=== PATIENT | female | born 1970 | race African-American/Black ===

== ENCOUNTER 2019-12-08 11:41 | Inpatient (IN) ==
[2019-12-08 11:54] VITALS: BMI 40.7
--- NOTE | 2019-12-08 11:59 | DR.EXTPAIN ---
HPI Time seen Time Seen by Provider: 12/08/19 11:59 PCP Primary Care Physician: NILO Complaint/Symptoms Chief Complaint:: PT C/O SEVERE PAIN TO RT LABIA. PT STATES SHE WAS SEEN THIS PAST TUESDAY IN ED AND IT WAS I&D'D. NOTED BROWN DRAINAGE TO 2X2. PT STATES SHE HAS BEEN TAKING PRESCRIBED MEDICATIONS COVID-19 Coronavirus risk:travel/contact w/high risk person: No Has patient experienced Coronavirus symptoms: No Source History Provided: Patient Mode of arrival Mode of Arrival: Ambulatory Timing Onset of Chief Complaint: 12/03/19 PMH PMH Past Medical History: Yes Past Medical History: Anxiety, Diabetes, Dyslipidemia and Hypertension Past Surgical History: Yes Surgical History: Appendectomy Family History History of Family Medical Conditions: Yes Family Medical History: Diabetes Mellitus and Hypertension Social History Does any household member use tobacco: No Alcohol Use: Occasionally Do you use any recreational Drugs:: No Lives With: Family Lives Where: Home Travel Risk Coronavirus risk:travel/contact w/high risk person: No Has patient experienced Coronavirus symptoms: No Infectious screening In the last 2 months have you had wt loss of >10#?: NO Have you had fever, night sweats or hemotysis?: No Have you traveled outside the country in the last 6 months?: No Isolation: Standard PE Vital Signs Vitals: Temperature 98.2 F Pulse Rate 111 Respiratory Rate 18 Blood Pressure [Right Arm] 124/83 Blood Pressure 143/75 O2 Sat by Pulse Oximetry 98 Opioid Opioid Risk Tool Age (Calin box if 16-45): No History of Preadolescent Sexual Abuse: No Total: 0 Total Score Risk Category: Low Risk Copyright: [facility] predicting aberrant behaviors
[2019-12-08] MEDS ORDERED: ZOFRAN INJ 4 MG VIAL IVP ONE (12:00)
[2019-12-08] MEDS ORDERED: DILAUDID INJ IVP ONE (12:00)
[2019-12-08] MEDS ORDERED: ZOFRAN INJ 4 MG VIAL ONE (12:03)
[2019-12-08] MEDS ORDERED: DILAUDID INJ ONE (12:04)
--- NOTE | 2019-12-08 12:17 | ED.ABCESS ---
HPI Time Seen Time Seen by Provider: 12/08/19 11:59 PCP Primary Care Physician: NILO HPI comment HPI Comment: right labial swelling/ pain x 5 days. Purulent discharge from wound, yellow/ foul smelling. Seen in ed 3 days ago, underwent I/d of labial abscess. Rx'd clinda and sent home with po pain meds. Returns for continued discharge/ pain. Denies f/c, other vaginal sx's/ bleeding, abd pain. + nausea and vomiting. Complaint Chief Complaint:: PT C/O SEVERE PAIN TO RT LABIA. PT STATES SHE WAS SEEN THIS PAST TUESDAY IN ED AND IT WAS I&D'D. NOTED BROWN DRAINAGE TO 2X2. PT STATES SHE HAS BEEN TAKING PRESCRIBED MEDICATIONS COVID-19 Coronavirus risk:travel/contact w/high risk person: No Has patient experienced Coronavirus symptoms: No Source History Provided: Patient Mode of Arrival Mode of Arrival: Ambulatory Timing Onset of Chief Complaint: 12/03/19 Quality Quality: Painful, Red and Draining Severity Pain Severity: Moderate Associated Signs and Symptoms Associated Signs and Symptoms: denies Chills and Fever PMH PMH Past Medical History: Yes Past Medical History: Anxiety, Diabetes, Dyslipidemia and Hypertension Past Surgical History: Yes Surgical History: Appendectomy Family History History of Family Medical Conditions: Yes Family Medical History: Diabetes Mellitus and Hypertension Social History Does any household member use tobacco: No Alcohol Use: Occasionally Do you use any recreational Drugs:: No Lives With: Family Lives Where: Home Travel Risk Coronavirus risk:travel/contact w/high risk person: No Has patient experienced Coronavirus symptoms: No Infectious screening In the last 2 months have you had wt loss of >10#?: NO Have you had fever, night sweats or hemotysis?: No Have you traveled outside the country in the last 6 months?: No Isolation: Standard ROS Review of Systems Constitutional: negative Chills and Fever Eyes: No Symptoms Reported ENTM: No Symptoms Reported Respiratoy: No Symptoms Reported Cardiovascular: No Symptoms Reported Gastrointestinal/Abdominal: No Symptoms Reported Genitourinary: negative Discharge, Dysuria, Frequency, Hematuria, Pain and Bleeding Neurological: No Symptoms Reported Musculoskeletal: No Symptoms Reported Integumentary: Wound; negative Rash Hematologic/Lymphatic: No Symptoms Reported Endocrine: No Symptoms Reported Psychiatric: No Symptoms Reported All Other Systems: Reviewed and Negative PE Vital Signs Vital Signs: Temp Pulse Resp BP BP Pulse Ox 12/08/19 13:30 90 17 158/76 100 12/08/19 13:25 93 H 20 145/56 100 12/08/19 13:20 100 H 20 149/74 100 12/08/19 13:17 93 H 16 124/59 100 12/08/19 13:15 94 H 20 100 12/08/19 13:00 89 16 140/73 98 12/08/19 12:45 87 16 98 12/08/19 12:30 91 H 17 138/67 97 12/08/19 12:24 92 H 19 96 12/08/19 12:21 18 12/08/19 11:49 98.2 F 111 H 18 143/75 98 12/05/19 10:58 131/70 12/09/12 12:29 124/83 General Limitations: No Limitations General Appearance: Alert and In No Apparent Distress Head Head Exam: Normal Inspection Eyes Eye exam: Normal Appearance ENT ENT Exam: Normal Exam Neck Neck Exam: Normal Inspection Chest Chest Inspection: Normal Inspection Respiratory Respiratory Exam: Normal Lung Sounds Bilat Cardiovascular Cardiovascular Exam: Regular Rate and Normal Rhythm Abdominal Exam Abdominal Exam: Normal Inspection and Normal Bowel Sounds Extremities Extremities Exam: Normal Inspection Back Back Exam: Normal Inspection and Full ROM Neurologic Neurological Exam: Alert and Oriented X3 Psychiatric Psychiatric Exam: Normal Affect and Normal Mood Skin Skin Exam: Warm, Dry, Intact and Normal Color Other Exam Other Exam: : RN present at bedside t/o exam. Right perilabial mass/ area of fluctuance, yellow purulence easily expressed. MDM Additional Information Additional Information Obtained From: Old Records Differential Diagnosis Differential Diagnosis: Considerations May Include:: Abscess, Cellulitis, Felon and Hidradenitis Suppurativa COURSE Treatment Treatment: 49 yo presents with recurrent labial abscess. Afebrile on arrival. Underwent extensive I/d in ER via procedural sedation. Repeat cultures obtained. Tolerated procedure well and w/o complications. Given vanc/ Zosyn. Hx of poorly controlled DM. Given then, presence of marcelina on labs, as well as need for likely repeat surgical debridement, will admit for iv abx. d/w Dr Jacobo whom agrees to admit. Education/Counseling Education/Counseling: Patient Educated On: Treatment, Diagnosis and Prognosis ROR Labs Reviewed Result Diagrams: 12/08/19 12:08 12/08/19 12:08 Laboratory: WBC 11.6 X10^3/uL (3.6-10.0) H 12/08/19 12:08 RBC 4.15 X10^6/uL (3.5-5.4) 12/08/19 12:08 Hgb 12.6 g/dL (12.0-16.0) 12/08/19 12:08 Hct 37.5 % (36.0-47.0) 12/08/19 12:08 MCV 90.3 fL (80.0-100.0) 12/08/19 12:08 MCH 30.3 pg (27.0-34.0) 12/08/19 12:08 MCHC 33.5 g/dL (33.0-35.0) 12/08/19 12:08 RDW 13.3 % (11.6-16.5) 12/08/19 12:08 Plt Count 265 X10^3/uL (150.0-450.0) 12/08/19 12:08 MPV 9.1 fL (7.4-11.0) 12/08/19 12:08 Neut % (Auto) 80.5 % (42.0-75.0) H 12/08/19 12:08 Lymph % (Auto) 8.6 % (21.0-51.0) L 12/08/19 12:08 [place] % (Auto) 9.5 % (0.0-13.0) 12/08/19 12:08 Eos % (Auto) 0.7 % (0.9-2.9) L 12/08/19 12:08 Baso % (Auto) 0.7 % (0.2-1.0) 12/08/19 12:08 Neut # (Auto) 9.3 x10^3/uL (2.2-4.8) H 12/08/19 12:08 Lymph # (Auto) 1.0 X10^3/uL (1.3-2.9) L 12/08/19 12:08 [place] # (Auto) 1.1 x10^3/uL (0.3-0.8) H 12/08/19 12:08 Eos # (Auto) 0.1 x10^3/uL (0.0-0.2) 12/08/19 12:08 Baso # (Auto) 0.1 X10^3/uL (0.0-0.1) 12/08/19 12:08 Absolute Nucleated RBC 0.0 /100WBC 12/08/19 12:08 Sodium 131 mmol/L (136-145) L 12/08/19 12:08 Corrected Sodium 139 mmol/L (136-145) 12/08/19 12:08 Potassium 3.1 mmol/L (3.5-5.1) L 12/08/19 12:08 Chloride 93 mmol/L (98-107) L 12/08/19 12:08 Carbon Dioxide 30.3 mmol/L (21-32) 12/08/19 12:08 BUN 10 mg/dL (7-18) 12/08/19 12:08 Creatinine 1.24 mg/dL (0.55-1.02) H 12/08/19 12:08 Est GFR (MDRD) Af Amer 59 (>60) 12/08/19 12:08 Est GFR (MDRD) Non-Af 48 (>60) L 12/08/19 12:08 Glucose 441 mg/dL (65-99) H 12/08/19 12:08 Calcium 8.8 mg/dL (8.5-10.1) 12/08/19 12:08 Opioid Opioid Risk Tool Age (Calin box if 16-45): No History of Preadolescent Sexual Abuse: No Total: 0 Total Score Risk Category: Low Risk Copyright: [facility] predicting aberrant behaviors Procedures Incision and Drainage Site: right perilabial Blade Size: 16 I & D Procedure: betadine prep, sterile drapes applied and gauze wick placed Progress: single incision made with 15 blade, 10 cc pus expressed, packed with iodiform gauze used 1% lido w/o epi, procedural sedation performed by license registration examiner pond supervisor under my dir ect Diagnosis Discharge Problem: Abscess of genital labia, MARCELINA (acute kidney injury)
[2019-12-08] MEDS ORDERED: NS 1000 ML 1,000 ML IV ONE (12:18)
[2019-12-08 12:19] LABS: BASOPHILS # (AUTO) 0.1 X10^3/uL (0.0-0.1); BASOPHILS % (AUTO) 0.7 % (0.2-1.0); EOSINOPHILS # (AUTO) 0.1 x10^3/uL (0.0-0.2); EOSINOPHILS % (AUTO) 0.7 % (0.9-2.9); HEMATOCRIT 37.5 % (36.0-47.0); HEMOGLOBIN 12.6 g/dL (12.0-16.0); LYMPHOCYTES % (AUTO) 8.6 % (21.0-51.0); MEAN CORPUSCULAR HEMOGLOBIN 30.3 pg (27.0-34.0); MEAN CORPUSCULAR HGB CONC 33.5 g/dL (33.0-35.0); MEAN CORPUSCULAR VOLUME 90.3 fL (80.0-100.0); MEAN PLATELET VOLUME 9.1 fL (7.4-11.0); MONOCYTES # (AUTO) 1.1 x10^3/uL (0.3-0.8); MONOCYTES % (AUTO) 9.5 % (0.0-13.0); NEUTROPHILS # (AUTO) 9.3 x10^3/uL (2.2-4.8); NEUTROPHILS % (AUTO) 80.5 % (42.0-75.0); PLATELET COUNT 265 X10^3/uL (150.0-450.0); RED BLOOD COUNT 4.15 X10^6/uL (3.5-5.4); RED CELL DISTRIBUTION WIDTH 13.3 % (11.6-16.5); WHITE BLOOD COUNT 11.6 X10^3/uL (3.6-10.0)
[2019-12-08 12:25] LABS: CALCIUM 8.8 mg/dL (8.5-10.1); CARBON DIOXIDE 30.3 mmol/L (21-32); CREATININE 1.24 mg/dL (0.55-1.02)
[2019-12-08] MEDS ORDERED: NS 1000 ML 1,000 ML ONE (12:29)
[2019-12-08] MEDS ORDERED: XYLOCAINE 1 % (PLAIN) ONE (12:44)
[2019-12-08] MEDS ORDERED: NS IRRIGATION 1000 ML 1,000 ML ONE (12:44)
[2019-12-08] MEDS ORDERED: DIPRIVAN VIAL 20 ML ONE (13:11)
[2019-12-08] MEDS ORDERED: VERSED ONE (13:11)
[2019-12-08] MEDS ORDERED: VANCOMYCIN HCL IV ONE (13:34)
[2019-12-08] MEDS ORDERED: ZOSYN VIAL 3.375 GRAMS 3.375 G in NS 100 ML IV + SPIKE MINIBAG* 100 ML IV ONE (13:34)
[2019-12-08] MEDS ORDERED: D5W IV ONE (13:34)
[2019-12-08] MEDS ORDERED: KLOR-CON PO ONE (13:49)
[2019-12-08] MEDS ORDERED: KLOR-CON ONE (13:50)
[2019-12-08] MEDS: NS 1000 ML 1,000 ML IV SCH ×2 (15:31→21:38)
[2019-12-08] MEDS ORDERED: K-DUR TAB 20 MEQ PO PRN (15:40)
[2019-12-08] MEDS ORDERED: POTASSIUM CHL 40 MEQ/NS 0.45% 500 ML IV PRN (15:40)
[2019-12-08] MEDS ORDERED: MICRO K EXTEN CAP 10 MEQ PO PRN (15:40)
[2019-12-08] MEDS ORDERED: K-RIDER 10 MEQ/NS 100 ML 10 MEQ/100 ML BAG IV PRN (15:40)
[2019-12-08] MEDS ORDERED: POTASSIUM CHLORIDE LIQ 20 MEQ UDC PO PRN (15:40)
[2019-12-08] MEDS ORDERED: KLOR-CON PO PRN (15:40)
[2019-12-08] MEDS ORDERED: POTASSIUM CHL 60 MEQ/NS 0.45% 500 ML IV PRN (15:40)
[2019-12-08] MEDS ORDERED: PHARMACY CONSULT - VANCOMYCIN XX SCH (16:00)
[2019-12-08] MEDS: HumuLIN R SUBCUT PRN ×2 (17:03→21:04)
[2019-12-08 17:10] LABS: CREATININE 1.18 mg/dL (0.55-1.02)
[2019-12-08 17:13] LABS: VANCOMYCIN,TROUGH < 2.0 ug/mL (15-20)
[2019-12-08] MEDS: VANCOMYCIN IV *PREMIX 1 G/200 ML BAG 1 G/200 ML PIGGYBACK IV SCH (17:34)
[2019-12-08] MEDS ORDERED: COREG TAB 12.5 MG PO ONE (17:41)
[2019-12-08] MEDS: COREG TAB 12.5 MG PO SCH ×2 (18:00→21:06)
[2019-12-08] MEDS: TYLENOL 325 MG TAB PO PRN (19:39)
[2019-12-08] MEDS: SNACK - Diabetic Appropriate PO SCH (21:04)
[2019-12-08] MEDS: MAGNESIUM SULFATE 1 GRAM/100 mL PREMIX 1 GM/100 ML BAG IV PRN ×2 (21:07→22:10)
[2019-12-08] MEDS: ZOCOR TAB 20 MG PO SCH (21:07)
[2019-12-08] MEDS: MICRO K EXTEN CAP 10 MEQ PO SCH (22:09)
[2019-12-08] MEDS: ZOSYN VIAL 3.375 GRAMS 3.375 G in NS 100 ML IV + SPIKE MINIBAG* 100 ML IV SCH (22:11)
[2019-12-09] MEDS: TYLENOL 325 MG TAB PO PRN ×2 (03:39→20:45)
[2019-12-09] MEDS: VANCOMYCIN IV *PREMIX 1 G/200 ML BAG 1 G/200 ML PIGGYBACK IV SCH ×3 (05:16→21:23)
[2019-12-09] MEDS: NS 1000 ML 1,000 ML IV SCH ×3 (05:17→21:23)
[2019-12-09] MEDS ORDERED: GLUCOPHAGE ONE ×2 (05:33→17:11)
[2019-12-09] MEDS: HumuLIN R SUBCUT PRN ×4 (05:38→20:58)
[2019-12-09] MEDS: ZOSYN VIAL 3.375 GRAMS 3.375 G in NS 100 ML IV + SPIKE MINIBAG* 100 ML IV SCH ×3 (06:02→23:22)
[2019-12-09] MEDS: GLUCOPHAGE PO SCH ×2 (06:02→18:01)
[2019-12-09 06:08] LABS: BASOPHILS # (AUTO) 0.1 X10^3/uL (0.0-0.1); BASOPHILS % (AUTO) 0.6 % (0.2-1.0); EOSINOPHILS # (AUTO) 0.1 x10^3/uL (0.0-0.2); HEMATOCRIT 31.5 % (36.0-47.0); HEMOGLOBIN 10.4 g/dL (12.0-16.0); LYMPHOCYTES # (AUTO) 1.4 X10^3/uL (1.3-2.9); LYMPHOCYTES % (AUTO) 9.4 % (21.0-51.0); MEAN CORPUSCULAR HEMOGLOBIN 30.9 pg (27.0-34.0); MEAN CORPUSCULAR HGB CONC 32.9 g/dL (33.0-35.0); MEAN PLATELET VOLUME 9.7 fL (7.4-11.0); MONOCYTES # (AUTO) 1.5 x10^3/uL (0.3-0.8); MONOCYTES % (AUTO) 10.5 % (0.0-13.0); NEUTROPHILS # (AUTO) 11.4 x10^3/uL (2.2-4.8); NEUTROPHILS % (AUTO) 78.5 % (42.0-75.0); PLATELET COUNT 222 X10^3/uL (150.0-450.0); RED BLOOD COUNT 3.35 X10^6/uL (3.5-5.4); RED CELL DISTRIBUTION WIDTH 12.7 % (11.6-16.5); WHITE BLOOD COUNT 14.5 X10^3/uL (3.6-10.0)
[2019-12-09 06:25] LABS: ALBUMIN 1.9 g/dL (3.4-5.0); CALCIUM 7.9 mg/dL (8.5-10.1); CARBON DIOXIDE 26.2 mmol/L (21-32); COR CA(FOR HYPOALB) 9.6 mg/dL (8.5-10.1); CREATININE 1.5 mg/dL (0.55-1.02); LACTIC ACID 1.9 mmol/L (0.4-2.0); MAGNESIUM 1.8 mg/dL (1.7-2.9); TOTAL PROTEIN 6.5 g/dL (6.4-8.2)
[2019-12-09] MEDS: ZOLOFT PO SCH (08:55)
[2019-12-09] MEDS: MOBIC TAB 15 MG PO SCH (08:55)
[2019-12-09] MEDS: COZAAR PO SCH (08:56)
[2019-12-09] MEDS: NexIUM PO SCH ×2 (08:56→09:02)
[2019-12-09] MEDS: MICRO K EXTEN CAP 10 MEQ PO SCH ×2 (08:57→20:36)
[2019-12-09] MEDS: COREG TAB 12.5 MG PO SCH ×2 (08:58→20:36)
[2019-12-09] MEDS: ALDACTONE TAB 25 MG PO SCH (08:58)
[2019-12-09] MEDS ORDERED: NexIUM PO PRN (09:03)
--- NOTE | 2019-12-09 11:00 | DR.H&P ---
H&P History & Physical for Day of: H&P Date: 12/09/19 Chief Complaint Chief Complaint: Right labial abscess Allergies Allergies Allergy/AdvReac Type Severity Reaction Status Date / Time No Known Drug Allergies Allergy Verified 12/05/19 10:57 History of Present Illness History of Present Illness: Pt is a 49 yo f pmhx CHF, HTN, DMT2, admitted for IV antibiotics after having I&D of abscess on her right labia. She initially went to ED a few days prior to admission and had I&D of abscess and discharged with antibiotics. However, pt reports that pain progressively increased and she felt area get larger and had more discharge. In ED, pt had I&D of abscess again, that noted copious foul discharge, cultures obtained. Labs/imaging: Wbc 11.6>14.5, Hgb 10.4, Plt 222, Na 137, K 3.3, Cr 1.5, Gluc 357, WoundCx NGTD. She is on IV Vancomycin+Zosyn. Will repack wound today. Consult general surgery for further evaluation. Continue to monitor and follow up labs in the morning. Past Medical History Past Medical History: Anxiety, Diabetes, Dyslipidemia and Hypertension Past Surgical History Surgical History: Appendectomy Family History Family Medical History: Diabetes Mellitus and Hypertension Social History Does patient currently use any type of tobacco product: No Have you used tobacco products in the last 12 months: No Type of Tobacco Use: None Does any household member use tobacco: No Alcohol Use: Occasionally Drug Use: None Medications Home Medications: No Known Drug Allergies Allergy (Verified 12/05/19 10:57) CONTINUE taking the following medications carvedilol 12.5 mg PO BID 12/08/19 [History] esomeprazole magnesium 20 mg PO DAILY 12/08/19 [History] furosemide 80 mg PO BID 12/08/19 [History] hydrocodone-acetaminophen 1 tab PO TID PRN 12/08/19 [History] losartan 25 mg PO DAILY 12/08/19 [History] meloxicam 7.5 mg PO DAILY 12/08/19 [History] metformin 1,000 mg PO BID 12/08/19 [History] potassium chloride 10 meq PO BID 12/08/19 [History] probenecid-colchicine 1 tab PO DAILY 12/08/19 [History] sertraline 50 mg PO DAILY 12/08/19 [History] simvastatin 20 mg PO HS 12/08/19 [History] Labs Result Diagrams: 12/09/19 04:37 12/09/19 04:37 Labs: 12/08/19 13:20 Labia - Abscess Gram Stain - Final 12/08/19 13:20 Labia - Abscess Wound Culture - Preliminary Laboratory WBC 14.5 X10^3/uL (3.6-10.0) H 12/09/19 04:37 RBC 3.35 X10^6/uL (3.5-5.4) L 12/09/19 04:37 Hgb 10.4 g/dL (12.0-16.0) L D 12/09/19 04:37 Hct 31.5 % (36.0-47.0) L 12/09/19 04:37 MCV 94.0 fL (80.0-100.0) 12/09/19 04:37 MCH 30.9 pg (27.0-34.0) 12/09/19 04:37 MCHC 32.9 g/dL (33.0-35.0) L 12/09/19 04:37 RDW 12.7 % (11.6-16.5) 12/09/19 04:37 Plt Count 222 X10^3/uL (150.0-450.0) 12/09/19 04:37 MPV 9.7 fL (7.4-11.0) 12/09/19 04:37 Neut % (Auto) 78.5 % (42.0-75.0) H 12/09/19 04:37 Lymph % (Auto) 9.4 % (21.0-51.0) L 12/09/19 04:37 [place] % (Auto) 10.5 % (0.0-13.0) 12/09/19 04:37 Eos % (Auto) 1.0 % (0.9-2.9) 12/09/19 04:37 Baso % (Auto) 0.6 % (0.2-1.0) 12/09/19 04:37 Neut # (Auto) 11.4 x10^3/uL (2.2-4.8) H 12/09/19 04:37 Lymph # (Auto) 1.4 X10^3/uL (1.3-2.9) 12/09/19 04:37 [place] # (Auto) 1.5 x10^3/uL (0.3-0.8) H 12/09/19 04:37 Eos # (Auto) 0.1 x10^3/uL (0.0-0.2) 12/09/19 04:37 Baso # (Auto) 0.1 X10^3/uL (0.0-0.1) 12/09/19 04:37 Absolute Nucleated RBC 0.0 /100WBC 12/09/19 04:37 Sodium 130 mmol/L (136-145) L 12/09/19 04:37 Corrected Sodium 137 mmol/L (136-145) 12/09/19 04:37 Potassium 3.3 mmol/L (3.5-5.1) L 12/09/19 04:37 Chloride 95 mmol/L (98-107) L 12/09/19 04:37 Carbon Dioxide 26.2 mmol/L (21-32) 12/09/19 04:37 BUN 13 mg/dL (7-18) 12/09/19 04:37 Creatinine 1.50 mg/dL (0.55-1.02) H 12/09/19 04:37 Est GFR (MDRD) Af Amer 47 (>60) L 12/09/19 04:37 Est GFR (MDRD) Non-Af 39 (>60) L 12/09/19 04:37 Glucose 409 mg/dL (65-99) H 12/09/19 04:37 POC Glucose (mg/dL) 357 mg/dL (65-99) H 12/09/19 05:26 Lactic Acid 1.9 mmol/L (0.4-2.0) 12/09/19 04:37 Calcium 7.9 mg/dL (8.5-10.1) L 12/09/19 04:37 Corrected Calcium 9.6 mg/dL (8.5-10.1) 12/09/19 04:37 Magnesium 1.8 mg/dL (1.7-2.9) 12/09/19 04:37 Total Bilirubin 0.90 mg/dL (0.2-1.0) 12/09/19 04:37 AST 14 Units/L (15-37) L 12/09/19 04:37 ALT 6 Units/L (12-78) L 12/09/19 04:37 Alkaline Phosphatase 105 Units/L (46-116) 12/09/19 04:37 Total Protein 6.5 g/dL (6.4-8.2) 12/09/19 04:37 Albumin 1.9 g/dL (3.4-5.0) L 12/09/19 04:37 Globulin 4.6 g/dL (2.5-4.5) H 12/09/19 04:37 Albumin/Globulin Ratio 0.4 Ratio (1.1-2.1) L 12/09/19 04:37 Vancomycin Trough < 2.0 ug/mL (15-20) L 12/08/19 12:08 Review of Systems Constitutional: Fever and Chills Eyes: No Symptoms Reported ENT: No Symptoms Reported Respiratory: No Symptoms Reported Cardiovascular: No Symptoms Reported Gastrointestinal: No Symptoms Reported Genitourinary: Other (right labial wound) Musculoskeletal: No Symptoms Reported Skin: Wound (right labia) Neurological: No Symptoms Reported Physical Exam Vital Signs: Temperature 98.4 F Pulse Rate [Left Brachial] 94 Pulse Rate [Right Brachial] 86 Pulse Rate 91 Respiratory Rate 18 Blood Pressure [Left Arm] 119/56 Blood Pressure [Right Arm] 102/57 Blood Pressure 117/66 O2 Sat by Pulse Oximetry 94 Oriented: Normal Eyes: Normal Ear: Normal Nose: Normal Throat: Normal Respiratory: Clear Throughout Cardiovascular: Normal : Other (right labial wound packing ) Auscultation: Bowel Sounds: Normal Palpation: Normal Tenderness: Normal Skin: Normal Musculoskeletal: Normal Psychiatric: Normal Speech Pattern: Clear Assessment/Plan (1) Abscess of genital labia: Status: Acute Plan: IV Vancomycin+Zosyn WoundCx pending Consult General surgery (2) SHANTANU (acute kidney injury): Status: Acute Plan: gentle hydration (3) CHF (congestive heart failure): Status: Acute (4) Hypertension: Status: Acute (5) Diabetes mellitus: Status: Acute Review H&P Reviewed: Yes Patient was examined?: Yes
[2019-12-09] MEDS: LASIX PO SCH ×2 (11:11→20:36)
[2019-12-09] MEDS: MAGNESIUM SULFATE 1 GRAM/100 mL PREMIX 1 GM/100 ML BAG IV PRN (11:54)
[2019-12-09] MEDS: SNACK - Diabetic Appropriate PO SCH (20:36)
[2019-12-09] MEDS: ZOCOR TAB 20 MG PO SCH (20:36)
[2019-12-09 21:09] LABS: CREATININE 1.35 mg/dL (0.55-1.02); VANCOMYCIN,TROUGH 19.2 ug/mL (15-20)
[2019-12-09] MEDS ORDERED: PHARMACY COMMENT IV NR (21:30)
[2019-12-09] MEDS: NORCO 10/325 TAB PO PRN (22:02)
[2019-12-10] MEDS ORDERED: GLUCOPHAGE ONE (05:07)
[2019-12-10] MEDS: NS 1000 ML 1,000 ML IV SCH (05:14)
[2019-12-10] MEDS: VANCOMYCIN IV *PREMIX 1 G/200 ML BAG 1 G/200 ML PIGGYBACK IV SCH (05:14)
[2019-12-10 05:22] LABS: BASOPHILS # (AUTO) 0.1 X10^3/uL (0.0-0.1); BASOPHILS % (AUTO) 0.7 % (0.2-1.0); EOSINOPHILS # (AUTO) 0.3 x10^3/uL (0.0-0.2); EOSINOPHILS % (AUTO) 2.8 % (0.9-2.9); HEMATOCRIT 31.9 % (36.0-47.0); HEMOGLOBIN 10.6 g/dL (12.0-16.0); LYMPHOCYTES # (AUTO) 1.7 X10^3/uL (1.3-2.9); LYMPHOCYTES % (AUTO) 14.8 % (21.0-51.0); MEAN CORPUSCULAR HEMOGLOBIN 30.7 pg (27.0-34.0); MEAN CORPUSCULAR HGB CONC 33.3 g/dL (33.0-35.0); MEAN CORPUSCULAR VOLUME 92.2 fL (80.0-100.0); MEAN PLATELET VOLUME 9.7 fL (7.4-11.0); MONOCYTES # (AUTO) 1.3 x10^3/uL (0.3-0.8); NEUTROPHILS # (AUTO) 8.4 x10^3/uL (2.2-4.8); NEUTROPHILS % (AUTO) 70.7 % (42.0-75.0); PLATELET COUNT 246 X10^3/uL (150.0-450.0); RED BLOOD COUNT 3.46 X10^6/uL (3.5-5.4); RED CELL DISTRIBUTION WIDTH 13.3 % (11.6-16.5); WHITE BLOOD COUNT 11.8 X10^3/uL (3.6-10.0)
[2019-12-10 05:37] LABS: ALBUMIN 1.9 g/dL (3.4-5.0); CALCIUM 8.3 mg/dL (8.5-10.1); CARBON DIOXIDE 27.2 mmol/L (21-32); CREATININE 1.38 mg/dL (0.55-1.02); MAGNESIUM 1.9 mg/dL (1.7-2.9)
[2019-12-10] MEDS: GLUCOPHAGE PO SCH (06:04)
[2019-12-10] MEDS: ZOSYN VIAL 3.375 GRAMS 3.375 G in NS 100 ML IV + SPIKE MINIBAG* 100 ML IV SCH (06:04)
[2019-12-10] MEDS: TYLENOL 325 MG TAB PO PRN (06:23)
[2019-12-10] MEDS: MAGNESIUM SULFATE 1 GRAM/100 mL PREMIX 1 GM/100 ML BAG IV PRN ×3 (08:45→10:02)
--- NOTE | 2019-12-10 08:45 | W.DIS.FURT ---
Summary of Discharge Discharge Summary of Date Date of Exam: 12/10/19 Admission Date Date of Admission: 12/09/19 Admission Diagnosis Patient Problems (Updated 12/09/19 @ 10:59 by Jr Smith) Diabetes mellitus (Acute) E11.9 Hypertension (Acute) I10 CHF (congestive heart failure) (Acute) I50.9 Abscess of genital labia (Acute) N76.4 SHANTANU (acute kidney injury) (Acute) N17.9 Hospital Course: Pt is a 49 yo f pmhx CHF, HTN, DMT2, admitted for IV antibiotics after having I&D of abscess on her right labia. She initially went to ED a few days prior to admission and had I&D of abscess and discharged with antibiotics. However, her pain, swelling, and discharge worsened in the interval. Pt had another I&D of abscess performed in the ED and received IV Vancomycin and Zosyn. Wound cultures NGTD. General surgery-Dr Murillo was consulted. He evaluated wound/packing and recommends follow up outpatient on and to continue Clindamycin. Rx filled by hospital pharmacy d/t . Pt stable on discharge and instructed on wound care, and follow up with pcp and general surgery this week. Vital Signs: Vital Signs (72 hours) 12/08/19 11:49 12/08/19 12:21 12/08/19 12:24 Temperature 98.2 F Pulse Rate 111 H 92 H Pulse Rate [Left Brachial] Pulse Rate [Right Brachial] Respiratory Rate 18 18 19 Blood Pressure 143/75 Blood Pressure [Left Arm] Blood Pressure [Right Arm] O2 Sat by Pulse Oximetry 98 96 12/08/19 12:30 12/08/19 12:45 12/08/19 13:00 Temperature Pulse Rate 91 H 87 89 Pulse Rate [Left Brachial] Pulse Rate [Right Brachial] Respiratory Rate 17 16 16 Blood Pressure 138/67 140/73 Blood Pressure [Left Arm] Blood Pressure [Right Arm] O2 Sat by Pulse Oximetry 97 98 98 12/08/19 13:15 12/08/19 13:17 12/08/19 13:20 Temperature Pulse Rate 94 H 93 H 100 H Pulse Rate [Left Brachial] Pulse Rate [Right Brachial] Respiratory Rate 20 16 20 Blood Pressure 124/59 149/74 Blood Pressure [Left Arm] Blood Pressure [Right Arm] O2 Sat by Pulse Oximetry 100 100 100 12/08/19 13:25 12/08/19 13:30 12/08/19 13:35 Temperature Pulse Rate 93 H 90 90 Pulse Rate [Left Brachial] Pulse Rate [Right Brachial] Respiratory Rate 20 17 17 Blood Pressure 145/56 158/76 157/78 Blood Pressure [Left Arm] Blood Pressure [Right Arm] O2 Sat by Pulse Oximetry 100 100 100 12/08/19 13:40 12/08/19 13:45 12/08/19 14:00 Temperature Pulse Rate 96 H 93 H 89 Pulse Rate [Left Brachial] Pulse Rate [Right Brachial] Respiratory Rate 21 23 20 Blood Pressure 156/81 160/84 Blood Pressure [Left Arm] Blood Pressure [Right Arm] O2 Sat by Pulse Oximetry 100 99 98 12/08/19 14:15 12/08/19 14:16 12/08/19 16:00 Temperature 99.6 F Pulse Rate 88 91 H Pulse Rate [Left Brachial] 123 H Pulse Rate [Right Brachial] 123 H Respiratory Rate 16 24 20 Blood Pressure 117/66 Blood Pressure [Left Arm] 140/83 Blood Pressure [Right Arm] O2 Sat by Pulse Oximetry 97 98 93 L 12/08/19 19:39 12/08/19 20:00 12/08/19 20:39 Temperature 103.0 F H Pulse Rate Pulse Rate [Left Brachial] 110 H Pulse Rate [Right Brachial] Respiratory Rate 24 20 21 Blood Pressure Blood Pressure [Left Arm] 95/60 Blood Pressure [Right Arm] O2 Sat by Pulse Oximetry 92 L 12/08/19 21:00 12/09/19 00:00 12/09/19 01:03 Temperature 99.2 F 98.7 F Pulse Rate Pulse Rate [Left Brachial] 82 Pulse Rate [Right Brachial] Respiratory Rate 20 Blood Pressure Blood Pressure [Left Arm] 80/50 116/63 Blood Pressure [Right Arm] O2 Sat by Pulse Oximetry 93 L 12/09/19 03:39 12/09/19 04:00 12/09/19 04:39 Temperature 101.8 F H Pulse Rate Pulse Rate [Left Brachial] 94 H Pulse Rate [Right Brachial] Respiratory Rate 21 22 17 Blood Pressure Blood Pressure [Left Arm] 119/56 Blood Pressure [Right Arm] O2 Sat by Pulse Oximetry 95 12/09/19 05:00 12/09/19 07:54 12/09/19 12:00 Temperature 99.0 F 98.4 F 98.6 F Pulse Rate Pulse Rate [Left Brachial] Pulse Rate [Right Brachial] 86 86 Respiratory Rate 18 18 Blood Pressure Blood Pressure [Left Arm] Blood Pressure [Right Arm] 102/57 119/57 O2 Sat by Pulse Oximetry 94 L 92 L 12/09/19 16:00 12/09/19 19:58 12/09/19 20:45 Temperature 98.4 F 100.1 F H Pulse Rate Pulse Rate [Left Brachial] 92 H Pulse Rate [Right Brachial] 86 Respiratory Rate 18 23 22 Blood Pressure Blood Pressure [Left Arm] 101/52 Blood Pressure [Right Arm] 102/57 O2 Sat by Pulse Oximetry 94 L 97 12/09/19 21:45 12/09/19 22:02 12/09/19 23:02 Temperature Pulse Rate Pulse Rate [Left Brachial] Pulse Rate [Right Brachial] Respiratory Rate 21 21 23 Blood Pressure Blood Pressure [Left Arm] Blood Pressure [Right Arm] O2 Sat by Pulse Oximetry 12/09/19 23:29 12/10/19 03:26 12/10/19 06:22 Temperature 98.1 F 97.7 F Pulse Rate Pulse Rate [Left Brachial] 50 L 72 Pulse Rate [Right Brachial] Respiratory Rate 24 20 Blood Pressure Blood Pressure [Left Arm] 92/50 200/120 Blood Pressure [Right Arm] 93/54 O2 Sat by Pulse Oximetry 94 L 99 12/10/19 06:23 12/10/19 07:23 Temperature Pulse Rate Pulse Rate [Left Brachial] Pulse Rate [Right Brachial] Respiratory Rate 20 20 Blood Pressure Blood Pressure [Left Arm] Blood Pressure [Right Arm] O2 Sat by Pulse Oximetry Labs: Laboratory Last Values WBC 11.8 X10^3/uL (3.6-10.0) H 12/10/19 04:01 RBC 3.46 X10^6/uL (3.5-5.4) L 12/10/19 04:01 Hgb 10.6 g/dL (12.0-16.0) L 12/10/19 04:01 Hct 31.9 % (36.0-47.0) L 12/10/19 04:01 MCV 92.2 fL (80.0-100.0) 12/10/19 04:01 MCH 30.7 pg (27.0-34.0) 12/10/19 04:01 MCHC 33.3 g/dL (33.0-35.0) 12/10/19 04:01 RDW 13.3 % (11.6-16.5) 12/10/19 04:01 Plt Count 246 X10^3/uL (150.0-450.0) 12/10/19 04:01 MPV 9.7 fL (7.4-11.0) 12/10/19 04:01 Neut % (Auto) 70.7 % (42.0-75.0) 12/10/19 04:01 Lymph % (Auto) 14.8 % (21.0-51.0) L 12/10/19 04:01 [place] % (Auto) 11.0 % (0.0-13.0) 12/10/19 04:01 Eos % (Auto) 2.8 % (0.9-2.9) 12/10/19 04:01 Baso % (Auto) 0.7 % (0.2-1.0) 12/10/19 04:01 Neut # (Auto) 8.4 x10^3/uL (2.2-4.8) H 12/10/19 04:01 Lymph # (Auto) 1.7 X10^3/uL (1.3-2.9) 12/10/19 04:01 [place] # (Auto) 1.3 x10^3/uL (0.3-0.8) H 12/10/19 04:01 Eos # (Auto) 0.3 x10^3/uL (0.0-0.2) H 12/10/19 04:01 Baso # (Auto) 0.1 X10^3/uL (0.0-0.1) 12/10/19 04:01 Absolute Nucleated RBC 0.0 /100WBC 12/10/19 04:01 Sodium 137 mmol/L (136-145) 12/10/19 04:01 Corrected Sodium 138 mmol/L (136-145) 12/10/19 04:01 Potassium 3.7 mmol/L (3.5-5.1) 12/10/19 04:01 Chloride 101 mmol/L (98-107) 12/10/19 04:01 Carbon Dioxide 27.2 mmol/L (21-32) 12/10/19 04:01 BUN 17 mg/dL (7-18) 12/10/19 04:01 Creatinine 1.38 mg/dL (0.55-1.02) H 12/10/19 04:01 Est GFR (MDRD) Af Amer 52 (>60) L 12/10/19 04:01 Est GFR (MDRD) Non-Af 43 (>60) L 12/10/19 04:01 Glucose 159 mg/dL (65-99) H 12/10/19 04:01 POC Glucose (mg/dL) 158 mg/dL (65-99) H 12/10/19 05:26 Lactic Acid 1.9 mmol/L (0.4-2.0) 12/09/19 04:37 Calcium 8.3 mg/dL (8.5-10.1) L 12/10/19 04:01 Corrected Calcium 10.0 mg/dL (8.5-10.1) 12/10/19 04:01 Magnesium 1.9 mg/dL (1.7-2.9) 12/10/19 04:01 Total Bilirubin 0.50 mg/dL (0.2-1.0) 12/10/19 04:01 AST 13 Units/L (15-37) L 12/10/19 04:01 ALT 6 Units/L (12-78) L 12/10/19 04:01 Alkaline Phosphatase 120 Units/L (46-116) H 12/10/19 04:01 Total Protein 7.0 g/dL (6.4-8.2) 12/10/19 04:01 Albumin 1.9 g/dL (3.4-5.0) L 12/10/19 04:01 Globulin 5.1 g/dL (2.5-4.5) H 12/10/19 04:01 Albumin/Globulin Ratio 0.4 Ratio (1.1-2.1) L 12/10/19 04:01 Vancomycin Trough 19.2 ug/mL (15-20) 12/09/19 20:39 Reason For Visit: LABIAL ABSCESS/CELLULITIS, SHANTANU Discharge Date Discharge Date: 12/10/19 Discharge Diagnosis All Active Problems (Updated 12/09/19 @ 10:59 by Jr Smith) Diabetes mellitus (Acute) Hypertension (Acute) CHF (congestive heart failure) (Acute) Abdominal pain (Active) Boil, labium (Acute) Abscess of genital labia (Acute) SHANTANU (acute kidney injury) (Acute) Plan of Treatment: Continue with present treatment and follow up plan. Pt is to keep follow up appointment as instructed and take medications as ordered. Discharge Medications Discharge Medications: No Known Drug Allergies Allergy (Verified 12/05/19 10:57) CONTINUE taking the following medications carvedilol 12.5 mg PO BID 12/08/19 [History] esomeprazole magnesium 20 mg PO DAILY 12/08/19 [History] furosemide 80 mg PO BID 12/08/19 [History] hydrocodone-acetaminophen 1 tab PO TID PRN 12/08/19 [History] losartan 25 mg PO DAILY 12/08/19 [History] meloxicam 7.5 mg PO DAILY 12/08/19 [History] metformin 1,000 mg PO BID 12/08/19 [History] potassium chloride 10 meq PO BID 12/08/19 [History] probenecid-colchicine 1 tab PO DAILY 12/08/19 [History] sertraline 50 mg PO DAILY 12/08/19 [History] simvastatin 20 mg PO HS 12/08/19 [History] Discharge Disposition Discharge Disposition: Home Discharge Condition: Stable
[2019-12-10] MEDS: COZAAR PO SCH (08:51)
[2019-12-10] MEDS: NORCO 10/325 TAB PO PRN (08:52)
[2019-12-10] MEDS: ZOLOFT PO SCH (08:52)
[2019-12-10] MEDS: MICRO K EXTEN CAP 10 MEQ PO SCH (08:53)
[2019-12-10] MEDS: ALDACTONE TAB 25 MG PO SCH (08:54)
[2019-12-10] MEDS: LASIX PO SCH (08:54)
[2019-12-10] MEDS: COREG TAB 12.5 MG PO SCH (08:54)
[2019-12-10] MEDS: MOBIC TAB 15 MG PO SCH (08:55)
[2019-12-10] MEDS: NexIUM PO SCH (08:55)
[2019-12-10] MEDS: HumuLIN R SUBCUT PRN (11:05)
[2019-12-10 11:34] VITALS: BP 102/56
[2019-12-10] MEDS ORDERED: VANCOMYCIN HCL 1 G in NS 250 ML IV 250 ML IV SCH (21:00)
[2019-12-12] MEDS ORDERED: PHARMACY COMMENT IV NR (08:30)
== END 2019-12-10 11:55 | disposition home or self-care (01) | DRG 746 ==
LOC: ER 11:41 → MED/SURG 13:35
PROVIDERS: ADMIT Family Medicine; ATTEND Family Medicine
DX: I11.0 Hypertensive heart disease with heart failure; E11.65 Type 2 diabetes mellitus with hyperglycemia; I50.9 Heart failure, unspecified; E78.2 Mixed hyperlipidemia; N76.2 Acute vulvitis; N76.4 Abscess of vulva; N17.8 Other acute kidney failure; F41.8 Other specified anxiety disorders; B95.7 Other staphylococcus as the cause of diseases classified elsewhere
CPT/HCPCS: 36415; 80048; 80053; 80202; 82565; 83605; 83735; 84132; 85025; 87040; 87070; 87075; 87077; 87186; 87205; 94760; 96365; 96367; 96374; 96375; 99284; A4216; A4222; J1170; J1815; J2405; J2543; J3370; J3475; J3490; J7030; J7050; J7060

== ENCOUNTER 2019-12-24 05:13 | Inpatient (IN) ==
[2019-12-24] MEDS ORDERED: LASIX IVP ONE ×2 (05:40→05:42)
--- NOTE | 2019-12-24 06:00 | DR.SOBA ---
HPI Time Seen Time Seen by Provider: 12/24/19 05:31 Primary Care Physician Primary Care Physician: ARIANNA GARVIN HPI Comment HPI Comment: PATIENT IS 49YR OLD FEMALE WITH HISTORY OF CHF, DYSLIPEMIA, DM AND HTN IS IN ER WITH INCREASING SOB THAT GOT WORSE TONIGHT. PATIENT IS COMPLIANT WITH MEDICATION. SHE DENIES HOME OXYGEN USE. DYSPNEA WORSE WITH EXERTION AND DECREASES WITH REST.HAVE HAD SIMILAR EPISODES DUE TO CHF EXACERBATION PREVIOUSLY. Complaints Chief Complaint Doctors Comments: INCREASING SOB AND PERIPHERAL EDEMA THAT IS ON GOING SINCE SURGERY FEW WEEKS AGO FOR LABIAL I&D UNDER GENERAL ANEATHESIA. LAST NIGHT SOB GOT. O2 SAT IN THE 70S IN ER. HISTORY CHF ON LASIX. TOOK EXTRA LASIX WITHOUT IMPROVEMENT. COUGHING, PRODUCTIVE WITH MILD CLEAR SPUTUM. NO FEVER. PATIENT HAVE SOME CHEST TIGHTNESS. PERIPHERAL EDEMA IS INCREASING. PATIENT SAID SHE IS NOT DIUERESING WITH LASIX SHE DID PREVIOUSLY. Chief Complaint:: PATIENT STATES SHE HAD SURGERY A FEW WEEKS AGO AND SHE HAS HAD SHORTNESS OF BREATH SINCE THAT HAS GOTTEN WORSE TONIGHT. STATES SHE HAS BEEN TAKING HER LASIX FOR HER CHF, PT NOTED TO HAVE SOB WITH EXCERTION AND JUST SITTING IN THE CHAIR. Self Treatment fo Chief Complaint: ROUTINE LASIX AT HOME. COVID-19 Coronavirus risk:travel/contact w/high risk person: No Has patient experienced Coronavirus symptoms: No Coronavirus symptoms experienced: Shortness of Breath Reviewed Nurses Notes Reviewed: Yes Source History Provided: Patient Mode of Arrival Mode of Arrival: Ambulatory Timing Onset of Chief Complaint: 12/24/19 Duration Duration: Hours Context Onset:: At Rest PE Risk Factors:: None History of:: CHF Currently on:: Neither Prehospital Care:: Furosemide Modifying Factors Worsens:: Exertion Improves:: Rest and Sitting Up Associated Signs and Symptoms Associated Signs and Symptoms: Cough, Chest Pain and Leg Swelling If Chest Pain Quality: Pleuritic Location: Substernal If Cough Cough: Productive and Clear PMH PMH Past Medical History: Yes Past Medical History: Anxiety, CHF, Diabetes, Dyslipidemia and Hypertension Past Surgical History: Yes Surgical History: Appendectomy and Other Past Surgical History Comment: CYST REMOVED X2 Family History History of Family Medical Conditions: Yes Family Medical History: Diabetes Mellitus and Hypertension Social History Does patient currently use any type of tobacco product: No Have you used tobacco products in the last 12 months: No Type of Tobacco Use: Cigarettes Does any household member use tobacco: No Alcohol Use: Occasionally Do you use any recreational Drugs:: No Lives With: Family Lives Where: Home Infectious screening In the last 2 months have you had wt loss of >10#?: NO Have you had fever, night sweats or hemotysis?: No Have you traveled outside the country in the last 6 months?: No Isolation: Standard ROS Review of Systems Constitutional: Weakness and Fatigue; negative Fever Eyes: No Symptoms Reported and See HPI; negative Blurred Vision and Diplopia ENTM: No Symptoms Reported, See HPI and Nose Congestion; negative Ear Pain, Nose Discharge and Throat Pain Respiratoy: No Symptoms Reported, See HPI, Productive Cough, Short of Breath and Wheezing Cardiovascular: No Symptoms Reported, See HPI, Chest Pain and Edema Gastrointestinal/Abdominal: No Symptoms Reported and See HPI; negative Abdominal Pain, Diarrhea and Vomiting Genitourinary: No Symptoms Reported and See HPI; negative Dysuria, Frequency and Hematuria Neurological: See HPI and Weakness; negative Headache and Dizziness Musculoskeletal: No Symptoms Reported, See HPI and Back Pain Integumentary: No Symptoms Reported, See HPI and Change in Color Hematologic/Lymphatic: No Symptoms Reported and See HPI Endocrine: No Symptoms Reported, See HPI, Increased Thirst and Increased Urine Psychiatric: No Symptoms Reported and See HPI All Other Systems: Reviewed and Negative PE Vital Signs Vitals: Temperature 97.1 F Pulse Rate [Left] 90 Pulse Rate 111 Respiratory Rate 20 Blood Pressure [Left Arm] 131/78 Blood Pressure [Right Arm] 137/87 Blood Pressure 140/83 O2 Sat by Pulse Oximetry 97 General Limitations: No Limitations General Appearance: Alert and In No Apparent Distress Head Head Exam: Normal Inspection and Atraumatic Eyes Eye exam: Normal Appearance and PERRL; negative Scleral Icterus and Conjunctival Injection ENT ENT Exam: Normal Exam, Normal Oropharynx, Normal External Ear Exam and TM's Normal Bilaterally Neck Neck Exam: Normal Inspection and Trachea Midline; negative Tenderness and Lympha denopathy Chest Chest Inspection: Normal Inspection and Symmetric Chest Wall Rise; negative Tenderness Respiratory Respiratory Exam: Normal Lung Sounds Bilat; negative Accessory Muscle Use, Chest Wall Tenderness and Respiratory Distress Respiratory Exam: Bilateral: Rhonchi and Lower: Rhonchi Cardiovascular Cardiovascular Exam: Regular Rate, Normal Rhythm and Normal Heart Sounds; negative Systolic Murmur and Diastolic Murmur Abdominal Exam Abdominal Exam: Normal Bowel Sounds and Soft; negative Tenderness Extremities Extremities Exam: Normal Capillary Refill and Edema; negative Tenderness and Calf Tenderness Back Back Exam: Normal Inspection; negative (R) CVA Tenderness and (L) CVA Tenderness Neurologic Neurological Exam: Alert, Oriented X3 and CN II-XII Intact; negative Motor Sensory Deficit Psychiatric Psychiatric Exam: Normal Affect and Normal Mood Skin Skin Exam: Warm, Dry, Intact and Normal Color MDM Additional Information Obtained Additional Information Obtained From: Old Records Differential Diagnosis Differential Diagnosis: Bronchitis, CHF, COPD, Dysrhythmia, Hyponatremia, Mycardial Infarction, Pneumonia, Pneumothorax, Pulmonary embolism, Respiratory Failure and Respiratory Insufficiency COURSE Treatment Treatment: SEE ORDERS. LASIX, 40MG IV IN ER. PATIENT SIGN OUT TO DR. GALLO. 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 Education/Counseling Education/Counseling: Patient Educated On: Diagnosis ROR Labs Reviewed Laboratory Results Reviewed?: Yes Result Diagrams: 12/24/19 06:06 12/24/19 10:30 Laboratory: WBC 7.9 X10^3/uL (3.6-10.0) 12/24/19 06:06 RBC 4.14 X10^6/uL (3.5-5.4) 12/24/19 06:06 Hgb 12.6 g/dL (12.0-16.0) 12/24/19 06:06 Hct 37.9 % (36.0-47.0) 12/24/19 06:06 MCV 91.5 fL (80.0-100.0) 12/24/19 06:06 MCH 30.3 pg (27.0-34.0) 12/24/19 06:06 MCHC 33.2 g/dL (33.0-35.0) 12/24/19 06:06 RDW 13.9 % (11.6-16.5) 12/24/19 06:06 Plt Count 311 X10^3/uL (150.0-450.0) 12/24/19 06:06 MPV 9.2 fL (7.4-11.0) 12/24/19 06:06 Neut % (Auto) 79.0 % (42.0-75.0) H 12/24/19 06:06 Lymph % (Auto) 12.6 % (21.0-51.0) L 12/24/19 06:06 [place] % (Auto) 5.5 % (0.0-13.0) 12/24/19 06:06 Eos % (Auto) 1.8 % (0.9-2.9) 12/24/19 06:06 Baso % (Auto) 1.1 % (0.2-1.0) H 12/24/19 06:06 Neut # (Auto) 6.3 x10^3/uL (2.2-4.8) H 12/24/19 06:06 Lymph # (Auto) 1.0 X10^3/uL (1.3-2.9) L 12/24/19 06:06 [place] # (Auto) 0.4 x10^3/uL (0.3-0.8) 12/24/19 06:06 Eos # (Auto) 0.1 x10^3/uL (0.0-0.2) 12/24/19 06:06 Baso # (Auto) 0.1 X10^3/uL (0.0-0.1) 12/24/19 06:06 Absolute Nucleated RBC 0.0 /100WBC 12/24/19 06:06 D-Dimer 818 ng/mL (0-400) H* 12/24/19 06:06 Sodium 134 mmol/L (136-145) L 12/24/19 06:06 Corrected Sodium 143 mmol/L (136-145) 12/24/19 06:06 Potassium 3.4 mmol/L (3.5-5.1) L 12/24/19 06:06 Chloride 95 mmol/L (98-107) L 12/24/19 06:06 Carbon Dioxide 30.7 mmol/L (21-32) 12/24/19 06:06 BUN 17 mg/dL (7-18) 12/24/19 06:06 Creatinine 1.10 mg/dL (0.55-1.02) H 12/24/19 06:06 Est GFR (MDRD) Af Amer > 60 (>60) 12/24/19 06:06 Est GFR (MDRD) Non-Af 56 (>60) L 12/24/19 06:06 Glucose 485 mg/dL (65-99) H 12/24/19 06:06 Lactic Acid 1.8 mmol/L (0.4-2.0) 12/24/19 06:06 Calcium 9.2 mg/dL (8.5-10.1) 12/24/19 06:06 Corrected Calcium 10.1 mg/dL (8.5-10.1) 12/24/19 06:06 Total Bilirubin 0.70 mg/dL (0.2-1.0) 12/24/19 06:06 AST 38 Units/L (15-37) H 12/24/19 06:06 ALT 16 Units/L (12-78) 12/24/19 06:06 Alkaline Phosphatase 131 Units/L (46-116) H 12/24/19 06:06 Creatine Kinase 69 Units/L (26-192) 12/24/19 06:06 CK-MB (CK-2) < 1.0 ng/mL (0-4.0) 12/24/19 06:06 CK/CKMB % Calc 1.5 % (<4) 12/24/19 06:06 Troponin I 0.02 ng/mL (0-1.5) 12/24/19 06:06 Total Protein 8.3 g/dL (6.4-8.2) H 12/24/19 06:06 Albumin 2.9 g/dL (3.4-5.0) L 12/24/19 06:06 Globulin 5.4 g/dL (2.5-4.5) H 12/24/19 06:06 Albumin/Globulin Ratio 0.5 Ratio (1.1-2.1) L 12/24/19 06:06 RSV Nasal Swab Negative (NEGATIVE) 12/24/19 08:12 Acetone, Semi-Quant Negative (NEGATIVE) 12/24/19 06:06 Influenza Type A Ag Negative-presumptive (NEGATIVE) 12/24/19 08:12 Influenza Type B Ag Negative-presumptive (NEGATIVE) 12/24/19 08:12 SARS-CoV-2 (PCR) Negative (NEGATIVE) 12/24/19 08:12 S. pyogenes (TEM-PCR) Not detected (NOT DETECT) 12/24/19 08:12 XRAY XRAY Interpreted by: Radiologist (REPORT NOTED.) and Self EKG Rate: 103 [place]: Normal Rhythm: NSR Block: None Hypertrophy: LVH ST: Old, Lat and Infarct Opioid Opioid Risk Tool Age (Calin box if 16-45): No History of Preadolescent Sexual Abuse: No Total: 0 Total Score Risk Category: Low Risk Copyright: Derrek BROWN predicting aberrant behaviors Diagnosis Discharge Problem: Bronchitis, Hyperglycemia Congestive heart failure Qualifiers: Heart failure type: combined systolic and diastolic Heart failure chronicity: acute on chronic Qualified Code(s): I50.43 - Acute on chronic combined systolic (congestive) and diastolic (congestive) heart failure Instructions Forms: Excuse From Work Precautions for COVID19 Patient Portal Social Distancing
--- NOTE | 2019-12-24 06:02 | RAD ---
STUDY: CHEST, 1 VIEWCOMPARISON: NoneHISTORY: SOBFINDINGS:Multifocal alveolar airspace disease is seen in the bilateral mid and lower lung zones. Heart size is magnified on this portable technique and appears enlarged. No pleural effusion or pneumothorax is seen. Trachea is midline.IMPRESSION:Multifocal alveolar airspace disease is noted in the bilateral mid and lower lung zones with cardiomegaly. This could represent pulmonary edema due to congestive heart failure. Differential diagnosis should include, but is not limited infection such as multifocal lobar pneumonia.Electronically signed by: Xu Milian (Dec 24, 2019 06:01:30)
[2019-12-24 06:24] LABS: BASOPHILS # (AUTO) 0.1 X10^3/uL (0.0-0.1); BASOPHILS % (AUTO) 1.1 % (0.2-1.0); EOSINOPHILS # (AUTO) 0.1 x10^3/uL (0.0-0.2); EOSINOPHILS % (AUTO) 1.8 % (0.9-2.9); HEMATOCRIT 37.9 % (36.0-47.0); HEMOGLOBIN 12.6 g/dL (12.0-16.0); LYMPHOCYTES % (AUTO) 12.6 % (21.0-51.0); MEAN CORPUSCULAR HEMOGLOBIN 30.3 pg (27.0-34.0); MEAN CORPUSCULAR HGB CONC 33.2 g/dL (33.0-35.0); MEAN CORPUSCULAR VOLUME 91.5 fL (80.0-100.0); MEAN PLATELET VOLUME 9.2 fL (7.4-11.0); MONOCYTES # (AUTO) 0.4 x10^3/uL (0.3-0.8); MONOCYTES % (AUTO) 5.5 % (0.0-13.0); NEUTROPHILS # (AUTO) 6.3 x10^3/uL (2.2-4.8); PLATELET COUNT 311 X10^3/uL (150.0-450.0); RED BLOOD COUNT 4.14 X10^6/uL (3.5-5.4); RED CELL DISTRIBUTION WIDTH 13.9 % (11.6-16.5); WHITE BLOOD COUNT 7.9 X10^3/uL (3.6-10.0)
[2019-12-24 06:42] LABS: LACTIC ACID 1.8 mmol/L (0.4-2.0)
[2019-12-24 06:43] LABS: BLOOD UREA NITROGEN 17 mg/dL (7-18); CALCIUM 9.2 mg/dL (8.5-10.1); CARBON DIOXIDE 30.7 mmol/L (21-32); CHLORIDE 95 mmol/L (98-107); COR NA(FOR HYPERGLY) 143 mmol/L (136-145); SODIUM 134 mmol/L (136-145); TROPONIN I 0.02 ng/mL (0-1.5); eGFR NON BLACK RACES 56 (>60)
[2019-12-24 06:47] LABS: ALANINE AMINOTRANSFERASE 16 Units/L (12-78); ALBUMIN 2.9 g/dL (3.4-5.0); ALKALINE PHOSPHATASE 131 Units/L (46-116); ASPARTATE AMINO TRANSFERASE 38 Units/L (15-37); CKMB % 1.5 % (<4); COR CA(FOR HYPOALB) 10.1 mg/dL (8.5-10.1); CREATINE KINASE 69 Units/L (26-192); CREATINE KINASE MB < 1.0 ng/mL (0-4.0); TOTAL PROTEIN 8.3 g/dL (6.4-8.2)
[2019-12-24 08:58] LABS: RSV AG DETECTION NEGATIVE (NEGATIVE)
--- NOTE | 2019-12-24 09:13 | CT ---
HISTORYShortness of breathSTUDYCTA chest with contrast for pulmonary embolusTechnique: Axial post-contrast images with coronal, sagittal, and 3 dimensional maximum intensity projection images obtained in evaluated. Dose reduction procedures were used with mA/kv adjusted for body size.COMPARISONNoneFINDINGSThere is no evidence for acute pulmonary thromboembolic disease. Examination of the mediastinum demonstrated no evidence for mediastinal masses, enlarged mediastinal or enlarged hilar adenopathy or significant aortic abnormality. The heart is enlarged. Bilateral small pleural effusions are identified. There is reflux of contrast into the hepatic veins which can be seen in heart failure. No chest wall or axillary abnormality is identified. Those portions of the upper abdominal organs visualized were within normal limits. Examination of the lung bob demonstrated some paraseptal emphysematous changes to be present. Centrilobular emphysema is is identified in the right lower lobe. The interstitium is prominent and there are some Jackie's B lines present findings are suggestive of congestive heart failure. No alveolar edema or alveolar infiltrates are identified. Best visualized on CT series 5, image 64 is a 5.8 mm right upper lobe nodule abutting the minor fissure. Best visualized on CT series 5, image 62 is a 3.8 mm right upper lobe pulmonary nodule. Follow-up of these nodules in 6 months is recommended to assess for stability. There is no evidence for significant bronchiectasis. There is peribronchial thickening diffusely consistent with bronchitis which could be acute, chronic, or both.IMPRESSIONNo evidence for acute pulmonary thromboembolic diseaseCardiomegaly with bilateral pleural effusions, Jackie's B lines and prominent interstitium consistent with congestive heart failureRight lung pulmonary nodules as described above requiring CT follow-up in 6 months to assess for stabilityParaseptal and centrilobular emphysematous changesPeribronchial thickening consistent with bronchitis which could be acute, chronic, or bothElectronically signed by: PRINCE LEZAMA (Dec 24, 2019 09:11:25)
[2019-12-24] MEDS: HumuLIN R SC PRN ×3 (11:00→14:21)
--- NOTE | 2019-12-24 11:13 | DR.SOBA ---
HPI Time Seen Time Seen by Provider: 12/24/19 05:31 Primary Care Physician Primary Care Physician: ARIANNA GARVIN Complaints Chief Complaint:: PATIENT STATES SHE HAD SURGERY A FEW WEEKS AGO AND SHE HAS HAD SHORTNESS OF BREATH SINCE THAT HAS GOTTEN WORSE TONIGHT. STATES SHE HAS BEEN TAKING HER LASIX FOR HER CHF, PT NOTED TO HAVE SOB WITH EXCERTION AND JUST SITTING IN THE CHAIR. Self Treatment fo Chief Complaint: ROUTINE LASIX AT HOME. COVID-19 Coronavirus risk:travel/contact w/high risk person: No Has patient experienced Coronavirus symptoms: Yes Coronavirus symptoms experienced: Shortness of Breath Source History Provided: Patient Mode of Arrival Mode of Arrival: Ambulatory Timing Onset of Chief Complaint: 12/24/19 PMH PMH Past Medical History: Yes Past Medical History: Anxiety, CHF, Diabetes, Dyslipidemia and Hypertension Past Surgical History: Yes Surgical History: Appendectomy and Other Past Surgical History Comment: CYST REMOVED X2 Family History History of Family Medical Conditions: Yes Family Medical History: Diabetes Mellitus and Hypertension Social History Does patient currently use any type of tobacco product: No Have you used tobacco products in the last 12 months: No Type of Tobacco Use: Cigarettes Does any household member use tobacco: No Alcohol Use: Occasionally Do you use any recreational Drugs:: No Lives With: Family Lives Where: Home Travel Risk Coronavirus risk:travel/contact w/high risk person: No Has patient experienced Coronavirus symptoms: Yes Coronavirus symptoms experienced: Shortness of Breath Infectious screening In the last 2 months have you had wt loss of >10#?: NO Have you had fever, night sweats or hemotysis?: No Have you traveled outside the country in the last 6 months?: No Isolation: Standard PE Vital Signs Vitals: Temperature 97.1 F Pulse Rate [Left] 90 Pulse Rate 111 Respiratory Rate 20 Blood Pressure [Left Arm] 131/78 Blood Pressure [Right Arm] 137/87 Blood Pressure 140/83 O2 Sat by Pulse Oximetry 97 ROR Labs Reviewed Result Diagrams: 12/24/19 06:06 12/24/19 10:30 Laboratory: WBC 7.9 X10^3/uL (3.6-10.0) 12/24/19 06:06 RBC 4.14 X10^6/uL (3.5-5.4) 12/24/19 06:06 Hgb 12.6 g/dL (12.0-16.0) 12/24/19 06:06 Hct 37.9 % (36.0-47.0) 12/24/19 06:06 MCV 91.5 fL (80.0-100.0) 12/24/19 06:06 MCH 30.3 pg (27.0-34.0) 12/24/19 06:06 MCHC 33.2 g/dL (33.0-35.0) 12/24/19 06:06 RDW 13.9 % (11.6-16.5) 12/24/19 06:06 Plt Count 311 X10^3/uL (150.0-450.0) 12/24/19 06:06 MPV 9.2 fL (7.4-11.0) 12/24/19 06:06 Neut % (Auto) 79.0 % (42.0-75.0) H 12/24/19 06:06 Lymph % (Auto) 12.6 % (21.0-51.0) L 12/24/19 06:06 [place] % (Auto) 5.5 % (0.0-13.0) 12/24/19 06:06 Eos % (Auto) 1.8 % (0.9-2.9) 12/24/19 06:06 Baso % (Auto) 1.1 % (0.2-1.0) H 12/24/19 06:06 Neut # (Auto) 6.3 x10^3/uL (2.2-4.8) H 12/24/19 06:06 Lymph # (Auto) 1.0 X10^3/uL (1.3-2.9) L 12/24/19 06:06 [place] # (Auto) 0.4 x10^3/uL (0.3-0.8) 12/24/19 06:06 Eos # (Auto) 0.1 x10^3/uL (0.0-0.2) 12/24/19 06:06 Baso # (Auto) 0.1 X10^3/uL (0.0-0.1) 12/24/19 06:06 Absolute Nucleated RBC 0.0 /100WBC 12/24/19 06:06 D-Dimer 818 ng/mL (0-400) H* 12/24/19 06:06 Sodium 134 mmol/L (136-145) L 12/24/19 06:06 Corrected Sodium 143 mmol/L (136-145) 12/24/19 06:06 Potassium 3.4 mmol/L (3.5-5.1) L 12/24/19 06:06 Chloride 95 mmol/L (98-107) L 12/24/19 06:06 Carbon Dioxide 30.7 mmol/L (21-32) 12/24/19 06:06 BUN 17 mg/dL (7-18) 12/24/19 06:06 Creatinine 1.10 mg/dL (0.55-1.02) H 12/24/19 06:06 Est GFR (MDRD) Af Amer > 60 (>60) 12/24/19 06:06 Est GFR (MDRD) Non-Af 56 (>60) L 12/24/19 06:06 Glucose 485 mg/dL (65-99) H 12/24/19 06:06 Lactic Acid 1.8 mmol/L (0.4-2.0) 12/24/19 06:06 Calcium 9.2 mg/dL (8.5-10.1) 12/24/19 06:06 Corrected Calcium 10.1 mg/dL (8.5-10.1) 12/24/19 06:06 Total Bilirubin 0.70 mg/dL (0.2-1.0) 12/24/19 06:06 AST 38 Units/L (15-37) H 12/24/19 06:06 ALT 16 Units/L (12-78) 12/24/19 06:06 Alkaline Phosphatase 131 Units/L (46-116) H 12/24/19 06:06 Creatine Kinase 69 Units/L (26-192) 12/24/19 06:06 CK-MB (CK-2) < 1.0 ng/mL (0-4.0) 12/24/19 06:06 CK/CKMB % Calc 1.5 % (<4) 12/24/19 06:06 Troponin I 0.02 ng/mL (0-1.5) 12/24/19 06:06 Total Protein 8.3 g/dL (6.4-8.2) H 12/24/19 06:06 Albumin 2.9 g/dL (3.4-5.0) L 12/24/19 06:06 Globulin 5.4 g/dL (2.5-4.5) H 12/24/19 06:06 Albumin/Globulin Ratio 0.5 Ratio (1.1-2.1) L 12/24/19 06:06 RSV Nasal Swab Negative (NEGATIVE) 12/24/19 08:12 Acetone, Semi-Quant Negative (NEGATIVE) 12/24/19 06:06 Influenza Type A Ag Negative-presumptive (NEGATIVE) 12/24/19 08:12 Influenza Type B Ag Negative-presumptive (NEGATIVE) 12/24/19 08:12 SARS-CoV-2 (PCR) Negative (NEGATIVE) 12/24/19 08:12 S. pyogenes (TEM-PCR) Not detected (NOT DETECT) 12/24/19 08:12 Opioid Opioid Risk Tool Age (Calin box if 16-45): No History of Preadolescent Sexual Abuse: No Total: 0 Total Score Risk Category: Low Risk Copyright: Derrek BROWN predicting aberrant behaviors Diagnosis Discharge Problem: Congestive heart failure, Bronchitis Instructions Forms: Excuse From Work Precautions for COVID19 Patient Portal Social Distancing
[2019-12-24] MEDS ORDERED: POTASSIUM CHL 40 MEQ/NS 0.45% 500 ML IV PRN (14:24)
[2019-12-24] MEDS ORDERED: MICRO K EXTEN CAP 10 MEQ PO PRN (14:24)
[2019-12-24] MEDS ORDERED: KLOR-CON PO PRN (14:24)
[2019-12-24] MEDS ORDERED: K-RIDER 10 MEQ/NS 100 ML 10 MEQ/100 ML BAG IV PRN (14:24)
[2019-12-24] MEDS ORDERED: POTASSIUM CHL 60 MEQ/NS 0.45% 500 ML IV PRN (14:24)
[2019-12-24] MEDS ORDERED: POTASSIUM CHLORIDE LIQ 20 MEQ UDC PO PRN (14:24)
[2019-12-24] MEDS: K-DUR TAB 20 MEQ PO PRN (14:38)
[2019-12-24 15:05] VITALS: BMI 40.7
[2019-12-24] MEDS ORDERED: NS 250 ML IV 250 ML IV ONE (15:20)
[2019-12-24] MEDS: MAGNESIUM SULFATE 1 GRAM/100 mL PREMIX 1 GM/100 ML BAG IV PRN ×3 (15:30→21:30)
[2019-12-24] MEDS: DUONEB 0.5 MG/3 MG (3 mL) NEB SCH ×2 (17:30→21:49)
[2019-12-24] MEDS: LEVAQUIN PREMIX IV 750 MG 750 MG/150 ML BAG IV SCH (17:45)
[2019-12-25 05:27] LABS: BASOPHILS # (AUTO) 0.1 X10^3/uL (0.0-0.1); BASOPHILS % (AUTO) 1.1 % (0.2-1.0); EOSINOPHILS # (AUTO) 0.1 x10^3/uL (0.0-0.2); EOSINOPHILS % (AUTO) 2.5 % (0.9-2.9); HEMATOCRIT 33.4 % (36.0-47.0); HEMOGLOBIN 11.1 g/dL (12.0-16.0); LYMPHOCYTES # (AUTO) 1.4 X10^3/uL (1.3-2.9); LYMPHOCYTES % (AUTO) 24.3 % (21.0-51.0); MEAN CORPUSCULAR HEMOGLOBIN 30.8 pg (27.0-34.0); MEAN CORPUSCULAR HGB CONC 33.3 g/dL (33.0-35.0); MEAN CORPUSCULAR VOLUME 92.5 fL (80.0-100.0); MEAN PLATELET VOLUME 9.4 fL (7.4-11.0); MONOCYTES # (AUTO) 0.6 x10^3/uL (0.3-0.8); MONOCYTES % (AUTO) 9.7 % (0.0-13.0); NEUTROPHILS # (AUTO) 3.7 x10^3/uL (2.2-4.8); NEUTROPHILS % (AUTO) 62.4 % (42.0-75.0); PLATELET COUNT 260 X10^3/uL (150.0-450.0); RED BLOOD COUNT 3.61 X10^6/uL (3.5-5.4); RED CELL DISTRIBUTION WIDTH 13.7 % (11.6-16.5); WHITE BLOOD COUNT 5.9 X10^3/uL (3.6-10.0)
[2019-12-25 05:45] LABS: ALANINE AMINOTRANSFERASE 11 Units/L (12-78); ALBUMIN 2.3 g/dL (3.4-5.0); ALKALINE PHOSPHATASE 96 Units/L (46-116); ASPARTATE AMINO TRANSFERASE 16 Units/L (15-37); BLOOD UREA NITROGEN 14 mg/dL (7-18); CALCIUM 8.6 mg/dL (8.5-10.1); CARBON DIOXIDE 32.3 mmol/L (21-32); CHLORIDE 97 mmol/L (98-107); COR NA(FOR HYPERGLY) 141 mmol/L (136-145); CREATININE 1.09 mg/dL (0.55-1.02); MAGNESIUM 2.1 mg/dL (1.7-2.9); SODIUM 135 mmol/L (136-145); TOTAL PROTEIN 6.7 g/dL (6.4-8.2); eGFR NON BLACK RACES 56 (>60)
[2019-12-25] MEDS: HumuLIN R SC PRN ×3 (05:50→20:59)
--- NOTE | 2019-12-25 06:21 | RAD ---
HISTORYShortness of breathSTUDYCHEST, 1 [id number]/08/2020 plain film and CTA chestFINDINGSThe heart remains enlarged. Pulmonary venous congestion is present. No definite interstitial edema, alveolar edema, or alveolar infiltrates are identified. The pleural effusions visualized on the recent CT are not well demonstrated on plain films. There is a new finding of an air density paralleling the right heart border which could represent a small medial pneumothorax, pneumomediastinum, or pneumopericardium. Close clinical and radiographic follow-up is recommended. Bony thorax is unremarkable.IMPRESSIONCardiomegaly with pulmonary venous congestionNo acute infiltratesAir density paralleling the right heart border which could represent a small medial pneumothorax, developing pneumomediastinum or pneumopericardium. Close clinical and radiographic follow-up is recommended.Electronically signed by: PRINCE LEZAMA (Dec 25, 2019 06:19:25)
[2019-12-25 07:17] LABS: BILIRUBIN,URINE NEGATIVE (NEGATIVE); BLOOD/HEMOGLOBIN,URINE 3+ (NEGATIVE); GLUCOSE, URINE 4+ (NEGATIVE); KETONES,URINE NEGATIVE (NEGATIVE); LEUKOCYTE ESTERASE ,URINE 1+ (NEGATIVE); NITRITES,URINE POSITIVE (NEGATIVE); PROTEIN,URINE 2+ (NEGATIVE); UROBILINOGEN,URINE NORMAL (NORMAL)
[2019-12-25 07:21] LABS: APPEARANCE,URINE HAZY (CLEAR); COLOR,URINE YELLOW (YELLOW)
[2019-12-25 07:24] LABS: SQUAMOUS EPITHELIAL CELL,UR RARE /HPF (NEGATIVE)
[2019-12-25 07:25] LABS: AMORPHOUS SEDIMENT,UR TRACE /HPF (NEGATIVE); BACTERIA,URINE 1+ /HPF (NEGATIVE)
[2019-12-25] MEDS ORDERED: LASIX IVP ONE (08:14)
[2019-12-25] MEDS: DUONEB 0.5 MG/3 MG (3 mL) NEB SCH ×4 (09:10→21:18)
[2019-12-25] MEDS: LASIX IVP SCH (09:11)
[2019-12-25] MEDS: LEVAQUIN PREMIX IV 750 MG 750 MG/150 ML BAG IV SCH (09:15)
[2019-12-25] MEDS: K-DUR TAB 20 MEQ PO PRN (09:16)
[2019-12-25] MEDS ORDERED: NORCO 10/325 TAB PO PRN (10:56)
[2019-12-25] MEDS: GLUCOPHAGE PO SCH (11:53)
[2019-12-25] MEDS: MICRO K EXTEN CAP 10 MEQ PO SCH ×2 (11:54→20:58)
[2019-12-25] MEDS: MOBIC TAB 15 MG PO SCH (12:23)
[2019-12-25] MEDS: COREG TAB 12.5 MG PO SCH ×2 (12:24→20:58)
[2019-12-25] MEDS: COZAAR PO SCH (12:24)
[2019-12-25] MEDS: LANTUS SC SCH ×3 (12:25→21:00)
[2019-12-25] MEDS: ALDACTONE TAB 25 MG PO SCH (12:25)
[2019-12-25] MEDS: ZOLOFT PO SCH (12:27)
[2019-12-25] MEDS: PROBENECID COLCHICINE PO SCH (14:08)
[2019-12-25] MEDS: SNACK - Diabetic Appropriate PO SCH (20:57)
[2019-12-25] MEDS: ZOCOR TAB 20 MG PO SCH (20:59)
--- NOTE | 2019-12-25 23:18 | DR.H&P ---
H&P - History & Physical for Day of: H&P Date: 12/24/19 - Chief Complaint Chief Complaint: SOB, SWELLING - History of Present Illness History of Present Illness: IS A 49 YEAR OLD PATIENT OF ARIANNA HOPKINS. SHE PRESENTED TO THE ER WITH COMPLAINT OF SHORTNESS OF BREATH AND LOWER EXTREMITY SWELLING. SHE REPORTS HAVING A LABIA I&D A FEW WEEKS AGO AND REPORTS THAT SYMPTOMS HAVE BEEN PRESENT SINCE THEN. SHE REPORTS THAT SHORTNESS OF BREATH IS WORSE ON EXERTION. IT DECREASED WITH REST. SHE DOES HAVE A HISTORY OF CONGESTIVE HEART FAILURE, FOR WHICH SHE REPORTS TAKING LASIX 80MG PO BID. SHE ADMITS TO COMPLIANCE WITH MEDICATIONS, BUT DENIES IMPROVEMENT. OTHER PMH INCLUDES: ANXIETY, DIABETES, DYSLIPIDEMIA, HYPERTENSION, APPENDECTOMY, AND OVARIAL CYST REMOVED X 2. ON ARRIVAL TO THE ER, OXYGEN SATURATIONS WERE NOTED TO BE IN THE 70s ON ROOM AIR. SHE WAS PLACED ON NASAL CANNULA. OXYGEN SATURATIONS DID INCREASE TO THE 90s. OTHER VITALS WERE: 97.3-668-21-140/83. LABS WERE OBTAINED. ABNORMAL LAB VALUES INCLUDE THE FOLLOWING: D-DIMER 818, SODIUM 134, POTASSIUM 3.4, CHLORIDE 95, CREATININE 1.10, GLUCOSE 485, AST 38, TOTAL PROTEIN 8.3, ALBUMIN 2.9. RSV NEGATIVE. ACETONES NEGATIVE. INFLUENZA NEGATIVE, COVID-19 NEGATIVE, STREP NEGATIVE. BLOOD CULTURES WERE SET UP. A CHEST XRAY WAS OBTAINED AND REVEALED: Multifocal alveolar airspace disease is noted in the bilateral mid and lower lung zones with cardiomegaly. This could represent pulmonary edema due to congestive heart failure. Differential diagnosis should include, but is not limited infection such as multifocal lobar pneumonia. AN EKG WAS OBTAINED AND REVEALED: SINUS TACHYCARDIA WITH HR 103. A CHEST CTA WAS OBTAINED AND REVEALED: No evidence for acute pulmonary thromboembolic disease. Cardiomegaly with bilateral pleural effusions, Jackie's B lines and prominent interstitium consistent with congestive heart failure. Right lung pulmonary nodules as described above requiring CT follow-up in 6 months to assess for stability, Paraseptal and centrilobular emphysematous changes. Peribronchial thickening consistent with bronchitis which could be acute, chronic, or both. SHE WAS GIVEN LASIX 40MG IV X 1 IN THE ER. SHE WAS ADMITTED FOR FURTHER EVALUATION AND TREATMENT OF CHF EXACERBATION, ACUTE BRONCHITIS, AND ELEVATED D-DIMER. SHE WAS STARTED ON LASIX 80MG IV BID, LEVAQUIN 750MG IV DAILY, DUONEBS QID, HUMULIN R SLIDIDNG SCALE, THE POTASIUM AND MAGNESIUM PROTOCOL, AND HOME MEDICATIONS WERE RESUMED. OTHERWISE, WE PLAN TO FOLLOW UP WITH AM LABS AND CHEST XRAY AND CONTINUE TO MONITOR. - Past Medical History Past Medical History: Hypertension, Dyslipidemia, Diabetes, Anxiety, CHF - Past Surgical History Surgical History: Appendectomy, Other - Family History Family Medical History: Diabetes Mellitus, Hypertension - Social History Does patient currently use any type of tobacco product: No Have you used tobacco products in the last 12 months: No Type of Tobacco Use: Cigarettes Does any household member use tobacco: No Alcohol Use: Occasionally Drug Use: Marijuana - Medications Home Medications: No Known Drug Allergies Allergy (Verified 12/24/19 10:53) CONTINUE taking the following medications insulin glargine [Lantus U-100 Insulin] 26 unit SUBCUT TID 12/24/19 [History] insulin regular human [Humulin R Regular U-100 Insuln] 1 sliding scale dose SUBCUT ACHS 12/24/19 [History] - Review of Systems Constitutional: No Symptoms Reported, See HPI Eyes: No Symptoms Reported ENT: No Symptoms Reported Respiratory: See HPI, Shortness of Breath, SOB with Excertion, Wheezing Cardiovascular: Edema (2+ BLE EDEMA ) Gastrointestinal: No Symptoms Reported Genitourinary: No Symptoms Reported Musculoskeletal: No Symptoms Reported Skin: No Symptoms Reported Neurological: Weakness - Physical Exam Vital Signs: Temperature 98.6 F Pulse Rate [Left] 94 Pulse Rate 93 Respiratory Rate 18 Blood Pressure [Left Arm] 111/59 Blood Pressure [Right Arm] 159/80 Blood Pressure 140/83 O2 Sat by Pulse Oximetry 98 Oriented: Normal Eyes: Normal Ear: Normal Nose: Normal Throat: Normal Respiratory: Wheezes Throughout Cardiovascular: Tachycardia, Edema (2+ BLE EDEMA ) : Normal Auscultation: Bowel Sounds: Normal Palpation: Normal Tenderness: Normal Skin: Normal Musculoskeletal: Normal Psychiatric: Normal Mood Description: Calm Affect: Normal Speech Pattern: Clear - Assessment/Plan (1) CHF (congestive heart failure) Qualifiers: Heart failure type: combined systolic and diastolic Heart failure chronicity: acute on chronic Qualified Code(s): I50.43 - Acute on chronic combined systolic (congestive) and diastolic (congestive) heart failure Status: Chronic Plan: ADMIT, LASIX 80MG IV BID, LEVAQUIN 750MG IV DAILY, DUONEBS QID, HUMULIN R SLIDIDNG SCALE, THE POTASIUM AND MAGNESIUM PROTOCOL, AND HOME MEDICATIONS WERE RESUMED. 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
[2019-12-26] MEDS: LANTUS SC SCH ×3 (05:37→21:15)
[2019-12-26 06:21] LABS: ALBUMIN 2.4 g/dL (3.4-5.0); CALCIUM 8.9 mg/dL (8.5-10.1); CARBON DIOXIDE 31.5 mmol/L (21-32); COR CA(FOR HYPOALB) 10.2 mg/dL (8.5-10.1); CREATININE 1.28 mg/dL (0.55-1.02)
[2019-12-26 06:23] LABS: BASOPHILS # (AUTO) 0.2 X10^3/uL (0.0-0.1); BASOPHILS % (AUTO) 2.9 % (0.2-1.0); EOSINOPHILS # (AUTO) 0.2 x10^3/uL (0.0-0.2); EOSINOPHILS % (AUTO) 3.9 % (0.9-2.9); HEMATOCRIT 33.8 % (36.0-47.0); HEMOGLOBIN 11.2 g/dL (12.0-16.0); LYMPHOCYTES # (AUTO) 1.7 X10^3/uL (1.3-2.9); LYMPHOCYTES % (AUTO) 26.9 % (21.0-51.0); MEAN CORPUSCULAR HEMOGLOBIN 30.2 pg (27.0-34.0); MEAN CORPUSCULAR HGB CONC 33.2 g/dL (33.0-35.0); MEAN CORPUSCULAR VOLUME 90.9 fL (80.0-100.0); MONOCYTES # (AUTO) 0.5 x10^3/uL (0.3-0.8); MONOCYTES % (AUTO) 8.1 % (0.0-13.0); NEUTROPHILS # (AUTO) 3.6 x10^3/uL (2.2-4.8); NEUTROPHILS % (AUTO) 58.2 % (42.0-75.0); PLATELET COUNT 257 X10^3/uL (150.0-450.0); RED BLOOD COUNT 3.71 X10^6/uL (3.5-5.4); RED CELL DISTRIBUTION WIDTH 13.7 % (11.6-16.5); WHITE BLOOD COUNT 6.2 X10^3/uL (3.6-10.0)
--- NOTE | 2019-12-26 06:28 | RAD ---
HISTORYShortness of breathSTUDYCHEST, 1 [id number]/09/2020FINDIN GSThe heart remains enlarged. Mild pulmonary venous congestion is present. The lungs are well inflated. No definite acute alveolar infiltrates are identified. There is still an air density paralleling the right heart border. This is suspicious for pneumopericardium however a medial pneumothorax or pneumomediastinum is also possible. Chest CT with contrast is recommended for further evaluation. No pleural effusions are identified. Bony thorax is unremarkable.IMPRESSIONCardiomegaly with mild pulmonary venous congestionNo infiltratesAir density paralleling the right heart border again identified min could represent pneumopericardium, medial pneumothorax or pneumomediastinum. Chest CT with contrast would be of further diagnostic value.Electronically signed by: PRINCE LEZAMA (Dec 26, 2019 06:27:04)
[2019-12-26] MEDS: LEVAQUIN PREMIX IV 750 MG 750 MG/150 ML BAG IV SCH (08:38)
[2019-12-26] MEDS: MICRO K EXTEN CAP 10 MEQ PO SCH ×2 (08:39→21:14)
[2019-12-26] MEDS: ZOLOFT PO SCH (08:39)
[2019-12-26] MEDS: MOBIC TAB 15 MG PO SCH (08:39)
[2019-12-26] MEDS: LASIX IVP SCH ×2 (08:40→16:06)
[2019-12-26] MEDS: COZAAR PO SCH (08:40)
[2019-12-26] MEDS: COREG TAB 12.5 MG PO SCH ×2 (08:40→21:14)
[2019-12-26] MEDS: ALDACTONE TAB 25 MG PO SCH (08:40)
[2019-12-26] MEDS: DUONEB 0.5 MG/3 MG (3 mL) NEB SCH ×4 (09:30→20:40)
--- NOTE | 2019-12-26 10:19 | PCM.PROG ---
Progress Note - Progress Note for Day of Date of Exam: 12/25/19 - Subjective Subjective: IS BEING TREATED FOR CHF EXACERBATION, ACUTE BRONCHITIS, AND ELEVATED D-DIMER. TODAY, SHE IS ALERT AND ORIENTED, LYING IN BED ON MORNING ROUNDS. SHE CONTINUES WITH COMPLAINTS OF SHORTNESS OF BREATH AND LOWER EXTREMITY SWELLING. SHE REPORTS THAT SYMPTOMS HAVE SLIGHTLY IMPROVED SINCE YESTERDAY. ON EXAMINATION, SHE IS NOTED TO BE TACHYCARDIC WITH HR IN THE 110-120 RANGE. BILATERAL LUNGS ARE NOTED WITH DIMINISHED LUNG SOUNDS THROUGHOUT. ABDOMEN IS ROUND, SOFT, AND NON-TENDER WITH NORMAL BOWEL SOUNDS NOTED IN ALL QUADRANTS. LOWER EXTREMITIES ARE NOTED WITH 1+ PITTING EDEMA. HER VITALS THIS MORNING ARE: 98.6-116-20-95%-161/92. LABS WERE OBTAINED. ABNORMAL LAB VALUES INCLUDE THE FO LLOWING: HGB 11.1, HCT 33.4, SODIUM 135, POTASSIUM 3.2, CHLORIDE 97, CARBON DIOXIDE 32.3, CREATININE 1.09, GLUCOSE 355, ALT 11, ALBUMIN 2.3. A URINALYSIS WAS OBTAINED AND REVEALED: WBC 5-10, RBC 10-20, BACTERIA 1+, LEUKOCYTES 1+, NITRITE POSITIVE. BLOOD, URINE, AND SPUTUM CULTURES ARE PENDING. A CHEST XRAY WAS OBTAINED AND REVEALED: Cardiomegaly with pulmonary venous congestion. No acute infiltrates. Air density paralleling the right heart border which could represent a small medial pneumothorax, developing pneumomediastinum or pneumopericardium. Close clinical and radiographic follow-up is recommended. SHE IS CURRENTLY RECEIVING LASIX 80MG IV DAILY, LEVAQUIN 750MG IV DAILY, DUONEBS QID, HUMULIN R SLIDING SCALE, THE POTASIUM AND MAGNESIUM PROTOCOL, AND HOME MEDICATIONS WERE RESUMED. WE WILL CONTINUE WITH CURRENT PLAN OF CARE TODAY. OTHERWISE, WE WILL FOLLOW UP WITH AM LABS AND CHEST XRAY AND CONTINUE TO MONITOR. - Past Medical Family Social History Past Med/Fam/Surg Hx: No changes since H&P Allergies: Allergies No Known Drug Allergies Allergy (Verified 12/24/19 10:53) - Review of Systems ROS: No change since H&P - Vital Signs and I&O's Vital Signs: Temperature 98.3 F Pulse Rate [Left] 94 Pulse Rate 93 Respiratory Rate 20 Blood Pressure [Left Arm] 133/75 Blood Pressure [Right Arm] 159/80 Blood Pressure 140/83 O2 Sat by Pulse Oximetry 97 Intake and Output: Intake & Output 12/23/19 12/24/19 12/25/19 12/26/19 11:59 11:59 11:59 11:59 Intake Total 2890 / 2890 1670 / 1670 Balance 2890 / 2890 1670 / 1670 - Physical Exam Oriented: Normal Eyes: Normal Ear: Normal Nose: Normal Throat: Normal Respiratory: Generalized, Diminished Cardiovascular: Tachycardia, Edema (1+ BLE EDEMA ) : Normal Auscultation: Bowel Sounds: Normal Palpation: Normal Tenderness: Normal Skin: Normal Musculoskeletal: Normal Psychiatric: Normal Mood Description: Calm Affect: Normal Speech Pattern: Clear - Laboratory and Diagnostics Result Diagrams: 12/26/19 04:53 12/26/19 04:53 Labs: 12/25/19 09:04 Sputum - Expectorated Sputum Sputum Culture - Preliminary 12/25/19 09:04 Sputum - Expectorated Sputum - Final 12/25/19 07:05 Urine,Clean Catch Urine Culture - Preliminary Laboratory WBC 6.2 X10^3/uL (3.6-10.0) 12/26/19 04:53 RBC 3.71 X10^6/uL (3.5-5.4) 12/26/19 04:53 Hgb 11.2 g/dL (12.0-16.0) L 12/26/19 04:53 Hct 33.8 % (36.0-47.0) L 12/26/19 04:53 MCV 90.9 fL (80.0-100.0) 12/26/19 04:53 MCH 30.2 pg (27.0-34.0) 12/26/19 04:53 MCHC 33.2 g/dL (33.0-35.0) 12/26/19 04:53 RDW 13.7 % (11.6-16.5) 12/26/19 04:53 Plt Count 257 X10^3/uL (150.0-450.0) 12/26/19 04:53 MPV 9.0 fL (7.4-11.0) 12/26/19 04:53 Neut % (Auto) 58.2 % (42.0-75.0) 12/26/19 04:53 Lymph % (Auto) 26.9 % (21.0-51.0) 12/26/19 04:53 [place] % (Auto) 8.1 % (0.0-13.0) 12/26/19 04:53 Eos % (Auto) 3.9 % (0.9-2.9) H 12/26/19 04:53 Baso % (Auto) 2.9 % (0.2-1.0) H 12/26/19 04:53 Neut # (Auto) 3.6 x10^3/uL (2.2-4.8) 12/26/19 04:53 Lymph # (Auto) 1.7 X10^3/uL (1.3-2.9) 12/26/19 04:53 [place] # (Auto) 0.5 x10^3/uL (0.3-0.8) 12/26/19 04:53 Eos # (Auto) 0.2 x10^3/uL (0.0-0.2) 12/26/19 04:53 Baso # (Auto) 0.2 X10^3/uL (0.0-0.1) H 12/26/19 04:53 Absolute Nucleated RBC 0.1 /100WBC 12/26/19 04:53 D-Dimer 818 ng/mL (0-400) H* 12/24/19 06:06 Sodium 136 mmol/L (136-145) 12/26/19 04:53 Corrected Sodium 137 mmol/L (136-145) 12/26/19 04:53 Potassium 3.7 mmol/L (3.5-5.1) 12/26/19 04:53 Chloride 100 mmol/L (98-107) 12/26/19 04:53 Carbon Dioxide 31.5 mmol/L (21-32) 12/26/19 04:53 BUN 22 mg/dL (7-18) H 12/26/19 04:53 Creatinine 1.28 mg/dL (0.55-1.02) H 12/26/19 04:53 Est GFR (MDRD) Af Amer 57 (>60) L 12/26/19 04:53 Est GFR (MDRD) Non-Af 47 (>60) L 12/26/19 04:53 Glucose 158 mg/dL (65-99) H 12/26/19 04:53 POC Glucose (mg/dL) 163 mg/dL (65-99) H 12/26/19 05:19 Lactic Acid 1.8 mmol/L (0.4-2.0) 12/24/19 06:06 Calcium 8.9 mg/dL (8.5-10.1) 12/26/19 04:53 Corrected Calcium 10.2 mg/dL (8.5-10.1) H 12/26/19 04:53 Magnesium 2.1 mg/dL (1.7-2.9) 12/25/19 04:10 Total Bilirubin 0.70 mg/dL (0.2-1.0) 12/26/19 04:53 AST 16 Units/L (15-37) 12/26/19 04:53 ALT 11 Units/L (12-78) L 12/26/19 04:53 Alkaline Phosphatase 98 Units/L (46-116) 12/26/19 04:53 Creatine Kinase 69 Units/L (26-192) 12/24/19 06:06 CK-MB (CK-2) < 1.0 ng/mL (0-4.0) 12/24/19 06:06 CK/CKMB % Calc 1.5 % (<4) 12/24/19 06:06 Troponin I 0.02 ng/mL (0-1.5) 12/24/19 06:06 Total Protein 7.0 g/dL (6.4-8.2) 12/26/19 04:53 Albumin 2.4 g/dL (3.4-5.0) L 12/26/19 04:53 Globulin 4.6 g/dL (2.5-4.5) H 12/26/19 04:53 Albumin/Globulin Ratio 0.5 Ratio (1.1-2.1) L 12/26/19 04:53 Specimen Type Clean catch urine 12/25/19 07:05 Urine Color Yellow (YELLOW) 12/25/19 07:05 Urine Appearance Hazy (CLEAR) 12/25/19 07:05 Urine pH 5.0 (5.0 - 8.0) 12/25/19 07:05 Ur Specific [place] 1.020 (1.000-1.030) 12/25/19 07:05 Urine Protein 2+ (NEGATIVE) 12/25/19 07:05 Urine Glucose (UA) 4+ (NEGATIVE) 12/25/19 07:05 Urine Ketones Negative (NEGATIVE) 12/25/19 07:05 Urine Occult Blood 3+ (NEGATIVE) 12/25/19 07:05 Urine Nitrite Positive (NEGATIVE) 12/25/19 07:05 Urine Bilirubin Negative (NEGATIVE) 12/25/19 07:05 Urine Urobilinogen Normal (NORMAL) 12/25/19 07:05 Ur Leukocyte Esterase 1+ (NEGATIVE) 12/25/19 07:05 Urine RBC 10-20 /HPF (0-3) A 12/25/19 07:05 Urine WBC 5-10 /HPF (0-5) A 12/25/19 07:05 Ur Squamous Epith Cells Rare /HPF (NEGATIVE) 12/25/19 07:05 Amorphous Sediment Trace /HPF (NEGATIVE) 12/25/19 07:05 Urine Bacteria 1+ /HPF (NEGATIVE) 12/25/19 07:05 Ur Culture Indicated? Yes/culture set up 12/25/19 07:05 RSV Nasal Swab Negative (NEGATIVE) 12/24/19 08:12 Acetone, Semi-Quant Negative (NEGATIVE) 12/24/19 06:06 Influenza Type A Ag Negative-presumptive (NEGATIVE) 12/24/19 08:12 Influenza Type B Ag Negative-presumptive (NEGATIVE) 12/24/19 08:12 SARS-CoV-2 (PCR) Negative (NEGATIVE) 12/24/19 08:12 S. pyogenes (TEM-PCR) Not detected (NOT DETECT) 12/24/19 08:12 - Plan (1) CHF (congestive heart failure) Status: Chronic Qualifiers: Heart failure type: combined systolic and diastolic Heart failure chronicity: acute on chronic Qualified Code(s): I50.43 - Acute on chronic combined systolic (congestive) and diastolic (congestive) heart failure Plan: LASIX 80MG IV DAILY, LEVAQUIN 750MG IV DAILY, DUONEBS QID, HUMULIN R SLIDIDNG SCALE, THE POTASIUM AND MAGNESIUM PROTOCOL, AND HOME MEDICATIONS WERE RESUMED. (2) Bronchitis Status: Acute (3) Urinary tract infection Status: Acute Qualifiers: Urinary tract infection type: acute cystitis Hematuria presence: with hematuria Qualified Code(s): N30.01 - Acute cystitis with hematuria Plan: LEVAQUIN 50MG IV DAILY, CONTINUE TO MONITOR (4) Diabetes mellitus Status: Chronic Qualifiers: Diabetes mellitus type: type 2 Diabetes mellitus intermodal dispatcher insulin use: wit h intermodal dispatcher use Diabetes mellitus complication status: without complication Qualified Code(s): E11.9 - Type 2 diabetes mellitus without complications; Z79.4 - group home (current) use of insulin (5) Hypertension Status: Chronic Qualifiers: Hypertension type: essential hypertension Qualified Code(s): I10 - Essential (primary) hypertension
--- NOTE | 2019-12-26 10:23 | PCM.PROG ---
Progress Note - Progress Note for Day of Date of Exam: 12/26/19 - Subjective Subjective: IS BEING TREATED FOR CHF EXACERBATION, ACUTE BRONCHITIS, URINARY TRACT INFECTION, AND ELEVATED D-DIMER. TODAY, SHE IS ALERT AND ORIENTED, LYING IN BED ON MORNING ROUNDS. SHE CONTINUES WITH COMPLAINTS OF SHORTNESS OF BREATH AND LOWER EXTREMITY SWELLING. SHE REPORTS THAT SYMPTOMS HAVE SLIGHTLY IMPROVED SINCE YESTERDAY. ON EXAMINATION, HEART IS REGULAR IN RATE AND RHYTHM. BILATERAL LUNGS ARE NOTED WITH DIMINISHED LUNG SOUNDS THROUGHOUT. ABDOMEN IS ROUND, SOFT, AND NON-TENDER WITH NORMAL BOWEL SOUNDS NOTED IN ALL QUADRANTS. LOWER EXTREMITIES ARE NOTED WITH 1+ PITTING EDEMA. HER VITALS THIS MORNING ARE: 98.3-94-20-97%-133/75. LABS WERE OBTAINED. ABNORMAL LAB VALUES INCLUDE THE FO LLOWING: HGB 11.2, HCT 33.8, BUN 22, CREATININE 1.28, GLUCOSE 158, ALT 11, TOTAL PROTEIN 2.4, ALBUMIN 4.6. BLOOD, URINE, AND SPUTUM CULTURES ARE PENDING. PRELIMINARY SPUTUM CULTURES REPORT GROWTH OF YEAST. A CHEST XRAY WAS OBTAINED AND REVEALED: Cardiomegaly with mild pulmonary venous congestion. No infiltrates. Air density paralleling the right heart border again identified min could represent pneumopericardium, medial pneumothorax or pneumomediastinum. SHE IS CURRENTLY RECEIVING LASIX 40MG IV BID, LEVAQUIN 750MG IV DAILY, DUONEBS QID, HUMULIN R SLIDING SCALE, THE POTASIUM AND MAGNESIUM PROTOCOL, AND HOME MEDICATIONS WERE RESUMED. WE WILL CONTINUE WITH CURRENT PLAN OF CARE TODAY AND ADD DIFLUCAN 200MG IV DAILY. WE WILL OBTAIN AN ECHO. OTHERWISE, WE WILL FOLLOW UP WITH AM LABS AND CHEST XRAY AND CONTINUE TO MONITOR. - Past Medical Family Social History Past Med/Fam/Surg Hx: No changes since H&P Allergies: Allergies No Known Drug Allergies Allergy (Verified 12/24/19 10:53) - Review of Systems ROS: No change since H&P - Vital Signs and I&O's Vital Signs: Temperature 98.3 F Pulse Rate [Left] 94 Pulse Rate 93 Respiratory Rate 20 Blood Pressure [Left Arm] 133/75 Blood Pressure [Right Arm] 159/80 Blood Pressure 140/83 O2 Sat by Pulse Oximetry 97 Intake and Output: Intake & Output 12/23/19 12/24/19 12/25/19 12/26/19 11:59 11:59 11:59 11:59 Intake Total 2890 / 2890 1670 / 1670 Balance 2890 / 2890 1670 / 1670 - Physical Exam Oriented: Normal Eyes: Normal Ear: Normal Nose: Normal Throat: Normal Respiratory: Generalized, Diminished Cardiovascular: Normal, Edema (1+ BLE EDEMA ) : Normal Auscultation: Bowel Sounds: Normal Palpation: Normal Tenderness: Normal Skin: Normal Musculoskeletal: Normal Psychiatric: Normal Mood Description: Calm Affect: Normal Speech Pattern: Clear - Laboratory and Diagnostics Result Diagrams: 12/26/19 04:53 12/26/19 04:53 Labs: 12/25/19 09:04 Sputum - Expectorated Sputum Sputum Culture - Preliminary 12/25/19 09:04 Sputum - Expectorated Sputum - Final 12/25/19 07:05 Urine,Clean Catch Urine Culture - Preliminary Laboratory WBC 6.2 X10^3/uL (3.6-10.0) 12/26/19 04:53 RBC 3.71 X10^6/uL (3.5-5.4) 12/26/19 04:53 Hgb 11.2 g/dL (12.0-16.0) L 12/26/19 04:53 Hct 33.8 % (36.0-47.0) L 12/26/19 04:53 MCV 90.9 fL (80.0-100.0) 12/26/19 04:53 MCH 30.2 pg (27.0-34.0) 12/26/19 04:53 MCHC 33.2 g/dL (33.0-35.0) 12/26/19 04:53 RDW 13.7 % (11.6-16.5) 12/26/19 04:53 Plt Count 257 X10^3/uL (150.0-450.0) 12/26/19 04:53 MPV 9.0 fL (7.4-11.0) 12/26/19 04:53 Neut % (Auto) 58.2 % (42.0-75.0) 12/26/19 04:53 Lymph % (Auto) 26.9 % (21.0-51.0) 12/26/19 04:53 [place] % (Auto) 8.1 % (0.0-13.0) 12/26/19 04:53 Eos % (Auto) 3.9 % (0.9-2.9) H 12/26/19 04:53 Baso % (Auto) 2.9 % (0.2-1.0) H 12/26/19 04:53 Neut # (Auto) 3.6 x10^3/uL (2.2-4.8) 12/26/19 04:53 Lymph # (Auto) 1.7 X10^3/uL (1.3-2.9) 12/26/19 04:53 [place] # (Auto) 0.5 x10^3/uL (0.3-0.8) 12/26/19 04:53 Eos # (Auto) 0.2 x10^3/uL (0.0-0.2) 12/26/19 04:53 Baso # (Auto) 0.2 X10^3/uL (0.0-0.1) H 12/26/19 04:53 Absolute Nucleated RBC 0.1 /100WBC 12/26/19 04:53 D-Dimer 818 ng/mL (0-400) H* 12/24/19 06:06 Sodium 136 mmol/L (136-145) 12/26/19 04:53 Corrected Sodium 137 mmol/L (136-145) 12/26/19 04:53 Potassium 3.7 mmol/L (3.5-5.1) 12/26/19 04:53 Chloride 100 mmol/L (98-107) 12/26/19 04:53 Carbon Dioxide 31.5 mmol/L (21-32) 12/26/19 04:53 BUN 22 mg/dL (7-18) H 12/26/19 04:53 Creatinine 1.28 mg/dL (0.55-1.02) H 12/26/19 04:53 Est GFR (MDRD) Af Amer 57 (>60) L 12/26/19 04:53 Est GFR (MDRD) Non-Af 47 (>60) L 12/26/19 04:53 Glucose 158 mg/dL (65-99) H 12/26/19 04:53 POC Glucose (mg/dL) 163 mg/dL (65-99) H 12/26/19 05:19 Lactic Acid 1.8 mmol/L (0.4-2.0) 12/24/19 06:06 Calcium 8.9 mg/dL (8.5-10.1) 12/26/19 04:53 Corrected Calcium 10.2 mg/dL (8.5-10.1) H 12/26/19 04:53 Magnesium 2.1 mg/dL (1.7-2.9) 12/25/19 04:10 Total Bilirubin 0.70 mg/dL (0.2-1.0) 12/26/19 04:53 AST 16 Units/L (15-37) 12/26/19 04:53 ALT 11 Units/L (12-78) L 12/26/19 04:53 Alkaline Phosphatase 98 Units/L (46-116) 12/26/19 04:53 Creatine Kinase 69 Units/L (26-192) 12/24/19 06:06 CK-MB (CK-2) < 1.0 ng/mL (0-4.0) 12/24/19 06:06 CK/CKMB % Calc 1.5 % (<4) 12/24/19 06:06 Troponin I 0.02 ng/mL (0-1.5) 12/24/19 06:06 B-Natriuretic Peptide 313 pg/mL (0-79) H 12/26/19 04:53 Total Protein 7.0 g/dL (6.4-8.2) 12/26/19 04:53 Albumin 2.4 g/dL (3.4-5.0) L 12/26/19 04:53 Globulin 4.6 g/dL (2.5-4.5) H 12/26/19 04:53 Albumin/Globulin Ratio 0.5 Ratio (1.1-2.1) L 12/26/19 04:53 Specimen Type Clean catch urine 12/25/19 07:05 Urine Color Yellow (YELLOW) 12/25/19 07:05 Urine Appearance Hazy (CLEAR) 12/25/19 07:05 Urine pH 5.0 (5.0 - 8.0) 12/25/19 07:05 Ur Specific [place] 1.020 (1.000-1.030) 12/25/19 07:05 Urine Protein 2+ (NEGATIVE) 12/25/19 07:05 Urine Glucose (UA) 4+ (NEGATIVE) 12/25/19 07:05 Urine Ketones Negative (NEGATIVE) 12/25/19 07:05 Urine Occult Blood 3+ (NEGATIVE) 12/25/19 07:05 Urine Nitrite Positive (NEGATIVE) 12/25/19 07:05 Urine Bilirubin Negative (NEGATIVE) 12/25/19 07:05 Urine Urobilinogen Normal (NORMAL) 12/25/19 07:05 Ur Leukocyte Esterase 1+ (NEGATIVE) 12/25/19 07:05 Urine RBC 10-20 /HPF (0-3) A 12/25/19 07:05 Urine WBC 5-10 /HPF (0-5) A 12/25/19 07:05 Ur Squamous Epith Cells Rare /HPF (NEGATIVE) 12/25/19 07:05 Amorphous Sediment Trace /HPF (NEGATIVE) 12/25/19 07:05 Urine Bacteria 1+ /HPF (NEGATIVE) 12/25/19 07:05 Ur Culture Indicated? Yes/culture set up 12/25/19 07:05 RSV Nasal Swab Negative (NEGATIVE) 12/24/19 08:12 Acetone, Semi-Quant Negative (NEGATIVE) 12/24/19 06:06 Influenza Type A Ag Negative-presumptive (NEGATIVE) 12/24/19 08:12 Influenza Type B Ag Negative-presumptive (NEGATIVE) 12/24/19 08:12 SARS-CoV-2 (PCR) Negative (NEGATIVE) 12/24/19 08:12 S. pyogenes (TEM-PCR) Not detected (NOT DETECT) 12/24/19 08:12 - Plan (1) CHF (congestive heart failure) Status: Chronic Qualifiers: Heart failure type: combined systolic and diastolic Heart failure chronic ity: acute on chronic Qualified Code(s): I50.43 - Acute on chronic combined systolic (congestive) and diastolic (congestive) heart failure Plan: LASIX 40MG IV BID, LEVAQUIN 750MG IV DAILY, DUONEBS QID, HUMULIN R SLIDIDNG SCALE, THE POTASIUM AND MAGNESIUM PROTOCOL, AND HOME MEDICATIONS WERE RESUMED. (2) Bronchitis Status: Acute Plan: LEVAQUIN 750MG IV DAILY, NEB TX, CONTINUE TO MONITOR (3) Urinary tract infection Status: Acute Qualifiers: Urinary tract infection type: acute cystitis Hematuria presence: with hematuria Qualified Code(s): N30.01 - Acute cystitis with hematuria Plan: LEVAQUIN 750MG IV DAILY, CONTINUE TO MONITOR (4) Diabetes mellitus Status: Chronic Qualifiers: Diabetes mellitus type: type 2 Diabetes mellitus snf insulin use: with rodent exterminator use Diabetes mellitus complication status: without complication Qualified Code(s): E11.9 - Type 2 diabetes mellitus without complications; Z79.4 - retirement (current) use of insulin (5) Hypertension Status: Chronic Qualifiers: Hypertension type: essential hypertension Qualified Code(s): I10 - Essential (primary) hypertension
[2019-12-26] MEDS: PROBENECID COLCHICINE PO SCH (11:05)
[2019-12-26] MEDS ORDERED: NS 250 ML IV 250 ML IV ONE (11:18)
[2019-12-26] MEDS: HumuLIN R SC PRN ×2 (11:21→17:26)
[2019-12-26] MEDS: DIFLUCAN 200 MG IV PREMIX* 200 MG/100 ML BAG IV SCH (11:22)
[2019-12-26] MEDS: ZOCOR TAB 20 MG PO SCH (21:14)
[2019-12-26] MEDS: SNACK - Diabetic Appropriate PO SCH (21:14)
[2019-12-26] MEDS: GLUCOPHAGE PO SCH (21:15)
[2019-12-27] MEDS: LANTUS SC SCH (05:46)
--- NOTE | 2019-12-27 06:23 | RAD ---
HISTORYShortness of breathSTUDYCHEST, 1 [id number]/10/2020FINDINGSThe heart remains enlarged. No definite pulmonary venous congestion is present on today's examination. The lungs are well inflated and free of acute alveolar infiltrates. No definite pleural effusions are identified. The air density noted on prior examinations paralleling the right heart border is less prominent on today's examination. No pleural effusions are identified. Bony thorax is unremarkable.IMPRESSIONCardiomegaly without congestive heart failureNo definite infiltratesThe air density paralleling the right heart border visible on the last 2 examinations is present but less prominent. Differential diagnosis remains the same.Electronically signed by: PRINCE LEZAMA (Dec 27, 2019 06:21:43)
[2019-12-27 06:24] LABS: BASOPHILS # (AUTO) 0.1 X10^3/uL (0.0-0.1); BASOPHILS % (AUTO) 1.2 % (0.2-1.0); EOSINOPHILS # (AUTO) 0.3 x10^3/uL (0.0-0.2); EOSINOPHILS % (AUTO) 4.8 % (0.9-2.9); HEMATOCRIT 32.4 % (36.0-47.0); LYMPHOCYTES # (AUTO) 1.5 X10^3/uL (1.3-2.9); LYMPHOCYTES % (AUTO) 29.2 % (21.0-51.0); MEAN CORPUSCULAR HEMOGLOBIN 30.6 pg (27.0-34.0); MEAN CORPUSCULAR HGB CONC 33.8 g/dL (33.0-35.0); MEAN CORPUSCULAR VOLUME 90.4 fL (80.0-100.0); MEAN PLATELET VOLUME 9.1 fL (7.4-11.0); MONOCYTES # (AUTO) 0.5 x10^3/uL (0.3-0.8); MONOCYTES % (AUTO) 9.8 % (0.0-13.0); NEUTROPHILS # (AUTO) 2.9 x10^3/uL (2.2-4.8); PLATELET COUNT 237 X10^3/uL (150.0-450.0); RED BLOOD COUNT 3.59 X10^6/uL (3.5-5.4); RED CELL DISTRIBUTION WIDTH 13.6 % (11.6-16.5); WHITE BLOOD COUNT 5.3 X10^3/uL (3.6-10.0)
[2019-12-27 06:29] LABS: ALANINE AMINOTRANSFERASE 8 Units/L (12-78); ALBUMIN 2.3 g/dL (3.4-5.0); ALKALINE PHOSPHATASE 91 Units/L (46-116); ASPARTATE AMINO TRANSFERASE 14 Units/L (15-37); BLOOD UREA NITROGEN 31 mg/dL (7-18); CALCIUM 8.9 mg/dL (8.5-10.1); CARBON DIOXIDE 28.1 mmol/L (21-32); CHLORIDE 100 mmol/L (98-107); COR CA(FOR HYPOALB) 10.3 mg/dL (8.5-10.1); COR NA(FOR HYPERGLY) 138 mmol/L (136-145); CREATININE 1.18 mg/dL (0.55-1.02); SODIUM 136 mmol/L (136-145); TOTAL PROTEIN 6.8 g/dL (6.4-8.2); eGFR NON BLACK RACES 51 (>60)
[2019-12-27 08:40] VITALS: BP 102/57
[2019-12-27] MEDS ORDERED: GLUCOPHAGE ONE (08:58)
[2019-12-27] MEDS: DUONEB 0.5 MG/3 MG (3 mL) NEB SCH (09:33)
[2019-12-27] MEDS: ZOLOFT PO SCH (11:12)
[2019-12-27] MEDS: MICRO K EXTEN CAP 10 MEQ PO SCH (11:12)
[2019-12-27] MEDS: ALDACTONE TAB 25 MG PO SCH (11:12)
[2019-12-27] MEDS: COZAAR PO SCH (11:12)
[2019-12-27] MEDS: GLUCOPHAGE PO SCH (11:13)
[2019-12-27] MEDS: COREG TAB 12.5 MG PO SCH (11:13)
[2019-12-27] MEDS: DIFLUCAN 200 MG IV PREMIX* 200 MG/100 ML BAG IV SCH (11:13)
[2019-12-27] MEDS: PROBENECID COLCHICINE PO SCH (11:14)
[2019-12-27] MEDS: LASIX IVP SCH (11:14)
[2019-12-27] MEDS: LEVAQUIN PREMIX IV 750 MG 750 MG/150 ML BAG IV SCH (11:14)
== END 2019-12-27 11:45 | disposition home or self-care (01) | DRG 292 ==
LOC: ER 05:13 → MED/SURG 09:45
PROVIDERS: ADMIT Internal Medicine; ATTEND Internal Medicine
DX: R06.02 Shortness of breath; I50.43 Acute on chronic combined systolic (congestive) and diastolic (congestive) heart failure; R94.31 Abnormal electrocardiogram [ECG] [EKG]; E78.2 Mixed hyperlipidemia; J20.8 Acute bronchitis due to other specified organisms; Z11.59 Encounter for screening for other viral diseases; I11.0 Hypertensive heart disease with heart failure; E11.65 Type 2 diabetes mellitus with hyperglycemia; N30.01 Acute cystitis with hematuria; R60.0 Localized edema; Z79.4 Long term (current) use of insulin; R79.1 Abnormal coagulation profile
CPT/HCPCS: 36415; 71010; 71045; 71275; 80053; 81001; 82009; 82550; 82553; 82947; 83605; 83735; 83880; 84484; 85025; 85378; 87040; 87070; 87086; 87205; 87400; 87420; 87635; 87651; 87804; 93005; 93306; 94640; 94760; 96365; 96374; 99284; A4222; J1450; J1815; J1940; J1956; J3475; J7620

== ENCOUNTER 2020-10-28 11:12 | Inpatient (IN) ==
[2020-10-28] MEDS ORDERED: ZOFRAN INJ 4 MG VIAL IVP ONE (12:11)
[2020-10-28] MEDS ORDERED: LEVSIN/MAALOX/LIDOC VISC PO ONE (12:11)
[2020-10-28] MEDS ORDERED: ZOFRAN INJ 4 MG VIAL ONE (12:19)
[2020-10-28] MEDS ORDERED: LEVSIN/MAALOX/LIDOC VISC ONE (12:20)
--- NOTE | 2020-10-28 12:46 | RAD ---
HISTORYABD PAIN, SOBSTUDYACUTE x-ray ABDOMEN SERIES, one view chest and two views abdomenCOMPARISONExam 06/04/2020FINDINGSProbable CHF, as seen previously. However, there are new infiltrative densities in the lower lungs that could be pulmonary edema and/or pneumonia. Small pleural effusions are not excluded. No pneumothorax is seen.No suggestion of free intraperitoneal air. Little small and large bowel air is seen without dilation. No air-fluid levels are seen. Probable phleboliths in the pelvis are similar to prior study. No constipation.IMPRESSIONCHF and pulmonary edema are suspected. Bibasilar pneumonia cannot be excluded, thoughNo abnormalities are seen with the bowel gas pattern.Electronically signed by: Kaiden Hall (Oct 28, 2020 12:44:33)
[2020-10-28 12:58] LABS: BASOPHILS # (AUTO) 0.1 X10^3/uL (0.0-0.1); BASOPHILS % (AUTO) 1.4 % (0.2-1.0); EOSINOPHILS # (AUTO) 0.1 x10^3/uL (0.0-0.2); EOSINOPHILS % (AUTO) 1.5 % (0.9-2.9); HEMATOCRIT 36.4 % (36.0-47.0); HEMOGLOBIN 11.8 g/dL (12.0-16.0); LYMPHOCYTES # (AUTO) 1.7 X10^3/uL (1.3-2.9); LYMPHOCYTES % (AUTO) 25.3 % (21.0-51.0); MEAN CORPUSCULAR HEMOGLOBIN 29.6 pg (27.0-34.0); MEAN CORPUSCULAR HGB CONC 32.3 g/dL (33.0-35.0); MEAN CORPUSCULAR VOLUME 91.5 fL (80.0-100.0); MEAN PLATELET VOLUME 10.1 fL (7.4-11.0); MONOCYTES # (AUTO) 0.5 x10^3/uL (0.3-0.8); MONOCYTES % (AUTO) 8.1 % (0.0-13.0); NEUTROPHILS # (AUTO) 4.4 x10^3/uL (2.2-4.8); NEUTROPHILS % (AUTO) 63.7 % (42.0-75.0); PLATELET COUNT 252 X10^3/uL (150.0-450.0); RED BLOOD COUNT 3.98 X10^6/uL (3.5-5.4); RED CELL DISTRIBUTION WIDTH 13.8 % (11.6-16.5); WHITE BLOOD COUNT 6.8 X10^3/uL (3.6-10.0)
[2020-10-28 13:02] LABS: ALANINE AMINOTRANSFERASE 18 Units/L (12-78); ALBUMIN 2.7 g/dL (3.4-5.0); ALKALINE PHOSPHATASE 121 Units/L (46-116); AMYLASE 29 Units/L (25-115); ASPARTATE AMINO TRANSFERASE 31 Units/L (15-37); BLOOD UREA NITROGEN 13 mg/dL (7-18); CALCIUM 9.1 mg/dL (8.5-10.1); CARBON DIOXIDE 29.5 mmol/L (21-32); CHLORIDE 103 mmol/L (98-107); COR CA(FOR HYPOALB) 10.1 mg/dL (8.5-10.1); COR NA(FOR HYPERGLY) 145 mmol/L (136-145); CREATININE 1.07 mg/dL (0.55-1.02); LIPASE 53 Units/L (73-393); SODIUM 139 mmol/L (136-145); eGFR NON BLACK RACES 57 (>60)
--- NOTE | 2020-10-28 13:22 | ED.ABDFE ---
HPI Time Seen Time Seen by Provider: 10/28/20 12:06 PCP Primary Care Physician: None Complaint Chief Complaint:: Pt c/o abd pain, constipation x 3 days and shortness of breath. She denies cough or fever. COVID-19 Coronavirus risk:travel/contact w/high risk person: No Has patient experienced Coronavirus symptoms: No Source History Provided: Patient Mode of arrival Mode of Arrival: Ambulatory Timing Onset of Chief Complaint: 10/25/20 PMH PMH Past Medical History: Yes Past Medical History: Anxiety, CHF, Diabetes, Dyslipidemia and Hypertension Past Surgical History: Yes Surgical History: Appendectomy and Other Family History History of Family Medical Conditions: Yes Family Medical History: Diabetes Mellitus and Hypertension Social History Alcohol Use: None Do you use any recreational Drugs:: No Lives With: Alone Travel Risk Coronavirus risk:travel/contact w/high risk person: No Has patient experienced Coronavirus symptoms: No Infectious screening In the last 2 months have you had wt loss of >10#?: NO Have you had fever, night sweats or hemotysis?: No Have you traveled outside the country in the last 6 months?: No Isolation: Standard ROS Review of Systems Constitutional: See HPI Gastrointestinal/Abdominal: See HPI All Other Systems: Reviewed and Negative PE Vital Signs Vitals: Temperature 98.2 F Pulse Rate [Left Radial] 109 Pulse Rate 113 Respiratory Rate 22 Blood Pressure [Left Arm] 102/57 Blood Pressure [Right Arm] 125/81 Blood Pressure 156/81 O2 Sat by Pulse Oximetry 88 General Limitations: No Limitations General Appearance: Alert and In No Apparent Distress Head Head Exam: Normal Inspection, Atraumatic and Normocephalic Eyes Eye exam: Normal Appearance and EOMI ENT ENT Exam: Normal Exam Neck Neck Exam: Normal Inspection and Trachea Midline Chest Chest Inspection: Normal Inspection and Symmetric Chest Wall Rise Respiratory Respiratory Exam: Normal Lung Sounds Bilat Respiratory Exam: Bilateral: Clear to Auscultation Cardiovascular Cardiovascular Exam: Regular Rate, Normal Rhythm and Normal Heart Sounds Abdominal Exam Abdominal Exam: Normal Inspection, Normal Bowel Sounds and Tenderness Abdominal Tenderness: Epigastrium Extremeties Extremities Exam: Normal Inspection Neurologic Neurological Exam: Alert and Oriented X3 Psychiatric Psychiatric Exam: Normal Affect and Normal Mood Skin Skin Exam: Warm, Dry and Intact COURSE Reevaluation 1st: Improved (patient notes that she feels better, but O2 sats drop when supplemental O2 is stopped. patient with hypoxia on ABG. Will admit for symptom management. ) Consultation Consultation Comments: Spoke with Dr. Funk who accepts patient for admission. ROR Labs Reviewed Laboratory Results Reviewed?: Yes Result Diagrams: 10/28/20 12:20 10/28/20 12:20 Laboratory: WBC 6.8 X10^3/uL (3.6-10.0) 10/28/20 12:20 RBC 3.98 X10^6/uL (3.5-5.4) 10/28/20 12:20 Hgb 11.8 g/dL (12.0-16.0) L 10/28/20 12:20 Hct 36.4 % (36.0-47.0) 10/28/20 12:20 MCV 91.5 fL (80.0-100.0) 10/28/20 12:20 MCH 29.6 pg (27.0-34.0) 10/28/20 12:20 MCHC 32.3 g/dL (33.0-35.0) L 10/28/20 12:20 RDW 13.8 % (11.6-16.5) 10/28/20 12:20 Plt Count 252 X10^3/uL (150.0-450.0) 10/28/20 12:20 MPV 10.1 fL (7.4-11.0) 10/28/20 12:20 Neut % (Auto) 63.7 % (42.0-75.0) 10/28/20 12:20 Lymph % (Auto) 25.3 % (21.0-51.0) 10/28/20 12:20 [place] % (Auto) 8.1 % (0.0-13.0) 10/28/20 12:20 Eos % (Auto) 1.5 % (0.9-2.9) 10/28/20 12:20 Baso % (Auto) 1.4 % (0.2-1.0) H 10/28/20 12:20 Neut # (Auto) 4.4 x10^3/uL (2.2-4.8) 10/28/20 12:20 Lymph # (Auto) 1.7 X10^3/uL (1.3-2.9) 10/28/20 12:20 [place] # (Auto) 0.5 x10^3/uL (0.3-0.8) 10/28/20 12:20 Eos # (Auto) 0.1 x10^3/uL (0.0-0.2) 10/28/20 12:20 Baso # (Auto) 0.1 X10^3/uL (0.0-0.1) 10/28/20 12:20 Absolute Nucleated RBC 0.1 /100WBC 10/28/20 12:20 Sample Site Left brachial 10/28/20 15:40 ABG pH 7.440 (7.35-7.45) 10/28/20 15:40 ABG pCO2 47.0 mmHg (35.0-45.0) H 10/28/20 15:40 ABG pO2 52.0 mmHg (80.0-100.0) L 10/28/20 15:40 ABG HCO3 31.9 mmol/L (22-26) H* 10/28/20 15:40 ABG O2 Saturation 88.0 % (90-100) L 10/28/20 15:40 ABG Base Excess 6.7 mmol/L (-2.0-2.0) H 10/28/20 15:40 Chai Test Na 10/28/20 15:40 A-a Gradient 39.0 mmHg 10/28/20 15:40 FiO2 21.0 10/28/20 15:40 Blood Gas Comments Wilma well aw 10/28/20 15:40 Sodium 139 mmol/L (136-145) 10/28/20 12:20 Corrected Sodium 145 mmol/L (136-145) 10/28/20 12:20 Potassium 4.2 mmol/L (3.5-5.1) 10/28/20 12:20 Chloride 103 mmol/L (98-107) 10/28/20 12:20 Carbon Dioxide 29.5 mmol/L (21-32) 10/28/20 12:20 BUN 13 mg/dL (7-18) 10/28/20 12:20 Creatinine 1.07 mg/dL (0.55-1.02) H 10/28/20 12:20 Est GFR (MDRD) Af Amer > 60 (>60) 10/28/20 12:20 Est GFR (MDRD) Non-Af 57 (>60) L 10/28/20 12:20 Glucose 363 mg/dL (65-99) H 10/28/20 12:20 Calcium 9.1 mg/dL (8.5-10.1) 10/28/20 12:20 Corrected Calcium 10.1 mg/dL (8.5-10.1) 10/28/20 12:20 Total Bilirubin 1.50 mg/dL (0.2-1.0) H 10/28/20 12:20 AST 31 Units/L (15-37) 10/28/20 12:20 ALT 18 Units/L (12-78) 10/28/20 12:20 Alkaline Phosphatase 121 Units/L (46-116) H 10/28/20 12:20 B-Natriuretic Peptide 1080 pg/mL (0-79) H* 10/28/20 12:20 Total Protein 8.0 g/dL (6.4-8.2) 10/28/20 12:20 Albumin 2.7 g/dL (3.4-5.0) L 10/28/20 12:20 Globulin 5.3 g/dL (2.5-4.5) H 10/28/20 12:20 Albumin/Globulin Ratio 0.5 Ratio (1.1-2.1) L 10/28/20 12:20 Amylase 29 Units/L (25-115) 10/28/20 12:20 Lipase 53 Units/L (73-393) L 10/28/20 12:20 Specimen Type Clean catch urine 10/28/20 14:15 Urine Color Yellow (YELLOW) 10/28/20 14:15 Urine Appearance Cloudy (CLEAR) 10/28/20 14:15 Urine pH 5.0 (5.0 - 8.0) 10/28/20 14:15 Ur Specific [place] 1.020 (1.000-1.030) 10/28/20 14:15 Urine Protein 3+ (NEGATIVE) 10/28/20 14:15 Urine Glucose (UA) 4+ (NEGATIVE) 10/28/20 14:15 Urine Ketones Negative (NEGATIVE) 10/28/20 14:15 Urine Occult Blood 4+ (NEGATIVE) 10/28/20 14:15 Urine Nitrite Negative (NEGATIVE) 10/28/20 14:15 Urine Bilirubin Negative (NEGATIVE) 10/28/20 14:15 Urine Urobilinogen Normal (NORMAL) 10/28/20 14:15 Ur Leukocyte Esterase Negative (NEGATIVE) 10/28/20 14:15 Urine RBC 3-5 /HPF (0-3) A 10/28/20 14:15 Urine WBC 5-10 /HPF (0-5) A 10/28/20 14:15 Ur Squamous Epith Cells Rare /HPF (NEGATIVE) 10/28/20 14:15 Urine Bacteria 2+ /HPF (NEGATIVE) 10/28/20 14:15 Ur Culture Indicated? No/not indicated 10/28/20 14:15 Influenza Type A Ag Negative-presumptive (NEGATIVE) 10/28/20 12:32 Influenza Type B Ag Negative-presumptive (NEGATIVE) 10/28/20 12:32 XRAY X-ray Results: HISTORY ABD PAIN, SOB STUDY ACUTE x-ray ABDOMEN SERIES, one view chest and two views abdomen COMPARISON Exam 06/04/2020 FINDINGS Probable CHF, as seen previously. However, there are new infiltrative densities in the lower lungs that could be pulmonary edema and/or pneumonia. Small pleural effusions are not excluded. No pneumothorax is seen. No suggestion of free intraperitoneal air. Little small and large bowel air is seen without dilation. No air-fluid levels are seen. Probable phleboliths in the pelvis are similar to prior study. No constipation. IMPRESSION CHF and pulmonary edema are suspected. Bibasilar pneumonia cannot be excluded, though No abnormalities are seen with the bowel gas pattern. Electronically signed by: Kaiden Hall (Oct 28, 2020 12:44:33) Opioid Opioid Risk Tool Age (Calin box if 16-45): No History of Preadolescent Sexual Abuse: No Total: 0 Total Score Risk Category: Low Risk Copyright: Derrek BROWN predicting aberrant behaviors Diagnosis Discharge Problem: Hypoxia CHF (congestive heart failure) Qualifiers: Heart failure type: unspecified Heart failure chronicity: acute on chronic Qualified Code(s): I50.9 - Heart failure, unspecified
[2020-10-28] MEDS ORDERED: LASIX IVP ONE ×2 (13:25→13:28)
[2020-10-28 14:27] LABS: BILIRUBIN,URINE NEGATIVE (NEGATIVE); BLOOD/HEMOGLOBIN,URINE 4+ (NEGATIVE); GLUCOSE, URINE 4+ (NEGATIVE); KETONES,URINE NEGATIVE (NEGATIVE); LEUKOCYTE ESTERASE ,URINE NEGATIVE (NEGATIVE); NITRITES,URINE NEGATIVE (NEGATIVE); PROTEIN,URINE 3+ (NEGATIVE); UROBILINOGEN,URINE NORMAL (NORMAL)
[2020-10-28 14:36] LABS: APPEARANCE,URINE CLOUDY (CLEAR); COLOR,URINE YELLOW (YELLOW)
[2020-10-28 14:37] LABS: BACTERIA,URINE 2+ /HPF (NEGATIVE); SQUAMOUS EPITHELIAL CELL,UR RARE /HPF (NEGATIVE)
[2020-10-28 15:45] LABS: ABG BASE EXCESS 6.7 mmol/L (-2.0-2.0)
[2020-10-28 15:46] LABS: ABG HCO3 31.9 mmol/L (22-26)
[2020-10-28 18:17] VITALS: BMI 40.8
[2020-10-28] MEDS ORDERED: NORCO 10/325 TAB PO PRN (18:43)
[2020-10-28] MEDS ORDERED: GLUCOPHAGE ONE (19:51)
[2020-10-28] MEDS: HumuLIN R SC PRN (20:06)
[2020-10-28] MEDS ORDERED: COLACE CAP 100 MG PO PRN (20:10)
[2020-10-28] MEDS: GLUCOPHAGE PO SCH (20:11)
[2020-10-28] MEDS ORDERED: COLACE CAP 100 MG PO ONE (20:14)
[2020-10-29 05:11] LABS: BASOPHILS # (AUTO) 0.1 X10^3/uL (0.0-0.1); BASOPHILS % (AUTO) 1.1 % (0.2-1.0); EOSINOPHILS # (AUTO) 0.1 x10^3/uL (0.0-0.2); EOSINOPHILS % (AUTO) 2.4 % (0.9-2.9); HEMATOCRIT 32.5 % (36.0-47.0); HEMOGLOBIN 10.6 g/dL (12.0-16.0); LYMPHOCYTES # (AUTO) 1.4 X10^3/uL (1.3-2.9); LYMPHOCYTES % (AUTO) 23.5 % (21.0-51.0); MEAN CORPUSCULAR HEMOGLOBIN 30.3 pg (27.0-34.0); MEAN CORPUSCULAR HGB CONC 32.8 g/dL (33.0-35.0); MEAN CORPUSCULAR VOLUME 92.5 fL (80.0-100.0); MEAN PLATELET VOLUME 9.7 fL (7.4-11.0); MONOCYTES # (AUTO) 0.5 x10^3/uL (0.3-0.8); NEUTROPHILS # (AUTO) 3.8 x10^3/uL (2.2-4.8); PLATELET COUNT 207 X10^3/uL (150.0-450.0); RED BLOOD COUNT 3.51 X10^6/uL (3.5-5.4); RED CELL DISTRIBUTION WIDTH 13.5 % (11.6-16.5)
[2020-10-29 05:21] LABS: CALCIUM 8.5 mg/dL (8.5-10.1); CARBON DIOXIDE 29.9 mmol/L (21-32); CREATININE 1.41 mg/dL (0.55-1.02)
[2020-10-29] MEDS: HumuLIN R SC PRN ×4 (06:09→21:17)
[2020-10-29] MEDS: GLUCOPHAGE PO SCH ×2 (06:09→16:19)
[2020-10-29] MEDS ORDERED: NS 500 ML IV 500 ML IV PRN (08:40)
[2020-10-29] MEDS ORDERED: NS 500 ML IV 500 ML IV ONE (08:49)
[2020-10-29] MEDS: LASIX IVP SCH (08:58)
[2020-10-29] MEDS: ZOLOFT PO SCH (09:00)
[2020-10-29] MEDS: ALDACTONE TAB 25 MG PO SCH (09:00)
[2020-10-29] MEDS: LANTUS SC SCH (09:01)
[2020-10-29] MEDS: ROCEPHIN VIAL 1 GRAM 1 G in NS 100 ML IV + SPIKE MINIBAG* 100 ML IV SCH ×2 (09:02→09:04)
--- NOTE | 2020-10-29 09:23 | DR.H&P ---
H&P History & Physical for Day of: H&P Date: 10/29/20 Chief Complaint Chief Complaint: constipation, SOB Allergies Allergies Allergy/AdvReac Type Severity Reaction Status Date / Time No Known Drug Allergies Allergy Verified 06/04/20 18:27 History of Present Illness History of Present Illness: Ms Moulton is a 50y/o female with a PMH of CHF, HTN, HLD, Type 2 DM who presented with abdominal pain, constipation and SOB. Patient states she has been having increased dyspnea for the past 2 days. She has a hx of CHF, sees cardiology in [place]. She denies any recent changes in medications. Denies chest pain. Denies N/V. ER work up - Labs: Hgb 11.8 BNP elevated EKG: no acute ST changes - UA: WBC and bacteria present, culture pending - ABG: PO2 52 Patient was given GI cocktail, anti-emetics and IV lasix. She was feeling better. She was noted to have O2 sats in high 80s so was placed on 2L NC. She is currently on 2L NC, does not use O2 at home. Plan: will get an ECHO, daily weights, I/Os. Continue telemetry. Continue IV lasix. Resume home medications. Patient has uncontrolled DM, takes Lantus 20 units TID. Will start Lantus 40 units qAM and SSI. Will start Rocephin for UTI, follow urine culture. Monitor AM labs/imaging. PT/OT consult, RT consult. Past Medical History Past Medical History: Anxiety, CHF, Diabetes, Dyslipidemia and Hypertension Past Surgical History Surgical History: Appendectomy Family History Family Medical History: Diabetes Mellitus and Hypertension Social History Does patient currently use any type of tobacco product: No Have you used tobacco products in the last 12 months: No Type of Tobacco Use: None Does any household member use tobacco: No Alcohol Use: None Drug Use: None Prescription drug monitoring program results: PDMP reviewed and no concerns identified Medications Home Medications: No Known Drug Allergies Allergy (Verified 06/04/20 18:27) CONTINUE taking the following medications insulin regular human [Humulin R Regular U-100 Insuln] 55 unit SUBCUT .TID_AC 10/28/20 [History] Labs Result Diagrams: 10/29/20 04:46 10/29/20 04:46 Labs: Laboratory WBC 6.0 X10^3/uL (3.6-10.0) 10/29/20 04:46 RBC 3.51 X10^6/uL (3.5-5.4) 10/29/20 04:46 Hgb 10.6 g/dL (12.0-16.0) L 10/29/20 04:46 Hct 32.5 % (36.0-47.0) L 10/29/20 04:46 MCV 92.5 fL (80.0-100.0) 10/29/20 04:46 MCH 30.3 pg (27.0-34.0) 10/29/20 04:46 MCHC 32.8 g/dL (33.0-35.0) L 10/29/20 04:46 RDW 13.5 % (11.6-16.5) 10/29/20 04:46 Plt Count 207 X10^3/uL (150.0-450.0) 10/29/20 04:46 MPV 9.7 fL (7.4-11.0) 10/29/20 04:46 Neut % (Auto) 64.0 % (42.0-75.0) 10/29/20 04:46 Lymph % (Auto) 23.5 % (21.0-51.0) 10/29/20 04:46 [place] % (Auto) 9.0 % (0.0-13.0) 10/29/20 04:46 Eos % (Auto) 2.4 % (0.9-2.9) 10/29/20 04:46 Baso % (Auto) 1.1 % (0.2-1.0) H 10/29/20 04:46 Neut # (Auto) 3.8 x10^3/uL (2.2-4.8) 10/29/20 04:46 Lymph # (Auto) 1.4 X10^3/uL (1.3-2.9) 10/29/20 04:46 [place] # (Auto) 0.5 x10^3/uL (0.3-0.8) 10/29/20 04:46 Eos # (Auto) 0.1 x10^3/uL (0.0-0.2) 10/29/20 04:46 Baso # (Auto) 0.1 X10^3/uL (0.0-0.1) 10/29/20 04:46 Absolute Nucleated RBC 0.1 /100WBC 10/29/20 04:46 Sample Site Left brachial 10/28/20 15:40 ABG pH 7.440 (7.35-7.45) 10/28/20 15:40 ABG pCO2 47.0 mmHg (35.0-45.0) H 10/28/20 15:40 ABG pO2 52.0 mmHg (80.0-100.0) L 10/28/20 15:40 ABG HCO3 31.9 mmol/L (22-26) H* 10/28/20 15:40 ABG O2 Saturation 88.0 % (90-100) L 10/28/20 15:40 ABG Base Excess 6.7 mmol/L (-2.0-2.0) H 10/28/20 15:40 Chai Test Na 10/28/20 15:40 A-a Gradient 39.0 mmHg 10/28/20 15:40 FiO2 21.0 10/28/20 15:40 Blood Gas Comments Wilma well aw 10/28/20 15:40 Sodium 138 mmol/L (136-145) 10/29/20 04:46 Corrected Sodium 144 mmol/L (136-145) 10/29/20 04:46 Potassium 3.9 mmol/L (3.5-5.1) 10/29/20 04:46 Chloride 101 mmol/L (98-107) 10/29/20 04:46 Carbon Dioxide 29.9 mmol/L (21-32) 10/29/20 04:46 BUN 24 mg/dL (7-18) H 10/29/20 04:46 Creatinine 1.41 mg/dL (0.55-1.02) H 10/29/20 04:46 Est GFR (MDRD) Af Amer 50 (>60) L 10/29/20 04:46 Est GFR (MDRD) Non-Af 42 (>60) L 10/29/20 04:46 Glucose 348 mg/dL (65-99) H 10/29/20 04:46 POC Glucose (mg/dL) 374 mg/dL (65-99) H 10/28/20 19:05 Hemoglobin A1c 11.8 % 10/29/20 04:46 Calcium 8.5 mg/dL (8.5-10.1) 10/29/20 04:46 Corrected Calcium 10.1 mg/dL (8.5-10.1) 10/28/20 12:20 Total Bilirubin 1.50 mg/dL (0.2-1.0) H 10/28/20 12:20 AST 31 Units/L (15-37) 10/28/20 12:20 ALT 18 Units/L (12-78) 10/28/20 12:20 Alkaline Phosphatase 121 Units/L (46-116) H 10/28/20 12:20 B-Natriuretic Peptide 1080 pg/mL (0-79) H* 10/28/20 12:20 Total Protein 8.0 g/dL (6.4-8.2) 10/28/20 12:20 Albumin 2.7 g/dL (3.4-5.0) L 10/28/20 12:20 Globulin 5.3 g/dL (2.5-4.5) H 10/28/20 12:20 Albumin/Globulin Ratio 0.5 Ratio (1.1-2.1) L 10/28/20 12:20 Amylase 29 Units/L (25-115) 10/28/20 12:20 Lipase 53 Units/L (73-393) L 10/28/20 12:20 Specimen Type Clean catch urine 10/28/20 14:15 Urine Color Yellow (YELLOW) 10/28/20 14:15 Urine Appearance Cloudy (CLEAR) 10/28/20 14:15 Urine pH 5.0 (5.0 - 8.0) 10/28/20 14:15 Ur Specific [place] 1.020 (1.000-1.030) 10/28/20 14:15 Urine Protein 3+ (NEGATIVE) 10/28/20 14:15 Urine Glucose (UA) 4+ (NEGATIVE) 10/28/20 14:15 Urine Ketones Negative (NEGATIVE) 10/28/20 14:15 Urine Occult Blood 4+ (NEGATIVE) 10/28/20 14:15 Urine Nitrite Negative (NEGATIVE) 10/28/20 14:15 Urine Bilirubin Negative (NEGATIVE) 10/28/20 14:15 Urine Urobilinogen Normal (NORMAL) 10/28/20 14:15 Ur Leukocyte Esterase Negative (NEGATIVE) 10/28/20 14:15 Urine RBC 3-5 /HPF (0-3) A 10/28/20 14:15 Urine WBC 5-10 /HPF (0-5) A 10/28/20 14:15 Ur Squamous Epith Cells Rare /HPF (NEGATIVE) 10/28/20 14:15 Urine Bacteria 2+ /HPF (NEGATIVE) 10/28/20 14:15 Ur Culture Indicated? No/not indicated 10/28/20 14:15 Influenza Type A Ag Negative-presumptive (NEGATIVE) 10/28/20 12:32 Influenza Type B Ag Negative-presumptive (NEGATIVE) 10/28/20 12:32 SARS CoV-2 RNA Rapid DRE Negative (NEGATIVE) 10/28/20 16:06 Review of Systems Constitutional: Weakness Eyes: No Symptoms Reported ENT: No Symptoms Reported Respiratory: Shortness of Breath and SOB with Excertion Cardiovascular: No Symptoms Reported Gastrointestinal: Abdominal Pain and Constipation Genitourinary: No Symptoms Reported Musculoskeletal: No Symptoms Reported Skin: No Symptoms Reported Neurological: No Symptoms Reported Physical Exam Vital Signs: Temperature 97.7 F Pulse Rate [Left Radial] 96 Pulse Rate 113 Respiratory Rate 17 Blood Pressure [Left Arm] 111/67 Blood Pressure [Right Arm] 125/81 Blood Pressure 156/81 O2 Sat by Pulse Oximetry 99 Oriented: Normal Eyes: Normal Ear: Normal Nose: Normal Throat: Normal Respiratory: Rales Throughout Cardiovascular: Normal Auscultation: Bowel Sounds: Normal Palpation: Normal Tenderness: Normal Skin: Normal Musculoskeletal: Normal Psychiatric: Normal Mood Description: Calm and Appropriate Affect: Normal Speech Pattern: Clear and Appropriate Assessment/Plan (1) CHF exacerbation: Qualifiers: Heart failure type: combined systolic and diastolic Qualified Code(s): I50.43 - Acute on chronic combined systolic (congestive) and diastolic (congestive) heart failure Status: Acute (2) Urinary tract infection: Qualifiers: Hematuria presence: without hematuria Urinary tract infection type: acute cystitis Qualified Code(s): N30.00 - Acute cystitis without hematuria Status: Acute (3) Hypoxia: Status: Acute (4) Pulmonary hypertension: Status: Acute (5) Hypertension: Qualifiers: Hypertension type: essential hypertension Qualified Code(s): I10 - Essential (primary) hypertension Status: Chronic (6) Diabetes mellitus: Qualifiers: Diabetes mellitus complication status: without complication Diabetes mellitus group home insulin 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
[2020-10-29] MEDS ORDERED: SNACK - Diabetic Appropriate PO SCH (20:00)
[2020-10-29] MEDS ORDERED: MILK OF MAGNESIA PO PRN (22:57)
[2020-10-30 05:31] LABS: BASOPHILS # (AUTO) 0.1 X10^3/uL (0.0-0.1); BASOPHILS % (AUTO) 0.9 % (0.2-1.0); EOSINOPHILS # (AUTO) 0.2 x10^3/uL (0.0-0.2); EOSINOPHILS % (AUTO) 2.5 % (0.9-2.9); HEMATOCRIT 32.7 % (36.0-47.0); HEMOGLOBIN 10.6 g/dL (12.0-16.0); LYMPHOCYTES # (AUTO) 1.3 X10^3/uL (1.3-2.9); LYMPHOCYTES % (AUTO) 19.6 % (21.0-51.0); MEAN CORPUSCULAR HEMOGLOBIN 29.6 pg (27.0-34.0); MEAN CORPUSCULAR HGB CONC 32.4 g/dL (33.0-35.0); MEAN CORPUSCULAR VOLUME 91.1 fL (80.0-100.0); MEAN PLATELET VOLUME 9.8 fL (7.4-11.0); MONOCYTES # (AUTO) 0.6 x10^3/uL (0.3-0.8); MONOCYTES % (AUTO) 9.3 % (0.0-13.0); NEUTROPHILS # (AUTO) 4.4 x10^3/uL (2.2-4.8); NEUTROPHILS % (AUTO) 67.7 % (42.0-75.0); PLATELET COUNT 205 X10^3/uL (150.0-450.0); RED BLOOD COUNT 3.59 X10^6/uL (3.5-5.4); RED CELL DISTRIBUTION WIDTH 13.8 % (11.6-16.5); WHITE BLOOD COUNT 6.5 X10^3/uL (3.6-10.0)
[2020-10-30 05:38] LABS: BLOOD UREA NITROGEN 29 mg/dL (7-18); CALCIUM 8.6 mg/dL (8.5-10.1); CARBON DIOXIDE 30.8 mmol/L (21-32); CHLORIDE 104 mmol/L (98-107); COR NA(FOR HYPERGLY) 142 mmol/L (136-145); CREATININE 0.91 mg/dL (0.55-1.02); SODIUM 141 mmol/L (136-145); eGFR NON BLACK RACES > 60 (>60)
[2020-10-30] MEDS: GLUCOPHAGE PO SCH (06:00)
--- NOTE | 2020-10-30 06:05 | RAD ---
HISTORYCongestive heart failureSTUDYChest AP [id number] heart remains enlarged. There is mild pulmonary venous congestion but no definite interstitial or alveolar edema. Increased density is present in both lung bases which may be due to developing infiltrates or overlying soft tissue attenuation in this slightly underpenetrated examination. Follow-up of these areas is recommended. No pleural effusions are identified. Bony thorax is unremarkable.IMPRESSIONCardiomegaly with pulmonary venous congestionHaziness in both lung bases which could be due to developing infiltrates or overlying soft tissue attenuationElectronically signed by: PRINCE LEZAMA (Oct 30, 2020 06:02:19)
[2020-10-30] MEDS: ROCEPHIN VIAL 1 GRAM 1 G in NS 100 ML IV + SPIKE MINIBAG* 100 ML IV SCH (08:20)
[2020-10-30] MEDS: ZOLOFT PO SCH (08:20)
[2020-10-30] MEDS: LASIX IVP SCH (08:20)
[2020-10-30] MEDS: LANTUS SC SCH (08:21)
[2020-10-30] MEDS: ALDACTONE TAB 25 MG PO SCH (08:21)
--- NOTE | 2020-10-30 08:48 | W.DIS.FURT ---
Summary of Discharge Discharge Summary of Date Date of Exam: 10/30/20 Admission Date Date of Admission: 10/28/20 Admission Diagnosis Patient Problems (Updated 11/04/20 @ 09:46 by Marie Funk) Hypoxia (Acute) R09.02 Hospital Course: Ms Moulton is a 50y/o female with a PMH of CHF, HTN, HLD, Type 2 DM who presented with abdominal pain, constipation and SOB. Patient states she has been having increased dyspnea and leg edema for the past 2 days. She has a hx of CHF, sees cardiology in [place]. She denies any recent changes in medications. Denies chest pain. Denies N/V. IN the ED, BNP was elevated, cardiac enzymes and EKG were negative. Patient's UA did suggest infection. She was noted to be have hypoxia on ABG with a PO2 of 52. Patient was placed on 2L NC with sats above 92%. She was given IV lasix. She was on telemetry with strict I/Os and labs were monitored daily. Patient diuresed well with IV lasix and her dyspnea and edema improved. ECHO showed EF 32%, similar to her prev echo a year ago. She was also started on Rocephin for UTI. Urine culture showed Klebsiella pna. She has a hx of uncontrolled DM and was taking lantus TID and regular insulin SSI. She was started on Lantus 40 units qAM and Novolog SSU. PT/OT and RT were consulted. Patient was stable for discharge home. She did have sats around 88% on room air so she did qualify for home O2. She will follow up with PCP and cardiology as scheduled. She was discharged on oral antibiotics. Vital Signs: Vital Signs (72 hours) 10/28/20 11:15 10/28/20 12:30 10/28/20 12:32 Temperature 98.2 F Pulse Rate 113 H Pulse Rate [Left Radial] 109 H Respiratory Rate 22 22 22 Blood Pressure 156/81 Blood Pressure [Left Arm] O2 Sat by Pulse Oximetry 89 L 88 L 10/28/20 13:30 10/28/20 17:40 10/28/20 20:00 Temperature 98.3 F 97.7 F Pulse Rate Pulse Rate [Left Radial] 110 H 109 H Respiratory Rate 21 20 20 Blood Pressure Blood Pressure [Left Arm] 132/85 128/73 O2 Sat by Pulse Oximetry 93 L 97 04/14/21 00:00 10/29/20 04:00 10/29/20 08:00 Temperature 98.8 F 98.2 F 97.7 F Pulse Rate Pulse Rate [Left Radial] 102 H 98 H 96 H Respiratory Rate 22 18 17 Blood Pressure Blood Pressure [Left Arm] 119/70 124/71 111/67 O2 Sat by Pulse Oximetry 99 99 99 10/29/20 12:00 10/29/20 16:00 10/29/20 20:00 Temperature 97.6 F 98.8 F 98.1 F Pulse Rate Pulse Rate [Left Radial] 112 H 101 H 109 H Respiratory Rate 20 18 18 Blood Pressure Blood Pressure [Left Arm] 142/80 122/79 124/75 O2 Sat by Pulse Oximetry 94 L 91 L 94 L 10/30/20 00:00 10/30/20 04:00 10/30/20 07:42 Temperature 98.3 F 98.3 F 98.5 F Pulse Rate Pulse Rate [Left Radial] 102 H 110 H 108 H Respiratory Rate 20 20 18 Blood Pressure Blood Pressure [Left Arm] 128/76 121/70 114/78 O2 Sat by Pulse Oximetry 98 98 92 L Labs: Laboratory Last Values WBC 6.5 X10^3/uL (3.6-10.0) 10/30/20 04:23 RBC 3.59 X10^6/uL (3.5-5.4) 10/30/20 04:23 Hgb 10.6 g/dL (12.0-16.0) L 10/30/20 04:23 Hct 32.7 % (36.0-47.0) L 10/30/20 04:23 MCV 91.1 fL (80.0-100.0) 10/30/20 04:23 MCH 29.6 pg (27.0-34.0) 10/30/20 04:23 MCHC 32.4 g/dL (33.0-35.0) L 10/30/20 04:23 RDW 13.8 % (11.6-16.5) 10/30/20 04:23 Plt Count 205 X10^3/uL (150.0-450.0) 10/30/20 04:23 MPV 9.8 fL (7.4-11.0) 10/30/20 04:23 Neut % (Auto) 67.7 % (42.0-75.0) 10/30/20 04:23 Lymph % (Auto) 19.6 % (21.0-51.0) L 10/30/20 04:23 [place] % (Auto) 9.3 % (0.0-13.0) 10/30/20 04:23 Eos % (Auto) 2.5 % (0.9-2.9) 10/30/20 04:23 Baso % (Auto) 0.9 % (0.2-1.0) 10/30/20 04:23 Neut # (Auto) 4.4 x10^3/uL (2.2-4.8) 10/30/20 04:23 Lymph # (Auto) 1.3 X10^3/uL (1.3-2.9) 10/30/20 04:23 [place] # (Auto) 0.6 x10^3/uL (0.3-0.8) 10/30/20 04: Eos # (Auto) 0.2 x10^3/uL (0.0-0.2) 10/30/20 04:23 Baso # (Auto) 0.1 X10^3/uL (0.0-0.1) 10/30/20 04: Absolute Nucleated RBC 0.0 /100WBC 10/30/20 04:23 Sample Site Left brachial 10/28/20 15:40 ABG pH 7.440 (7.35-7.45) 10/28/20 15:40 ABG pCO2 47.0 mmHg (35.0-45.0) H 10/28/20 15:40 ABG pO2 52.0 mmHg (80.0-100.0) L 10/28/20 15:40 ABG HCO3 31.9 mmol/L (22-26) H* 10/28/20 15:40 ABG O2 Saturation 88.0 % (90-100) L 10/28/20 15:40 ABG Base Excess 6.7 mmol/L (-2.0-2.0) H 10/28/20 15:40 Chai Test Na 10/28/20 15:40 A-a Gradient 39.0 mmHg 10/28/20 15:40 FiO2 21.0 10/28/20 15:40 Blood Gas Comments Wilma well aw 10/28/20 15:40 Sodium 141 mmol/L (136-145) 10/30/20 04:23 Corrected Sodium 142 mmol/L (136-145) 10/30/20 04:23 Potassium 3.8 mmol/L (3.5-5.1) 10/30/20 04:23 Chloride 104 mmol/L (98-107) 10/30/20 04:23 Carbon Dioxide 30.8 mmol/L (21-32) 10/30/20 04:23 BUN 29 mg/dL (7-18) H 10/30/20 04:23 Creatinine 0.91 mg/dL (0.55-1.02) 10/30/20 04:23 Est GFR (MDRD) Af Amer > 60 (>60) 10/30/20 04:23 Est GFR (MDRD) Non-Af > 60 (>60) 10/30/20 04:23 Glucose 138 mg/dL (65-99) H 10/30/20 04:23 POC Glucose (mg/dL) 152 mg/dL (65-99) H 10/30/20 05:25 Hemoglobin A1c 11.8 % 10/29/20 04:46 Calcium 8.6 mg/dL (8.5-10.1) 10/30/20 04:23 Corrected Calcium 10.1 mg/dL (8.5-10.1) 10/28/20 12:20 Total Bilirubin 1.50 mg/dL (0.2-1.0) H 10/28/20 12:20 AST 31 Units/L (15-37) 10/28/20 12:20 ALT 18 Units/L (12-78) 10/28/20 12:20 Alkaline Phosphatase 121 Units/L (46-116) H 10/28/20 12:20 B-Natriuretic Peptide 1080 pg/mL (0-79) H* 10/28/20 12:20 Total Protein 8.0 g/dL (6.4-8.2) 10/28/20 12:20 Albumin 2.7 g/dL (3.4-5.0) L 10/28/20 12:20 Globulin 5.3 g/dL (2.5-4.5) H 10/28/20 12:20 Albumin/Globulin Ratio 0.5 Ratio (1.1-2.1) L 10/28/20 12:20 Amylase 29 Units/L (25-115) 10/28/20 12:20 Lipase 53 Units/L (73-393) L 10/28/20 12:20 Specimen Type Clean catch urine 10/28/20 14:15 Urine Color Yellow (YELLOW) 10/28/20 14:15 Urine Appearance Cloudy (CLEAR) 10/28/20 14:15 Urine pH 5.0 (5.0 - 8.0) 10/28/20 14:15 Ur Specific [place] 1.020 (1.000-1.030) 10/28/20 14:15 Urine Protein 3+ (NEGATIVE) 10/28/20 14:15 Urine Glucose (UA) 4+ (NEGATIVE) 10/28/20 14:15 Urine Ketones Negative (NEGATIVE) 10/28/20 14:15 Urine Occult Blood 4+ (NEGATIVE) 10/28/20 14:15 Urine Nitrite Negative (NEGATIVE) 10/28/20 14:15 Urine Bilirubin Negative (NEGATIVE) 10/28/20 14:15 Urine Urobilinogen Normal (NORMAL) 10/28/20 14:15 Ur Leukocyte Esterase Negative (NEGATIVE) 10/28/20 14:15 Urine RBC 3-5 /HPF (0-3) A 10/28/20 14:15 Urine WBC 5-10 /HPF (0-5) A 10/28/20 14:15 Ur Squamous Epith Cells Rare /HPF (NEGATIVE) 10/28/20 14:15 Urine Bacteria 2+ /HPF (NEGATIVE) 10/28/20 14:15 Ur Culture Indicated? No/not indicated 10/28/20 14:15 Influenza Type A Ag Negative-presumptive (NEGATIVE) 10/28/20 12:32 Influenza Type B Ag Negative-presumptive (NEGATIVE) 10/28/20 12:32 SARS CoV-2 RNA Rapid DRE Negative (NEGATIVE) 10/28/20 16:06 Reason For Visit: ACUTE CHF EXACERBATION, HYPOXIA Discharge Date Discharge Date: 10/30/20 Discharge Diagnosis All Active Problems (Updated 11/04/20 @ 09:46 by Marie Funk) Pulmonary hypertension (Chronic) CHF exacerbation (Acute) Urinary tract infection (Acute) CHF (congestive heart failure) (Chronic) Hypoxia (Acute) Hyperglycemia (Chronic) Diabetes mellitus (Chronic) Hypertension (Chronic) Plan of Treatment: Continue with present treatment and follow up plan. Pt is to keep follow up appointment as instructed and take medications as ordered. Discharge Medications Discharge Medications: No Known Drug Allergies Allergy (Verified 06/04/20 18:27) CONTINUE taking the following medications insulin regular human [Humulin R Regular U-100 Insuln] 55 unit SUBCUT .TID_AC 10/28/20 [History] New Prescriptions docusate sodium [DOK] 100 mg PO Q12H PRN 10 Days #20 cap 10/30/20 [Rx] furosemide 40 mg PO BID 30 Days #60 tab 10/30/20 [Rx] Follow up and Referral Follow Up: 1 Week (PCP) Discharge Disposition Assessment: Stable no acute distress noted at time of discharge. Discharge Disposition: Home Discharge Condition: Stable Discharge Plan Discharge Plan Hospital Course: Ms Moulton is a 50y/o female with a PMH of CHF, HTN, HLD, Type 2 DM who presented with abdominal pain, constipation and SOB. Patient states she has been having increased dyspnea and leg edema for the past 2 days. She has a hx of CHF, sees cardiology in [place]. She denies any recent changes in medications. Denies chest pain. Denies N/V. IN the ED, BNP was elevated, cardiac enzymes and EKG were negative. Patient's UA did suggest infection. She was noted to be have hypoxia on ABG with a PO2 of 52. Patient was placed on 2L NC with sats above 92%. She was given IV lasix. She was on telemetry with strict I/Os and labs were monitored daily. Patient diuresed well with IV lasix and her dyspnea and edema improved. ECHO showed EF 32%, similar to her prev echo a year ago. She was also started on Rocephin for UTI. Urine culture showed Klebsiella pna. She has a hx of uncontrolled DM and was taking lantus TID and regular insulin SSI. She was started on Lantus 40 units qAM and Novolog SSU. PT/OT and RT were consulted. Patient was stable for discharge home. She did have sats around 88% on room air so she did qualify for home O2. She will follow up with PCP and cardiology as scheduled. She was discharged on oral antibiotics. Patient Disposition: 01 HOME, SELF-CARE Condition: Stable Health Concerns: Post Hospitalization: new medications and changes needed to prevent readmission or further decline. Pt educated and given instructions on all concerns. Care Plan Goals: Problem: Cardiac Complications Goal: Early Recognition of cardiac complications for prompt intervention Instructions: Follow provided instructions. Follow up with primary physician as directed. Contact primary care physician or report to the closest Emergency Room if condition worsens. Plan of Treatment: Continue with present treatment and follow up plan. Pt is to keep follow up appointment as instructed and take medications as ordered. Assessment: Stable no acute distress noted at time of discharge. Prescriptions: New docusate sodium [DOK] 100 mg Capsule 100 mg PO Q12H PRN10 Days Qty: 20 RF: 0 furosemide 40 mg tablet 40 mg PO BID 30 Days Qty: 60 RF: 0 Continued Spironolactone 25 MG Tab 25 mg PO DAILY RF: 0 carvedilol 12.5 mg tablet 12.5 mg PO BID RF: 0 hydrocodone-acetaminophen 10-325 mg tablet 1 tab PO TID PRNRF: 0 sertraline 50 mg tablet 50 mg PO DAILY RF: 0 probenecid-colchicine 500-0.5 mg tablet 1 tab PO DAILY RF: 0 potassium chloride 10 mEq tablet extended release 10 meq PO BID RF: 0 ondansetron HCl [Zofran] 4 mg tablet 4 mg PO Q8H PRN (Reason: nausea and vomiting) Qty: 12 RF: 0 Changed Lantus U-100 Insulin 100 unit/mL solution 40 unit SUBCUT QAM Qty: 0 RF: 0 Discontinued metformin 1,000 mg tablet 1,000 mg PO BID RF: 0 Humulin R Regular U-100 Insuln 100 unit/mL solution 55 unit subcut .TID_AC RF: 0 Follow ups/Referrals Follow ups/Referrals: Lilo Coleman [Other] - 11/06/20 1:30 pm (Fax number ) Will [facility] [Other] - 10/30/20 10:13 am CLAUDIA PATE [REFERRING] - 11/04/20 10:30 am Instructions Instructions: Hyperglycemia, [id number], Home Oxygen Use, Adult, Hand Washing, [id number], Hypoxia, Antibiotic Medicine, Adult, [id number], Form - Daily Diabetes Record, Urinary Tract Infection, Adult, Heart Failure, [id number], Insulin Injection Instructions, Single Insulin Dose, Adult, You've Been Prescribed an Antibiotic in the Hospital for an Infection - [facility] (10/2017) Activity Restrictions/Additional Instructions: Take Lantus 40 units in the morning and Novolog prior to each meal. Stand Alone Forms: Excuse From Work or School, Precautions for COVID19, Patient Portal, Social Distancing
[2020-10-30 10:02] VITALS: BP 156/81
== END 2020-10-30 11:50 | disposition home or self-care (01) | DRG 292 ==
LOC: ER 11:14 → MED/SURG 11:14 → OBSVTOIN 15:57 → MED/SURG 17:45
PROVIDERS: ADMIT Internal Medicine; ATTEND Internal Medicine
DX: I27.20 Pulmonary hypertension, unspecified; Z20.822 Contact with and (suspected) exposure to COVID-19; B96.1 Klebsiella pneumoniae [K. pneumoniae] as the cause of diseases classified elsewhere; K59.09 Other constipation; N30.00 Acute cystitis without hematuria; Z79.4 Long term (current) use of insulin; I50.9 Heart failure, unspecified; I11.0 Hypertensive heart disease with heart failure; R09.02 Hypoxemia; R06.02 Shortness of breath; E11.65 Type 2 diabetes mellitus with hyperglycemia

== ENCOUNTER 2023-08-25 10:50 | Observation (INO) ==
--- NOTE | 2023-08-25 11:27 | ED.ABDFE ---
HPI Time Seen Time Seen by Provider: 08/25/23 11:16 PCP Primary Care Physician: Claudia Pate Complaint Doctors Chief Complaint Comments: 52 y/o female presents for evaluation. Not feeling well for the past month. Started with constipation, then dehydration. Now having worsening, edema of both legs. Having LUQ pain over the past few weeks. + associated with nausea. No fever, chills. No URI symptoms. Denies constipation now, no urinary complaints. Chief Complaint:: Pt c/o upper abd pain that radiates around to left ribs/flank and also down to LLQ abdomen. Pt states she has had diarrhea since she was in [place] "last week". C/o abd feeling bloated, tight and painful. Pt states she does have CHF. States she hurts when she walks, sits down, stands up, "I can't do anything". 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 Family History History of Family Medical Conditions: Yes Family Medical History: Diabetes Mellitus, Cancer, Coronary Artery Disease and Heart Failure Social History Does patient currently use any type of tobacco product: No Have you used tobacco products in the last 12 months: No Type of Tobacco Use: None Does any household member use tobacco: No Alcohol Use: None Do you use any recreational Drugs:: No Lives With: Family Lives Where: Home Travel Risk Coronavirus risk:travel/contact w/high risk person: No Has patient experienced Coronavirus symptoms: No Infectious screening In the last 2 months have you had wt loss of >10#?: NO Have you had fever, night sweats or hemotysis?: No Have you traveled outside the country in the last 6 months?: No Isolation: Standard ROS Review of Systems Constitutional: Weakness Eyes: No Symptoms Reported ENTM: No Symptoms Reported Respiratoy: No Symptoms Reported Cardiovascular: No Symptoms Reported Gastrointestinal/Abdominal: See HPI Genitourinary: No Symptoms Reported Neurological: No Symptoms Reported Musculoskeletal: No Symptoms Reported Integumentary: No Symptoms Reported Hematologic/Lymphatic: No Symptoms Reported All Other Systems: Reviewed and Negative PE Vital Signs Vitals: Vital Signs Temperature 98.7 F Pulse Rate 84 Pulse Rate 84 Pulse Rate 84 Pulse Rate 84 Pulse Rate 83 Pulse Rate 83 Pulse Rate 85 Pulse Rate 86 Pulse Rate 84 Pulse Rate 85 Pulse Rate 86 Pulse Rate 85 Pulse Rate 87 Pulse Rate 89 Pulse Rate 90 Pulse Rate 91 Pulse Rate 91 Pulse Rate 86 Pulse Rate 86 Pulse Rate 84 Pulse Rate 83 Pulse Rate 83 Pulse Rate 84 Pulse Rate 82 Respiratory Rate 20 Blood Pressure 109/66 Blood Pressure 131/83 Blood Pressure 131/83 Blood Pressure 127/81 Blood Pressure 136/83 Blood Pressure 132/84 Blood Pressure 158/92 Blood Pressure 121/77 Blood Pressure 113/68 Blood Pressure 104/66 O2 Sat by Pulse Oximetry 97 O2 Sat by Pulse Oximetry 96 O2 Sat by Pulse Oximetry 95 O2 Sat by Pulse Oximetry 97 O2 Sat by Pulse Oximetry 97 O2 Sat by Pulse Oximetry 99 O2 Sat by Pulse Oximetry 99 O2 Sat by Pulse Oximetry 98 O2 Sat by Pulse Oximetry 99 O2 Sat by Pulse Oximetry 98 O2 Sat by Pulse Oximetry 99 O2 Sat by Pulse Oximetry 97 O2 Sat by Pulse Oximetry 99 O2 Sat by Pulse Oximetry 97 O2 Sat by Pulse Oximetry 97 O2 Sat by Pulse Oximetry 96 O2 Sat by Pulse Oximetry 97 O2 Sat by Pulse Oximetry 94 O2 Sat by Pulse Oximetry 98 O2 Sat by Pulse Oximetry 97 O2 Sat by Pulse Oximetry 95 O2 Sat by Pulse Oximetry 96 O2 Sat by Pulse Oximetry 97 O2 Sat by Pulse Oximetry 96 General General Appearance: Alert and In No Apparent Distress Eyes Eye exam: PERRL and EOMI ENT ENT Exam: Normal Oropharynx and Mucous Membranes Moist Neck Neck Exam: Normal Inspection and Full ROM Respiratory Respiratory Exam: Normal Lung Sounds Bilat; negative Accessory Muscle Use or Respiratory Distress Cardiovascular Cardiovascular Exam: Regular Rate, Normal Rhythm and Normal Heart Sounds Abdominal Exam Abdominal Exam: Normal Bowel Sounds, Soft and Tenderness (LUQ, LLQ with guarding or rebound. ) Back Back Exam: Normal Inspection; negative (R) CVA Tenderness or (L) CVA Tenderness Extremeties Extremities Exam: Edema (+4, bilateral pitting edema of lower exts. ) Neurologic Neurological Exam: Alert, Oriented X3 and CN II-XII Intact; negative Motor Sensory Deficit Skin Skin Exam: Warm and Dry COURSE Treatment Treatment: 52 y/o female not feeling well x several week. + lower ext edema, + h/o CHF. + LUQ/LLQ tenderness. W/u initiated. Given IV furosemide. 1600 -pa tient's chest x-ray without CHF. She does have an elevated BNP of 2530 glucose very elevated 531. Has low sodium 124 but corrects to 134. eGFR poor 37. Plain CT obtained. Has a hypoattenuated area of the anterior spleen, concerning for partial infarct. Discussed with her attending, Dr. Jose. He will admit for continued diuresis. Will consult with Dr. Patino, surgery, regards to her spleen/left upper quadrant pain. Patient was given IV insulin regular, blood sugar coming down. ROR Labs Reviewed Laboratory Results Reviewed?: Yes 08/25/23 11:20 08/25/23 11:20 Laboratory: WBC 6.7 X10^3/uL (3.6-10.0) 08/25/23 11:20 RBC 3.82 X10^6/uL (3.5-5.4) 08/25/23 11:20 Hgb 11.0 g/dL (12.0-16.0) L 08/25/23 11:20 Hct 34.5 % (36.0-47.0) L 08/25/23 11:20 MCV 90.4 fL (80.0-100.0) 08/25/23 11:20 MCH 28.8 pg (27.0-34.0) 08/25/23 11:20 MCHC 31.9 g/dL (33.0-35.0) L 08/25/23 11:20 RDW 15.9 % (11.6-16.5) 08/25/23 11:20 Plt Count 200 X10^3/uL (150.0-450.0) 08/25/23 11:20 MPV 9.4 fL (7.4-11.0) 08/25/23 11:20 Neut % (Auto) 78.5 % (42.0-75.0) H 08/25/23 11:20 Lymph % (Auto) 9.3 % (21.0-51.0) L 08/25/23 11:20 [place] % (Auto) 8.3 % (0.0-13.0) 08/25/23 11:20 Eos % (Auto) 2.8 % (0.9-2.9) 08/25/23 11:20 Baso % (Auto) 1.1 % (0.2-1.0) H 08/25/23 11:20 Neut # (Auto) 5.2 x10^3/uL (2.2-4.8) H 08/25/23 11:20 Lymph # (Auto) 0.6 X10^3/uL (1.3-2.9) L 08/25/23 11:20 [place] # (Auto) 0.6 x10^3/uL (0.3-0.8) 08/25/23 11:20 Eos # (Auto) 0.2 x10^3/uL (0.0-0.2) 08/25/23 11:20 Baso # (Auto) 0.1 X10^3/uL (0.0-0.1) 08/25/23 11:20 Absolute Nucleated RBC 0.0 /100WBC 08/25/23 11:20 Sodium 124 mmol/L (136-145) L* 08/25/23 11:20 Corrected Sodium 134 mmol/L (136-145) L 08/25/23 11:20 Potassium 5.1 mmol/L (3.5-5.1) 08/25/23 11:20 Chloride 93 mmol/L (98-107) L 08/25/23 11:20 Carbon Dioxide 25.2 mmol/L (21-32) 08/25/23 11:20 BUN 43 mg/dL (7-18) H 08/25/23 11:20 Creatinine 1.83 mg/dL (0.55-1.02) H 08/25/23 11:20 Est GFR (MDRD) Af Amer 37 (>60) L 08/25/23 11:20 Est GFR (MDRD) Non-Af 31 (>60) L 08/25/23 11:20 Glucose 531 mg/dL (65-99) H* 08/25/23 11:20 POC Glucose (mg/dL) 318 mg/dL (65-99) H 08/25/23 16:04 Calcium 8.7 mg/dL (8.5-10.1) 08/25/23 11:20 Corrected Calcium 10.1 mg/dL (8.5-10.1) 08/25/23 11:20 Total Bilirubin 2.20 mg/dL (0.2-1.0) H 08/25/23 11:20 AST 20 Units/L (15-37) 08/25/23 11:20 ALT 11 Units/L (12-78) L 08/25/23 11:20 Alkaline Phosphatase 265 Units/L (46-116) H 08/25/23 11:20 Troponin I High Sens 13.5 ng/L (4.0-60.0) 08/25/23 11:20 B-Natriuretic Peptide 2530 pg/mL (0-79) H 08/25/23 11:20 Total Protein 7.5 g/dL (6.4-8.2) 08/25/23 11:20 Albumin 2.2 g/dL (3.4-5.0) L 08/25/23 11:20 Globulin 5.3 g/dL (2.5-4.5) H 08/25/23 11:20 Albumin/Globulin Ratio 0.4 Ratio (1.1-2.1) L 08/25/23 11:20 Lipase 16 Units/L (16-77) 08/25/23 11:20 XRAY X-ray Results: EXAM: ABDOMEN/PELVIS W/O CON HISTORY: LT SIDE ABD PAIN; COMPARISON: None available. TECHNIQUE: Multiple axial images of the abdomen and pelvis were obtained without contrast.. Dose reduction techniques including Automated Exposure Control (AEC) and adjustment of mA and kV were utilized. FINDINGS: Diffuse body wall edema noted. Skin thickening anterior lower abdominal wall noted, cellulitis not excluded. No subcutaneous gas. Trace right pleural fluid. Lung bases show pulmonary nodule in the posterior left lower lobe measuring 7 mm and additional nodules in the posterior right lower lobe measuring 4 mm and 5 mm in size. This does appear similar to the CT thorax from 11/14/2020. Cardiomegaly with small pericardial effusion. Small intraperitoneal fluid/ascites. Bones show no lytic or destructive process. The liver, adrenal glands appear unremarkable. Kidneys are unremarkable with no hydronephrosis. The spleen does show region of hypoattenuation anteriorly, this is a noncontrast study but needs correlation, is there clinical concern for infarct for instance. Pancreas unremarkable. The gallbladder may contain sludge or stones. Shotty cardiophrenic angle lymph nodes are seen and shotty para-aortic nodes. No definable adenopathy. Nonobstructive bowel. No bowel inflammatory features. No pericecal based inflammation. Small bowel loops are unremarkable. Bladder contains gas bubbles, mild wall haziness considered. No discernible adnexal mass. No findings to suggest diverticulitis. IMPRESSION: 1. There is a region of relative hypoattenuation within the anterior aspect of the spleen. This is nonspecific on this noncontrast study, does raise possibility of infarct, please correlate particularly given patient's history of left-sided pain. 2. Diffuse body wall edema/anasarca with small intraperitoneal free fluid and trace right pleural fluid. 3. Pulmonary nodule seen in the posterior aspect of each lower lobe, this does appear similar to the CT thorax from 11/14/2020, please correlate with patient history. 4. Nonobstructive bowel, no bowel inflammatory features. 5. Gallbladder may contain sludge/stones. 6. Bladder contains gas bubbles, recent instrumentation versus infection. Additional as above THIS IS AN ELECTRONICALLY VERIFIED FINAL REPORT 08/25/2023 3:10 PM - Electronically signed by Franc Feliciano MD Opioid Opioid Risk Tool Age (Calin box if 16-45): No History of Preadolescent Sexual Abuse: No Total: 0 Total Score Risk Category: Low Risk Copyright: Derrek BROWN predicting aberrant behaviors Discharge Plan Diagnosis Discharge Problem: Anasarca, Poorly controlled diabetes mellitus, Left upper quadrant abdominal pain Discharge Plan Patient Disposition: ADMITTED INPATIENT Condition: Stable Prescriptions: No Action furosemide 40 mg tablet 1 tab PO BID insulin glargine [Lantus U-100 Insulin] 100 unit/mL solution 45 unit SUBCUT BID Patient Comments: [NO ORIGINAL SIG] Humulin R Regular U-100 Insuln 100 unit/mL solution 17 ml subcut TID Patient Comments: [NO ORIGINAL SIG] sertraline 50 mg tablet 1 tab PO QDAY potassium chloride 10 mEq tablet,ER particles/crystals 1 tab PO BID Eliquis 5 mg tablet 5 mg PO BID polyethylene glycol 3350 17 gram Powder In Packet 17 g PO QDAY PRN tramadol 50 mg Tablet 50 mg PO BID PRN oxycodone-acetaminophen 10-325 mg Tablet 1 tab PO Q8H PRN docusate sodium 100 mg Capsule 100 mg PO BID probenecid-colchicine 500-0.5 mg Tablet 1 tab PO QDAY Health Concerns: Post Hospitalization: new medications and changes needed to prevent readmission or further decline. Pt educated and given instructions on all concerns. Plan of Treatment: Continue with present treatment and follow up plan. Pt is to keep follow up appointment as instructed and take medications as ordered. Orders to Discharge Patient Discharge Orders: Transfer (Routine); Ordered 08/25/23 Ordered By: Lb Vidal Follow ups/Referrals Follow ups/Referrals: CLAUDIA PATE [Primary Care Provider] - 3 days
[2023-08-25 11:34] LABS: BASOPHILS # (AUTO) 0.1 X10^3/uL (0.0-0.1); BASOPHILS % (AUTO) 1.1 % (0.2-1.0); EOSINOPHILS # (AUTO) 0.2 x10^3/uL (0.0-0.2); EOSINOPHILS % (AUTO) 2.8 % (0.9-2.9); HEMATOCRIT 34.5 % (36.0-47.0); LYMPHOCYTES # (AUTO) 0.6 X10^3/uL (1.3-2.9); LYMPHOCYTES % (AUTO) 9.3 % (21.0-51.0); MEAN CORPUSCULAR HEMOGLOBIN 28.8 pg (27.0-34.0); MEAN CORPUSCULAR HGB CONC 31.9 g/dL (33.0-35.0); MEAN CORPUSCULAR VOLUME 90.4 fL (80.0-100.0); MEAN PLATELET VOLUME 9.4 fL (7.4-11.0); MONOCYTES # (AUTO) 0.6 x10^3/uL (0.3-0.8); MONOCYTES % (AUTO) 8.3 % (0.0-13.0); NEUTROPHILS # (AUTO) 5.2 x10^3/uL (2.2-4.8); NEUTROPHILS % (AUTO) 78.5 % (42.0-75.0); PLATELET COUNT 200 X10^3/uL (150.0-450.0); RED BLOOD COUNT 3.82 X10^6/uL (3.5-5.4); RED CELL DISTRIBUTION WIDTH 15.9 % (11.6-16.5); WHITE BLOOD COUNT 6.7 X10^3/uL (3.6-10.0)
[2023-08-25] MEDS ORDERED: LASIX IVP ONE (11:35)
[2023-08-25] MEDS: LASIX IVP ONE (11:39)
[2023-08-25 11:47] LABS: ALBUMIN 2.2 g/dL (3.4-5.0); CALCIUM 8.7 mg/dL (8.5-10.1); CARBON DIOXIDE 25.2 mmol/L (21-32); COR CA(FOR HYPOALB) 10.1 mg/dL (8.5-10.1); CREATININE 1.83 mg/dL (0.55-1.02); POTASSIUM 5.1 mmol/L (3.5-5.1); TOTAL PROTEIN 7.5 g/dL (6.4-8.2)
[2023-08-25] MEDS ORDERED: NovoLIN R (or HumuLIN R) ONE ×2 (11:52→11:55)
[2023-08-25] MEDS: NovoLIN R (or HumuLIN R) IV ONE (11:55)
--- NOTE | 2023-08-25 15:14 | CT ---
EXAM:ABDOMEN/PELVIS W/O CONHISTORY:LT SIDE ABD PAIN;COMPARISON:None available.TECHNIQUE:Multiple axial images of the abdomen and pelvis were obtained without contrast.. Dose reduction techniques including Automated Exposure Control (AEC) and adjustment of mA and kV were utilized.FINDINGS:Diffuse body wall edema noted. Skin thickening anterior lower abdominal wall noted, cellulitis not excluded. No subcutaneous gas. Trace right pleural fluid.Lung bases show pulmonary nodule in the posterior left lower lobe measuring 7 mm and additional nodules in the posterior right lower lobe measuring 4 mm and 5 mm in size. This does appear similar to the CT thorax from 11/14/2020.Cardiomegaly with small pericardial effusion. Small intraperitoneal fluid/ascites.Bones show no lytic or destructive process.The liver, adrenal glands appear unremarkable. Kidneys are unremarkable with no hydronephrosis. The spleen does show region of hypoattenuation anteriorly, this is a noncontrast study but needs correlation, is there clinical concern for infarct for instance.Pancreas unremarkable. The gallbladder may contain sludge or stones.Shotty cardiophrenic angle lymph nodes are seen and shotty para-aortic nodes. No definable adenopathy.Nonobstructive bowel. No bowel inflammatory features. No pericecal based inflammation. Small bowel loops are unremarkable.Bladder contains gas bubbles, mild wall haziness considered. No discernible adnexal mass.No findings to suggest diverticulitis.IMPRESSION:1. There is a region of relative hypoattenuation within the anterior aspect of the spleen. This is nonspecific on this noncontrast study, does raise possibility of infarct, please correlate particularly given patient's history of left-sided pain.2. Diffuse body wall edema/anasarca with small intraperitoneal free fluid and trace right pleural fluid.3. Pulmonary nodule seen in the posterior aspect of each lower lobe, this does appear similar to the CT thorax from 11/14/2020, please correlate with patient history.4. Nonobstructive bowel, no bowel inflammatory features.5. Gallbladder may contain sludge/stones.6. Bladder contains gas bubbles, recent instrumentation versus infection. Additional as aboveTHIS IS AN ELECTRONICALLY VERIFIED FINAL REPORT08/25/2023 3:10 PM - Electronically signed by Franc Feliciano MD
[2023-08-25] MEDS ORDERED: CONSULT PHARMACY - POTASSIUM & MAGNESIUM XX SCH (17:00)
[2023-08-25] MEDS ORDERED: PATIENT'S HOME MEDICATION (Oxycodone-Acetaminophen 10-325 mg Tablet) PO PRN (17:10)
[2023-08-25 17:49] VITALS: BMI 41.6
[2023-08-25] MEDS: LASIX IVP SCH (18:22)
[2023-08-25] MEDS: FLUARIX QUAD VACC (FOR AGE 6 MONTHS+) IM ONE (19:04)
[2023-08-25] MEDS ORDERED: SNACK - Diabetic Appropriate PO SCH (20:00)
[2023-08-25] MEDS: ELIQUIS PO SCH (21:33)
[2023-08-25] MEDS: MICRO K EXTEN CAP 10 MEQ PO SCH (21:33)
[2023-08-25] MEDS: COLACE CAP 100 MG PO SCH (21:33)
[2023-08-25] MEDS: ULTRAM PO PRN (21:35)
[2023-08-25] MEDS: SNACK - Diabetic Appropriate PO SCH (21:35)
[2023-08-25] MEDS: LANTUS SC SCH (21:40)
[2023-08-25] MEDS: NovoLIN R (or HumuLIN R) SC SCH (21:41)
[2023-08-25] MEDS ORDERED: NovoLIN R (or HumuLIN R) SC SCH (22:00)
[2023-08-25 22:57] LABS: BILIRUBIN,URINE NEGATIVE (NEGATIVE); BLOOD/HEMOGLOBIN,URINE 1+ (NEGATIVE); GLUCOSE, URINE 3+ (NEGATIVE); KETONES,URINE NEGATIVE (NEGATIVE); LEUKOCYTE ESTERASE ,URINE 1+ (NEGATIVE); NITRITES,URINE NEGATIVE (NEGATIVE); PROTEIN,URINE 1+ (NEGATIVE); UROBILINOGEN,URINE NORMAL (NORMAL)
[2023-08-25 23:04] LABS: APPEARANCE,URINE CLOUDY (CLEAR); BACTERIA,URINE 3+ /HPF (NEGATIVE); COLOR,URINE DARK YELLOW (YELLOW); RBC,URINE 0-2 /HPF (0-3); SQUAMOUS EPITHELIAL CELL,UR FEW /HPF (NEGATIVE)
[2023-08-26 06:20] LABS: BASOPHILS % (AUTO) 0.7 % (0.2-1.0); EOSINOPHILS # (AUTO) 0.2 x10^3/uL (0.0-0.2); EOSINOPHILS % (AUTO) 3.6 % (0.9-2.9); HEMATOCRIT 31.9 % (36.0-47.0); HEMOGLOBIN 10.4 g/dL (12.0-16.0); LYMPHOCYTES # (AUTO) 0.8 X10^3/uL (1.3-2.9); LYMPHOCYTES % (AUTO) 13.3 % (21.0-51.0); MEAN CORPUSCULAR HEMOGLOBIN 29.4 pg (27.0-34.0); MEAN CORPUSCULAR HGB CONC 32.6 g/dL (33.0-35.0); MEAN CORPUSCULAR VOLUME 90.1 fL (80.0-100.0); MEAN PLATELET VOLUME 9.2 fL (7.4-11.0); MONOCYTES # (AUTO) 0.7 x10^3/uL (0.3-0.8); MONOCYTES % (AUTO) 12.4 % (0.0-13.0); PLATELET COUNT 188 X10^3/uL (150.0-450.0); RED BLOOD COUNT 3.53 X10^6/uL (3.5-5.4); RED CELL DISTRIBUTION WIDTH 15.7 % (11.6-16.5); WHITE BLOOD COUNT 5.7 X10^3/uL (3.6-10.0)
[2023-08-26 06:41] LABS: ALBUMIN 1.9 g/dL (3.4-5.0); CALCIUM 8.7 mg/dL (8.5-10.1); CARBON DIOXIDE 25.5 mmol/L (21-32); COR CA(FOR HYPOALB) 10.4 mg/dL (8.5-10.1); CREATININE 1.77 mg/dL (0.55-1.02); POTASSIUM 4.5 mmol/L (3.5-5.1)
[2023-08-26] MEDS: MIRALAX POWDER (1 DOSE 17 G) PO SCH (09:09)
[2023-08-26] MEDS: ZOLOFT PO SCH (09:09)
[2023-08-26] MEDS: PROBENECID COLCHICINE PO SCH (10:25)
[2023-08-26] MEDS: CIPRO IV 400 MG PREMIX* 400 MG/200 ML IV.SOLN. IV SCH (11:39)
[2023-08-26] MEDS: NS 1,000 ML IV 1,000 ML IV SCH (11:39)
[2023-08-26] MEDS: ALBUMIN HUMAN 25%- 100 ML 100 ML IV SCH (11:39)
--- NOTE | 2023-08-26 12:04 | DR.H&P ---
H&P - History & Physical for Day of: H&P Date: 08/25/23 - Chief Complaint Chief Complaint: ABDOMINAL PAIN AND SWELLING, DIARRHEA, LOWER EXTREMITY SWELLING - History of Present Illness History of Present Illness: IS A 52 YEAR OLD PATIENT OF [facility]. SHE PRESENTED TO THE ER WITH COMPLAINTS OF UPPER ABDOMINAL PAIN THAT RADIATES TO THE LEFT RIBS AND FLANK AND ALSO TO THE LLQ ABDOMEN. SHE ADMITS TO DIARRHEA HER ABDOMEN FEELING TIGHT AND BLOATED FOR THE PAST WEEK. ADDITIONALLY, SHE COMPLAINTS THAT SHE HAS BEEN HAVING ACHING PAINS ALL OVER HER BODY AND ABDOMINAL AND LOWER EXTREMITY SWELLING. SHE DENIES FEVER, CHILLS, URI SYMPTOMS, OR URINARY COMPLAINTS. HER MEDICAL HISTORY INCLUDES: CHF, DEPRESSION, DIABETES MELLITUS, DYSLIPIDEMIA, MAJOR DEPRESSIVE DISORDER, GOUT, PULMONARY EMBOLISM IN THE PAST, APPENDECTOMY, TONSILLECTOMY. ON ARRIVAL TO THE HOSPITAL, HER VITALS WERE: 98.7-82-20-96%-104/66. LABS WERE OBTAINED. WBC 6.7, RBC 3.82, HGB 11.0, HCT 34.5, PLT COUNT 200, SODIUM 124, POTASSIUM 5.1, CHLORIDE 93, BUN 43, CREAT ININE 1.83, GLUCOSE 531, CALCIUM 8.7, MAGNESIUM 2.2, TOTAL BILI 2.20, AST 20, ALT 11, ALK PHOS 265, TROPONIN 13.5, BNP 2530, TOTAL PROTEIN 7.5, ALBUMIN 2.2. A URINALYSIS WAS OBTAINED AND REVEALED: WBC 3-5, RBC 0-2, LEUKOCYTES 1+, BACTERIA 3+. URINE CULTURE WAS SET UP. AN ABDOMEN/PELVIS CT WITHOUT CONTRAST WAS OBTAINED AND REVEALED: Diffuse body wall edema noted. Skin thickening anterior lower abdo sandor wall noted, cellulitis not excluded. No subcutaneous gas. Trace right pleural fluid. Lung bases show pulmonary nodule in the posterior left lower lobe measuring 7 mm and additional nodules in the posterior right lower lobe measuring 4 mm and 5 mm in size. This does appear similar to the CT thorax from 11/14/2020. Cardiomegaly with small pericardial effusion. Small intraperitoneal fluid/ascites. Bones show no lytic or destructive process. The liver, adrenal glands appear unremarkable. Kidneys are unremarkable with no hydronephrosis. The spleen does show region of hypoattenuation anteriorly, this is a noncontrast study but needs correlation, is there clinical concern for infarct for instance. Pancreas unremarkable. The gallbladder may contain sludge or stones. Shotty cardiophrenic angle lymph nodes are seen and shotty para-aortic nodes. No definable adenopathy. Nonobstructive bowel. No bowel inflammatory features. No pericecal based inflammation. Small bowel loops are unremarkable. Bladder contains gas bubbles, mild wall haziness considered. No discernible adnexal mass. No findings to suggest diverticulitis. IN THE ER, SHE WAS GIVEN LASIX 40MG IV X 1 DOSE. SHE WAS GIVEN NOVOLIN R 12 UNITS IV X 1 DOSE WELL. HER BLOOD GLUCOSE LEVEL DECREASED TO 318. PATIENT WAS ADMITTED TO THE HOSPITAL INPATIENT STATUS FOR FURTHER EVALUATION AND TREATMENT OF ANASARCA, ABDOMINAL PAIN, UNCONTROLLED DM II, HYPONATREMIA, CHF, UTI. SHE WAS STARTED ON NORMAL SALINE AT 75 ML/HR, ALBUMIN 25% IV DAILY, CIPRO 400MG IV BID, OTBS ACHS, HUMULIN R SLIDING SCALE. HER HOME MEDICATIONS OF ELIQUIS, COLACE, PROBENECIDE- COLCHICINE, LANTUS, MIRALAX PRN, POTASSIUM CHLORIDE, ZOLOFT, AND ULTRAM WERE RESUMED. WE WILL CONSULT , GENERAL SURGEON. OTHERWISE, WE WILL FOLLOW- UP WITH AM LABS AND CONTINUE TO MONITOR. TIME SPENT ON CLINICAL ASSESSMENT, REVIEWING LABS AND IMAGING, DECISION MAKING, AND DOCUMENTATION GREATER THAN 75 MINUTES. 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 denies: Vomiting Genitourinary: No Symptoms Reported Musculoskeletal: No Symptoms Reported Skin: No Symptoms Reported Neurological: Weakness - Physical Exam Vital Signs: Vital Signs Temperature 98.8 F Temperature 97.7 F Pulse Rate [Left Radial] 81 Pulse Rate [Left Radial] 81 Respiratory Rate 18 Respiratory Rate 18 Respiratory Rate 20 Respiratory Rate 20 Blood Pressure [Left Arm] 101/55 Blood Pressure [Left Arm] 92/68 O2 Sat by Pulse Oximetry 97 O2 Sat by Pulse Oximetry 95 Oriented: Normal Eyes: Normal Ear: Normal Nose: Normal Throat: Normal Respiratory: Diminished Throughout Cardiovascular: Edema (BLE 4+ PITTING EDEMA ) : Normal Auscultation: Bowel Sounds: Normal, Absent Palpation: Normal Tenderness: LUQ, LLQ, Moderate, Guarding Skin: Normal Musculoskeletal: Right, Left, Leg, Swelling Psychiatric: Normal Mood Description: Calm Affect: Normal Speech Pattern: Clear - Assessment/Plan (1) Anasarca Status: Acute Plan: ADMIT, NORMAL SALINE AT 75 ML/HR, ALBUMIN 25% IV DAILY, CIPRO 400MG IV BID, OTBS ACHS, HUMULIN R SLIDING SCALE. HER HOME MEDICATIONS OF ELIQUIS, COLACE, PROBENECIDE-COLCHICINE, LANTUS, MIRALAX PRN, POTASSIUM CHLORIDE, ZOLOFT, AND ULTRAM WERE RESUMED. WE WILL CONSULT , GENERAL SURGEON. (2) Abdominal pain Qualifiers: Abdominal location: left upper quadrant Qualified Code(s): R10.12 - Left upper quadrant pain Status: Acute (3) Hyponatremia Status: Acute (4) Uncontrolled diabetes mellitus Qualifiers: Diabetes mellitus type: type 2 Glycemic state: with hyperglycemia Qualified Code(s): E11.65 - Type 2 diabetes mellitus with hyperglycemia Status: Acute (5) CHF (congestive heart failure) Qualifiers: Heart failure type: unspecified Heart failure chronicity: acute on chronic Qualified Code(s): I50.9 - Heart failure, unspecified Status: Acute (6) Urinary tract infection Qualifiers: Urinary tract infection type: acute cystitis Hematuria presence: without hematuria Qualified Code(s): N30.00 - Acute cystitis without hematuria Status: Acute (7) History of pulmonary embolism Status: Chronic Plan: RESUME ELIQUIS (8) Major depressive disorder Status: Chronic Plan: RESUME HOME MEDS - Allergies Allergies/Adverse Reactions: Allergies Allergy/AdvReac Type Severity Reaction Status Date / Time adhesive tape Allergy Verified 08/25/23 11:07 - Medications Home Medications: Home Medications Medication Instructions Recorded Confirmed apixaban 5 mg tablet (Eliquis) 5 mg PO BID 04/26/22 08/25/23 furosemide 40 mg tablet 1 tab PO BID 04/26/22 08/25/23 insulin glargine 100 unit/mL 45 unit subcut BID 04/26/22 08/25/23 subcutaneous solution (Lantus U-100 Insulin) insulin regular human 100 unit/mL 17 ml subcut TID 04/26/22 08/25/23 injection solution (Humulin R Regular U-100 Insulin) potassium chloride 10 mEq 1 tab PO BID 04/26/22 08/25/23 tablet,extended release(part/cryst) sertraline 50 mg tablet 1 tab PO QDAY 04/26/22 08/25/23 docusate sodium 100 mg capsule 100 mg PO BID 08/25/23 08/25/23 oxycodone-acetaminophen 10 mg-325 1 tab PO Q8H PRN 08/25/23 08/25/23 mg tablet polyethylene glycol 3350 17 gram 17 g PO QDAY PRN 08/25/23 08/25/23 oral powder packet probenecid 500 mg-colchicine 0.5 1 tab PO QDAY 08/25/23 08/25/23 mg tablet tramadol 50 mg tablet 50 mg PO BID PRN 08/25/23 08/25/23
[2023-08-26] MEDS ORDERED: NovoLIN R (or HumuLIN R) SUBCUT PRN (13:51)
--- NOTE | 2023-08-26 14:13 | RAD ---
EXAM:CHEST, 1 VIEWHISTORY:SOB; TUBAL, APPY, DM, HTNCOMPARISON:Prior study or studies were utilized for comparison during interpretation with the most relevant dated 03/10/2023TECHNIQUE:CHEST, 1 VIEWFINDINGS:Chest:Lines and tubes: NoneMediastinum: Cardiomegaly.Pulmonary vessels: There is pulmonary vascular congestion.Lung bob: Patchy opacities are seenPleura: No effusion. No pneumothorax.Bones and soft tissues: No acute osseous or soft tissue abnormality.IMPRESSION:1. Findings suggest heart failureTHIS IS AN ELECTRONICALLY VERIFIED FINAL REPORT08/26/2023 2:10 PM - Electronically signed by Kit Granger MD
[2023-08-26] MEDS ORDERED: SNACK - Diabetic Appropriate PO SCH (20:00)
[2023-08-26] MEDS: LANTUS SC SCH (21:58)
[2023-08-27 05:22] LABS: BASOPHILS # (AUTO) 0.1 X10^3/uL (0.0-0.1); BASOPHILS % (AUTO) 0.6 % (0.2-1.0); EOSINOPHILS # (AUTO) 0.2 x10^3/uL (0.0-0.2); EOSINOPHILS % (AUTO) 2.1 % (0.9-2.9); HEMATOCRIT 34.3 % (36.0-47.0); HEMOGLOBIN 10.9 g/dL (12.0-16.0); LYMPHOCYTES # (AUTO) 0.6 X10^3/uL (1.3-2.9); LYMPHOCYTES % (AUTO) 6.9 % (21.0-51.0); MEAN CORPUSCULAR HEMOGLOBIN 28.5 pg (27.0-34.0); MEAN CORPUSCULAR HGB CONC 31.7 g/dL (33.0-35.0); MONOCYTES # (AUTO) 1.2 x10^3/uL (0.3-0.8); MONOCYTES % (AUTO) 13.3 % (0.0-13.0); NEUTROPHILS # (AUTO) 6.7 x10^3/uL (2.2-4.8); NEUTROPHILS % (AUTO) 77.1 % (42.0-75.0); PLATELET COUNT 224 X10^3/uL (150.0-450.0); RED BLOOD COUNT 3.81 X10^6/uL (3.5-5.4); RED CELL DISTRIBUTION WIDTH 15.4 % (11.6-16.5); WHITE BLOOD COUNT 8.7 X10^3/uL (3.6-10.0)
[2023-08-27 05:42] LABS: ALANINE AMINOTRANSFERASE 11 Units/L (12-78); ALBUMIN 2.3 g/dL (3.4-5.0); ALKALINE PHOSPHATASE 248 Units/L (46-116); ASPARTATE AMINO TRANSFERASE 14 Units/L (15-37); BLOOD UREA NITROGEN 49 mg/dL (7-18); CALCIUM 8.6 mg/dL (8.5-10.1); CARBON DIOXIDE 24.4 mmol/L (21-32); CHLORIDE 97 mmol/L (98-107); CREATININE 1.98 mg/dL (0.55-1.02); GLUCOSE 80 mg/dL (65-99); POTASSIUM 4.7 mmol/L (3.5-5.1); SODIUM 128 mmol/L (136-145); TOTAL PROTEIN 7.4 g/dL (6.4-8.2); eGFR NON BLACK RACES 28 (>60)
--- NOTE | 2023-08-27 12:43 | DR.PROGNOT ---
HOSPITAL PROGRESS NOTE Progress Note for Day of: Progress Note Date: 08/27/23 Chief Complaint Chief Complaint: Patient still complaining of left-sided abdominal pain with moderate swallowing, no nausea or vomiting, she had normal bowel movement yesterday. Her white count is 8.7 and hemoglobin 10.9, sodium 128, chloride 97, BUN of 49, creatinine 1.98.. Past Medical Family Social History Past Med/Fam/Surg Hx: No changes since H&P Allergies: Allergies adhesive tape Allergy (Verified 08/25/23 11:07) Vital Signs Vital Signs: Vital Signs Temperature 99.3 F Temperature 98.9 F Pulse Rate [Left Radial] 91 Pulse Rate [Left Radial] 92 Respiratory Rate 15 Respiratory Rate 17 Respiratory Rate 17 Respiratory Rate 20 Blood Pressure [Left Arm] 102/64 Blood Pressure [Left Arm] 100/58 O2 Sat by Pulse Oximetry 96 O2 Sat by Pulse Oximetry 91 Physical Exam Oriented: Normal Eyes: Normal Ear: Normal Nose: Normal Throat: Normal Cardiovascular: Edema (BLE 4+ PITTING EDEMA ) : Normal GI:Palpation: Normal GI: Tenderness: LUQ, LLQ, Moderate, Guarding and Other (Soft and flat abdomen with abdominal wall edema on the left side with associated erythema.) Skin: Normal Musculoskeletal: Right, Left, Leg and Swelling Psychiatric: Normal Mood Description: Calm Affect: Normal Speech Pattern: Clear and Appropriate Laboratory and Diagnostics 08/27/23 04:51 08/27/23 04:51 Labs: 08/25/23 22:24 Urine,Clean Catch Urine Culture - Final Klebsiella Pneumoniae Laboratory WBC 8.7 X10^3/uL (3.6-10.0) 08/27/23 04:51 RBC 3.81 X10^6/uL (3.5-5.4) 08/27/23 04:51 Hgb 10.9 g/dL (12.0-16.0) L 08/27/23 04:51 Hct 34.3 % (36.0-47.0) L 08/27/23 04:51 MCV 90.0 fL (80.0-100.0) 08/27/23 04:51 MCH 28.5 pg (27.0-34.0) 08/27/23 04:51 MCHC 31.7 g/dL (33.0-35.0) L 08/27/23 04:51 RDW 15.4 % (11.6-16.5) 08/27/23 04:51 Plt Count 224 X10^3/uL (150.0-450.0) 08/27/23 04:51 MPV 9.0 fL (7.4-11.0) 08/27/23 04:51 Neut % (Auto) 77.1 % (42.0-75.0) H 08/27/23 04:51 Lymph % (Auto) 6.9 % (21.0-51.0) L 08/27/23 04:51 [place] % (Auto) 13.3 % (0.0-13.0) H 08/27/23 04:51 Eos % (Auto) 2.1 % (0.9-2.9) 08/27/23 04:51 Baso % (Auto) 0.6 % (0.2-1.0) 08/27/23 04:51 Neut # (Auto) 6.7 x10^3/uL (2.2-4.8) H 08/27/23 04:51 Lymph # (Auto) 0.6 X10^3/uL (1.3-2.9) L 08/27/23 04:51 [place] # (Auto) 1.2 x10^3/uL (0.3-0.8) H 08/27/23 04:51 Eos # (Auto) 0.2 x10^3/uL (0.0-0.2) 08/27/23 04:51 Baso # (Auto) 0.1 X10^3/uL (0.0-0.1) 08/27/23 04:51 Absolute Nucleated RBC 0.1 /100WBC 08/27/23 04:51 Sodium 128 mmol/L (136-145) L 08/27/23 04:51 Corrected Sodium TNP 08/27/23 04:51 Potassium 4.7 mmol/L (3.5-5.1) 08/27/23 04:51 Chloride 97 mmol/L (98-107) L 08/27/23 04:51 Carbon Dioxide 24.4 mmol/L (21-32) 08/27/23 04:51 BUN 49 mg/dL (7-18) H 08/27/23 04:51 Creatinine 1.98 mg/dL (0.55-1.02) H 08/27/23 04:51 Est GFR (MDRD) Af Amer 34 (>60) L 08/27/23 04:51 Est GFR (MDRD) Non-Af 28 (>60) L 08/27/23 04:51 Glucose 80 mg/dL (65-99) 08/27/23 04:51 POC Glucose (mg/dL) 99 mg/dL (65-99) 08/27/23 11:09 Calcium 8.6 mg/dL (8.5-10.1) 08/27/23 04:51 Corrected Calcium 10.0 mg/dL (8.5-10.1) 08/27/23 04:51 Magnesium 2.2 mg/dL (2.0-2.9) 08/25/23 11:20 Total Bilirubin 1.60 mg/dL (0.2-1.0) H 08/27/23 04:51 AST 14 Units/L (15-37) L 08/27/23 04:51 ALT 11 Units/L (12-78) L 08/27/23 04:51 Alkaline Phosphatase 248 Units/L (46-116) H 08/27/23 04:51 Troponin I High Sens 13.5 ng/L (4.0-60.0) 08/25/23 11:20 B-Natriuretic Peptide 2530 pg/mL (0-79) H 08/25/23 11:20 Total Protein 7.4 g/dL (6.4-8.2) 08/27/23 04:51 Albumin 2.3 g/dL (3.4-5.0) L 08/27/23 04:51 Globulin 5.1 g/dL (2.5-4.5) H 08/27/23 04:51 Albumin/Globulin Ratio 0.5 Ratio (1.1-2.1) L 08/27/23 04:51 Lipase 16 Units/L (16-77) 08/25/23 11:20 Specimen Type Clean catch urine 08/25/23 22:24 Urine Color Dark yellow (YELLOW) 08/25/23 22:24 Urine Appearance Cloudy (CLEAR) 08/25/23 22:24 Urine pH 5.0 (5.0 - 8.0) 08/25/23 22:24 Ur Specific [place] 1.020 (1.000-1.030) 08/25/23 22:24 Urine Protein 1+ (NEGATIVE) 08/25/23 22:24 Urine Glucose (UA) 3+ (NEGATIVE) 08/25/23 22:24 Urine Ketones Negative (NEGATIVE) 08/25/23 22:24 Urine Blood 1+ (NEGATIVE) 08/25/23 22:24 Urine Nitrite Negative (NEGATIVE) 08/25/23 22:24 Urine Bilirubin Negative (NEGATIVE) 08/25/23 22:24 Urine Urobilinogen Normal (NORMAL) 08/25/23 22:24 Ur Leukocyte Esterase 1+ (NEGATIVE) 08/25/23 22:24 Urine RBC 0-2 /HPF (0-3) 08/25/23 22:24 Urine WBC 3-5 /HPF (0-5) 08/25/23 22:24 Ur Squamous Epith Cells Few /HPF (NEGATIVE) 08/25/23 22:24 Urine Bacteria 3+ /HPF (NEGATIVE) 08/25/23 22:24 Ur Culture Indicated? Yes/culture set up 08/25/23 22:24 Assessment and Plan 1: Cellulitis left side of the abdominal wall. To continue IV antibiotics and obtain ultrasound of the left side of the abdominal wall. 2: Chronic kidney disease. 3: Mild anemia. Future GI endoscopy.. Problem Patient Problems: Patient Problems (Updated 08/26/23 @ 12:04 by Elpidio Jose) CHF (congestive heart failure) (Acute) I50.9 Anasarca (Acute) R60.1 Poorly controlled diabetes mellitus (Acute) E11.65 Left upper quadrant abdominal pain (Acute) R10.12 Abdominal pain (Acute) R10.9 Hyponatremia (Acute) E87.1 Uncontrolled diabetes mellitus (Acute) History of pulmonary embolism (Chronic) Z86.711 Major depressive disorder (Chronic) F32.9 Urinary tract infection (Acute) N39.0
[2023-08-27] MEDS: MAALOX or MYLANTA PO PRN (15:15)
[2023-08-28 06:21] LABS: BASOPHILS % (AUTO) 0.4 % (0.2-1.0); EOSINOPHILS # (AUTO) 0.1 x10^3/uL (0.0-0.2); EOSINOPHILS % (AUTO) 0.7 % (0.9-2.9); HEMATOCRIT 33.7 % (36.0-47.0); HEMOGLOBIN 10.8 g/dL (12.0-16.0); LYMPHOCYTES # (AUTO) 0.6 X10^3/uL (1.3-2.9); LYMPHOCYTES % (AUTO) 5.8 % (21.0-51.0); MEAN CORPUSCULAR HEMOGLOBIN 28.7 pg (27.0-34.0); MEAN CORPUSCULAR HGB CONC 32.1 g/dL (33.0-35.0); MEAN CORPUSCULAR VOLUME 89.6 fL (80.0-100.0); MEAN PLATELET VOLUME 8.8 fL (7.4-11.0); MONOCYTES # (AUTO) 1.6 x10^3/uL (0.3-0.8); MONOCYTES % (AUTO) 14.5 % (0.0-13.0); NEUTROPHILS # (AUTO) 8.4 x10^3/uL (2.2-4.8); NEUTROPHILS % (AUTO) 78.6 % (42.0-75.0); PLATELET COUNT 235 X10^3/uL (150.0-450.0); RED BLOOD COUNT 3.76 X10^6/uL (3.5-5.4); RED CELL DISTRIBUTION WIDTH 15.6 % (11.6-16.5); WHITE BLOOD COUNT 10.7 X10^3/uL (3.6-10.0)
[2023-08-28 06:23] LABS: ALANINE AMINOTRANSFERASE 6 Units/L (12-78); ALBUMIN 2.4 g/dL (3.4-5.0); ALKALINE PHOSPHATASE 310 Units/L (46-116); ASPARTATE AMINO TRANSFERASE 14 Units/L (15-37); BLOOD UREA NITROGEN 52 mg/dL (7-18); CALCIUM 8.6 mg/dL (8.5-10.1); CARBON DIOXIDE 24.7 mmol/L (21-32); CHLORIDE 101 mmol/L (98-107); COR CA(FOR HYPOALB) 9.9 mg/dL (8.5-10.1); CREATININE 1.99 mg/dL (0.55-1.02); GLUCOSE 54 mg/dL (65-99); POTASSIUM 4.9 mmol/L (3.5-5.1); SODIUM 135 mmol/L (136-145); TOTAL PROTEIN 7.4 g/dL (6.4-8.2); eGFR NON BLACK RACES 28 (>60)
--- NOTE | 2023-08-28 09:52 | DR.PROGNOT ---
HOSPITAL PROGRESS NOTE Progress Note for Day of: Progress Note Date: 08/28/23 Chief Complaint Chief Complaint: feeling better but still complaining of left-sided abdominal pain and swallowing difficulty , no nausea or vomiting, she had normal bowel movement yesterday. Her white count is 10.7 and hemoglobin 10.9, sodium 128, chloride 97, BUN 52,, creatinine 1.98.. on IV ABT. for abdominal wall US in am . Past Medical Family Social History Past Med/Fam/Surg Hx: No changes since H&P Allergies: Allergies adhesive tape Allergy (Verified 08/25/23 11:07) Vital Signs Vital Signs: Vital Signs Temperature 98.1 F Temperature 98.5 F Pulse Rate [Left Radial] 89 Pulse Rate [Left Radial] 93 Pulse Rate 82 Respiratory Rate 18 Respiratory Rate 20 Blood Pressure [Left Arm] 101/69 Blood Pressure [Left Arm] 92/62 O2 Sat by Pulse Oximetry 95 O2 Sat by Pulse Oximetry 98 O2 Sat by Pulse Oximetry 96 Physical Exam Oriented: Normal Eyes: Normal Ear: Normal Nose: Normal Throat: Normal Cardiovascular: Edema (BLE 4+ PITTING EDEMA ) : Normal GI:Auscultation: Normal and Absent GI:Palpation: Normal GI: Tenderness: LUQ, LLQ, Moderate, Guarding and Other (Soft and flat abdomen with abdominal wall edema on the left side with associated erythema.) Skin: Normal Musculoskeletal: Right, Left, Leg and Swelling Psychiatric: Normal Mood Description: Calm Affect: Normal Speech Pattern: Clear and Appropriate Laboratory and Diagnostics 08/28/23 05:12 08/28/23 05:12 Labs: 08/25/23 22:24 Urine,Clean Catch Urine Culture - Final Klebsiella Pneumoniae Laboratory WBC 10.7 X10^3/uL (3.6-10.0) H 08/28/23 05:12 RBC 3.76 X10^6/uL (3.5-5.4) 08/28/23 05:12 Hgb 10.8 g/dL (12.0-16.0) L 08/28/23 05:12 Hct 33.7 % (36.0-47.0) L 08/28/23 05:12 MCV 89.6 fL (80.0-100.0) 08/28/23 05:12 MCH 28.7 pg (27.0-34.0) 08/28/23 05:12 MCHC 32.1 g/dL (33.0-35.0) L 08/28/23 05:12 RDW 15.6 % (11.6-16.5) 08/28/23 05:12 Plt Count 235 X10^3/uL (150.0-450.0) 08/28/23 05:12 MPV 8.8 fL (7.4-11.0) 08/28/23 05:12 Neut % (Auto) 78.6 % (42.0-75.0) H 08/28/23 05:12 Lymph % (Auto) 5.8 % (21.0-51.0) L 08/28/23 05:12 [place] % (Auto) 14.5 % (0.0-13.0) H 08/28/23 05:12 Eos % (Auto) 0.7 % (0.9-2.9) L 08/28/23 05:12 Baso % (Auto) 0.4 % (0.2-1.0) 08/28/23 05:12 Neut # (Auto) 8.4 x10^3/uL (2.2-4.8) H 08/28/23 05:12 Lymph # (Auto) 0.6 X10^3/uL (1.3-2.9) L 08/28/23 05:12 [place] # (Auto) 1.6 x10^3/uL (0.3-0.8) H 08/28/23 05:12 Eos # (Auto) 0.1 x10^3/uL (0.0-0.2) 08/28/23 05:12 Baso # (Auto) 0.0 X10^3/uL (0.0-0.1) 08/28/23 05:12 Absolute Nucleated RBC 0.0 /100WBC 08/28/23 05:12 Sodium 135 mmol/L (136-145) L 08/28/23 05:12 Corrected Sodium TNP 08/28/23 05:12 Potassium 4.9 mmol/L (3.5-5.1) 08/28/23 05:12 Chloride 101 mmol/L (98-107) 08/28/23 05:12 Carbon Dioxide 24.7 mmol/L (21-32) 08/28/23 05:12 BUN 52 mg/dL (7-18) H 08/28/23 05:12 Creatinine 1.99 mg/dL (0.55-1.02) H 08/28/23 05:12 Est GFR (MDRD) Af Amer 34 (>60) L 08/28/23 05:12 Est GFR (MDRD) Non-Af 28 (>60) L 08/28/23 05:12 Glucose 54 mg/dL (65-99) L 08/28/23 05:12 POC Glucose (mg/dL) 123 mg/dL (65-99) H 08/28/23 06:20 Calcium 8.6 mg/dL (8.5-10.1) 08/28/23 05:12 Corrected Calcium 9.9 mg/dL (8.5-10.1) 08/28/23 05:12 Magnesium 2.2 mg/dL (2.0-2.9) 08/25/23 11:20 Total Bilirubin 2.00 mg/dL (0.2-1.0) H 08/28/23 05:12 AST 14 Units/L (15-37) L 08/28/23 05:12 ALT 6 Units/L (12-78) L 08/28/23 05:12 Alkaline Phosphatase 310 Units/L (46-116) H 08/28/23 05:12 Troponin I High Sens 13.5 ng/L (4.0-60.0) 08/25/23 11:20 B-Natriuretic Peptide 2530 pg/mL (0-79) H 08/25/23 11:20 Total Protein 7.4 g/dL (6.4-8.2) 08/28/23 05:12 Albumin 2.4 g/dL (3.4-5.0) L 08/28/23 05:12 Globulin 5.0 g/dL (2.5-4.5) H 08/28/23 05:12 Albumin/Globulin Ratio 0.5 Ratio (1.1-2.1) L 08/28/23 05:12 Lipase 16 Units/L (16-77) 08/25/23 11:20 Specimen Type Clean catch urine 08/25/23 22:24 Urine Color Dark yellow (YELLOW) 08/25/23 22:24 Urine Appearance Cloudy (CLEAR) 08/25/23 22:24 Urine pH 5.0 (5.0 - 8.0) 08/25/23 22:24 Ur Specific [place] 1.020 (1.000-1.030) 08/25/23 22:24 Urine Protein 1+ (NEGATIVE) 08/25/23 22:24 Urine Glucose (UA) 3+ (NEGATIVE) 08/25/23 22:24 Urine Ketones Negative (NEGATIVE) 08/25/23 22:24 Urine Blood 1+ (NEGATIVE) 08/25/23 22:24 Urine Nitrite Negative (NEGATIVE) 08/25/23 22:24 Urine Bilirubin Negative (NEGATIVE) 08/25/23 22:24 Urine Urobilinogen Normal (NORMAL) 08/25/23 22:24 Ur Leukocyte Esterase 1+ (NEGATIVE) 08/25/23 22: Urine RBC 0-2 /HPF (0-3) 08/25/23 22:24 Urine WBC 3-5 /HPF (0-5) 08/25/23 22:24 Ur Squamous Epith Cells Few /HPF (NEGATIVE) 08/25/23 22:24 Urine Bacteria 3+ /HPF (NEGATIVE) 08/25/23 22:24 Ur Culture Indicated? Yes/culture set up 08/25/23 22:24 Assessment and Plan 1: Cellulitis left side of the abdominal wall. To continue IV antibiotics and obtain ultrasound of the left side of the abdominal wall. 2: Chronic kidney disease. 3: Mild anemia. Future GI endoscopy.. Problem Patient Problems: Patient Problems CHF (congestive heart failure) (Acute) I50.9 Anasarca (Acute) R60.1 Poorly controlled diabetes mellitus (Acute) E11.65 Left upper quadrant abdominal pain (Acute) R10.12 Abdominal pain (Acute) R10.9 Hyponatremia (Acute) E87.1 Uncontrolled diabetes mellitus (Acute) History of pulmonary embolism (Chronic) Z86.711 Major depressive disorder (Chronic) F32.9 Urinary tract infection (Acute) N39.0
[2023-08-28] MEDS: LANTUS SC SCH (10:20)
[2023-08-28] MEDS: LASIX IVP ONE (13:36)
--- NOTE | 2023-08-28 22:11 | RAD ---
EXAM:CHEST, 1 VIEWHISTORY:hx chf anasarca, poor control DM LUQ pain ;COMPARISON:08/26/2023FINDINGS:The trachea is midline. The cardiac silhouette is moderately enlarged.. The lungs are clear without focal infiltrate or effusion. The bony thorax is unremarkable.IMPRESSION:Moderate cardiomegalyNo active cardiopulmonary diseaseTHIS IS AN ELECTRONICALLY VERIFIED FINAL REPORT08/28/2023 10:08 PM - Electronically signed by Bertin Astudillo MD
[2023-08-28] MEDS: MIRALAX POWDER (1 DOSE 17 G) PO PRN (22:54)
[2023-08-29] MEDS: D50W ABBOJECT SYR IV ONE ×2 (04:36→05:38)
[2023-08-29 06:08] LABS: BASOPHILS % (AUTO) 0.2 % (0.2-1.0); EOSINOPHILS # (AUTO) 0.2 x10^3/uL (0.0-0.2); EOSINOPHILS % (AUTO) 1.3 % (0.9-2.9); HEMATOCRIT 31.1 % (36.0-47.0); HEMOGLOBIN 10.1 g/dL (12.0-16.0); LYMPHOCYTES # (AUTO) 0.5 X10^3/uL (1.3-2.9); LYMPHOCYTES % (AUTO) 4.1 % (21.0-51.0); MEAN CORPUSCULAR HEMOGLOBIN 28.9 pg (27.0-34.0); MEAN CORPUSCULAR HGB CONC 32.5 g/dL (33.0-35.0); MEAN CORPUSCULAR VOLUME 89.1 fL (80.0-100.0); MEAN PLATELET VOLUME 8.6 fL (7.4-11.0); MONOCYTES # (AUTO) 1.4 x10^3/uL (0.3-0.8); MONOCYTES % (AUTO) 12.1 % (0.0-13.0); NEUTROPHILS # (AUTO) 9.5 x10^3/uL (2.2-4.8); NEUTROPHILS % (AUTO) 82.3 % (42.0-75.0); PLATELET COUNT 201 X10^3/uL (150.0-450.0); RED BLOOD COUNT 3.49 X10^6/uL (3.5-5.4); RED CELL DISTRIBUTION WIDTH 15.7 % (11.6-16.5); WHITE BLOOD COUNT 11.6 X10^3/uL (3.6-10.0)
[2023-08-29 06:17] LABS: ALANINE AMINOTRANSFERASE 6 Units/L (12-78); ALBUMIN 2.3 g/dL (3.4-5.0); ALKALINE PHOSPHATASE 374 Units/L (46-116); ASPARTATE AMINO TRANSFERASE 19 Units/L (15-37); BLOOD UREA NITROGEN 55 mg/dL (7-18); CALCIUM 8.6 mg/dL (8.5-10.1); CARBON DIOXIDE 23.8 mmol/L (21-32); CHLORIDE 101 mmol/L (98-107); CREATININE 2.02 mg/dL (0.55-1.02); GLUCOSE 62 mg/dL (65-99); POTASSIUM 4.9 mmol/L (3.5-5.1); SODIUM 132 mmol/L (136-145); TOTAL PROTEIN 6.7 g/dL (6.4-8.2); eGFR NON BLACK RACES 27 (>60)
--- NOTE | 2023-08-29 10:29 | PCM.PROG ---
Progress Note - Progress Note for Day of Date of Exam: 08/29/23 - Subjective Subjective: IS CURRENTLY INPATIENT STATUS FOR TREATMENT OF ANASARCA, ABDOMINAL WALL CELLULITIS, ABDOMINAL PAIN, HYPONATREMIA, UTI, UNCONTROLLED DIABETES. HER MEDICAL HISTORY INCLUDES: CHF, DEPRESSION, DIABETES MELLITUS, DYSLIPIDEMIA, MAJOR DEPRESSIVE DISORDER, GOUT, PULMONARY EMBOLISM IN THE PAST, APPENDECTOMY, TONSILLECTOMY. TODAY, SHE IS ALERT AND ORIENTED, LYING IN BED ON MORNING ROUNDS. SHE CONTINUES TO COMPLAIN OF LEFT SIDED ABDOMINAL PAIN AND ABDOMINAL SWELLING. SHE DENIES NAUSEA OR VOMITING AND ADMITS TO HAVING A NORMAL BOWEL MOVEMENT YESTERDAY. ON EXAMINATION, HEART IS REGULAR IN RATE AND RHYTHM. BILATERAL LUNGS ARE NOTED WITH DIMINISHED LUNG SOUNDS THROUGHOUT. ABDOMEN IS NOTED WITH LUQ AND LLQ TENDERNESS. ABDOMINAL WALL EDEMA WITH ERYTHEMA NOTED TO THE LEFT SIDE. GOOD RANGE OF MOTION NOTED TO UPPER AND LOWER EXTREMITIES. 3+ PITTING EDEMA NOTED TO BILATERAL LOWER EXTREMITIES. HER VITALS THIS MORNING ARE: 99.0-95-18-96%-117/69. LABS WERE OBTAINED. WBC 11.6, RBC 3.49, HGB 10.1, HCT 31.1, PLT COUNT 201, SODIUM 132, POTASSIUM 4.9, CHLORIDE 101, BUN 55, CREATININE 2.02, GLUCOSE 62, CALCIUM 8.6, TOTAL BILI 2.00, AST 19, ALT 6, ALK PHOS 374, TOTAL PROTEIN 6.7, ALBUMIN 2.3. URINE CULTURE IS POSITIVE FOR KLEBSIELLA PNEUMONIAE. SHE IS CURRENTLY RECEIVING NORMAL SALINE AT 75 ML/HR, ALBUMIN 25% IV DAILY, CIPRO 400MG IV BID, OTBS ACHS, HUMULIN R SLIDING SCALE, MAALOX 30ML Q4H P RN. HER HOME MEDICATIONS OF ELIQUIS, COLACE, PROBENECIDE-COLCHICINE, LANTUS, MIRALAX PRN, POTASSIUM CHLORIDE, ZOLOFT, AND ULTRAM WERE RESUMED. WE WILL CONTINUE WITH CURRENT PLAN OF CARE TODAY. OTHERWISE, WE WILL FOLLOW-UP WITH AM LABS AND CONTINUE TO MONITOR. TIME SPENT ON CLINICAL ASSESSMENT, REVIEWING LABS AND IMAGING, DECISION MAKING, AND DOCUMENTATION GREATER THAN 45 MINUTES. - Past Medical Family Social History Past Med/Fam/Surg Hx: No changes since H&P Allergies: Allergies adhesive tape Allergy (Verified 08/25/23 11:07) - Vital Signs and I&O's Vital Signs: Vital Signs Temperature 99.0 F Temperature 98.4 F Pulse Rate [Left Radial] 95 Pulse Rate [Left Radial] 95 Respiratory Rate 18 Respiratory Rate 20 Blood Pressure [Right Arm] 117/69 Blood Pressure [Right Arm] 122/80 O2 Sat by Pulse Oximetry 96 O2 Sat by Pulse Oximetry 98 Intake and Output: Intake & Output 08/26/23 08/27/23 08/28/23 08/29/23 11:59 11:59 11:59 11:59 Intake Total 380 / 380 2246 / 2246 2959 / 2959 2904 / 2904 Balance 380 / 380 2246 / 2246 2959 / 2959 2904 / 2904 - Physical Exam Oriented: Normal Eyes: Normal Ear: Normal Nose: Normal Throat: Normal Cardiovascular: Edema (BLE 4+ PITTING EDEMA) : Normal Auscultation: Bowel Sounds: Normal, Absent Tenderness: LUQ, LLQ, Guarding, Moderate, Other (Soft and flat abdomen with abdominal wall edema on the left side with associated erythema.) Skin: Red (LEFT SIDE ABDOMEN ) Musculoskeletal: Right, Left, Leg, Swelling Psychiatric: Normal Mood Description: Calm Affect: Normal Speech Pattern: Clear, Appropriate - Laboratory and Diagnostics Result Diagrams: 08/29/23 05:21 08/29/23 05:21 Labs: 08/25/23 22:24 Urine,Clean Catch Urine Culture - Final Klebsiella Pneumoniae Laboratory WBC 11.6 X10^3/uL (3.6-10.0) H 08/29/23 05:21 RBC 3.49 X10^6/uL (3.5-5.4) L 08/29/23 05:21 Hgb 10.1 g/dL (12.0-16.0) L 08/29/23 05:21 Hct 31.1 % (36.0-47.0) L 08/29/23 05:21 MCV 89.1 fL (80.0-100.0) 08/29/23 05:21 MCH 28.9 pg (27.0-34.0) 08/29/23 05:21 MCHC 32.5 g/dL (33.0-35.0) L 08/29/23 05:21 RDW 15.7 % (11.6-16.5) 08/29/23 05:21 Plt Count 201 X10^3/uL (150.0-450.0) 08/29/23 05:21 MPV 8.6 fL (7.4-11.0) 08/29/23 05:21 Neut % (Auto) 82.3 % (42.0-75.0) H 08/29/23 05:21 Lymph % (Auto) 4.1 % (21.0-51.0) L 08/29/23 05:21 [place] % (Auto) 12.1 % (0.0-13.0) 08/29/23 05:21 Eos % (Auto) 1.3 % (0.9-2.9) 08/29/23 05:21 Baso % (Auto) 0.2 % (0.2-1.0) 08/29/23 05:21 Neut # (Auto) 9.5 x10^3/uL (2.2-4.8) H 08/29/23 05:21 Lymph # (Auto) 0.5 X10^3/uL (1.3-2.9) L 08/29/23 05:21 [place] # (Auto) 1.4 x10^3/uL (0.3-0.8) H 08/29/23 05:21 Eos # (Auto) 0.2 x10^3/uL (0.0-0.2) 08/29/23 05:21 Baso # (Auto) 0.0 X10^3/uL (0.0-0.1) 08/29/23 05:21 Absolute Nucleated RBC 0.1 /100WBC 08/29/23 05:21 Sodium 132 mmol/L (136-145) L 08/29/23 05:21 Corrected Sodium TNP 08/29/23 05:21 Potassium 4.9 mmol/L (3.5-5.1) 08/29/23 05:21 Chloride 101 mmol/L (98-107) 08/29/23 05:21 Carbon Dioxide 23.8 mmol/L (21-32) 08/29/23 05:21 BUN 55 mg/dL (7-18) H 08/29/23 05:21 Creatinine 2.02 mg/dL (0.55-1.02) H 08/29/23 05:21 Est GFR (MDRD) Af Amer 33 (>60) L 08/29/23 05:21 Est GFR (MDRD) Non-Af 27 (>60) L 08/29/23 05:21 Glucose 62 mg/dL (65-99) L 08/29/23 05:21 POC Glucose (mg/dL) 104 mg/dL (65-99) H 08/29/23 06:21 Calcium 8.6 mg/dL (8.5-10.1) 08/29/23 05:21 Corrected Calcium 10.0 mg/dL (8.5-10.1) 08/29/23 05:21 Magnesium 2.2 mg/dL (2.0-2.9) 08/25/23 11:20 Total Bilirubin 2.00 mg/dL (0.2-1.0) H 08/29/23 05:21 AST 19 Units/L (15-37) 08/29/23 05:21 ALT 6 Units/L (12-78) L 08/29/23 05:21 Alkaline Phosphatase 374 Units/L (46-116) H 08/29/23 05:21 Troponin I High Sens 13.5 ng/L (4.0-60.0) 08/25/23 11:20 B-Natriuretic Peptide 2530 pg/mL (0-79) H 08/25/23 11:20 Total Protein 6.7 g/dL (6.4-8.2) 08/29/23 05:21 Albumin 2.3 g/dL (3.4-5.0) L 08/29/23 05:21 Globulin 4.4 g/dL (2.5-4.5) 08/29/23 05:21 Albumin/Globulin Ratio 0.5 Ratio (1.1-2.1) L 08/29/23 05:21 Lipase 16 Units/L (16-77) 08/25/23 11:20 Specimen Type Clean catch urine 08/25/23 22:24 Urine Color Dark yellow (YELLOW) 08/25/23 22:24 Urine Appearance Cloudy (CLEAR) 08/25/23 22:24 Urine pH 5.0 (5.0 - 8.0) 08/25/23 22:24 Ur Specific [place] 1.020 (1.000-1.030) 08/25/23 22:24 Urine Protein 1+ (NEGATIVE) 02/08/24 22:24 Urine Glucose (UA) 3+ (NEGATIVE) 08/25/23 22:24 Urine Ketones Negative (NEGATIVE) 08/25/23 22:24 Urine Blood 1+ (NEGATIVE) 08/25/23 22:24 Urine Nitrite Negative (NEGATIVE) 08/25/23 22:24 Urine Bilirubin Negative (NEGATIVE) 08/25/23 22:24 Urine Urobilinogen Normal (NORMAL) 08/25/23 22:24 Ur Leukocyte Esterase 1+ (NEGATIVE) 08/25/23 22:24 Urine RBC 0-2 /HPF (0-3) 08/25/23 22:24 Urine WBC 3-5 /HPF (0-5) 08/25/23 22:24 Ur Squamous Epith Cells Few /HPF (NEGATIVE) 08/25/23 22:24 Urine Bacteria 3+ /HPF (NEGATIVE) 08/25/23 22:24 Ur Culture Indicated? Yes/culture set up 08/25/23 22:24 - Plan (1) Anasarca Status: Acute Plan: NORMAL SALINE AT 75 ML/HR, ALBUMIN 25% IV DAILY, CIPRO 400MG IV BID, OTBS ACHS, HUMULIN R SLIDING SCALE. HER HOME MEDICATIONS OF ELIQUIS, COLACE, PROBENECIDE-COLCHICINE, LANTUS, MIRALAX PRN, POTASSIUM CHLORIDE, ZOLOFT, AND ULTRAM WERE RESUMED. WE WILL CONSULT , GENERAL SURGEON. (2) Abdominal wall cellulitis Status: Acute (3) Urinary tract infection Status: Acute Qualifiers: Urinary tract infection type: acute cystitis Hematuria presence: without hematuria Qualified Code(s): N30.00 - Acute cystitis without hematuria (4) Abdominal pain Status: Acute Qualifiers: Abdominal location: left upper quadrant Qualified Code(s): R10.12 - Left upper quadrant pain (5) Hyponatremia Status: Acute (6) Uncontrolled diabetes mellitus Status: Acute Qualifiers: Diabetes mellitus type: type 2 Glycemic state: with hyperglycemia Qualified Code(s): E11.65 - Type 2 diabetes mellitus with hyperglycemia (7) CHF (congestive heart failure) Status: Acute Qualifiers: Heart failure type: unspecified Heart failure chronicity: acute on chronic Qualified Code(s): I50.9 - Heart failure, unspecified (8) History of pulmonary embolism Status: Chronic Plan: RESUME ELIQUIS (9) Major depressive disorder Status: Chronic Qualifiers: Major depression recurrence: recurrent Active/Remission status: remission status unspecified Qualified Code(s): F33.9 - Major depressive disorder, recurrent, unspecified Plan: RESUME HOME MEDS
--- NOTE | 2023-08-29 10:44 | DR.PROGNOT ---
HOSPITAL PROGRESS NOTE Progress Note for Day of: Progress Note Date: 08/29/23 Chief Complaint Chief Complaint: feeling better but still complaining of left-sided abdominal pain , no nausea or vomiting, she had normal bowel movement yesterday. Her white count is 11.7 and hemoglobin 10.1, sodium 128, chloride 97, BUN 55,, creatinine 2,02.. on IV ABT. for abdominal wall US in am . Past Medical Family Social History Past Med/Fam/Surg Hx: No changes since H&P Allergies: Allergies adhesive tape Allergy (Verified 08/25/23 11:07) Vital Signs Vital Signs: Vital Signs Temperature 99.0 F Temperature 98.4 F Pulse Rate [Left Radial] 95 Pulse Rate [Left Radial] 95 Respiratory Rate 18 Respiratory Rate 20 Blood Pressure [Right Arm] 117/69 Blood Pressure [Right Arm] 122/80 O2 Sat by Pulse Oximetry 96 O2 Sat by Pulse Oximetry 98 Physical Exam Oriented: Normal Eyes: Normal Ear: Normal Nose: Normal Throat: Normal Cardiovascular: Edema (BLE 4+ PITTING EDEMA ) : Normal GI:Auscultation: Normal and Absent GI:Palpation: Normal GI: Tenderness: LUQ, LLQ, Moderate, Guarding and Other (Soft and flat abdomen with abdominal wall edema on the left side with associated erythema.) Skin: Red (LEFT SIDE ABDOMEN ) Musculoskeletal: Right, Left, Leg and Swelling Psychiatric: Normal Mood Description: Calm Affect: Normal Speech Pattern: Clear and Appropriate Laboratory and Diagnostics 08/29/23 05:21 08/29/23 05:21 Labs: 08/25/23 22:24 Urine,Clean Catch Urine Culture - Final Klebsiella Pneumoniae Laboratory WBC 11.6 X10^3/uL (3.6-10.0) H 08/29/23 05:21 RBC 3.49 X10^6/uL (3.5-5.4) L 08/29/23 05:21 Hgb 10.1 g/dL (12.0-16.0) L 08/29/23 05:21 Hct 31.1 % (36.0-47.0) L 08/29/23 05:21 MCV 89.1 fL (80.0-100.0) 08/29/23 05:21 MCH 28.9 pg (27.0-34.0) 08/29/23 05:21 MCHC 32.5 g/dL (33.0-35.0) L 08/29/23 05:21 RDW 15.7 % (11.6-16.5) 08/29/23 05:21 Plt Count 201 X10^3/uL (150.0-450.0) 08/29/23 05:21 MPV 8.6 fL (7.4-11.0) 08/29/23 05:21 Neut % (Auto) 82.3 % (42.0-75.0) H 08/29/23 05:21 Lymph % (Auto) 4.1 % (21.0-51.0) L 08/29/23 05:21 [place] % (Auto) 12.1 % (0.0-13.0) 08/29/23 05:21 Eos % (Auto) 1.3 % (0.9-2.9) 08/29/23 05:21 Baso % (Auto) 0.2 % (0.2-1.0) 08/29/23 05:21 Neut # (Auto) 9.5 x10^3/uL (2.2-4.8) H 08/29/23 05:21 Lymph # (Auto) 0.5 X10^3/uL (1.3-2.9) L 08/29/23 05:21 [place] # (Auto) 1.4 x10^3/uL (0.3-0.8) H 08/29/23 05:21 Eos # (Auto) 0.2 x10^3/uL (0.0-0.2) 08/29/23 05:21 Baso # (Auto) 0.0 X10^3/uL (0.0-0.1) 08/29/23 05:21 Absolute Nucleated RBC 0.1 /100WBC 08/29/23 05:21 Sodium 132 mmol/L (136-145) L 08/29/23 05:21 Corrected Sodium TNP 08/29/23 05:21 Potassium 4.9 mmol/L (3.5-5.1) 08/29/23 05:21 Chloride 101 mmol/L (98-107) 08/29/23 05:21 Carbon Dioxide 23.8 mmol/L (21-32) 08/29/23 05:21 BUN 55 mg/dL (7-18) H 08/29/23 05:21 Creatinine 2.02 mg/dL (0.55-1.02) H 08/29/23 05:21 Est GFR (MDRD) Af Amer 33 (>60) L 08/29/23 05:21 Est GFR (MDRD) Non-Af 27 (>60) L 08/29/23 05:21 Glucose 62 mg/dL (65-99) L 08/29/23 05:21 POC Glucose (mg/dL) 104 mg/dL (65-99) H 08/29/23 06:21 Calcium 8.6 mg/dL (8.5-10.1) 08/29/23 05:21 Corrected Calcium 10.0 mg/dL (8.5-10.1) 08/29/23 05:21 Magnesium 2.2 mg/dL (2.0-2.9) 08/25/23 11:20 Total Bilirubin 2.00 mg/dL (0.2-1.0) H 08/29/23 05:21 AST 19 Units/L (15-37) 08/29/23 05:21 ALT 6 Units/L (12-78) L 08/29/23 05:21 Alkaline Phosphatase 374 Units/L (46-116) H 08/29/23 05:21 Troponin I High Sens 13.5 ng/L (4.0-60.0) 08/25/23 11:20 B-Natriuretic Peptide 2530 pg/mL (0-79) H 08/25/23 11:20 Total Protein 6.7 g/dL (6.4-8.2) 08/29/23 05:21 Albumin 2.3 g/dL (3.4-5.0) L 08/29/23 05:21 Globulin 4.4 g/dL (2.5-4.5) 08/29/23 05:21 Albumin/Globulin Ratio 0.5 Ratio (1.1-2.1) L 08/29/23 05:21 Lipase 16 Units/L (16-77) 08/25/23 11:20 Specimen Type Clean catch urine 08/25/23 22:24 Urine Color Dark yellow (YELLOW) 08/25/23 22:24 Urine Appearance Cloudy (CLEAR) 08/25/23 22:24 Urine pH 5.0 (5.0 - 8.0) 08/25/23 22:24 Ur Specific [place] 1.020 (1.000-1.030) 08/25/23 22:24 Urine Protein 1+ (NEGATIVE) 08/25/23 22:24 Urine Glucose (UA) 3+ (NEGATIVE) 08/25/23 22:24 Urine Ketones Negative (NEGATIVE) 08/25/23 22:24 Urine Blood 1+ (NEGATIVE) 08/25/23 22:24 Urine Nitrite Negative (NEGATIVE) 08/25/23 22:24 Urine Bilirubin Negative (NEGATIVE) 08/25/23 22:24 Urine Urobilinogen Normal (NORMAL) 08/25/23 22:24 Ur Leukocyte Esterase 1+ (NEGATIVE) 08/25/23 22:24 Urine RBC 0-2 /HPF (0-3) 08/25/23 22:24 Urine WBC 3-5 /HPF (0-5) 08/25/23 22:24 Ur Squamous Epith Cells Few /HPF (NEGATIVE) 08/25/23 22:24 Urine Bacteria 3+ /HPF (NEGATIVE) 08/25/23 22:24 Ur Culture Indicated? Yes/culture set up 08/25/23 22:24 Assessment and Plan 1: Cellulitis left side of the abdominal wall. To continue IV antibiotics and obtain ultrasound of the left side of the abdominal wall. 2: Chronic kidney disease. 3: Mild anemia. Future GI endoscopy.. Problem Patient Problems: Patient Problems (Updated 08/29/23 @ 10:29 by Elpidio Jose) CHF (congestive heart failure) (Acute) I50.9 Anasarca (Acute) R60.1 Poorly controlled diabetes mellitus (Acute) E11.65 Left upper quadrant abdominal pain (Acute) R10.12 Abdominal pain (Acute) R10.9 Hyponatremia (Acute) E87.1 Uncontrolled diabetes mellitus (Acute) History of pulmonary embolism (Chronic) Z86.711 Major depressive disorder (Chronic) F32.9 Abdominal wall cellulitis (Acute) L03.311 Urinary tract infection (Acute) N39.0
--- NOTE | 2023-08-30 01:49 | US ---
EXAM:GALL BLADDERHISTORY:R/O GALLBLADDER DISEASE; GB DISEASE, RUQ PAIN, ANASARCA, POOR CONTROLLED DMCOMPARISON:None availableTECHNIQUE:Right upper quadrant abdominal ultrasoundFINDINGS:Fatty infiltration of the liver. No right hepatic lobe mass identified. Portal vein flow is appropriate. The gallbladder demonstrates mild wall thickening at 0.36 mm. There is pericholecystic fluid present. The common bile duct is normal. No gallstones are identified. The right renal length is 10.7 cm without obstruction. The pancreas is mostly obscured.IMPRESSION:Mildly thickened gallbladder wall with pericholecystic fluid worrisome for acute cholecystitis.THIS IS AN ELECTRONICALLY VERIFIED FINAL REPORT08/30/2023 1:46 AM - Electronically signed by Dru Chao MD
[2023-08-30 06:30] LABS: BASOPHILS # (AUTO) 0.1 X10^3/uL (0.0-0.1); BASOPHILS % (AUTO) 0.8 % (0.2-1.0); EOSINOPHILS # (AUTO) 0.3 x10^3/uL (0.0-0.2); EOSINOPHILS % (AUTO) 2.6 % (0.9-2.9); HEMATOCRIT 32.6 % (36.0-47.0); HEMOGLOBIN 10.5 g/dL (12.0-16.0); LYMPHOCYTES # (AUTO) 0.8 X10^3/uL (1.3-2.9); LYMPHOCYTES % (AUTO) 8.3 % (21.0-51.0); MEAN CORPUSCULAR HEMOGLOBIN 28.6 pg (27.0-34.0); MEAN CORPUSCULAR HGB CONC 32.3 g/dL (33.0-35.0); MEAN CORPUSCULAR VOLUME 88.7 fL (80.0-100.0); MEAN PLATELET VOLUME 8.7 fL (7.4-11.0); MONOCYTES # (AUTO) 1.4 x10^3/uL (0.3-0.8); MONOCYTES % (AUTO) 14.8 % (0.0-13.0); NEUTROPHILS # (AUTO) 7.1 x10^3/uL (2.2-4.8); NEUTROPHILS % (AUTO) 73.5 % (42.0-75.0); PLATELET COUNT 269 X10^3/uL (150.0-450.0); RED BLOOD COUNT 3.68 X10^6/uL (3.5-5.4); RED CELL DISTRIBUTION WIDTH 15.8 % (11.6-16.5); WHITE BLOOD COUNT 9.7 X10^3/uL (3.6-10.0)
[2023-08-30 06:38] LABS: ALANINE AMINOTRANSFERASE 11 Units/L (12-78); ALBUMIN 2.4 g/dL (3.4-5.0); ALKALINE PHOSPHATASE 474 Units/L (46-116); ASPARTATE AMINO TRANSFERASE 49 Units/L (15-37); BLOOD UREA NITROGEN 56 mg/dL (7-18); CALCIUM 8.8 mg/dL (8.5-10.1); CARBON DIOXIDE 22.4 mmol/L (21-32); CHLORIDE 103 mmol/L (98-107); COR CA(FOR HYPOALB) 10.1 mg/dL (8.5-10.1); CREATININE 1.88 mg/dL (0.55-1.02); GLUCOSE 73 mg/dL (65-99); SODIUM 134 mmol/L (136-145); TOTAL PROTEIN 7.1 g/dL (6.4-8.2); eGFR NON BLACK RACES 30 (>60)
[2023-08-30 06:57] LABS: POTASSIUM 5.9 mmol/L (3.5-5.1)
--- NOTE | 2023-08-30 07:12 | US ---
EXAM:SOFT TISSUE ABDOMINAL SONOGRAMHISTORY:Left upper quadrant soft tissue swellingTECHNIQUE:Ultrasound left upper quadrant abdominal wallCOMPARISON:NoneFINDINGS:Sonographic evaluation was focused to the abdominal wall of the left upper quadrant. There is subcutaneous edema consistent with the patient's known anasarca. No focal cyst, mass, or abscess identified.IMPRESSION:Subcutaneous edema consistent with the patient's known anasarcaNo focal abscess identified.THIS IS AN ELECTRONICALLY VERIFIED FINAL REPORT08/30/2023 7:08 AM - Electronically signed by Quentin Mancuso MD
--- NOTE | 2023-08-30 10:52 | PCM.PROG ---
Progress Note - Progress Note for Day of Date of Exam: 08/30/23 - Subjective Subjective: IS CURRENTLY INPATIENT STATUS FOR TREATMENT OF ANASARCA, ABDOMINAL WALL CELLULITIS, ABDOMINAL PAIN, HYPONATREMIA, UTI, UNCONTROLLED DIABETES. HER MEDICAL HISTORY INCLUDES: CHF, DEPRESSION, DIABETES MELLITUS, DYSLIPIDEMIA, MAJOR DEPRESSIVE DISORDER, GOUT, PULMONARY EMBOLISM IN THE PAST, APPENDECTOMY, TONSILLECTOMY. TODAY, SHE IS ALERT AND ORIENTED, SITTING UP IN THE CHAIR ON MORNING ROUNDS. SHE CONTINUES TO COMPLAIN OF LEFT SIDED ABDOMINAL PAIN AND ABDOMINAL SWELLING. SHE DENIES NAUSEA OR VOMITING THIS MORNING. NURSING STAFF REPORTS THAT SHE WAS HYPOGLYCEMIC YESTERDAY. SHE HAD BEEN NPO YESTERDAY FOR A GALLBLADDER ULTRASOUND. ON EXAMINATION TODAY, HEART IS REGULAR IN RATE AND RHYTHM. BILATERAL LUNGS ARE NOTED WITH DIMINISHED LUNG SOUNDS THROUGHOUT. ABDOMEN IS NOTED WITH LUQ AND LLQ TENDERNESS. ABDOMINAL WALL EDEMA WITH ERYTHEMA NOTED TO THE LEFT SIDE. GOOD RANGE OF MOTION NOTED TO UPPER AND LOWER EXTREMITIES. 3+ PITTING EDEMA NOTED TO BILATERAL LOWER EXTREMITIES. HER VITALS THIS MORNING ARE: 97.3-86-18-96%-104/58. LABS WERE OBTAINED. WBC 9.7, RBC 3.68, HGB 10.5, HCT 32.6, PLT COUNT 269, SODIUM 134, POTASSIUM 5.9, CHLORIDE 103, BUN 56, CREATININE 1.88, GLUCOSE 73, CALCIUM 8.8, TOTAL BILI 2.20, AST 49, ALT 11, ALK PHOS 474, TOTAL PROTEIN 7.1, ALBUMIN 2.4. URINE CULTURE IS POSITIVE FOR KLEBSIELLA PNEUMONIAE. A GALLBLADDER ULTRASOUND WAS OBTAINED YESTERDAY AND REVEALED: Mildly thickened gallbladder wall with pericholecystic fluid worrisome for acute cholecystitis. A SOFT TISSUE ABDOMINAL ULTRASOUND WAS OBTAINED AND REVEALED: Subcutaneous edema consistent with the patient's known anasarca. No focal abscess identified. SHE IS CURRENTLY RECEIVING NORMAL SALINE AT 75 ML/HR, ALBUMIN 25% IV DAILY, CIPRO 400MG IV BID, OTBS ACHS, HUMULIN R SLIDING SCALE, MAALOX 30ML Q4H PRN. HER HOME MEDICATIONS OF ELIQUIS, COLACE, PROBENECIDE- COLCHICINE, LANTUS, MIRALAX PRN, POTASSIUM CHLORIDE, ZOLOFT, AND ULTRAM WERE RESUMED. WE WILL CONTINUE WITH CURRENT PLAN OF CARE TODAY. IS FOLLOWING PATIENT. WE WILL NOTIFY HIM OF GALLBLADDER ULTRASOUND RESULTS. OTHERWISE, WE WILL FOLLOW-UP WITH AM LABS AND CONTINUE TO MONITOR. TIME SPENT ON CLINICAL ASSESSMENT, REVIEWING LABS AND IMAGING, DECISION MAKING, AND DOCUMENTATION GREATER THAN 45 MINUTES. - Past Medical Family Social History Past Med/Fam/Surg Hx: No changes since H&P Allergies: Allergies adhesive tape Allergy (Verified 08/25/23 11:07) - Vital Signs and I&O's Vital Signs: Vital Signs Temperature 97.3 F Temperature 98.7 F Pulse Rate [Left Radial] 86 Pulse Rate [Left Radial] 88 Respiratory Rate 18 Respiratory Rate 18 Respiratory Rate 18 Blood Pressure [Right Arm] 104/58 Blood Pressure [Right Arm] 92/57 O2 Sat by Pulse Oximetry 96 O2 Sat by Pulse Oximetry 97 Intake and Output: Intake & Output 08/27/23 08/28/23 08/29/23 08/30/23 11:59 11:59 11:59 11:59 Intake Total 2246 / 2246 2959 / 2959 2904 / 2904 2567 / 2567 Output Total 2 / 2 Balance 2246 / 2246 2959 / 2959 2904 / 2904 2565 / 2565 - Physical Exam Oriented: Normal Eyes: Normal Ear: Normal Nose: Normal Throat: Normal Cardiovascular: Edema (BLE 4+ PITTING EDEMA) : Normal Auscultation: Bowel Sounds: Normal, Absent Tenderness: LUQ, LLQ, Guarding, Moderate, Other (Soft and flat abdomen with abdominal wall edema on the left side with associated erythema.) Skin: Red (LEFT SIDE ABDOMEN) Musculoskeletal: Right, Left, Leg, Swelling Psychiatric: Normal Mood Description: Calm Affect: Normal Speech Pattern: Clear, Appropriate - Laboratory and Diagnostics Result Diagrams: 08/30/23 05:55 08/30/23 05:55 Labs: 08/25/23 22:24 Urine,Clean Catch Urine Culture - Final Klebsiella Pneumoniae Laboratory WBC 9.7 X10^3/uL (3.6-10.0) 08/30/23 05:55 RBC 3.68 X10^6/uL (3.5-5.4) 08/30/23 05:55 Hgb 10.5 g/dL (12.0-16.0) L 08/30/23 05:55 Hct 32.6 % (36.0-47.0) L 08/30/23 05:55 MCV 88.7 fL (80.0-100.0) 08/30/23 05:55 MCH 28.6 pg (27.0-34.0) 08/30/23 05:55 MCHC 32.3 g/dL (33.0-35.0) L 08/30/23 05:55 RDW 15.8 % (11.6-16.5) 08/30/23 05:55 Plt Count 269 X10^3/uL (150.0-450.0) 08/30/23 05:55 MPV 8.7 fL (7.4-11.0) 08/30/23 05:55 Neut % (Auto) 73.5 % (42.0-75.0) 08/30/23 05:55 Lymph % (Auto) 8.3 % (21.0-51.0) L 08/30/23 05:55 [place] % (Auto) 14.8 % (0.0-13.0) H 08/30/23 05:55 Eos % (Auto) 2.6 % (0.9-2.9) 08/30/23 05:55 Baso % (Auto) 0.8 % (0.2-1.0) 08/30/23 05:55 Neut # (Auto) 7.1 x10^3/uL (2.2-4.8) H 08/30/23 05:55 Lymph # (Auto) 0.8 X10^3/uL (1.3-2.9) L 08/30/23 05:55 [place] # (Auto) 1.4 x10^3/uL (0.3-0.8) H 08/30/23 05:55 Eos # (Auto) 0.3 x10^3/uL (0.0-0.2) H 08/30/23 05:55 Baso # (Auto) 0.1 X10^3/uL (0.0-0.1) 08/30/23 05:55 Absolute Nucleated RBC 0.1 /100WBC 08/30/23 05:55 Sodium 134 mmol/L (136-145) L 08/30/23 05:55 Corrected Sodium TNP 08/30/23 05:55 Potassium 5.9 mmol/L (3.5-5.1) H 08/30/23 05:55 Chloride 103 mmol/L (98-107) 08/30/23 05:55 Carbon Dioxide 22.4 mmol/L (21-32) 08/30/23 05:55 BUN 56 mg/dL (7-18) H 08/30/23 05:55 Creatinine 1.88 mg/dL (0.55-1.02) H 08/30/23 05:55 Est GFR (MDRD) Af Amer 36 (>60) L 08/30/23 05:55 Est GFR (MDRD) Non-Af 30 (>60) L 08/30/23 05:55 Glucose 73 mg/dL (65-99) 08/30/23 05:55 POC Glucose (mg/dL) 75 mg/dL (65-99) 08/30/23 05:02 Calcium 8.8 mg/dL (8.5-10.1) 08/30/23 05:55 Corrected Calcium 10.1 mg/dL (8.5-10.1) 08/30/23 05:55 Magnesium 2.2 mg/dL (2.0-2.9) 08/25/23 11:20 Total Bilirubin 2.20 mg/dL (0.2-1.0) H 08/30/23 05:55 AST 49 Units/L (15-37) H 08/30/23 05:55 ALT 11 Units/L (12-78) L 08/30/23 05:55 Alkaline Phosphatase 474 Units/L (46-116) H 08/30/23 05:55 Troponin I High Sens 13.5 ng/L (4.0-60.0) 08/25/23 11:20 B-Natriuretic Peptide 2530 pg/mL (0-79) H 08/25/23 11:20 Total Protein 7.1 g/dL (6.4-8.2) 08/30/23 05:55 Albumin 2.4 g/dL (3.4-5.0) L 08/30/23 05:55 Globulin 4.7 g/dL (2.5-4.5) H 08/30/23 05:55 Albumin/Globulin Ratio 0.5 Ratio (1.1-2.1) L 08/30/23 05:55 Lipase 16 Units/L (16-77) 08/25/23 11:20 Specimen Type Clean catch urine 08/25/23 22:24 Urine Color Dark yellow (YELLOW) 08/25/23 22:24 Urine Appearance Cloudy (CLEAR) 08/25/23 22:24 Urine pH 5.0 (5.0 - 8.0) 08/25/23 22:24 Ur Specific [place] 1.020 (1.000-1.030) 08/25/23 22:24 Urine Protein 1+ (NEGATIVE) 08/25/23 22:24 Urine Glucose (UA) 3+ (NEGATIVE) 08/25/23 22:24 Urine Ketones Negative (NEGATIVE) 08/25/23 22:24 Urine Blood 1+ (NEGATIVE) 08/25/23 22:24 Urine Nitrite Negative (NEGATIVE) 08/25/23 22: Urine Bilirubin Negative (NEGATIVE) 08/25/23 22:24 Urine Urobilinogen Normal (NORMAL) 08/25/23 22:24 Ur Leukocyte Esterase 1+ (NEGATIVE) 08/25/23 22:24 Urine RBC 0-2 /HPF (0-3) 08/25/23 22:24 Urine WBC 3-5 /HPF (0-5) 08/25/23 22:24 Ur Squamous Epith Cells Few /HPF (NEGATIVE) 08/25/23 22:24 Urine Bacteria 3+ /HPF (NEGATIVE) 08/25/23 22:24 Ur Culture Indicated? Yes/culture set up 08/25/23 22:24 - Plan (1) Anasarca Status: Acute Plan: NORMAL SALINE AT 75 ML/HR, ALBUMIN 25% IV DAILY, CIPRO 400MG IV BID, OTBS ACHS, HUMULIN R SLIDING SCALE. HER HOME MEDICATIONS OF ELIQUIS, COLACE, PROBENECIDE-COLCHICINE, LANTUS, MIRALAX PRN, POTASSIUM CHLORIDE, ZOLOFT, AND ULTRAM WERE RESUMED. WE WILL CONSULT , GENERAL SURGEON. (2) Abdominal wall cellulitis Status: Acute (3) Urinary tract infection Status: Acute Qualifiers: Urinary tract infection type: acute cystitis Hematuria presence: without hematuria Qualified Code(s): N30.00 - Acute cystitis without hematuria (4) Acute cholecystitis Status: Acute (5) Abdominal pain Status: Acute Qualifiers: Abdominal location: left upper quadrant Qualified Code(s): R10.12 - Left upper quadrant pain (6) Hyponatremia Status: Acute (7) Uncontrolled diabetes mellitus Status: Acute Qualifiers: Diabetes mellitus type: type 2 Glycemic state: with hyperglycemia Qualified Code(s): E11.65 - Type 2 diabetes mellitus with hyperglycemia (8) CHF (congestive heart failure) Status: Acute Qualifiers: Heart failure type: unspecified Heart failure chronicity: acute on chronic Qualified Code(s): I50.9 - Heart failure, unspecified (9) History of pulmonary embolism Status: Chronic Plan: RESUME ELIQUIS (10) Major depressive disorder Status: Chronic Qualifiers: Major depression recurrence: recurrent Active/Remission status: remission status unspecified Qualified Code(s): F33.9 - Major depressive disorder, recurrent, unspecified Plan: RESUME HOME MEDS
[2023-08-31 06:29] LABS: BASOPHILS % (AUTO) 0.3 % (0.2-1.0); EOSINOPHILS # (AUTO) 0.2 x10^3/uL (0.0-0.2); HEMATOCRIT 32.1 % (36.0-47.0); HEMOGLOBIN 10.4 g/dL (12.0-16.0); LYMPHOCYTES # (AUTO) 0.6 X10^3/uL (1.3-2.9); LYMPHOCYTES % (AUTO) 7.6 % (21.0-51.0); MEAN CORPUSCULAR HEMOGLOBIN 28.8 pg (27.0-34.0); MEAN CORPUSCULAR HGB CONC 32.3 g/dL (33.0-35.0); MEAN CORPUSCULAR VOLUME 89.3 fL (80.0-100.0); MEAN PLATELET VOLUME 8.1 fL (7.4-11.0); MONOCYTES # (AUTO) 1.1 x10^3/uL (0.3-0.8); MONOCYTES % (AUTO) 13.2 % (0.0-13.0); NEUTROPHILS # (AUTO) 6.3 x10^3/uL (2.2-4.8); NEUTROPHILS % (AUTO) 75.9 % (42.0-75.0); PLATELET COUNT 282 X10^3/uL (150.0-450.0); RED CELL DISTRIBUTION WIDTH 15.5 % (11.6-16.5); WHITE BLOOD COUNT 8.3 X10^3/uL (3.6-10.0)
[2023-08-31 06:33] LABS: ALANINE AMINOTRANSFERASE 11 Units/L (12-78); ALBUMIN 2.5 g/dL (3.4-5.0); ALKALINE PHOSPHATASE 419 Units/L (46-116); ASPARTATE AMINO TRANSFERASE 34 Units/L (15-37); BLOOD UREA NITROGEN 53 mg/dL (7-18); CALCIUM 8.6 mg/dL (8.5-10.1); CARBON DIOXIDE 21.7 mmol/L (21-32); CHLORIDE 104 mmol/L (98-107); COR CA(FOR HYPOALB) 9.8 mg/dL (8.5-10.1); CREATININE 1.87 mg/dL (0.55-1.02); GLUCOSE 103 mg/dL (65-99); POTASSIUM 4.7 mmol/L (3.5-5.1); SODIUM 135 mmol/L (136-145); TOTAL PROTEIN 6.9 g/dL (6.4-8.2); eGFR NON BLACK RACES 30 (>60)
[2023-08-31 07:53] VITALS: O2SAT 98
[2023-08-31] MEDS: PERCOCET TAB 5/325 MG PO PRN (08:58)
--- NOTE | 2023-08-31 10:48 | RAD ---
EXAM:CHEST, 1 VIEWHISTORY:sob; TUBAL, APPY, DM, HTNCOMPARISON:Prior study or studies were utilized for comparison during interpretation with the most relevant dated 08/28/2023TECHNIQUE:CHEST, 1 VIEWFINDINGS:Chest:Lines and tubes: NoneMediastinum: Cardiomegaly.Pulmonary vessels: There is pulmonary vascular congestion.Lung bob: No suspicious airspace opacity.Pleura: No effusion. No pneumothorax.Bones and soft tissues: No acute osseous or soft tissue abnormality.IMPRESSION:1. Findings suggest heart failureTHIS IS AN ELECTRONICALLY VERIFIED FINAL REPORT08/31/2023 10:45 AM - Electronically signed by Kit Granger MD
[2023-08-31 12:14] VITALS: BP 117/56; PULSE 84; RESP 18; TEMP 98.1
== END 2023-08-31 12:37 | disposition home or self-care (01) ==
LOC: ER 10:50 → INTOOBSV 16:05 → MED/SURG 16:05
PROVIDERS: ADMIT Internal Medicine; ATTEND Internal Medicine
DX: I50.9 Heart failure, unspecified; N28.9 Disorder of kidney and ureter, unspecified; Z79.01 Long term (current) use of anticoagulants; Z86.711 Personal history of pulmonary embolism; R10.12 Left upper quadrant pain; E11.65 Type 2 diabetes mellitus with hyperglycemia; N30.00 Acute cystitis without hematuria; L03.311 Cellulitis of abdominal wall; B96.1 Klebsiella pneumoniae [K. pneumoniae] as the cause of diseases classified elsewhere; E78.5 Hyperlipidemia, unspecified; E87.1 Hypo-osmolality and hyponatremia; R13.11 Dysphagia, oral phase; R60.1 Generalized edema; R06.02 Shortness of breath; K81.0 Acute cholecystitis; F32.9 Major depressive disorder, single episode, unspecified; R91.8 Other nonspecific abnormal finding of lung field

== ENCOUNTER 2023-10-28 15:28 | Inpatient (IN) ==
--- NOTE | 2023-10-28 16:29 | DR.EXTPAIN ---
HPI Time seen Time Seen by Provider: 10/28/23 16:26 PCP Primary Care Physician: Dr. Yoselin Fitch Complaint/Symptoms Chief Complaint Doctor Comments: Complain of lower abdominal pain and bilateral lower extremity pain this been going on for 3-month. This patient is currently on oxycodone and states that this is not helping her symptoms Chief Complaint:: Pt c/o chronic swelling and pain across abdomen and in bil[place] lower extremities that has been going on for about 3 months. Pt states that today the pain in her legs is unbearable. Pain is described as constant burning and sharp stabbing in nature. Pain is worse with standing or sitting too long in one position or stands up. Pt has also had progressively worsening e xertional shortness of breath over the past few weeks. Self Treatment fo Chief Complaint: Pt is on lasix and has been taking it as prescribed. Pt is also taking oxycodone with no improvement of symptoms. COVID-19 Coronavirus risk:travel/contact w/high risk person: No Has patient experienced Coronavirus symptoms: No Source History Provided: Patient Mode of arrival Mode of Arrival: Ambulatory Timing Onset of Chief Complaint: 10/28/23 PMH PMH Past Medical History: Yes Past Medical History: Anxiety, CHF, Depression, Diabetes, Dyslipidemia, Gout and Hypertension Past Medical History Comment: Pulmonary Embolism, Pulmonary HTN Past Surgical History: Yes Surgical History: Appendectomy Family History History of Family Medical Conditions: Yes Family Medical History: Diabetes Mellitus, Cancer, Coronary Artery Disease and Heart Failure Social History Does patient currently use any type of tobacco product: No Have you used tobacco products in the last 12 months: No Type of Tobacco Use: None Does any household member use tobacco: No Alcohol Use: None Do you use any recreational Drugs:: No Lives With: Alone Lives Where: Home Travel Risk Coronavirus risk:travel/contact w/high risk person: No Has patient experienced Coronavirus symptoms: No Infectious screening In the last 2 months have you had wt loss of >10#?: NO Have you had fever, night sweats or hemotysis?: No Have you traveled outside the country in the last 6 months?: No Isolation: Standard ROS Review of Systems Constitutional: Other (Patient complain of swelling in bilateral leg and history of CHF) Eyes: No Symptoms Reported ENTM: No Symptoms Reported Respiratoy: No Symptoms Reported Cardiovascular: No Symptoms Reported Gastrointestinal/Abdominal: No Symptoms Reported Genitourinary: No Symptoms Reported Neurological: No Symptoms Reported Musculoskeletal: No Symptoms Reported Integumentary: Other (FLUID IN BOTH LEGS WITH PITTING EDEMA) Hematologic/Lymphatic: No Symptoms Reported Endocrine: No Symptoms Reported Psychiatric: No Symptoms Reported PE Vital Signs Vitals: Vital Signs Pulse Rate 80 Pulse Rate 80 Pulse Rate 95 Pulse Rate 96 Pulse Rate 96 Pulse Rate 96 Pulse Rate 97 Pulse Rate 96 Pulse Rate 96 Pulse Rate 96 Pulse Rate 96 Pulse Rate 97 Pulse Rate 97 Pulse Rate 80 Pulse Rate 81 Pulse Rate 81 Pulse Rate 81 Pulse Rate 82 Pulse Rate 82 Pulse Rate 83 Pulse Rate 82 Pulse Rate 84 Pulse Rate 84 Pulse Rate 84 Pulse Rate 85 Pulse Rate 85 Pulse Rate 85 Pulse Rate 85 Pulse Rate 85 Pulse Rate 86 Respiratory Rate 15 Respiratory Rate 23 Respiratory Rate 8 Respiratory Rate 14 Respiratory Rate 15 Respiratory Rate 16 Blood Pressure 108/73 Blood Pressure 105/70 Blood Pressure 116/74 Blood Pressure 109/76 Blood Pressure 114/78 Blood Pressure 113/82 Blood Pressure 121/80 Blood Pressure 105/77 Blood Pressure 105/79 Blood Pressure 111/76 Blood Pressure 115/80 Blood Pressure 116/81 Blood Pressure 116/80 Blood Pressure 114/77 Blood Pressure 108/70 O2 Sat by Pulse Oximetry 100 O2 Sat by Pulse Oximetry 100 O2 Sat by Pulse Oximetry 100 O2 Sat by Pulse Oximetry 100 O2 Sat by Pulse Oximetry 100 O2 Sat by Pulse Oximetry 100 O2 Sat by Pulse Oximetry 99 O2 Sat by Pulse Oximetry 99 O2 Sat by Pulse Oximetry 99 O2 Sat by Pulse Oximetry 99 O2 Sat by Pulse Oximetry 97 O2 Sat by Pulse Oximetry 97 O2 Sat by Pulse Oximetry 95 O2 Sat by Pulse Oximetry 95 O2 Sat by Pulse Oximetry 94 O2 Sat by Pulse Oximetry 94 O2 Sat by Pulse Oximetry 95 O2 Sat by Pulse Oximetry 94 O2 Sat by Pulse Oximetry 96 General Limitations: Physical Limitation (LIMITED AMBULATION DUE TO INCREASED EDEMA IN LEGS) General Appearance: In Distress (MILD DISTRESS) Head Head Exam: Normal Inspection, Atraumatic and Normocephalic Eyes Eye exam: Normal Appearance, PERRL and EOMI ENT ENT Exam: Normal Exam, Normal Oropharynx and Normal External Ear Exam Neck Neck Exam: Normal Inspection and Full ROM Chest Chest Inspection: Normal Inspection and Symmetric Chest Wall Rise Respiratory Respiratory Exam: Normal Lung Sounds Bilat Respiratory Exam: Bilateral: Clear to Auscultation Cardiovascular Cardiovascular Exam: Regular Rate Abdominal Exam Abdominal Exam: Normal Inspection and Normal Bowel Sounds Extremities Extremities Exam: Edema (BILATERAL +3 PITTING EDEMA) Upper Extremities Shoulder Exam: Normal Inspection Arm Exam: Normal Inspection Elbow Exam: Normal Inspection Forearm Exam: Normal Inspection Hand Exam: Normal Inspection Neuromotor Exam: Normal Exam Lower Extremities Hip/Pelvis Exam: Normal Inspection and Full ROM Upper Leg Exam: Normal Inspection Knee Exam: Normal Inspection Lower Leg Exam: Normal Inspection Ankle Exam: Swelling Foot/Toe Exam: Swelling Gait Exam: Antalgic Back Back Exam: Normal Inspection Neurological Neurological Exam: Oriented X3 and CN II-XII Intact Psychiatric Psychiatric Exam: Normal Mood Skin Skin Exam: Warm, Dry and Intact MDM Differential Diagnosis Differential Diagnosis: Other (CHF,PULMONARY EDEMA,MORBID OBESITY) COURSE Treatment Treatment: This patient remained relatively stable during ER visit. This patient did have a BMP of 1920 and was given Lasix 40 mg IV in the ER. Also has a plus for bacteremia and will be treated the UTI the rest of the metabolic panel and the complete CBC was normal. To Dr. Smith [id number] and he said the patient to further treat the congestive heart failure we will be giving her some Lasix 40 mg IV every 12 hours and monitor output. Patient was advised of the intent to admit and was agreeable to the admission ROR Labs Reviewed Laboratory Results Reviewed?: Yes 10/28/23 17:00 10/28/23 17:00 Laboratory: WBC 5.2 X10^3/uL (3.6-10.0) 10/28/23 17:00 RBC 4.15 X10^6/uL (3.5-5.4) 10/28/23 17:00 Hgb 11.3 g/dL (12.0-16.0) L 10/28/23 17:00 Hct 35.2 % (36.0-47.0) L 10/28/23 17:00 MCV 84.9 fL (80.0-100.0) 10/28/23 17:00 MCH 27.2 pg (27.0-34.0) 10/28/23 17:00 MCHC 32.1 g/dL (33.0-35.0) L 10/28/23 17:00 RDW 17.5 % (11.6-16.5) H 10/28/23 17:00 Plt Count 189 X10^3/uL (150.0-450.0) 10/28/23 17:00 MPV 9.2 fL (7.4-11.0) 10/28/23 17:00 Neut % (Auto) 53.2 % (42.0-75.0) 10/28/23 17:00 Lymph % (Auto) 27.1 % (21.0-51.0) 10/28/23 17:00 [place] % (Auto) 16.5 % (0.0-13.0) H 10/28/23 17:00 Eos % (Auto) 1.9 % (0.9-2.9) 10/28/23 17:00 Baso % (Auto) 1.3 % (0.2-1.0) H 10/28/23 17:00 Neut # (Auto) 2.8 x10^3/uL (2.2-4.8) 10/28/23 17:00 Lymph # (Auto) 1.4 X10^3/uL (1.3-2.9) 10/28/23 17:00 [place] # (Auto) 0.9 x10^3/uL (0.3-0.8) H 10/28/23 17:00 Eos # (Auto) 0.1 x10^3/uL (0.0-0.2) 10/28/23 17:00 Baso # (Auto) 0.1 X10^3/uL (0.0-0.1) 10/28/23 17:00 Absolute Nucleated RBC 0.0 /100WBC 10/28/23 17:00 Sodium 129 mmol/L (136-145) L 10/28/23 17:00 Corrected Sodium 139 mmol/L (136-145) 10/28/23 17:00 Potassium 4.7 mmol/L (3.5-5.1) 10/28/23 17:00 Chloride 92 mmol/L (98-107) L 10/28/23 17:00 Carbon Dioxide 30.8 mmol/L (21-32) 10/28/23 17:00 BUN 47 mg/dL (7-18) H 10/28/23 17:00 Creatinine 2.75 mg/dL (0.55-1.02) H 10/28/23 17:00 Est GFR (MDRD) Af Amer 23 (>60) L 10/28/23 17:00 Est GFR (MDRD) Non-Af 19 (>60) L 10/28/23 17:00 Glucose 512 mg/dL (65-99) H* 10/28/23 17:00 POC Glucose (mg/dL) 392 mg/dL (65-99) H 10/28/23 22:12 Calcium 9.0 mg/dL (8.5-10.1) 10/28/23 17:00 Corrected Calcium 10.4 mg/dL (8.5-10.1) H 10/28/23 17:00 Total Bilirubin 3.90 mg/dL (0.2-1.0) H 10/28/23 17:00 AST 15 Units/L (15-37) 10/28/23 17:00 ALT < 6 Units/L (12-78) L 10/28/23 17:00 Alkaline Phosphatase 296 Units/L (46-116) H 10/28/23 17:00 Creatine Kinase 44 Units/L (26-192) 10/28/23 17:00 Troponin I High Sens 11.9 ng/L (4.0-60.0) 10/28/23 17:00 B-Natriuretic Peptide 1920 pg/mL (0-79) H 10/28/23 17:00 Total Protein 7.9 g/dL (6.4-8.2) 10/28/23 17:00 Albumin 2.3 g/dL (3.4-5.0) L 10/28/23 17:00 Globulin 5.6 g/dL (2.5-4.5) H 10/28/23 17:00 Albumin/Globulin Ratio 0.4 Ratio (1.1-2.1) L 10/28/23 17:00 Specimen Type Clean catch urine 10/28/23 16:49 Urine Color [place] (YELLOW) 10/28/23 16:49 Urine Appearance Hazy (CLEAR) 10/28/23 16:49 Urine pH 5.0 (5.0 - 8.0) 10/28/23 16:49 Ur Specific [place] 1.025 (1.000-1.030) 10/28/23 16:49 Urine Protein 2+ (NEGATIVE) 10/28/23 16:49 Urine Glucose (UA) 4+ (NEGATIVE) 10/28/23 16:49 Urine Ketones Negative (NEGATIVE) 10/28/23 16:49 Urine Blood 1+ (NEGATIVE) 10/28/23 16:49 Urine Nitrite Negative (NEGATIVE) 10/28/23 16:49 Urine Bilirubin 1+ (NEGATIVE) 10/28/23 16:49 Urine Urobilinogen 2+ (NORMAL) 10/28/23 16:49 Ur Leukocyte Esterase 1+ (NEGATIVE) 10/28/23 16:49 Urine RBC 3-5 /HPF (0-3) A 10/28/23 16:49 Urine WBC 5-10 /HPF (0-5) A 10/28/23 16:49 Ur Squamous Epith Cells Moderate /HPF (NEGATIVE) 10/28/23 16:49 Amorphous Sediment 1+ /HPF (NEGATIVE) 10/28/23 16:49 Urine Bacteria 3+ /HPF (NEGATIVE) 10/28/23 16:49 Hyaline Casts Rare /LPF (NEGATIVE) 10/28/23 16:49 Ur Culture Indicated? Yes/culture set up 10/28/23 16:49 Acetone, Semi-Quant Negative (NEGATIVE) 10/28/23 17:00 Opioid Opioid Risk Tool Age (Calin box if 16-45): No History of Preadolescent Sexual Abuse: No Total: 0 Total Score Risk Category: Low Risk Copyright: Derrek BROWN predicting aberrant behaviors Discharge Plan Diagnosis Discharge Problem: CHF (congestive heart failure), UTI (urinary tract infection) Discharge Plan Patient Disposition: 09 ADMITTED INPATIENT Condition: Stable Orders to Discharge Patient Discharge Orders: Transfer (Routine); Ordered 10/29/23 Ordered By: Wesley John
[2023-10-28 17:00] LABS: BILIRUBIN,URINE 1+ (NEGATIVE); BLOOD/HEMOGLOBIN,URINE 1+ (NEGATIVE); GLUCOSE, URINE 4+ (NEGATIVE); KETONES,URINE NEGATIVE (NEGATIVE); LEUKOCYTE ESTERASE ,URINE 1+ (NEGATIVE); NITRITES,URINE NEGATIVE (NEGATIVE); PROTEIN,URINE 2+ (NEGATIVE); UROBILINOGEN,URINE 2+ (NORMAL)
[2023-10-28 17:10] LABS: BASOPHILS # (AUTO) 0.1 X10^3/uL (0.0-0.1); BASOPHILS % (AUTO) 1.3 % (0.2-1.0); EOSINOPHILS # (AUTO) 0.1 x10^3/uL (0.0-0.2); EOSINOPHILS % (AUTO) 1.9 % (0.9-2.9); HEMATOCRIT 35.2 % (36.0-47.0); HEMOGLOBIN 11.3 g/dL (12.0-16.0); LYMPHOCYTES # (AUTO) 1.4 X10^3/uL (1.3-2.9); LYMPHOCYTES % (AUTO) 27.1 % (21.0-51.0); MEAN CORPUSCULAR HEMOGLOBIN 27.2 pg (27.0-34.0); MEAN CORPUSCULAR HGB CONC 32.1 g/dL (33.0-35.0); MEAN CORPUSCULAR VOLUME 84.9 fL (80.0-100.0); MEAN PLATELET VOLUME 9.2 fL (7.4-11.0); MONOCYTES # (AUTO) 0.9 x10^3/uL (0.3-0.8); MONOCYTES % (AUTO) 16.5 % (0.0-13.0); NEUTROPHILS # (AUTO) 2.8 x10^3/uL (2.2-4.8); NEUTROPHILS % (AUTO) 53.2 % (42.0-75.0); PLATELET COUNT 189 X10^3/uL (150.0-450.0); RED BLOOD COUNT 4.15 X10^6/uL (3.5-5.4); RED CELL DISTRIBUTION WIDTH 17.5 % (11.6-16.5); WHITE BLOOD COUNT 5.2 X10^3/uL (3.6-10.0)
[2023-10-28 17:16] LABS: APPEARANCE,URINE HAZY (CLEAR); BACTERIA,URINE 3+ /HPF (NEGATIVE); COLOR,URINE AMBER (YELLOW); HYALINE CASTS, URINE RARE /LPF (NEGATIVE); SQUAMOUS EPITHELIAL CELL,UR MODERATE /HPF (NEGATIVE)
[2023-10-28 17:24] LABS: ALBUMIN 2.3 g/dL (3.4-5.0); ALKALINE PHOSPHATASE 296 Units/L (46-116); ASPARTATE AMINO TRANSFERASE 15 Units/L (15-37); BLOOD UREA NITROGEN 47 mg/dL (7-18); CARBON DIOXIDE 30.8 mmol/L (21-32); CHLORIDE 92 mmol/L (98-107); COR CA(FOR HYPOALB) 10.4 mg/dL (8.5-10.1); COR NA(FOR HYPERGLY) 139 mmol/L (136-145); CREATININE 2.75 mg/dL (0.55-1.02); POTASSIUM 4.7 mmol/L (3.5-5.1); SODIUM 129 mmol/L (136-145); TOTAL PROTEIN 7.9 g/dL (6.4-8.2); eGFR NON BLACK RACES 19 (>60)
[2023-10-28 17:25] LABS: ALANINE AMINOTRANSFERASE < 6 Units/L (12-78)
[2023-10-28 17:27] LABS: GLUCOSE 512 mg/dL (65-99)
[2023-10-28] MEDS: NovoLIN R (or HumuLIN R) SUBCUT ONE (17:38)
[2023-10-28] MEDS: LASIX IVP ONE (20:29)
[2023-10-28] MEDS: SNACK - Diabetic Appropriate PO SCH (20:31)
--- NOTE | 2023-10-28 23:06 | EKG ---
Test Reason : Elevated BNP Blood Pressure : */* mmHG Vent. Rate : 97 BPM Atrial Rate : 97 BPM P-R Int : 170 ms QRS Dur : 134 ms QT Int : 414 ms P-R-T Axes : 65 -63 98 degrees QTc Int : 525 ms Normal sinus rhythm Possible Left atrial enlargement Left axis deviation Left ventricular hypertrophy with QRS widening ( [place] product ) Lateral infarct , age undetermined Abnormal ECG No previous ECGs available Confirmed by Donavan Colon MD ([id number]) on 10/31/2023 7:45:37 AM Referred By: Confirmed By: Donavan Colon MD
[2023-10-29] MEDS: ROCEPHIN VIAL 1 GRAM IV ONE (01:13)
[2023-10-29] MEDS ORDERED: MIRALAX POWDER (1 DOSE 17 G) PO PRN (01:44)
[2023-10-29] MEDS ORDERED: PATIENT'S HOME MEDICATION (Oxycodone-Acetaminophen 10-325 mg Tablet) PO PRN (01:44)
[2023-10-29 05:28] LABS: BASOPHILS % (AUTO) 0.7 % (0.2-1.0); EOSINOPHILS # (AUTO) 0.1 x10^3/uL (0.0-0.2); EOSINOPHILS % (AUTO) 2.2 % (0.9-2.9); HEMATOCRIT 33.2 % (36.0-47.0); HEMOGLOBIN 10.6 g/dL (12.0-16.0); LYMPHOCYTES % (AUTO) 16.9 % (21.0-51.0); MEAN CORPUSCULAR HEMOGLOBIN 26.9 pg (27.0-34.0); MEAN CORPUSCULAR VOLUME 84.1 fL (80.0-100.0); MEAN PLATELET VOLUME 9.4 fL (7.4-11.0); MONOCYTES # (AUTO) 1.1 x10^3/uL (0.3-0.8); MONOCYTES % (AUTO) 18.9 % (0.0-13.0); NEUTROPHILS # (AUTO) 3.7 x10^3/uL (2.2-4.8); NEUTROPHILS % (AUTO) 61.3 % (42.0-75.0); PLATELET COUNT 177 X10^3/uL (150.0-450.0); RED BLOOD COUNT 3.94 X10^6/uL (3.5-5.4); RED CELL DISTRIBUTION WIDTH 17.2 % (11.6-16.5); WHITE BLOOD COUNT 6.1 X10^3/uL (3.6-10.0)
[2023-10-29 05:52] LABS: ALBUMIN 2.2 g/dL (3.4-5.0); ALKALINE PHOSPHATASE 271 Units/L (46-116); ASPARTATE AMINO TRANSFERASE 13 Units/L (15-37); BLOOD UREA NITROGEN 48 mg/dL (7-18); CALCIUM 8.9 mg/dL (8.5-10.1); CARBON DIOXIDE 29.4 mmol/L (21-32); CHLORIDE 91 mmol/L (98-107); COR CA(FOR HYPOALB) 10.3 mg/dL (8.5-10.1); COR NA(FOR HYPERGLY) 137 mmol/L (136-145); CREATININE 2.71 mg/dL (0.55-1.02); GLUCOSE 371 mg/dL (65-99); POTASSIUM 4.6 mmol/L (3.5-5.1); SODIUM 130 mmol/L (136-145); TOTAL PROTEIN 7.6 g/dL (6.4-8.2); eGFR NON BLACK RACES 19 (>60)
[2023-10-29 06:01] LABS: ALANINE AMINOTRANSFERASE < 6 Units/L (12-78)
[2023-10-29] MEDS: NovoLIN R (or HumuLIN R) SUBCUT PRN (06:29)
[2023-10-29] MEDS: ROCEPHIN VIAL 1 GRAM ONE (07:01)
--- NOTE | 2023-10-29 07:06 | RAD ---
EXAM: CHEST, 1 VIEW HISTORY: LE edema; Pt has also had progressively worsening exertional shortness of breath over the past few we eks. COMPARISON: 08/31/2023 FINDINGS: Stable cardiomegaly. Interstitial thickening similar to prior. No sizable pleural effusion, focal c onsolidation, or acute osseous finding. IMPRESSION: Cardiomegaly with congestive changes. THIS IS AN ELECTRONICALLY VERIFIED FINAL REPORT 10/29/2023 7:03 AM - Electronically signed by Tj Braun MD
[2023-10-29] MEDS: PERCOCET TAB 5/325 MG PO PRN (07:44)
[2023-10-29] MEDS: ALDACTONE TAB 25 MG PO SCH (08:37)
[2023-10-29] MEDS: ZOLOFT PO SCH (08:39)
[2023-10-29] MEDS: ELIQUIS PO SCH (08:39)
[2023-10-29] MEDS: LASIX IVP SCH (08:39)
[2023-10-29] MEDS: LANTUS SC SCH (08:41)
[2023-10-29] MEDS: PROBENECID COLCHICINE PO SCH (08:52)
[2023-10-29] MEDS ORDERED: ALDACTONE TAB 25 MG PO SCH (09:00)
[2023-10-29] MEDS: ROCEPHIN VIAL 1 GRAM 1 G in NS 100 ML IV 100 ML IV SCH (09:56)
--- NOTE | 2023-10-29 11:49 | DR.H&P ---
H&P History & Physical for Day of: H&P Date: 10/29/23 Chief Complaint Chief Complaint: leg edema, SOB Allergies Allergies Allergy/AdvReac Type Severity Reaction Status Date / Time adhesive tape Allergy Verified 10/28/23 15:46 History of Present Illness History of Present Illness: Ms Moulton is a 53y/o female with a PMH of Severe cardiomyopathy, EF 23%, CAD, Hx of PE, HTN, HLD, DM presented with worsening LE edema and SOB. ER work up showed elevated BNP, trop (-) and CXR suggestive of pulmonary congestion. She was given IV lasix and admitted for further managemen t. She states she feels better now, leg edema has improved. UA also showed infection, she is currently on IV Rocephin. Labs/imaging reviewed -WBC 6.1 Hgb 10.6 BUN/Cr: 48/2.71 Na:130 BNP 1420 -CXR: congestive changes -Urine Cx pending -ECHO 08/30/23 EF 23% Plan: admit with telemetry, daily weights and Strict I&Os. Continue IV lasix, keep legs elevated. Low sodium diet. Resume home medications. Continue IV Rocephin, follow final Cx. Monitor AM labs/imaging. Time spent for clinical assessment, reviewing labs/imaging, physical exam, decision making and documentation greater than 45 mins. 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 and [employer] Surgery Family History Family Medical History: Heart Failure and Hypertension Social History Does patient currently use any type of tobacco product: No Have you used tobacco products in the last 12 months: No Type of Tobacco Use: None Does any household member use tobacco: No Alcohol Use: None Drug Use: None Medications Home Medications: Home Medications Medication Instructions Recorded Confirmed Type apixaban 5 mg tablet (Eliquis) 5 mg PO BID 04/26/22 10/29/23 History furosemide 40 mg tablet 1 tab PO BID 04/26/22 09/29/23 History insulin regular human 100 unit/mL 17 ml subcut TID 04/26/22 09/29/23 History injection solution (Humulin R Regular U-100 Insulin) sertraline 50 mg tablet 1 tab PO QDAY 04/26/22 10/29/23 History docusate sodium 100 mg capsule 100 mg PO BID 08/25/23 09/29/23 History oxycodone-acetaminophen 10 mg-325 1 tab PO Q8H PRN 08/25/23 09/29/23 History mg tablet polyethylene glycol 3350 17 gram 17 g PO QDAY PRN 08/25/23 09/29/23 History oral powder packet tramadol 50 mg tablet 50 mg PO BID PRN 08/25/23 09/29/23 History Labs 10/29/23 04:56 10/29/23 04:56 Labs: 10/28/23 16:49 Urine,Clean Catch Urine Culture - Preliminary Laboratory WBC 6.1 X10^3/uL (3.6-10.0) 10/29/23 04:56 RBC 3.94 X10^6/uL (3.5-5.4) 10/29/23 04:56 Hgb 10.6 g/dL (12.0-16.0) L 10/29/23 04:56 Hct 33.2 % (36.0-47.0) L 10/29/23 04:56 MCV 84.1 fL (80.0-100.0) 10/29/23 04:56 MCH 26.9 pg (27.0-34.0) L 10/29/23 04:56 MCHC 32.0 g/dL (33.0-35.0) L 10/29/23 04:56 RDW 17.2 % (11.6-16.5) H 10/29/23 04:56 Plt Count 177 X10^3/uL (150.0-450.0) 10/29/23 04:56 MPV 9.4 fL (7.4-11.0) 10/29/23 04:56 Neut % (Auto) 61.3 % (42.0-75.0) 10/29/23 04:56 Lymph % (Auto) 16.9 % (21.0-51.0) L 10/29/23 04:56 [place] % (Auto) 18.9 % (0.0-13.0) H 10/29/23 04:56 Eos % (Auto) 2.2 % (0.9-2.9) 10/29/23 04:56 Baso % (Auto) 0.7 % (0.2-1.0) 10/29/23 04:56 Neut # (Auto) 3.7 x10^3/uL (2.2-4.8) 10/29/23 04:56 Lymph # (Auto) 1.0 X10^3/uL (1.3-2.9) L 10/29/23 04:56 [place] # (Auto) 1.1 x10^3/uL (0.3-0.8) H 10/29/23 04:56 Eos # (Auto) 0.1 x10^3/uL (0.0-0.2) 10/29/23 04:56 Baso # (Auto) 0.0 X10^3/uL (0.0-0.1) 10/29/23 04:56 Absolute Nucleated RBC 0.0 /100WBC 10/29/23 04:56 Sodium 130 mmol/L (136-145) L 10/29/23 04:56 Corrected Sodium 137 mmol/L (136-145) 10/29/23 04:56 Potassium 4.6 mmol/L (3.5-5.1) 10/29/23 04:56 Chloride 91 mmol/L (98-107) L 10/29/23 04:56 Carbon Dioxide 29.4 mmol/L (21-32) 10/29/23 04:56 BUN 48 mg/dL (7-18) H 10/29/23 04:56 Creatinine 2.71 mg/dL (0.55-1.02) H 10/29/23 04:56 Est GFR (MDRD) Af Amer 23 (>60) L 10/29/23 04:56 Est GFR (MDRD) Non-Af 19 (>60) L 10/29/23 04:56 Glucose 371 mg/dL (65-99) H 10/29/23 04:56 POC Glucose (mg/dL) 358 mg/dL (65-99) H 10/29/23 05:59 Calcium 8.9 mg/dL (8.5-10.1) 10/29/23 04:56 Corrected Calcium 10.3 mg/dL (8.5-10.1) H 10/29/23 04:56 Total Bilirubin 3.20 mg/dL (0.2-1.0) H 10/29/23 04:56 AST 13 Units/L (15-37) L 10/29/23 04:56 ALT < 6 Units/L (12-78) L 10/29/23 04:56 Alkaline Phosphatase 271 Units/L (46-116) H 10/29/23 04:56 Creatine Kinase 44 Units/L (26-192) 10/28/23 17:00 Troponin I High Sens 11.9 ng/L (4.0-60.0) 10/28/23 17:00 B-Natriuretic Peptide 1420 pg/mL (0-79) H 10/29/23 04:56 Total Protein 7.6 g/dL (6.4-8.2) 10/29/23 04:56 Albumin 2.2 g/dL (3.4-5.0) L 10/29/23 04:56 Globulin 5.4 g/dL (2.5-4.5) H 10/29/23 04:56 Albumin/Globulin Ratio 0.4 Ratio (1.1-2.1) L 10/29/23 04:56 Specimen Type Clean catch urine 10/28/23 16:49 Urine Color [place] (YELLOW) 10/28/23 16:49 Urine Appearance Hazy (CLEAR) 10/28/23 16:49 Urine pH 5.0 (5.0 - 8.0) 10/28/23 16:49 Ur Specific [place] 1.025 (1.000-1.030) 10/28/23 16:49 Urine Protein 2+ (NEGATIVE) 10/28/23 16:49 Urine Glucose (UA) 4+ (NEGATIVE) 10/28/23 16:49 Urine Ketones Negative (NEGATIVE) 10/28/23 16:49 Urine Blood 1+ (NEGATIVE) 10/28/23 16:49 Urine Nitrite Negative (NEGATIVE) 10/28/23 16:49 Urine Bilirubin 1+ (NEGATIVE) 10/28/23 16:49 Urine Urobilinogen 2+ (NORMAL) 10/28/23 16:49 Ur Leukocyte Esterase 1+ (NEGATIVE) 10/28/23 16:49 Urine RBC 3-5 /HPF (0-3) A 10/28/23 16:49 Urine WBC 5-10 /HPF (0-5) A 10/28/23 16:49 Ur Squamous Epith Cells Moderate /HPF (NEGATIVE) 10/28/23 16:49 Amorphous Sediment 1+ /HPF (NEGATIVE) 10/28/23 16:49 Urine Bacteria 3+ /HPF (NEGATIVE) 10/28/23 16:49 Hyaline Casts Rare /LPF (NEGATIVE) 10/28/23 16:49 Ur Culture Indicated? Yes/culture set up 10/28/23 16:49 Acetone, Semi-Quant Negative (NEGATIVE) 10/28/23 17:00 Review of Systems Constitutional: Weakness Eyes: No Symptoms Reported ENT: No Symptoms Reported Respiratory: Shortness of Breath and SOB with Excertion Cardiovascular: Orthopnea and Edema Gastrointestinal: No Symptoms Reported Musculoskeletal: Leg Pain Skin: No Symptoms Reported Neurological: No Symptoms Reported Physical Exam Vital Signs: Vital Signs Temperature 97.8 F Temperature 97.7 F Pulse Rate [Right Radial] 84 Pulse Rate [Right Radial] 84 Respiratory Rate 18 Respiratory Rate 18 Respiratory Rate 18 Respiratory Rate 20 Blood Pressure [Right Arm] 100/56 Blood Pressure [Right Arm] 90/57 O2 Sat by Pulse Oximetry 100 O2 Sat by Pulse Oximetry 98 Oriented: Normal Eyes: Normal Nose: Normal Throat: Normal Respiratory: Diminished Throughout, RLL Rales and LLL Rales Cardiovascular: Normal and Edema Auscultation: Bowel Sounds: Normal Palpation: Normal Tenderness: Normal Skin: Normal Musculoskeletal: Leg Psychiatric: Normal Mood Description: Calm Affect: Normal Speech Pattern: Clear and Appropriate Assessment/Plan (1) CHF exacerbation: Qualifiers: Heart failure type: combined systolic and diastolic Qualified Code(s): I50.43 - Acute on chronic combined systolic (congestive) and diastolic (congestive) heart failure Status: Acute (2) Anasarca: Status: Acute (3) Poorly controlled diabetes mellitus: Status: Acute (4) Hyponatremia: Status: Acute (5) Hypertension: Qualifiers: Hypertension type: essential hypertension Qualified Code(s): I10 - Essential (primary) hypertension Status: Chronic (6) Cardiomyopathy: Qualifiers: Cardiomyopathy type: unspecified Qualified Code(s): I42.9 - Cardiomyopathy, unspecified Status: Acute (7) Atrial fibrillation: Qualifiers: Atrial fibrillation type: unspecified Qualified Code(s): I48.91 - Unspecified atrial fibrillation Status: Deleted (8) CKD (chronic kidney disease): Qualifiers: Chronic kidney disease stage: unspecified stage Qualified Code(s): N18.9 - Chronic kidney disease, unspecified Status: Acute (9) Pulmonary hypertension: Status: Chronic (10) History of pulmonary embolism: Status: Chronic Review H&P Reviewed: Yes Patient was examined?: Yes
[2023-10-29] MEDS: DIFLUCAN PO ONE (12:33)
[2023-10-29] MEDS: SNACK - Diabetic Appropriate PO SCH (20:18)
[2023-10-30 05:17] LABS: BASOPHILS % (AUTO) 0.5 % (0.2-1.0); EOSINOPHILS # (AUTO) 0.2 x10^3/uL (0.0-0.2); EOSINOPHILS % (AUTO) 3.8 % (0.9-2.9); HEMATOCRIT 32.7 % (36.0-47.0); HEMOGLOBIN 10.5 g/dL (12.0-16.0); LYMPHOCYTES # (AUTO) 1.4 X10^3/uL (1.3-2.9); LYMPHOCYTES % (AUTO) 24.3 % (21.0-51.0); MEAN CORPUSCULAR HEMOGLOBIN 27.2 pg (27.0-34.0); MEAN CORPUSCULAR HGB CONC 32.2 g/dL (33.0-35.0); MEAN CORPUSCULAR VOLUME 84.5 fL (80.0-100.0); MEAN PLATELET VOLUME 9.2 fL (7.4-11.0); MONOCYTES # (AUTO) 0.9 x10^3/uL (0.3-0.8); MONOCYTES % (AUTO) 16.5 % (0.0-13.0); NEUTROPHILS # (AUTO) 3.2 x10^3/uL (2.2-4.8); NEUTROPHILS % (AUTO) 54.9 % (42.0-75.0); PLATELET COUNT 185 X10^3/uL (150.0-450.0); RED BLOOD COUNT 3.87 X10^6/uL (3.5-5.4); WHITE BLOOD COUNT 5.7 X10^3/uL (3.6-10.0)
[2023-10-30 05:29] LABS: ALBUMIN 2.2 g/dL (3.4-5.0); ALKALINE PHOSPHATASE 280 Units/L (46-116); ASPARTATE AMINO TRANSFERASE 12 Units/L (15-37); BLOOD UREA NITROGEN 51 mg/dL (7-18); CALCIUM 8.8 mg/dL (8.5-10.1); CARBON DIOXIDE 29.7 mmol/L (21-32); CHLORIDE 93 mmol/L (98-107); COR CA(FOR HYPOALB) 10.2 mg/dL (8.5-10.1); COR NA(FOR HYPERGLY) 133 mmol/L (136-145); CREATININE 2.88 mg/dL (0.55-1.02); GLUCOSE 165 mg/dL (65-99); POTASSIUM 4.6 mmol/L (3.5-5.1); SODIUM 131 mmol/L (136-145); TOTAL PROTEIN 7.6 g/dL (6.4-8.2); eGFR NON BLACK RACES 18 (>60)
[2023-10-30 05:40] LABS: ALANINE AMINOTRANSFERASE < 6 Units/L (12-78)
[2023-10-30] MEDS: NYSTATIN POWDER TOP PRN (06:31)
[2023-10-30] MEDS: DIFLUCAN PO SCH (09:59)
--- NOTE | 2023-10-30 11:38 | PCM.PROG ---
Progress Note Progress Note for Day of Date of Exam: 10/30/23 Subjective Subjective: Patient seen at bedside, no acute events overnight. She states she is feeling better. Her leg pain and swelling has improved. She has been ambulating to the bathroom. Her BP was noted to be low this morning so lasix was held. It was 91/54. She denies feeling dizzy. Denies SOB with exertion. Her renal function is slightly worse. Labs/imaging reviewed -WBC 5.7 Hgb 10.7 BUN/Cr: 51/2.88 -Urine Cx: contaminated Plan: hold lasix for now, monitor BP. Continue IV Rocephin. Repeat urine Cx. Continue diflucan. Continue other home medications. Monitor daily weights, strict I&Os. Keep legs elevated. Ambulate as tolerated. Monitor AM labs/imaging. Past Medical Family Social History Allergies: Allergies adhesive tape Allergy (Verified 10/28/23 15:46) Vital Signs and I&O's Vital Signs: Vital Signs Temperature 97.7 F Temperature 98 F Pulse Rate [Right Radial] 83 Pulse Rate [Right Radial] 84 Respiratory Rate 20 Respiratory Rate 17 Respiratory Rate 20 Respiratory Rate 20 Blood Pressure [Right Arm] 91/54 Blood Pressure [Right Arm] 96/58 O2 Sat by Pulse Oximetry 99 O2 Sat by Pulse Oximetry 99 Intake and Output: Intake & Output 10/27/23 10/28/23 10/29/23 10/30/23 23:59 23:59 23:59 23:59 Intake Total 150 / 150 240 / 240 Output Total 300 / 300 Balance 150 / 150 -60 / -60 Physical Exam Oriented: Normal Eyes: Normal Nose: Normal Throat: Normal Respiratory: Generalized and Diminished Cardiovascular: Normal and Edema (b/l LE chronic edema ) Auscultation: Bowel Sounds: Normal Palpation: Normal Tenderness: Normal Skin: Normal Musculoskeletal: Leg Psychiatric: Normal Mood Description: Calm Affect: Normal Speech Pattern: Clear and Appropriate Laboratory and Diagnostics 10/30/23 04:43 10/30/23 04:43 Labs: 10/28/23 16:49 Urine,Clean Catch Urine Culture - Final Laboratory WBC 5.7 X10^3/uL (3.6-10.0) 10/30/23 04:43 RBC 3.87 X10^6/uL (3.5-5.4) 10/30/23 04:43 Hgb 10.5 g/dL (12.0-16.0) L 10/30/23 04:43 Hct 32.7 % (36.0-47.0) L 10/30/23 04:43 MCV 84.5 fL (80.0-100.0) 10/30/23 04:43 MCH 27.2 pg (27.0-34.0) 10/30/23 04:43 MCHC 32.2 g/dL (33.0-35.0) L 10/30/23 04:43 RDW 17.0 % (11.6-16.5) H 10/30/23 04:43 Plt Count 185 X10^3/uL (150.0-450.0) 10/30/23 04:43 MPV 9.2 fL (7.4-11.0) 10/30/23 04:43 Neut % (Auto) 54.9 % (42.0-75.0) 10/30/23 04:43 Lymph % (Auto) 24.3 % (21.0-51.0) 10/30/23 04:43 George % (Auto) 16.5 % (0.0-13.0) H 10/30/23 04:43 Eos % (Auto) 3.8 % (0.9-2.9) H 10/30/23 04:43 Baso % (Auto) 0.5 % (0.2-1.0) 10/30/23 04:43 Neut # (Auto) 3.2 x10^3/uL (2.2-4.8) 10/30/23 04:43 Lymph # (Auto) 1.4 X10^3/uL (1.3-2.9) 10/30/23 04:43 George # (Auto) 0.9 x10^3/uL (0.3-0.8) H 10/30/23 04:43 Eos # (Auto) 0.2 x10^3/uL (0.0-0.2) 10/30/23 04:43 Baso # (Auto) 0.0 X10^3/uL (0.0-0.1) 10/30/23 04:43 Absolute Nucleated RBC 0.1 /100WBC 10/30/23 04:43 Sodium 131 mmol/L (136-145) L 10/30/23 04:43 Corrected Sodium 133 mmol/L (136-145) L 10/30/23 04:43 Potassium 4.6 mmol/L (3.5-5.1) 10/30/23 04:43 Chloride 93 mmol/L (98-107) L 10/30/23 04:43 Carbon Dioxide 29.7 mmol/L (21-32) 10/30/23 04:43 BUN 51 mg/dL (7-18) H 10/30/23 04:43 Creatinine 2.88 mg/dL (0.55-1.02) H 10/30/23 04:43 Est GFR (MDRD) Af Amer 22 (>60) L 10/30/23 04:43 Est GFR (MDRD) Non-Af 18 (>60) L 10/30/23 04:43 Glucose 165 mg/dL (65-99) H 10/30/23 04:43 POC Glucose (mg/dL) 164 mg/dL (65-99) H 10/30/23 11:23 Calcium 8.8 mg/dL (8.5-10.1) 10/30/23 04:43 Corrected Calcium 10.2 mg/dL (8.5-10.1) H 10/30/23 04:43 Magnesium 2.0 mg/dL (2.0-2.9) 10/30/23 04:43 Total Bilirubin 2.70 mg/dL (0.2-1.0) H 10/30/23 04:43 AST 12 Units/L (15-37) L 10/30/23 04:43 ALT < 6 Units/L (12-78) L 10/30/23 04:43 Alkaline Phosphatase 280 Units/L (46-116) H 10/30/23 04:43 Creatine Kinase 44 Units/L (26-192) 10/28/23 17:00 Troponin I High Sens 11.9 ng/L (4.0-60.0) 10/28/23 17:00 B-Natriuretic Peptide 1420 pg/mL (0-79) H 10/29/23 04:56 Total Protein 7.6 g/dL (6.4-8.2) 10/30/23 04:43 Albumin 2.2 g/dL (3.4-5.0) L 10/30/23 04:43 Globulin 5.4 g/dL (2.5-4.5) H 10/30/23 04:43 Albumin/Globulin Ratio 0.4 Ratio (1.1-2.1) L 10/30/23 04:43 Specimen Type Clean catch urine 10/28/23 16:49 Urine Color Mary Alice (YELLOW) 10/28/23 16:49 Urine Appearance Hazy (CLEAR) 10/28/23 16:49 Urine pH 5.0 (5.0 - 8.0) 10/28/23 16:49 Ur Specific [place] 1.025 (1.000-1.030) 10/28/23 16:49 Urine Protein 2+ (NEGATIVE) 10/28/23 16:49 Urine Glucose (UA) 4+ (NEGATIVE) 10/28/23 16:49 Urine Ketones Negative (NEGATIVE) 10/28/23 16:49 Urine Blood 1+ (NEGATIVE) 10/28/23 16:49 Urine Nitrite Negative (NEGATIVE) 10/28/23 16:49 Urine Bilirubin 1+ (NEGATIVE) 10/28/23 16:49 Urine Urobilinogen 2+ (NORMAL) 10/28/23 16:49 Ur Leukocyte Esterase 1+ (NEGATIVE) 10/28/23 16:49 Urine RBC 3-5 /HPF (0-3) A 10/28/23 16:49 Urine WBC 5-10 /HPF (0-5) A 10/28/23 16:49 Ur Squamous Epith Cells Moderate /HPF (NEGATIVE) 10/28/23 16:49 Amorphous Sediment 1+ /HPF (NEGATIVE) 10/28/23 16:49 Urine Bacteria 3+ /HPF (NEGATIVE) 10/28/23 16:49 Hyaline Casts Rare /LPF (NEGATIVE) 10/28/23 16:49 Ur Culture Indicated? Yes/culture set up 10/28/23 16:49 Acetone, Semi-Quant Negative (NEGATIVE) 10/28/23 17:00 Plan (1) CHF exacerbation: Status: Acute Qualifiers: Heart failure type: combined systolic and diastolic Qualified Code(s): I50.43 - Acute on chronic combined systolic (congestive) and diastolic (congestive) heart failure (2) Hypotension: Status: Acute Qualifiers: Hypotension type: unspecified hypotension type Qualified Code(s): I95.9 - Hypotension, unspecified (3) Anasarca: Status: Acute (4) Poorly controlled diabetes mellitus: Status: Acute (5) Hyponatremia: Status: Acute (6) Cardiomyopathy: Status: Acute Qualifiers: Cardiomyopathy type: unspecified Qualified Code(s): I42.9 - Cardiomyopathy, unspecified (7) Atrial fibrillation: Status: Deleted Qualifiers: Atrial fibrillation type: unspecified Qualified Code(s): I48.91 - Unspecified atrial fibrillation (8) CKD (chronic kidney disease): Status: Acute Qualifiers: Chronic kidney disease stage: unspecified stage Qualified Code(s): N18.9 - Chronic kidney disease, unspecified (9) Pulmonary hypertension: Status: Chronic (10) History of pulmonary embolism: Status: Chronic
[2023-10-31 04:59] LABS: BASOPHILS # (AUTO) 0.1 X10^3/uL (0.0-0.1); BASOPHILS % (AUTO) 0.8 % (0.2-1.0); EOSINOPHILS # (AUTO) 0.1 x10^3/uL (0.0-0.2); HEMATOCRIT 33.4 % (36.0-47.0); HEMOGLOBIN 10.7 g/dL (12.0-16.0); LYMPHOCYTES # (AUTO) 2.2 X10^3/uL (1.3-2.9); LYMPHOCYTES % (AUTO) 31.8 % (21.0-51.0); MEAN CORPUSCULAR HEMOGLOBIN 27.1 pg (27.0-34.0); MEAN CORPUSCULAR HGB CONC 32.1 g/dL (33.0-35.0); MEAN CORPUSCULAR VOLUME 84.6 fL (80.0-100.0); MONOCYTES # (AUTO) 1.1 x10^3/uL (0.3-0.8); MONOCYTES % (AUTO) 16.5 % (0.0-13.0); NEUTROPHILS # (AUTO) 3.3 x10^3/uL (2.2-4.8); NEUTROPHILS % (AUTO) 48.9 % (42.0-75.0); PLATELET COUNT 202 X10^3/uL (150.0-450.0); RED BLOOD COUNT 3.95 X10^6/uL (3.5-5.4); RED CELL DISTRIBUTION WIDTH 17.2 % (11.6-16.5); WHITE BLOOD COUNT 6.8 X10^3/uL (3.6-10.0)
[2023-10-31 05:14] LABS: ALANINE AMINOTRANSFERASE < 6 Units/L (12-78); ALKALINE PHOSPHATASE 298 Units/L (46-116); ASPARTATE AMINO TRANSFERASE 36 Units/L (15-37); BLOOD UREA NITROGEN 54 mg/dL (7-18); CALCIUM 8.9 mg/dL (8.5-10.1); CARBON DIOXIDE 29.1 mmol/L (21-32); CHLORIDE 94 mmol/L (98-107); COR CA(FOR HYPOALB) 10.5 mg/dL (8.5-10.1); CREATININE 2.89 mg/dL (0.55-1.02); GLUCOSE 79 mg/dL (65-99); POTASSIUM 4.8 mmol/L (3.5-5.1); SODIUM 131 mmol/L (136-145); TOTAL PROTEIN 7.2 g/dL (6.4-8.2); eGFR NON BLACK RACES 18 (>60)
[2023-10-31 09:34] VITALS: BMI 47.6
--- NOTE | 2023-10-31 10:16 | PCM.PROG ---
Progress Note Progress Note for Day of Date of Exam: 10/31/23 Subjective Subjective: Patient seen at bedside, no acute events overnight. She states she is feeling better, LE edema is slightly improved. She has been ambulating to the bathroom. Her lasix was held yesterday due to low BP. Her BP this morning was 102/54. She still has some SOB with exertion. She is currently on room air, no distress noted. Labs/imaging reviewed -WBC 6.8 Hgb 10.7 BUN/Cr: 54/2.89 -Urine Cx: pending Plan: hold lasix for now, monitor BP. Consult cardiology. Continue IV Rocephin. Follow final urine Cx. Continue diflucan. Continue other home medications. Monitor daily weights, strict I&Os. Keep legs elevated. PT/OT consult. Monitor AM labs/imaging. Past Medical Family Social History Allergies: Allergies adhesive tape Allergy (Verified 10/28/23 15:46) Vital Signs and I&O's Vital Signs: Vital Signs Temperature 98.5 F Temperature 97.8 F Pulse Rate [Right Radial] 79 Pulse Rate [Right Radial] 83 Respiratory Rate 18 Respiratory Rate 18 Blood Pressure [Right Arm] 102/54 Blood Pressure [Right Arm] 113/50 O2 Sat by Pulse Oximetry 94 O2 Sat by Pulse Oximetry 100 Intake and Output: Intake & Output 10/28/23 10/29/23 10/30/23 10/31/23 23:59 23:59 23:59 23:59 Intake Total 150 / 150 940 / 940 0 / 0 Output Total 950 / 950 100 / 100 Balance 150 / 150 -10 / -10 -100 / -100 Physical Exam Oriented: Normal Eyes: Normal Nose: Normal Throat: Normal Respiratory: Generalized and Diminished Cardiovascular: Normal and Edema (b/l LE chronic edema ) Auscultation: Bowel Sounds: Normal Palpation: Normal Tenderness: Normal Skin: Normal Musculoskeletal: Leg Psychiatric: Normal Mood Description: Calm Affect: Normal Speech Pattern: Clear and Appropriate Laboratory and Diagnostics 10/31/23 04:20 10/31/23 04:20 Labs: 10/28/23 16:49 Urine,Clean Catch Urine Culture - Final Laboratory WBC 6.8 X10^3/uL (3.6-10.0) 10/31/23 04:20 RBC 3.95 X10^6/uL (3.5-5.4) 10/31/23 04:20 Hgb 10.7 g/dL (12.0-16.0) L 10/31/23 04:20 Hct 33.4 % (36.0-47.0) L 10/31/23 04:20 MCV 84.6 fL (80.0-100.0) 10/31/23 04:20 MCH 27.1 pg (27.0-34.0) 10/31/23 04:20 MCHC 32.1 g/dL (33.0-35.0) L 10/31/23 04:20 RDW 17.2 % (11.6-16.5) H 10/31/23 04:20 Plt Count 202 X10^3/uL (150.0-450.0) 10/31/23 04:20 MPV 9.0 fL (7.4-11.0) 10/31/23 04:20 Neut % (Auto) 48.9 % (42.0-75.0) 10/31/23 04:20 Lymph % (Auto) 31.8 % (21.0-51.0) 10/31/23 04:20 Josephine % (Auto) 16.5 % (0.0-13.0) H 10/31/23 04:20 Eos % (Auto) 2.0 % (0.9-2.9) 10/31/23 04:20 Baso % (Auto) 0.8 % (0.2-1.0) 10/31/23 04:20 Neut # (Auto) 3.3 x10^3/uL (2.2-4.8) 10/31/23 04:20 Lymph # (Auto) 2.2 X10^3/uL (1.3-2.9) 10/31/23 04:20 Josephine # (Auto) 1.1 x10^3/uL (0.3-0.8) H 10/31/23 04:20 Eos # (Auto) 0.1 x10^3/uL (0.0-0.2) 10/31/23 04:20 Baso # (Auto) 0.1 X10^3/uL (0.0-0.1) 10/31/23 04:20 Absolute Nucleated RBC 0.0 /100WBC 10/31/23 04:20 Sodium 131 mmol/L (136-145) L 10/31/23 04:20 Corrected Sodium TNP 10/31/23 04:20 Potassium 4.8 mmol/L (3.5-5.1) 10/31/23 04:20 Chloride 94 mmol/L (98-107) L 10/31/23 04:20 Carbon Dioxide 29.1 mmol/L (21-32) 10/31/23 04:20 BUN 54 mg/dL (7-18) H 10/31/23 04:20 Creatinine 2.89 mg/dL (0.55-1.02) H 10/31/23 04:20 Est GFR (MDRD) Af Amer 22 (>60) L 10/31/23 04:20 Est GFR (MDRD) Non-Af 18 (>60) L 10/31/23 04:20 Glucose 79 mg/dL (65-99) 10/31/23 04:20 POC Glucose (mg/dL) 71 mg/dL (65-99) 10/31/23 08:32 Calcium 8.9 mg/dL (8.5-10.1) 10/31/23 04:20 Corrected Calcium 10.5 mg/dL (8.5-10.1) H 10/31/23 04:20 Magnesium 2.1 mg/dL (2.0-2.9) 10/31/23 04:20 Total Bilirubin 3.20 mg/dL (0.2-1.0) H 10/31/23 04:20 AST 36 Units/L (15-37) 10/31/23 04:20 ALT < 6 Units/L (12-78) L 10/31/23 04:20 Alkaline Phosphatase 298 Units/L (46-116) H 10/31/23 04:20 Creatine Kinase 44 Units/L (26-192) 10/28/23 17:00 Troponin I High Sens 11.9 ng/L (4.0-60.0) 10/28/23 17:00 B-Natriuretic Peptide 1420 pg/mL (0-79) H 10/29/23 04:56 Total Protein 7.2 g/dL (6.4-8.2) 10/31/23 04:20 Albumin 2.0 g/dL (3.4-5.0) L 10/31/23 04:20 Globulin 5.2 g/dL (2.5-4.5) H 10/31/23 04:20 Albumin/Globulin Ratio 0.4 Ratio (1.1-2.1) L 10/31/23 04:20 Specimen Type Clean catch urine 10/28/23 16:49 Urine Color Mary Alice (YELLOW) 10/28/23 16:49 Urine Appearance Hazy (CLEAR) 10/28/23 16:49 Urine pH 5.0 (5.0 - 8.0) 10/28/23 16:49 Ur Specific [place] 1.025 (1.000-1.030) 10/28/23 16:49 Urine Protein 2+ (NEGATIVE) 10/28/23 16:49 Urine Glucose (UA) 4+ (NEGATIVE) 10/28/23 16:49 Urine Ketones Negative (NEGATIVE) 10/28/23 16:49 Urine Blood 1+ (NEGATIVE) 10/28/23 16:49 Urine Nitrite Negative (NEGATIVE) 10/28/23 16:49 Urine Bilirubin 1+ (NEGATIVE) 10/28/23 16:49 Urine Urobilinogen 2+ (NORMAL) 10/28/23 16:49 Ur Leukocyte Esterase 1+ (NEGATIVE) 10/28/23 16:49 Urine RBC 3-5 /HPF (0-3) A 10/28/23 16:49 Urine WBC 5-10 /HPF (0-5) A 10/28/23 16:49 Ur Squamous Epith Cells Moderate /HPF (NEGATIVE) 10/28/23 16:49 Amorphous Sediment 1+ /HPF (NEGATIVE) 10/28/23 16:49 Urine Bacteria 3+ /HPF (NEGATIVE) 10/28/23 16:49 Hyaline Casts Rare /LPF (NEGATIVE) 10/28/23 16:49 Ur Culture Indicated? Yes/culture set up 10/28/23 16:49 Acetone, Semi-Quant Negative (NEGATIVE) 10/28/23 17:00 Plan (1) CHF exacerbation: Status: Acute Qualifiers: Heart failure type: combined systolic and diastolic Qualified Code(s): I50.43 - Acute on chronic combined systolic (congestive) and diastolic (congestive) heart failure (2) Hypotension: Status: Acute Qualifiers: Hypotension type: unspecified hypotension type Qualified Code(s): I95.9 - Hypotension, unspecified (3) Anasarca: Status: Acute (4) Poorly controlled diabetes mellitus: Status: Acute (5) Hyponatremia: Status: Acute (6) Cardiomyopathy: Status: Acute Qualifiers: Cardiomyopathy type: unspecified Qualified Code(s): I42.9 - Cardiomyopathy, unspecified (7) CKD (chronic kidney disease): Status: Acute Qualifiers: Chronic kidney disease stage: unspecified stage Qualified Code(s): N18.9 - Chronic kidney disease, unspecified (8) Pulmonary hypertension: Status: Chronic (9) History of pulmonary embolism: Status: Chronic
--- NOTE | 2023-10-31 14:40 | DR.CONSULT ---
CONSULT Consultation for Day of: Date: 10/31/23 Chief Complaint Chief Complaint: sob/edema Allergies Allergies Allergy/AdvReac Type Severity Reaction Status Date / Time adhesive tape Allergy Verified 10/28/23 15:46 History of Present Illness History of Present Illness: 53 yo female- states bad heart for years- sees in [place]-states heart cath years ago w/o CAD. recent EF 23%mod mr- supposed to be getting a defibrillator- unclear why not put in before so hypothesis ef dropped- takes coreg at home- also on lasix/spironolactone- bp low prohibits other vasodilators i suspect- admitted for sob/chf- improving slowly, bp low 91-116 p 80-90- on DOAC for h/o PE 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 and [facility] [facility] Surgery Family History Family Medical History: Heart Failure and Hypertension Social History Does patient currently use any type of tobacco product: No Have you used tobacco products in the last 12 months: No Type of Tobacco Use: None Does any household member use tobacco: No Alcohol Use: None Drug Use: None Medications Home Medications: adhesive tape Allergy (Verified 10/28/23 15:46) Physical Exam Vital Signs: Vital Signs Temperature 97.8 F Temperature 98.5 F Pulse Rate [Right Radial] 84 Pulse Rate [Right Radial] 79 Respiratory Rate 18 Respiratory Rate 18 Blood Pressure [Right Arm] 116/68 Blood Pressure [Right Arm] 102/54 O2 Sat by Pulse Oximetry 95 O2 Sat by Pulse Oximetry 94 alert ox3 nad elevated jvd lungs few crackles soft elena/hsm 2-3 edema labs: bnp [id number], trop negative, cr 2.89, albumin 2.0, u/a 2plus protein, cRcl 22- too low for erickson/jardiance ekg: nsr lae ivcd prwp ?lat mi- no old ekg Plan (1) CHF exacerbation: Status: Acute Qualifiers: Heart failure type: combined systolic and diastolic Qualified Code(s): I50.43 - Acute on chronic combined systolic (congestive) and diastolic (congestive) heart failure Plan: stop erickson as cr > 2.0 increases risk with its use- cant use jardiance either- continue diuresis- resume low dose bb as bp allows- ok if bp 90 as long as not sx-with bad ef/worsening cr/albumin 2.0: wont do well- consider getting her primary care program resident involved with transfer (2) Anasarca: Status: Acute Narrative Support Text: albumin 2.0 with 2 plus protein in urine (3) Poorly controlled diabetes mellitus: Status: Acute (4) Cardiomyopathy: Status: Acute Qualifiers: Cardiomyopathy type: unspecified Qualified Code(s): I42.9 - Cardiomyopathy, unspecified Narrative Support Text: ef 23% (5) CKD (chronic kidney disease): Status: Acute Qualifiers: Chronic kidney disease stage: unspecified stage Qualified Code(s): N18.9 - Chronic kidney disease, unspecified Narrative Support Text: baseline cr 1.8-2.0 now 2.9 with cr cl 20 (6) History of pulmonary embolism: Status: Chronic
[2023-11-01] MEDS: D50W ABBOJECT SYR IV ONE (05:39)
[2023-11-01 06:37] LABS: BASOPHILS # (AUTO) 0.1 X10^3/uL (0.0-0.1); BASOPHILS % (AUTO) 1.3 % (0.2-1.0); EOSINOPHILS # (AUTO) 0.1 x10^3/uL (0.0-0.2); EOSINOPHILS % (AUTO) 1.2 % (0.9-2.9); HEMATOCRIT 36.4 % (36.0-47.0); HEMOGLOBIN 11.7 g/dL (12.0-16.0); LYMPHOCYTES # (AUTO) 2.2 X10^3/uL (1.3-2.9); LYMPHOCYTES % (AUTO) 31.8 % (21.0-51.0); MEAN CORPUSCULAR HEMOGLOBIN 27.3 pg (27.0-34.0); MEAN CORPUSCULAR HGB CONC 32.1 g/dL (33.0-35.0); MEAN CORPUSCULAR VOLUME 85.1 fL (80.0-100.0); MEAN PLATELET VOLUME 8.9 fL (7.4-11.0); MONOCYTES # (AUTO) 1.1 x10^3/uL (0.3-0.8); MONOCYTES % (AUTO) 16.4 % (0.0-13.0); NEUTROPHILS # (AUTO) 3.4 x10^3/uL (2.2-4.8); NEUTROPHILS % (AUTO) 49.3 % (42.0-75.0); PLATELET COUNT 231 X10^3/uL (150.0-450.0); RED BLOOD COUNT 4.28 X10^6/uL (3.5-5.4); RED CELL DISTRIBUTION WIDTH 17.5 % (11.6-16.5); WHITE BLOOD COUNT 6.9 X10^3/uL (3.6-10.0)
[2023-11-01 06:42] LABS: ALANINE AMINOTRANSFERASE 12 Units/L (12-78); ALBUMIN 2.1 g/dL (3.4-5.0); ALKALINE PHOSPHATASE 340 Units/L (46-116); ASPARTATE AMINO TRANSFERASE 62 Units/L (15-37); BLOOD UREA NITROGEN 56 mg/dL (7-18); CALCIUM 9.1 mg/dL (8.5-10.1); CARBON DIOXIDE 28.9 mmol/L (21-32); CHLORIDE 94 mmol/L (98-107); COR CA(FOR HYPOALB) 10.6 mg/dL (8.5-10.1); CREATININE 2.75 mg/dL (0.55-1.02); POTASSIUM 4.6 mmol/L (3.5-5.1); SODIUM 131 mmol/L (136-145); TOTAL PROTEIN 7.7 g/dL (6.4-8.2); eGFR NON BLACK RACES 19 (>60)
[2023-11-01 06:52] LABS: GLUCOSE 40 mg/dL (65-99)
--- NOTE | 2023-11-01 08:01 | RAD ---
EXAM:CHEST, 1 VIEWHISTORY:Shortness of breathCOMPARISON:10/29/2023FINDINGS:The trachea is midline. The cardiac silhouette is enlarged with a tortuous thoracic aorta . The lungs are clear without focal infiltrate or effusion. The bony thorax is unremarkable.IMPRESSION:No acute cardiopulmonary disease.THIS IS AN ELECTRONICALLY VERIFIED FINAL REPORT11/01/2023 7:58 AM - Electronically signed by Mino Britt MD
--- NOTE | 2023-11-01 08:57 | NOTE.SOAP ---
Soap Note Note for Day of Date of Exam: 11/01/23 Subjective Data Subjective Data: voices no complaints but sleeping- had low glucose event last pm w hypothermia so under warming blanket- diuretics was being held due to low bp but must take fluid off so I cut dose back- no I and O preformed Objective Data Objective Data: bp 118 p 70-80 still edematous legs- labs: alb 2.1 cr 2.75 k 4.8 Assessment Assessment: chf,cardiomyopathy, low albumin, renal insufficiency:bad combination Plan Plan: diuresis- strict I and O- once we get fluid off and bp stable- will resume low dose coreg ( states was on 12.5BID)
--- NOTE | 2023-11-01 10:56 | PCM.PROG ---
Progress Note Progress Note for Day of Date of Exam: 11/01/23 Subjective Subjective: Patient seen at bedside, patient's glucose was noted to be in the 40s this morning. She was given Ensure and D50 amp. It came up to 95. She was also noted to be hypothermic, currently wearing a bear hugger, temp 97.0. Her CXR yesterday did not show any pleural effusion or pneumonia. She has been on 2L NC as needed. She is on IV Rocephin for UTI. Her BP is better today, 118/73. Patient's lasix and other cardiac meds have been on hold due to low BP. Cardio was also consulted. Recommended to restart diurects/bb if BP tolerates. Patient sees cardio in [place]. She missed last appointment and does not have anything scheduled. She was suppose to be seen for AICD placement. Labs/imaging reviewed -WBC 6.9 Hgb 11.7 BUN/Cr: 56/2.75 -Urine Cx: pending -CXR: no acute changes Plan: Will resume low dose lasix since BP is better today. Daily weights, strict I&Os. Continue IV Rocephin. Follow final urine Cx. Continue diflucan. Stop Lantus, continue SSI and monitor glucose closely. Continue other home medications. Keep legs elevated. PT/OT as tolerated. Monitor AM labs/imaging. Will get patient an appointment for follow up with Cardio once discharged. Past Medical Family Social History Allergies: Allergies adhesive tape Allergy (Verified 10/28/23 15:46) Vital Signs and I&O's Vital Signs: Vital Signs Temperature 97.0 F Temperature 97.7 F Pulse Rate [Right Radial] 83 Pulse Rate [Right Radial] 72 Respiratory Rate 18 Respiratory Rate 20 Blood Pressure [Right Arm] 118/73 Blood Pressure [Right Arm] 113/68 O2 Sat by Pulse Oximetry 97 O2 Sat by Pulse Oximetry 95 Intake and Output: Intake & Output 10/29/23 10/30/23 10/31/23 11/01/23 23:59 23:59 23:59 23:59 Intake Total 150 / 150 940 / 940 1160 / 1160 1065 / 1065 Output Total 950 / 950 100 / 100 Balance 150 / 150 -10 / -10 1060 / 1060 1065 / 1065 Physical Exam Oriented: Normal Eyes: Normal Nose: Normal Throat: Normal Respiratory: Generalized and Diminished Cardiovascular: Normal and Edema (b/l LE chronic edema ) Auscultation: Bowel Sounds: Normal Tenderness: Normal Skin: Normal Musculoskeletal: Leg Psychiatric: Normal Mood Description: Calm Affect: Normal Speech Pattern: Clear and Appropriate Laboratory and Diagnostics 11/01/23 05:33 11/01/23 05:33 Labs: 10/28/23 16:49 Urine,Clean Catch Urine Culture - Final Laboratory WBC 6.9 X10^3/uL (3.6-10.0) 11/01/23 05:33 RBC 4.28 X10^6/uL (3.5-5.4) 11/01/23 05:33 Hgb 11.7 g/dL (12.0-16.0) L 11/01/23 05:33 Hct 36.4 % (36.0-47.0) 11/01/23 05:33 MCV 85.1 fL (80.0-100.0) 11/01/23 05:33 MCH 27.3 pg (27.0-34.0) 11/01/23 05:33 MCHC 32.1 g/dL (33.0-35.0) L 11/01/23 05:33 RDW 17.5 % (11.6-16.5) H 11/01/23 05:33 Plt Count 231 X10^3/uL (150.0-450.0) 11/01/23 05:33 MPV 8.9 fL (7.4-11.0) 11/01/23 05:33 Neut % (Auto) 49.3 % (42.0-75.0) 11/01/23 05:33 Lymph % (Auto) 31.8 % (21.0-51.0) 11/01/23 05:33 Boyd % (Auto) 16.4 % (0.0-13.0) H 11/01/23 05:33 Eos % (Auto) 1.2 % (0.9-2.9) 11/01/23 05:33 Baso % (Auto) 1.3 % (0.2-1.0) H 11/01/23 05:33 Neut # (Auto) 3.4 x10^3/uL (2.2-4.8) 11/01/23 05:33 Lymph # (Auto) 2.2 X10^3/uL (1.3-2.9) 11/01/23 05:33 [place] # (Auto) 1.1 x10^3/uL (0.3-0.8) H 11/01/23 05:33 Eos # (Auto) 0.1 x10^3/uL (0.0-0.2) 11/01/23 05:33 Baso # (Auto) 0.1 X10^3/uL (0.0-0.1) 11/01/23 05:33 Absolute Nucleated RBC 0.1 /100WBC 11/01/23 05:33 Sodium 131 mmol/L (136-145) L 11/01/23 05:33 Corrected Sodium TNP 11/01/23 05:33 Potassium 4.6 mmol/L (3.5-5.1) 11/01/23 05:33 Chloride 94 mmol/L (98-107) L 11/01/23 05:33 Carbon Dioxide 28.9 mmol/L (21-32) 11/01/23 05:33 BUN 56 mg/dL (7-18) H 11/01/23 05:33 Creatinine 2.75 mg/dL (0.55-1.02) H 11/01/23 05:33 Est GFR (MDRD) Af Amer 23 (>60) L 11/01/23 05:33 Est GFR (MDRD) Non-Af 19 (>60) L 11/01/23 05:33 Glucose 40 mg/dL (65-99) L* 11/01/23 05:33 POC Glucose (mg/dL) 116 mg/dL (65-99) H 11/01/23 09:30 Calcium 9.1 mg/dL (8.5-10.1) 11/01/23 05:33 Corrected Calcium 10.6 mg/dL (8.5-10.1) H 11/01/23 05:33 Magnesium 2.1 mg/dL (2.0-2.9) 11/01/23 05:33 Total Bilirubin 3.90 mg/dL (0.2-1.0) H 11/01/23 05:33 AST 62 Units/L (15-37) H 11/01/23 05:33 ALT 12 Units/L (12-78) 11/01/23 05:33 Alkaline Phosphatase 340 Units/L (46-116) H 11/01/23 05:33 Creatine Kinase 44 Units/L (26-192) 10/28/23 17:00 Troponin I High Sens 11.9 ng/L (4.0-60.0) 10/28/23 17:00 B-Natriuretic Peptide 1420 pg/mL (0-79) H 10/29/23 04:56 Total Protein 7.7 g/dL (6.4-8.2) 11/01/23 05:33 Albumin 2.1 g/dL (3.4-5.0) L 11/01/23 05:33 Globulin 5.6 g/dL (2.5-4.5) H 11/01/23 05:33 Albumin/Globulin Ratio 0.4 Ratio (1.1-2.1) L 11/01/23 05:33 Specimen Type Clean catch urine 10/28/23 16:49 Urine Color Mary Alice (YELLOW) 10/28/23 16:49 Urine Appearance Hazy (CLEAR) 10/28/23 16:49 Urine pH 5.0 (5.0 - 8.0) 10/28/23 16:49 Ur Specific [place] 1.025 (1.000-1.030) 10/28/23 16:49 Urine Protein 2+ (NEGATIVE) 10/28/23 16:49 Urine Glucose (UA) 4+ (NEGATIVE) 10/28/23 16:49 Urine Ketones Negative (NEGATIVE) 10/28/23 16:49 Urine Blood 1+ (NEGATIVE) 10/28/23 16:49 Urine Nitrite Negative (NEGATIVE) 10/28/23 16:49 Urine Bilirubin 1+ (NEGATIVE) 10/28/23 16:49 Urine Urobilinogen 2+ (NORMAL) 10/28/23 16:49 Ur Leukocyte Esterase 1+ (NEGATIVE) 10/28/23 16:49 Urine RBC 3-5 /HPF (0-3) A 10/28/23 16:49 Urine WBC 5-10 /HPF (0-5) A 10/28/23 16:49 Ur Squamous Epith Cells Moderate /HPF (NEGATIVE) 10/28/23 16:49 Amorphous Sediment 1+ /HPF (NEGATIVE) 10/28/23 16:49 Urine Bacteria 3+ /HPF (NEGATIVE) 10/28/23 16:49 Hyaline Casts Rare /LPF (NEGATIVE) 10/28/23 16:49 Ur Culture Indicated? Yes/culture set up 10/28/23 16:49 Acetone, Semi-Quant Negative (NEGATIVE) 10/28/23 17:00 Plan (1) Hypoglycemia: Status: Acute (2) CHF exacerbation: Status: Acute Qualifiers: Heart failure type: combined systolic and diastolic Qualified Code(s): I50.43 - Acute on chronic combined systolic (congestive) and diastolic (congestive) heart failure (3) Hypotension: Status: Acute Qualifiers: Hypotension type: unspecified hypotension type Qualified Code(s): I95.9 - Hypotension, unspecified (4) Anasarca: Status: Acute (5) Poorly controlled diabetes mellitus: Status: Acute (6) Cardiomyopathy: Status: Acute Qualifiers: Cardiomyopathy type: unspecified Qualified Code(s): I42.9 - Cardiomyopathy, unspecified (7) CKD (chronic kidney disease): Status: Acute Qualifiers: Chronic kidney disease stage: unspecified stage Qualified Code(s): N18.9 - Chronic kidney disease, unspecified (8) History of pulmonary embolism: Status: Chronic
[2023-11-01] MEDS: LASIX IVP SCH (20:14)
[2023-11-02 05:08] VITALS: O2SAT 97
[2023-11-02 05:17] LABS: BASOPHILS % (AUTO) 0.3 % (0.2-1.0); EOSINOPHILS # (AUTO) 0.1 x10^3/uL (0.0-0.2); EOSINOPHILS % (AUTO) 1.7 % (0.9-2.9); HEMATOCRIT 33.9 % (36.0-47.0); HEMOGLOBIN 10.8 g/dL (12.0-16.0); LYMPHOCYTES # (AUTO) 1.6 X10^3/uL (1.3-2.9); LYMPHOCYTES % (AUTO) 23.2 % (21.0-51.0); MEAN CORPUSCULAR HEMOGLOBIN 26.9 pg (27.0-34.0); MEAN CORPUSCULAR HGB CONC 31.9 g/dL (33.0-35.0); MEAN CORPUSCULAR VOLUME 84.2 fL (80.0-100.0); MEAN PLATELET VOLUME 8.8 fL (7.4-11.0); MONOCYTES # (AUTO) 1.3 x10^3/uL (0.3-0.8); MONOCYTES % (AUTO) 18.7 % (0.0-13.0); NEUTROPHILS # (AUTO) 3.9 x10^3/uL (2.2-4.8); NEUTROPHILS % (AUTO) 56.1 % (42.0-75.0); PLATELET COUNT 219 X10^3/uL (150.0-450.0); RED BLOOD COUNT 4.02 X10^6/uL (3.5-5.4); RED CELL DISTRIBUTION WIDTH 17.8 % (11.6-16.5); WHITE BLOOD COUNT 6.9 X10^3/uL (3.6-10.0)
[2023-11-02 05:31] LABS: ALANINE AMINOTRANSFERASE < 6 Units/L (12-78); ALKALINE PHOSPHATASE 312 Units/L (46-116); ASPARTATE AMINO TRANSFERASE 46 Units/L (15-37); BLOOD UREA NITROGEN 61 mg/dL (7-18); CALCIUM 8.7 mg/dL (8.5-10.1); CARBON DIOXIDE 29.4 mmol/L (21-32); CHLORIDE 95 mmol/L (98-107); COR CA(FOR HYPOALB) 10.3 mg/dL (8.5-10.1); CREATININE 2.59 mg/dL (0.55-1.02); GLUCOSE 92 mg/dL (65-99); MAGNESIUM 2.1 mg/dL (2.0-2.9); POTASSIUM 4.7 mmol/L (3.5-5.1); SODIUM 131 mmol/L (136-145); TOTAL PROTEIN 7.2 g/dL (6.4-8.2); eGFR NON BLACK RACES 20 (>60)
[2023-11-02 09:45] VITALS: RESP 18
[2023-11-02] MEDS: NS 100 ML IV 100 ML ONE (10:07)
[2023-11-02 14:11] VITALS: BP 100/58; PULSE 76; TEMP 97.8
== END 2023-11-02 13:50 | disposition home or self-care (01) | DRG 291 ==
LOC: ER 15:28 → MED/SURG 15:28
PROVIDERS: ADMIT Family Medicine; ATTEND Family Medicine

== ENCOUNTER 2023-11-26 09:24 | Inpatient (IN) ==
[2023-11-26 09:52] VITALS: BMI 51.9
--- NOTE | 2023-11-26 10:18 | DR.SOBA ---
HPI Time Seen Time Seen by Provider: 11/26/23 10:05 Primary Care Physician Primary Care Physician: Yoselin Fitch Complaints Chief Complaint:: Pt c/o BLE swelling "since August", is taking HTN meds and diuretics. Pt c/o SOB x1.5 month with minimal exertion; pt states PCP has ordered for her to have home testing done to eval for home O2 but she hasn't done that yet. 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 Family History History of Family Medical Conditions: Yes Family Medical History: Heart Failure and Hypertension Social History Does patient currently use any type of tobacco product: No Have you used tobacco products in the last 12 months: No Type of Tobacco Use: None Does any household member use tobacco: No Alcohol Use: None Do you use any recreational Drugs:: No Lives With: Family Lives Where: Home Travel Risk Coronavirus risk:travel/contact w/high risk person: No Has patient experienced Coronavirus symptoms: Yes Coronavirus symptoms experienced: Shortness of Breath Infectious screening In the last 2 months have you had wt loss of >10#?: NO Have you had fever, night sweats or hemotysis?: No Have you traveled outside the country in the last 6 months?: No Isolation: Standard PE Vital Signs Vitals: Vital Signs Temperature 98.0 F Pulse Rate 91 Pulse Rate 91 Pulse Rate 96 Pulse Rate 90 Pulse Rate 90 Pulse Rate 91 Pulse Rate 90 Pulse Rate 90 Pulse Rate 90 Pulse Rate 91 Pulse Rate 91 Pulse Rate 91 Pulse Rate 91 Pulse Rate 91 Pulse Rate 92 Pulse Rate 93 Pulse Rate 94 Pulse Rate 93 Pulse Rate 92 Pulse Rate 93 Pulse Rate 93 Pulse Rate 94 Respiratory Rate 18 Respiratory Rate 18 Blood Pressure 118/88 Blood Pressure 122/78 Blood Pressure 121/84 Blood Pressure 120/77 Blood Pressure 116/72 Blood Pressure 127/66 O2 Sat by Pulse Oximetry 95 O2 Sat by Pulse Oximetry 98 O2 Sat by Pulse Oximetry 98 O2 Sat by Pulse Oximetry 100 O2 Sat by Pulse Oximetry 100 O2 Sat by Pulse Oximetry 100 O2 Sat by Pulse Oximetry 99 O2 Sat by Pulse Oximetry 97 O2 Sat by Pulse Oximetry 97 O2 Sat by Pulse Oximetry 97 O2 Sat by Pulse Oximetry 98 O2 Sat by Pulse Oximetry 97 O2 Sat by Pulse Oximetry 97 O2 Sat by Pulse Oximetry 100 O2 Sat by Pulse Oximetry 97 O2 Sat by Pulse Oximetry 97 O2 Sat by Pulse Oximetry 97 O2 Sat by Pulse Oximetry 94 O2 Sat by Pulse Oximetry 93 O2 Sat by Pulse Oximetry 97 O2 Sat by Pulse Oximetry 96 O2 Sat by Pulse Oximetry 93 [facility] Labs Reviewed 11/26/23 10:26 11/26/23 10:26 Laboratory: WBC 5.9 X10^3/uL (3.6-10.0) 11/26/23 10:26 RBC 4.07 X10^6/uL (3.5-5.4) 11/26/23 10:26 Hgb 10.9 g/dL (12.0-16.0) L 11/26/23 10:26 Hct 35.4 % (36.0-47.0) L 11/26/23 10:26 MCV 87.1 fL (80.0-100.0) 11/26/23 10:26 MCH 26.9 pg (27.0-34.0) L 11/26/23 10:26 MCHC 30.9 g/dL (33.0-35.0) L 11/26/23 10:26 RDW 18.1 % (11.6-16.5) H 11/26/23 10:26 Plt Count 252 X10^3/uL (150.0-450.0) 11/26/23 10:26 MPV 9.2 fL (7.4-11.0) 11/26/23 10:26 Neut % (Auto) 62.4 % (42.0-75.0) 11/26/23 10:26 Lymph % (Auto) 17.2 % (21.0-51.0) L 11/26/23 10:26 [place] % (Auto) 15.4 % (0.0-13.0) H 11/26/23 10:26 Eos % (Auto) 2.8 % (0.9-2.9) 11/26/23 10:26 Baso % (Auto) 2.2 % (0.2-1.0) H 11/26/23 10:26 Neut # (Auto) 3.7 x10^3/uL (2.2-4.8) 11/26/23 10:26 Lymph # (Auto) 1.0 X10^3/uL (1.3-2.9) L 11/26/23 10:26 [place] # (Auto) 0.9 x10^3/uL (0.3-0.8) H 11/26/23 10:26 Eos # (Auto) 0.2 x10^3/uL (0.0-0.2) 11/26/23 10:26 Baso # (Auto) 0.1 X10^3/uL (0.0-0.1) 11/26/23 10: Absolute Nucleated RBC 0.1 /100WBC 11/26/23 10:26 Sodium 130 mmol/L (136-145) L 11/26/23 10:26 Corrected Sodium 141 mmol/L (136-145) 11/26/23 10:26 Potassium 5.6 mmol/L (3.5-5.1) H 11/26/23 10:26 Chloride 96 mmol/L (98-107) L 11/26/23 10:26 Carbon Dioxide 28.7 mmol/L (21-32) 11/26/23 10:26 BUN 39 mg/dL (7-18) H 11/26/23 10:26 Creatinine 2.19 mg/dL (0.55-1.02) H 11/26/23 10:26 Est GFR (MDRD) Af Amer 30 (>60) L 11/26/23 10:26 Est GFR (MDRD) Non-Af 25 (>60) L 11/26/23 10:26 Glucose 562 mg/dL (65-99) H* 11/26/23 10:26 Calcium 9.1 mg/dL (8.5-10.1) 11/26/23 10:26 Corrected Calcium 10.7 mg/dL (8.5-10.1) H 11/26/23 10:26 Total Bilirubin 2.40 mg/dL (0.2-1.0) H 11/26/23 10:26 AST 9 Units/L (15-37) L 11/26/23 10:26 ALT < 6 Units/L (12-78) L 11/26/23 10:26 Alkaline Phosphatase 251 Units/L (46-116) H 11/26/23 10:26 Creatine Kinase 27 Units/L (26-192) 11/26/23 10:26 Troponin I High Sens 11.5 ng/L (4.0-60.0) 11/26/23 10:26 B-Natriuretic Peptide 2130 pg/mL (0-79) H 11/26/23 10:26 Total Protein 7.9 g/dL (6.4-8.2) 11/26/23 10:26 Albumin 2.0 g/dL (3.4-5.0) L 11/26/23 10:26 Globulin 5.9 g/dL (2.5-4.5) H 11/26/23 10:26 Albumin/Globulin Ratio 0.3 Ratio (1.1-2.1) L 11/26/23 10:26 Acetone, Semi-Quant Negative (NEGATIVE) 11/26/23 10:30 Opioid Opioid Risk Tool Age (Calin box if 16-45): No History of Preadolescent Sexual Abuse: No Total: 0 Total Score Risk Category: Low Risk Copyright: Derrek BROWN predicting aberrant behaviors Discharge Plan Diagnosis Discharge Problem: CHF (congestive heart failure), Hyperglycemia Discharge Plan Patient Disposition: ADMITTED INPATIENT Condition: Stable Orders to Discharge Patient Discharge Orders: Transfer (Routine); Ordered 11/26/23 Ordered By: RAMIRO SALAS
[2023-11-26] MEDS: LASIX IVP ONE (10:33)
[2023-11-26 10:38] LABS: BASOPHILS # (AUTO) 0.1 X10^3/uL (0.0-0.1); BASOPHILS % (AUTO) 2.2 % (0.2-1.0); EOSINOPHILS # (AUTO) 0.2 x10^3/uL (0.0-0.2); EOSINOPHILS % (AUTO) 2.8 % (0.9-2.9); HEMATOCRIT 35.4 % (36.0-47.0); HEMOGLOBIN 10.9 g/dL (12.0-16.0); LYMPHOCYTES % (AUTO) 17.2 % (21.0-51.0); MEAN CORPUSCULAR HEMOGLOBIN 26.9 pg (27.0-34.0); MEAN CORPUSCULAR HGB CONC 30.9 g/dL (33.0-35.0); MEAN CORPUSCULAR VOLUME 87.1 fL (80.0-100.0); MEAN PLATELET VOLUME 9.2 fL (7.4-11.0); MONOCYTES # (AUTO) 0.9 x10^3/uL (0.3-0.8); MONOCYTES % (AUTO) 15.4 % (0.0-13.0); NEUTROPHILS # (AUTO) 3.7 x10^3/uL (2.2-4.8); NEUTROPHILS % (AUTO) 62.4 % (42.0-75.0); PLATELET COUNT 252 X10^3/uL (150.0-450.0); RED BLOOD COUNT 4.07 X10^6/uL (3.5-5.4); RED CELL DISTRIBUTION WIDTH 18.1 % (11.6-16.5); WHITE BLOOD COUNT 5.9 X10^3/uL (3.6-10.0)
--- NOTE | 2023-11-26 10:38 | EKG ---
Test Reason : chf Blood Pressure : */* mmHG Vent. Rate : 94 BPM Atrial Rate : 94 BPM P-R Int : 182 ms QRS Dur : 114 ms QT Int : 394 ms P-R-T Axes : 63 -61 74 degrees QTc Int : 492 ms Normal sinus rhythm Left axis deviation Inferior infarct , age undetermined Anterolateral infarct (cited on or before 28-OCT-2023) Abnormal ECG When compared with ECG of 28-OCT-2023 23:03, No significant change was found Confirmed by Donavan Colon MD ([id number]) on 11/26/2023 5:11:44 PM Referred By: Confirmed By: Donavan Colon MD
--- NOTE | 2023-11-26 10:49 | RAD ---
EXAM:Portable AP chestHISTORY:Short of breathCOMPARISON:10/31/2023FINDINGS:Mode rately severe cardiomegaly with pulmonary vascular congestion. There is no definite edema, pneumonia or large pleural effusion. The left lower chest is significantly obscured by the cardiac enlargement.IMPRESSION:Cardiomegaly with pulmonary venous congestion.THIS IS AN ELECTRONICALLY VERIFIED FINAL REPORT11/26/2023 10:41 AM - Electronically signed by Luis Almazan MD
[2023-11-26 10:51] LABS: ALANINE AMINOTRANSFERASE < 6 Units/L (12-78); ALKALINE PHOSPHATASE 251 Units/L (46-116); ASPARTATE AMINO TRANSFERASE 9 Units/L (15-37); BLOOD UREA NITROGEN 39 mg/dL (7-18); CALCIUM 9.1 mg/dL (8.5-10.1); CARBON DIOXIDE 28.7 mmol/L (21-32); CHLORIDE 96 mmol/L (98-107); COR CA(FOR HYPOALB) 10.7 mg/dL (8.5-10.1); CREATINE KINASE 27 Units/L (26-192); CREATININE 2.19 mg/dL (0.55-1.02); POTASSIUM 5.6 mmol/L (3.5-5.1); SODIUM 130 mmol/L (136-145); TOTAL PROTEIN 7.9 g/dL (6.4-8.2); eGFR NON BLACK RACES 25 (>60)
[2023-11-26 10:55] LABS: COR NA(FOR HYPERGLY) 141 mmol/L (136-145); GLUCOSE 562 mg/dL (65-99)
[2023-11-26] MEDS: NS 1,000 ML IV 1,000 ML IV SCH (15:20)
[2023-11-26] MEDS ORDERED: NovoLIN R (or HumuLIN R) SUBCUT PRN (15:31)
[2023-11-26] MEDS ORDERED: XOPENEX 1.25 MG/3 ML NEBULE NEB PRN (16:29)
[2023-11-26] MEDS: PERCOCET TAB 5/325 MG PO PRN (17:44)
[2023-11-26] MEDS: NovoLIN R (or HumuLIN R) SUBCUT PRN (17:47)
[2023-11-26] MEDS ORDERED: SNACK - Diabetic Appropriate PO SCH (20:00)
[2023-11-26] MEDS: SNACK - Diabetic Appropriate PO SCH (20:00)
[2023-11-27 05:27] LABS: BASOPHILS # (AUTO) 0.1 X10^3/uL (0.0-0.1); BASOPHILS % (AUTO) 0.8 % (0.2-1.0); EOSINOPHILS # (AUTO) 0.2 x10^3/uL (0.0-0.2); EOSINOPHILS % (AUTO) 2.9 % (0.9-2.9); HEMATOCRIT 33.6 % (36.0-47.0); HEMOGLOBIN 10.7 g/dL (12.0-16.0); LYMPHOCYTES % (AUTO) 30.8 % (21.0-51.0); MEAN CORPUSCULAR HEMOGLOBIN 27.3 pg (27.0-34.0); MEAN CORPUSCULAR HGB CONC 31.9 g/dL (33.0-35.0); MEAN CORPUSCULAR VOLUME 85.7 fL (80.0-100.0); MEAN PLATELET VOLUME 9.1 fL (7.4-11.0); MONOCYTES # (AUTO) 1.2 x10^3/uL (0.3-0.8); MONOCYTES % (AUTO) 18.8 % (0.0-13.0); NEUTROPHILS % (AUTO) 46.7 % (42.0-75.0); PLATELET COUNT 256 X10^3/uL (150.0-450.0); RED BLOOD COUNT 3.92 X10^6/uL (3.5-5.4); RED CELL DISTRIBUTION WIDTH 17.8 % (11.6-16.5); WHITE BLOOD COUNT 6.5 X10^3/uL (3.6-10.0)
[2023-11-27 05:56] LABS: ALKALINE PHOSPHATASE 227 Units/L (46-116); ASPARTATE AMINO TRANSFERASE 8 Units/L (15-37); BLOOD UREA NITROGEN 39 mg/dL (7-18); CALCIUM 9.1 mg/dL (8.5-10.1); CARBON DIOXIDE 26.7 mmol/L (21-32); CHLORIDE 99 mmol/L (98-107); COR CA(FOR HYPOALB) 10.7 mg/dL (8.5-10.1); COR NA(FOR HYPERGLY) 137 mmol/L (136-145); CREATININE 2.12 mg/dL (0.55-1.02); GLUCOSE 163 mg/dL (65-99); MAGNESIUM 2.2 mg/dL (2.0-2.9); POTASSIUM 4.8 mmol/L (3.5-5.1); SODIUM 135 mmol/L (136-145); TOTAL PROTEIN 7.9 g/dL (6.4-8.2); eGFR NON BLACK RACES 26 (>60)
[2023-11-27 06:04] LABS: ALANINE AMINOTRANSFERASE < 6 Units/L (12-78)
[2023-11-27] MEDS: LASIX IVP SCH (09:55)
--- NOTE | 2023-11-27 10:55 | DR.H&P ---
H&P History & Physical for Day of: H&P Date: 11/26/23 Chief Complaint Chief Complaint: SWELLING, SHORTNESS OF BREATH Allergies Allergies Allergy/AdvReac Type Severity Reaction Status Date / Time adhesive tape Allergy Verified 11/26/23 09:24 History of Present Illness History of Present Illness: PT IS 53BF, ER ADMISSION WITH SOB, EDEMA FOR SEVERAL WEEKS. PT IS UNDER THE CARE OF MATHIEU BRIGGS, CARDIOLOGY, AND REPORTS SHE IS HAVING ANY ECHO ON 11/30 AND THEN "SUPPOSED TO HAVE DEFIBRILLATOR PUT IN" PT REPORTS SHE HAS BEEN TAKING HER MEDICATION PRESCRIBED BUT CONTINUES TO SWELL AND INCREASED SOB. PT REPORT SHE DOES NOT HAVE OXYGEN AT HOME. PT ADMITTED FOR TREATMENT AND EVALUATION OF ACUTE ILLNESS. 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 Family History Family Medical History: Heart Failure and Hypertension Social History Does patient currently use any type of tobacco product: No Have you used tobacco products in the last 12 months: No Type of Tobacco Use: None Does any household member use tobacco: No Alcohol Use: None Drug Use: None Medications Home Medications: Home Medications Medication Instructions Recorded Confirmed Type apixaban 5 mg tablet (Eliquis) 5 mg PO BID 04/26/22 11/26/23 History insulin regular human 100 unit/mL 17 ml subcut TID 04/26/22 11/26/23 History injection solution (Humulin R Regular U-100 Insulin) docusate sodium 100 mg capsule 100 mg PO BID 08/25/23 11/26/23 History oxycodone-acetaminophen 10 mg-325 1 tab PO Q8H PRN 08/25/23 11/26/23 History mg tablet polyethylene glycol 3350 17 gram 17 g PO QDAY PRN 08/25/23 11/26/23 History oral powder packet tramadol 50 mg tablet 50 mg PO BID PRN 08/25/23 11/26/23 History Labs 11/27/23 04:25 11/27/23 04:25 Labs: Laboratory WBC 6.5 X10^3/uL (3.6-10.0) 11/27/23 04:25 RBC 3.92 X10^6/uL (3.5-5.4) 11/27/23 04:25 Hgb 10.7 g/dL (12.0-16.0) L 05/12/24 04:25 Hct 33.6 % (36.0-47.0) L 11/27/23 04:25 MCV 85.7 fL (80.0-100.0) 11/27/23 04:25 MCH 27.3 pg (27.0-34.0) 11/27/23 04:25 MCHC 31.9 g/dL (33.0-35.0) L 11/27/23 04:25 RDW 17.8 % (11.6-16.5) H 11/27/23 04:25 Plt Count 256 X10^3/uL (150.0-450.0) 11/27/23 04:25 MPV 9.1 fL (7.4-11.0) 11/27/23 04:25 Neut % (Auto) 46.7 % (42.0-75.0) 11/27/23 04:25 Lymph % (Auto) 30.8 % (21.0-51.0) 11/27/23 04:25 [place] % (Auto) 18.8 % (0.0-13.0) H 11/27/23 04:25 Eos % (Auto) 2.9 % (0.9-2.9) 11/27/23 04:25 Baso % (Auto) 0.8 % (0.2-1.0) 11/27/23 04:25 Neut # (Auto) 3.0 x10^3/uL (2.2-4.8) 11/27/23 04:25 Lymph # (Auto) 2.0 X10^3/uL (1.3-2.9) 11/27/23 04:25 [place] # (Auto) 1.2 x10^3/uL (0.3-0.8) H 11/27/23 04:25 Eos # (Auto) 0.2 x10^3/uL (0.0-0.2) 11/27/23 04:25 Baso # (Auto) 0.1 X10^3/uL (0.0-0.1) 11/27/23 04:25 Absolute Nucleated RBC 0.1 /100WBC 11/27/23 04:25 Sodium 135 mmol/L (136-145) L 11/27/23 04:25 Corrected Sodium 137 mmol/L (136-145) 11/27/23 04:25 Potassium 4.8 mmol/L (3.5-5.1) 11/27/23 04:25 Chloride 99 mmol/L (98-107) 11/27/23 04:25 Carbon Dioxide 26.7 mmol/L (21-32) 11/27/23 04:25 BUN 39 mg/dL (7-18) H 11/27/23 04:25 Creatinine 2.12 mg/dL (0.55-1.02) H 11/27/23 04:25 Est GFR (MDRD) Af Amer 31 (>60) L 11/27/23 04:25 Est GFR (MDRD) Non-Af 26 (>60) L 11/27/23 04:25 Glucose 163 mg/dL (65-99) H 11/27/23 04:25 POC Glucose (mg/dL) 171 mg/dL (65-99) H 11/27/23 05:20 Calcium 9.1 mg/dL (8.5-10.1) 11/27/23 04:25 Corrected Calcium 10.7 mg/dL (8.5-10.1) H 11/27/23 04:25 Magnesium 2.2 mg/dL (2.0-2.9) 11/27/23 04:25 Total Bilirubin 2.10 mg/dL (0.2-1.0) H 11/27/23 04:25 AST 8 Units/L (15-37) L 11/27/23 04:25 ALT < 6 Units/L (12-78) L 11/27/23 04:25 Alkaline Phosphatase 227 Units/L (46-116) H 11/27/23 04:25 Creatine Kinase 27 Units/L (26-192) 11/26/23 10:26 Troponin I High Sens 11.5 ng/L (4.0-60.0) 11/26/23 10:26 B-Natriuretic Peptide 2130 pg/mL (0-79) H 11/26/23 10:26 Total Protein 7.9 g/dL (6.4-8.2) 11/27/23 04:25 Albumin 2.0 g/dL (3.4-5.0) L 11/27/23 04:25 Globulin 5.9 g/dL (2.5-4.5) H 11/27/23 04:25 Albumin/Globulin Ratio 0.3 Ratio (1.1-2.1) L 11/27/23 04:25 Acetone, Semi-Quant Negative (NEGATIVE) 11/26/23 10:30 Review of Systems Constitutional: Weakness Eyes: No Symptoms Reported ENT: No Symptoms Reported Respiratory: Shortness of Breath Cardiovascular: Edema Gastrointestinal: Nausea Genitourinary: No Symptoms Reported Musculoskeletal: Leg Pain Skin: No Symptoms Reported Neurological: No Symptoms Reported Physical Exam Vital Signs: Vital Signs Temperature 98.1 F Pulse Rate 75 Pulse Rate 75 Respiratory Rate 14 Respiratory Rate 15 Blood Pressure 114/67 Blood Pressure 115/73 O2 Sat by Pulse Oximetry 96 O2 Sat by Pulse Oximetry 96 Oriented: Normal Eyes: Normal Ear: Normal Nose: Normal Throat: Normal Respiratory: RLL Diminished and LLL Diminished Cardiovascular: Edema; negative Tachycardia or Bradycardia : Normal Auscultation: Bowel Sounds: Normal Tenderness: Normal Skin: Normal Musculoskeletal: Leg and Tender Psychiatric: Normal Mood Description: Calm Affect: Normal Speech Pattern: Clear and Appropriate Assessment/Plan (1) CHF (congestive heart failure): Narrative Support Text: ADMIT, ICU CE AND EKG STRICT I&OS, GENTLE IV REPLACEMENT BP CONTROL AND PRN SUPPLEMENTAL O2 VERIFY HOME MEDICATIONS BS CONTROL, IV LASIX REPEAT AM CXR Status: Acute (2) CKD (chronic kidney disease): Qualifiers: Chronic kidney disease stage: unspecified stage Qualified Code(s): N18 .9 - Chronic kidney disease, unspecified Status: Acute (3) Cardiomyopathy: Qualifiers: Cardiomyopathy type: unspecified Qualified Code(s): I42.9 - Cardiomyopathy, unspecified Status: Acute (4) Hypertension: Qualifiers: Hypertension type: essential hypertension Qualified Code(s): I10 - Es sential (primary) hypertension Status: Chronic (5) Poorly controlled diabetes mellitus: Status: Acute
[2023-11-27] MEDS: COREG TAB 3.125 MG PO SCH (12:30)
[2023-11-27 15:03] LABS: BILIRUBIN,URINE 1+ (NEGATIVE); BLOOD/HEMOGLOBIN,URINE 5+ (NEGATIVE); GLUCOSE, URINE 4+ (NEGATIVE); KETONES,URINE NEGATIVE (NEGATIVE); LEUKOCYTE ESTERASE ,URINE 1+ (NEGATIVE); NITRITES,URINE NEGATIVE (NEGATIVE); PROTEIN,URINE 2+ (NEGATIVE); UROBILINOGEN,URINE 2+ (NORMAL)
[2023-11-27 15:17] LABS: APPEARANCE,URINE SLIGHTLY HAZY (CLEAR); COLOR,URINE DARK YELLOW (YELLOW)
[2023-11-27 15:20] LABS: BACTERIA,URINE 2+ /HPF (NEGATIVE); HYALINE CASTS, URINE FEW /LPF (NEGATIVE); SQUAMOUS EPITHELIAL CELL,UR MANY /HPF (NEGATIVE)
[2023-11-27] MEDS: ELIQUIS PO SCH (20:50)
[2023-11-27] MEDS: LASIX PO SCH (20:50)
[2023-11-27] MEDS: SNACK - Diabetic Appropriate PO SCH (20:50)
[2023-11-27] MEDS: LANTUS SC SCH (20:51)
--- NOTE | 2023-11-27 23:49 | RAD ---
PROCEDURE: Chest X-ray 1 View.HISTORY: Congestive heart failure.TECHNIQUE: AP portable upright done at 10:31 a.m..COMPARISON: 11/26/2023.TECHNICAL QUALITY: Satisfactory.FINDINGS:Unchanged mild cardiomegaly.Mediastinum and hilar regions show no masses or lymphadenopathy.Normal central vascularity.No pulmonary consolidation, masses, pleural fluid, or pneumothorax.No acute bony abnormality.IMPRESSION:Unchanged cardiomegaly with no other acute change identified.THIS IS AN ELECTRONICALLY VERIFIED FINAL REPORT11/27/2023 11:46 PM - Electronically signed by Guzman Porras MD
[2023-11-28] MEDS: COLACE CAP 100 MG PO PRN (00:50)
[2023-11-28] MEDS: ULTRAM PO PRN (05:00)
[2023-11-28 05:27] LABS: BASOPHILS % (AUTO) 0.6 % (0.2-1.0); EOSINOPHILS # (AUTO) 0.2 x10^3/uL (0.0-0.2); HEMATOCRIT 34.7 % (36.0-47.0); LYMPHOCYTES # (AUTO) 1.3 X10^3/uL (1.3-2.9); LYMPHOCYTES % (AUTO) 22.8 % (21.0-51.0); MEAN CORPUSCULAR HEMOGLOBIN 27.2 pg (27.0-34.0); MEAN CORPUSCULAR HGB CONC 31.6 g/dL (33.0-35.0); MEAN PLATELET VOLUME 9.2 fL (7.4-11.0); MONOCYTES # (AUTO) 1.1 x10^3/uL (0.3-0.8); MONOCYTES % (AUTO) 20.1 % (0.0-13.0); NEUTROPHILS % (AUTO) 53.5 % (42.0-75.0); PLATELET COUNT 255 X10^3/uL (150.0-450.0); RED BLOOD COUNT 4.03 X10^6/uL (3.5-5.4); RED CELL DISTRIBUTION WIDTH 17.8 % (11.6-16.5); WHITE BLOOD COUNT 5.7 X10^3/uL (3.6-10.0)
[2023-11-28 05:45] LABS: ALANINE AMINOTRANSFERASE < 6 Units/L (12-78); ALBUMIN 1.9 g/dL (3.4-5.0); ALKALINE PHOSPHATASE 258 Units/L (46-116); ASPARTATE AMINO TRANSFERASE 12 Units/L (15-37); BLOOD UREA NITROGEN 41 mg/dL (7-18); CALCIUM 9.2 mg/dL (8.5-10.1); CHLORIDE 100 mmol/L (98-107); COR CA(FOR HYPOALB) 10.9 mg/dL (8.5-10.1); COR NA(FOR HYPERGLY) 137 mmol/L (136-145); CREATININE 2.13 mg/dL (0.55-1.02); GLUCOSE 182 mg/dL (65-99); POTASSIUM 5.2 mmol/L (3.5-5.1); SODIUM 135 mmol/L (136-145); TOTAL PROTEIN 7.9 g/dL (6.4-8.2); eGFR NON BLACK RACES 26 (>60)
[2023-11-28 06:34] LABS: BAND NEUTROPHILS % 3 % (0-10)
[2023-11-28 06:35] LABS: PLATELET MORPHOLOGY COMMENT NORMAL (NORMAL); TARGET CELLS 1+
[2023-11-28] MEDS: ALBUMIN HUMAN 25%- 100 ML 100 ML IV ONE (09:39)
[2023-11-28] MEDS: FARXIGA PO SCH (09:53)
[2023-11-28] MEDS: LASIX IVP ONE (11:19)
--- NOTE | 2023-11-28 16:31 | VAS ---
EXAM:LOWER EXT VENOUS, BILATERALHISTORY:BILAT LE EDEMA; HTN, DM, CHF, APPENDECTOMY, GYNCOMPARISON:None.TECHNIQUE:Grayscale and color Doppler imaging of the bilateral lower extremities using compression and augmentation techniques.FINDINGS:Normal color Doppler flow is observed within the common femoral vein, common femoral junction, popliteal vein and posterior tibial vein. There is limited visualization of the bilateral mid to distal superficial femoral veins due to severe edema of the extremities. Vessels augment and compress normally with no DVT identified where adequately interrogated.IMPRESSION:No evidence of DVT within the interrogated deep venous segments of the right and left lower extremity. Please note that there is limited visualization of the mid to distal superficial femoral vein segmentsEvidence of generalized severe lower extremity edemaTHIS IS AN ELECTRONICALLY VERIFIED FINAL REPORT11/28/2023 4:27 PM - Electronically signed by Kimo Pérez MD
[2023-11-28] MEDS: PERCOCET TAB 5/325 MG PO PRN (16:32)
[2023-11-28 17:35] LABS: APPEARANCE,URINE CLEAR (CLEAR); BILIRUBIN,URINE NEGATIVE (NEGATIVE); BLOOD/HEMOGLOBIN,URINE 2+ (NEGATIVE); COLOR,URINE YELLOW (YELLOW); GLUCOSE, URINE 3+ (NEGATIVE); KETONES,URINE NEGATIVE (NEGATIVE); LEUKOCYTE ESTERASE ,URINE NEGATIVE (NEGATIVE); NITRITES,URINE NEGATIVE (NEGATIVE); PROTEIN,URINE 1+ (NEGATIVE); UROBILINOGEN,URINE 1+ (NORMAL)
[2023-11-28 17:42] LABS: BACTERIA,URINE 2+ /HPF (NEGATIVE); SQUAMOUS EPITHELIAL CELL,UR MANY /HPF (NEGATIVE)
[2023-11-28 17:43] LABS: HYALINE CASTS, URINE MODERATE /LPF (NEGATIVE)
[2023-11-29 04:49] LABS: PLATELET COUNT 230 X10^3/uL (150.0-450.0); RED CELL DISTRIBUTION WIDTH 17.7 % (11.6-16.5); WHITE BLOOD COUNT 5.8 X10^3/uL (3.6-10.0)
[2023-11-29 05:02] LABS: ALANINE AMINOTRANSFERASE < 6 Units/L (12-78); ALBUMIN 2.3 g/dL (3.4-5.0); ALKALINE PHOSPHATASE 255 Units/L (46-116); ASPARTATE AMINO TRANSFERASE 14 Units/L (15-37); BLOOD UREA NITROGEN 41 mg/dL (7-18); CALCIUM 8.9 mg/dL (8.5-10.1); CARBON DIOXIDE 27.3 mmol/L (21-32); CHLORIDE 101 mmol/L (98-107); COR CA(FOR HYPOALB) 10.3 mg/dL (8.5-10.1); COR NA(FOR HYPERGLY) 137 mmol/L (136-145); CREATININE 2.07 mg/dL (0.55-1.02); GLUCOSE 177 mg/dL (65-99); POTASSIUM 4.8 mmol/L (3.5-5.1); SODIUM 135 mmol/L (136-145); TOTAL PROTEIN 7.7 g/dL (6.4-8.2); eGFR NON BLACK RACES 26 (>60)
[2023-11-29 05:06] LABS: BASOPHILS # (AUTO) 0.1 X10^3/uL (0.0-0.1); BASOPHILS % (AUTO) 1.3 % (0.2-1.0); EOSINOPHILS # (AUTO) 0.1 x10^3/uL (0.0-0.2); EOSINOPHILS % (AUTO) 2.2 % (0.9-2.9); HEMATOCRIT 34.1 % (36.0-47.0); HEMOGLOBIN 10.8 g/dL (12.0-16.0); LYMPHOCYTES # (AUTO) 1.2 X10^3/uL (1.3-2.9); LYMPHOCYTES % (AUTO) 21.2 % (21.0-51.0); MEAN CORPUSCULAR HEMOGLOBIN 27.3 pg (27.0-34.0); MEAN CORPUSCULAR HGB CONC 31.7 g/dL (33.0-35.0); MEAN CORPUSCULAR VOLUME 86.3 fL (80.0-100.0); MEAN PLATELET VOLUME 9.1 fL (7.4-11.0); MONOCYTES # (AUTO) 1.2 x10^3/uL (0.3-0.8); MONOCYTES % (AUTO) 20.9 % (0.0-13.0); NEUTROPHILS # (AUTO) 3.1 x10^3/uL (2.2-4.8); NEUTROPHILS % (AUTO) 54.4 % (42.0-75.0); RED BLOOD COUNT 3.95 X10^6/uL (3.5-5.4)
[2023-11-29 05:57] LABS: ANISOCYTOSIS SLIGHT; PLATELET MORPHOLOGY COMMENT NORMAL (NORMAL); TARGET CELLS PRESENT
[2023-11-29] MEDS: ZAROXOLYN PO NR (08:52)
[2023-11-29 12:19] VITALS: O2SAT 97
[2023-11-29] MEDS: LASIX IVP SCH (13:34)
--- NOTE | 2023-11-29 14:20 | RAD ---
EXAM:CHEST x-ray, 1 VIEWHISTORY:EDEMA -COMPARISON:X-ray 11/27/2023FINDINGS:Probable CHF and pulmonary edema have likely worsened since prior study. CP angles are not well seen which is probably due to technical factors but small to moderate pleural effusions are not excluded. No pneumothorax is seen.IMPRESSION:Probable worsening CHF and pulmonary edema. Continued x-ray follow up to document resolution is recommended.THIS IS AN ELECTRONICALLY VERIFIED FINAL REPORT11/29/2023 2:17 PM - Electronically signed by Kaiden Hall MD
[2023-11-29 15:03] VITALS: TEMP 97.6
[2023-11-29 15:05] VITALS: BP 106/62; RESP 17
[2023-11-29 17:01] VITALS: PULSE 84
== END 2023-11-29 16:55 | disposition left against medical advice (07) | DRG 292 ==
LOC: ER 09:24 → INTOOBSV 15:23 → ICU 15:23 → OBSVTOIN 15:23 → ICU 15:42
PROVIDERS: ADMIT Internal Medicine; ATTEND Internal Medicine
DX: R06.02 Shortness of breath; I42.9 Cardiomyopathy, unspecified; E87.5 Hyperkalemia; Z53.29 Procedure and treatment not carried out because of patient's decision for other reasons; F41.8 Other specified anxiety disorders; N18.9 Chronic kidney disease, unspecified; I13.0 Hypertensive heart and chronic kidney disease with heart failure and stage 1 through stage 4 chronic kidney disease, or unspecified chronic kidney disease; E87.1 Hypo-osmolality and hyponatremia; R94.31 Abnormal electrocardiogram [ECG] [EKG]; I50.9 Heart failure, unspecified; G62.89 Other specified polyneuropathies; E66.01 Morbid (severe) obesity due to excess calories; E78.5 Hyperlipidemia, unspecified; E11.65 Type 2 diabetes mellitus with hyperglycemia; R26.89 Other abnormalities of gait and mobility; Z68.43 Body mass index [BMI] 50.0-59.9, adult

== ENCOUNTER 2023-12-09 10:10 | Observation (INO) ==
--- NOTE | 2023-12-09 10:22 | DR.EXTPAIN ---
HPI Time seen Time Seen by Provider: 12/09/23 10:22 Complaint/Symptoms Chief Complaint Doctor Comments: Patient has a h/o CHF,CKD,cardiomyopathy.She was admitted by her Pcp 11/27/23 with CHF. Patient signed out AMA 11/29/23 because she stated that she had a cardiology appt in [facility]. Patient went to the appt and was informed that it had been rescheduled. Patient states that since she left the hospital her edema has increased,her abdomen is distended, she has worsening sob. She has not been able to sleep at night for the past few days because of PND. Patient has been taking lasix 80mg daily po(40mg in the AM/40mg in the pm). Patient denies:headache, lightheadedness, chest pain. Patient states with pain in the LLE greater than the RLE. 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 Family History Family Medical History: Heart Failure and Hypertension Social History Do you use any recreational Drugs:: No ROS Review of Systems Constitutional: No Symptoms Reported Eyes: No Symptoms Reported ENTM: No Symptoms Reported Respiratoy: Short of Breath and Other (PND) Cardiovascular: No Symptoms Reported Gastrointestinal/Abdominal: Abdominal Pain Genitourinary: No Symptoms Reported Neurological: No Symptoms Reported Musculoskeletal: No Symptoms Reported Integumentary: No Symptoms Reported Hematologic/Lymphatic: No Symptoms Reported Endocrine: No Symptoms Reported Psychiatric: No Symptoms Reported All Other Systems: Reviewed and Negative PE Vital Signs Vitals: Vital Signs Pulse Rate 101 Pulse Rate 100 Pulse Rate 101 Pulse Rate 101 Pulse Rate 101 Pulse Rate 101 Pulse Rate 101 Pulse Rate 101 Pulse Rate 101 Pulse Rate 101 Pulse Rate 100 Pulse Rate 101 Pulse Rate 101 Pulse Rate 100 Pulse Rate 102 Pulse Rate 102 Pulse Rate 99 Pulse Rate 98 Pulse Rate 97 Pulse Rate 97 Pulse Rate 97 Pulse Rate 98 Pulse Rate 98 Pulse Rate 97 Pulse Rate 99 Pulse Rate 98 Pulse Rate 98 Pulse Rate 100 Pulse Rate 99 Pulse Rate 99 Pulse Rate 99 Pulse Rate 99 Pulse Rate 98 Respiratory Rate 34 Respiratory Rate 21 Respiratory Rate 19 Respiratory Rate 21 Respiratory Rate 21 Respiratory Rate 22 Respiratory Rate 13 Respiratory Rate 13 Respiratory Rate 14 Respiratory Rate 20 Respiratory Rate 15 Respiratory Rate 19 Respiratory Rate 23 Respiratory Rate 17 Respiratory Rate 24 Respiratory Rate 24 Respiratory Rate 40 Respiratory Rate 16 Respiratory Rate 16 Respiratory Rate 17 Respiratory Rate 14 Respiratory Rate 12 Respiratory Rate 17 Respiratory Rate 15 Respiratory Rate 13 Respiratory Rate 14 Respiratory Rate 14 Respiratory Rate 17 Respiratory Rate 13 Respiratory Rate 13 Respiratory Rate 13 Respiratory Rate 13 Respiratory Rate 14 Blood Pressure 118/63 Blood Pressure 107/79 Blood Pressure 118/67 Blood Pressure 118/67 Blood Pressure 127/71 Blood Pressure 125/73 Blood Pressure 119/77 Blood Pressure 115/73 Blood Pressure 110/76 Blood Pressure 121/79 Blood Pressure 123/84 Blood Pressure 123/84 O2 Sat by Pulse Oximetry 97 O2 Sat by Pulse Oximetry 94 O2 Sat by Pulse Oximetry 93 O2 Sat by Pulse Oximetry 95 O2 Sat by Pulse Oximetry 94 O2 Sat by Pulse Oximetry 97 O2 Sat by Pulse Oximetry 94 O2 Sat by Pulse Oximetry 96 O2 Sat by Pulse Oximetry 91 O2 Sat by Pulse Oximetry 94 O2 Sat by Pulse Oximetry 96 O2 Sat by Pulse Oximetry 96 O2 Sat by Pulse Oximetry 98 O2 Sat by Pulse Oximetry 94 O2 Sat by Pulse Oximetry 97 O2 Sat by Pulse Oximetry 95 O2 Sat by Pulse Oximetry 94 O2 Sat by Pulse Oximetry 95 O2 Sat by Pulse Oximetry 94 O2 Sat by Pulse Oximetry 95 O2 Sat by Pulse Oximetry 95 O2 Sat by Pulse Oximetry 97 O2 Sat by Pulse Oximetry 94 O2 Sat by Pulse Oximetry 95 O2 Sat by Pulse Oximetry 97 O2 Sat by Pulse Oximetry 84 O2 Sat by Pulse Oximetry 96 O2 Sat by Pulse Oximetry 95 O2 Sat by Pulse Oximetry 95 O2 Sat by Pulse Oximetry 95 General Limitations: No Limitations General Appearance: Alert and In No Apparent Distress Head Head Exam: Normal Inspection Eyes Eye exam: Normal Appearance ENT ENT Exam: Normal Exam Neck Neck Exam: Normal Inspection Chest Chest Inspection: Normal Inspection Respiratory Respiratory Exam: Normal Lung Sounds Bilat Respiratory Exam: Bilateral: Rales Cardiovascular Cardiovascular Exam: Regular Rate and Normal Rhythm Abdominal Exam Abdominal Exam: Distention and Hypoactive Bowel Sounds Extremities Extremities Exam: Edema (BLE nonpitting) and Calf Tenderness (R>L) Back Back Exam: Normal Inspection Neurological Neurological Exam: Alert, Oriented X3 and CN II-XII Intact Psychiatric Psychiatric Exam: Normal Affect and Normal Mood Skin Skin Exam: Warm, Dry, Intact and Normal Color MDM Differential Diagnosis Differential Diagnosis: Other (CHF,AMI,Pneumonia,electrolyte disorder) COURSE Treatment Treatment: Patient was brought to a monitored room. IV access was initiated and a Duran catheter was placed. Patient was given Lasix 80 mg IV and she has had a total of 1500 cc of urine output. Patient states that her abdomen feels softer. Her abdominal pain is decreased. Patient's chest x-ray did not reveal an acute cardiopulmonary process. Patient's EKG #1 did not reveal acute ischemic changes/trop #1 11.6/trop #2 12.6. Patient's WBC is 7.56, sodium is mildly decreased 132, BNP is 898. Patient's fingerstick glucose was 463 at 19:14 and patient was given 4 units of regular insulin IV. Discussed case with Dr. Salmon. Dr. Salmon has accepted the patient to his service and would like her to get Lasix 40 mg IV twice daily. ROR Labs Reviewed Laboratory Results Reviewed?: Yes 12/09/23 11:00 12/09/23 11:00 Laboratory: WBC 7.5 X10^3/uL (3.6-10.0) 12/09/23 11:00 RBC 4.06 X10^6/uL (3.5-5.4) 12/09/23 11:00 Hgb 10.9 g/dL (12.0-16.0) L 12/09/23 11:00 Hct 34.9 % (36.0-47.0) L 12/09/23 11:00 MCV 85.9 fL (80.0-100.0) 12/09/23 11:00 MCH 26.9 pg (27.0-34.0) L 12/09/23 11:00 MCHC 31.3 g/dL (33.0-35.0) L 12/09/23 11:00 RDW 17.9 % (11.6-16.5) H 12/09/23 11:00 Plt Count 316 X10^3/uL (150.0-450.0) 12/09/23 11:00 MPV 9.6 fL (7.4-11.0) 12/09/23 11:00 Neut % (Auto) 65.0 % (42.0-75.0) 12/09/23 11:00 Lymph % (Auto) 17.0 % (21.0-51.0) L 12/09/23 11:00 [place] % (Auto) 14.3 % (0.0-13.0) H 12/09/23 11:00 Eos % (Auto) 3.2 % (0.9-2.9) H 12/09/23 11:00 Baso % (Auto) 0.5 % (0.2-1.0) 12/09/23 11:00 Neut # (Auto) 4.9 x10^3/uL (2.2-4.8) H 12/09/23 11:00 Lymph # (Auto) 1.3 X10^3/uL (1.3-2.9) 12/09/23 11:00 [place] # (Auto) 1.1 x10^3/uL (0.3-0.8) H 12/09/23 11:00 Eos # (Auto) 0.2 x10^3/uL (0.0-0.2) 12/09/23 11:00 Baso # (Auto) 0.0 X10^3/uL (0.0-0.1) 12/09/23 11:00 Absolute Nucleated RBC 0.1 /100WBC 12/09/23 11:00 PT 17.6 SECONDS (11.8-14.3) 12/09/23 12:57 INR Target Range - 12/09/23 12:57 INR 1.49 (0.8-1.3) H 12/09/23 12:57 APTT 29.9 SECONDS (22.9-36.5) 12/09/23 12:57 PTT Comment - 12/09/23 12:57 Sodium 132 mmol/L (136-145) L 12/09/23 11:00 Corrected Sodium 141 mmol/L (136-145) 12/09/23 11:00 Potassium 5.0 mmol/L (3.5-5.1) 12/09/23 11:00 Chloride 98 mmol/L (98-107) 12/09/23 11:00 Carbon Dioxide 25.9 mmol/L (21-32) 12/09/23 11:00 BUN 47 mg/dL (7-18) H 12/09/23 11:00 Creatinine 2.20 mg/dL (0.55-1.02) H 12/09/23 11:00 Est GFR (MDRD) Af Amer 30 (>60) L 12/09/23 11:00 Est GFR (MDRD) Non-Af 25 (>60) L 12/09/23 11:00 Glucose 468 mg/dL (65-99) H 12/09/23 11:00 POC Glucose (mg/dL) 463 mg/dL (65-99) H 12/09/23 19:14 Calcium 9.0 mg/dL (8.5-10.1) 12/09/23 11:00 Corrected Calcium 10.4 mg/dL (8.5-10.1) H 12/09/23 11:00 Total Bilirubin 2.30 mg/dL (0.2-1.0) H 12/09/23 11:00 AST 11 Units/L (15-37) L 12/09/23 11:00 ALT < 6 Units/L (12-78) L 12/09/23 11:00 Alkaline Phosphatase 213 Units/L (46-116) H 12/09/23 11:00 Creatine Kinase 35 Units/L (26-192) 12/09/23 11:00 Troponin I High Sens 12.6 ng/L (4.0-60.0) 12/09/23 16:46 B-Natriuretic Peptide 898 pg/mL (0-79) H 12/09/23 11:00 Total Protein 7.7 g/dL (6.4-8.2) 12/09/23 11:00 Albumin 2.2 g/dL (3.4-5.0) L 12/09/23 11:00 Globulin 5.5 g/dL (2.5-4.5) H 12/09/23 11:00 Albumin/Globulin Ratio 0.4 Ratio (1.1-2.1) L 12/09/23 11:00 Specimen Type Catherized urine 12/09/23 11:30 Urine Color Straw (YELLOW) 12/09/23 11:30 Urine Appearance Clear (CLEAR) 12/09/23 11:30 Urine pH 5.0 (5.0 - 8.0) 12/09/23 11:30 Ur Specific [place] 1.010 (1.000-1.030) 12/09/23 11:30 Urine Protein Negative (NEGATIVE) 12/09/23 11:30 Urine Glucose (UA) 4+ (NEGATIVE) 12/09/23 11:30 Urine Ketones Negative (NEGATIVE) 12/09/23 11:30 Urine Blood Negative (NEGATIVE) 12/09/23 11:30 Urine Nitrite Negative (NEGATIVE) 12/09/23 11:30 Urine Bilirubin Negative (NEGATIVE) 12/09/23 11:30 Urine Urobilinogen Normal (NORMAL) 12/09/23 11:30 Ur Leukocyte Esterase Negative (NEGATIVE) 12/09/23 11:30 Urine RBC 0-2 /HPF (0-3) 12/09/23 11:30 Urine WBC 0-2 /HPF (0-5) 12/09/23 11:30 Ur Squamous Epith Cells Few /HPF (NEGATIVE) 12/09/23 11:30 Urine Bacteria Negative /HPF (NEGATIVE) 12/09/23 11:30 Ur Culture Indicated? No/not indicated 12/09/23 11:30 Opioid Opioid Risk Tool Age (Calin box if 16-45): No History of Preadolescent Sexual Abuse: No Total: 0 Total Score Risk Category: Low Risk Copyright: Anglin predicting aberrant behaviors Discharge Plan Diagnosis Discharge Problem: CHF exacerbation Discharge Plan Patient Disposition: ADMITTED INPATIENT Condition: Stable Prescriptions: No Action lorazepam 0.5 mg tablet 0.5 mg PO BID PRN dapagliflozin propanediol [Farxiga] 10 mg tablet 10 mg PO QDAY furosemide 40 mg tablet 40 mg PO BID carvedilol 12.5 mg tablet 12.5 mg PO BID Eliquis 5 mg tablet 5 mg PO BID tramadol 50 mg Tablet 50 mg PO BID PRN oxycodone-acetaminophen 10-325 mg Tablet 1 tab PO Q8H PRN insulin glargine [Lantus U-100 Insulin] 100 unit/mL solution 10 unit SUBCUT BID Qty: 10 3RF Patient Comments: [NO ORIGINAL SIG] Rx Instructions: take 10 units twice a day Health Concerns: Post Hospitalization: new medications and changes needed to prevent readmission or further decline. Pt educated and given instructions on all concerns. Plan of Treatment: Continue with present treatment and follow up plan. Pt is to keep follow up appointment as instructed and take medications as ordered. Orders to Discharge Patient Discharge Orders: Transfer (Routine); Ordered 12/09/23 Ordered By: Frieda Cuevas Instructions Stand Alone Forms: Post Hospital Follow Up Care
--- NOTE | 2023-12-09 10:41 | EKG ---
Test Reason : sob Blood Pressure : */* mmHG Vent. Rate : 100 BPM Atrial Rate : 100 BPM P-R Int : 148 ms QRS Dur : 110 ms QT Int : 376 ms P-R-T Axes : 63 -59 69 degrees QTc Int : 485 ms Normal sinus rhythm Left axis deviation Low voltage QRS Inferior infarct (cited on or before 28-OCT-2023) Anterolateral infarct (cited on or before 28-OCT-2023) Abnormal ECG When compared with ECG of 26-NOV-2023 10:34, No significant change was found Confirmed by Donavan Colon MD ([id number]) on 12/10/2023 3:24:41 PM Referred By: Confirmed By: Donavan Colon MD
[2023-12-09] MEDS: LASIX IVP ONE ×2 (11:04→11:14)
[2023-12-09 11:29] LABS: BASOPHILS % (AUTO) 0.5 % (0.2-1.0); EOSINOPHILS # (AUTO) 0.2 x10^3/uL (0.0-0.2); EOSINOPHILS % (AUTO) 3.2 % (0.9-2.9); HEMATOCRIT 34.9 % (36.0-47.0); HEMOGLOBIN 10.9 g/dL (12.0-16.0); LYMPHOCYTES # (AUTO) 1.3 X10^3/uL (1.3-2.9); MEAN CORPUSCULAR HEMOGLOBIN 26.9 pg (27.0-34.0); MEAN CORPUSCULAR HGB CONC 31.3 g/dL (33.0-35.0); MEAN CORPUSCULAR VOLUME 85.9 fL (80.0-100.0); MEAN PLATELET VOLUME 9.6 fL (7.4-11.0); MONOCYTES # (AUTO) 1.1 x10^3/uL (0.3-0.8); MONOCYTES % (AUTO) 14.3 % (0.0-13.0); NEUTROPHILS # (AUTO) 4.9 x10^3/uL (2.2-4.8); PLATELET COUNT 316 X10^3/uL (150.0-450.0); RED BLOOD COUNT 4.06 X10^6/uL (3.5-5.4); RED CELL DISTRIBUTION WIDTH 17.9 % (11.6-16.5); WHITE BLOOD COUNT 7.5 X10^3/uL (3.6-10.0)
--- NOTE | 2023-12-09 12:01 | RAD ---
EXAM:CHEST, 1 VIEWHISTORY:Shortness of breathCOMPARISON:11/29/2023FINDINGS:The trachea is midline. The cardiac silhouette is enlarged with a tortuous thoracic aorta . The lungs are clear without focal infiltrate or effusion. The bony thorax is unremarkable.IMPRESSION:No acute cardiopulmonary disease.THIS IS AN ELECTRONICALLY VERIFIED FINAL REPORT12/09/2023 11:58 AM - Electronically signed by Mino Britt MD
[2023-12-09 12:34] LABS: BILIRUBIN,URINE NEGATIVE (NEGATIVE); BLOOD/HEMOGLOBIN,URINE NEGATIVE (NEGATIVE); GLUCOSE, URINE 4+ (NEGATIVE); KETONES,URINE NEGATIVE (NEGATIVE); LEUKOCYTE ESTERASE ,URINE NEGATIVE (NEGATIVE); NITRITES,URINE NEGATIVE (NEGATIVE); PROTEIN,URINE NEGATIVE (NEGATIVE); UROBILINOGEN,URINE NORMAL (NORMAL)
[2023-12-09 12:35] LABS: APPEARANCE,URINE CLEAR (CLEAR); COLOR,URINE STRAW (YELLOW)
[2023-12-09 12:41] LABS: BACTERIA,URINE NEGATIVE /HPF (NEGATIVE); RBC,URINE 0-2 /HPF (0-3); SQUAMOUS EPITHELIAL CELL,UR FEW /HPF (NEGATIVE)
[2023-12-09 13:13] LABS: INR 1.49 (0.8-1.3)
[2023-12-09 13:27] LABS: BLOOD UREA NITROGEN 47 mg/dL (7-18); CARBON DIOXIDE 25.9 mmol/L (21-32); CHLORIDE 98 mmol/L (98-107); COR NA(FOR HYPERGLY) 141 mmol/L (136-145); GLUCOSE 468 mg/dL (65-99); SODIUM 132 mmol/L (136-145); eGFR NON BLACK RACES 25 (>60)
[2023-12-09 13:54] LABS: CREATINE KINASE 35 Units/L (26-192)
[2023-12-09 18:44] LABS: ALANINE AMINOTRANSFERASE < 6 Units/L (12-78); ALBUMIN 2.2 g/dL (3.4-5.0); ALKALINE PHOSPHATASE 213 Units/L (46-116); ASPARTATE AMINO TRANSFERASE 11 Units/L (15-37); COR CA(FOR HYPOALB) 10.4 mg/dL (8.5-10.1); TOTAL PROTEIN 7.7 g/dL (6.4-8.2)
[2023-12-09] MEDS ORDERED: NovoLIN R (or HumuLIN R) IV PRN (19:16)
[2023-12-09] MEDS: NovoLIN R (or HumuLIN R) IV ONE (19:34)
[2023-12-09] MEDS ORDERED: ROXICODONE TAB 5 MG PO PRN (19:59)
[2023-12-09] MEDS ORDERED: SNACK - Diabetic Appropriate PO SCH (20:00)
[2023-12-09] MEDS ORDERED: ATIVAN TAB 0.5 MG PO PRN (20:02)
[2023-12-09] MEDS ORDERED: PATIENT'S HOME MEDICATION (Oxycodone-Acetaminophen 10-325 mg Tablet) PO PRN (20:02)
[2023-12-09] MEDS ORDERED: TYLENOL 325 MG TAB PO PRN (20:10)
[2023-12-09] MEDS: ELIQUIS PO SCH (21:38)
[2023-12-09] MEDS: COREG TAB 12.5 MG PO SCH (21:38)
[2023-12-09 22:04] VITALS: BMI 67.3
[2023-12-09] MEDS: ROXICODONE TAB 5 MG PO PRN (22:46)
[2023-12-10 05:10] LABS: BASOPHILS % (AUTO) 0.7 % (0.2-1.0); EOSINOPHILS # (AUTO) 0.2 x10^3/uL (0.0-0.2); EOSINOPHILS % (AUTO) 3.1 % (0.9-2.9); HEMATOCRIT 31.2 % (36.0-47.0); LYMPHOCYTES # (AUTO) 1.6 X10^3/uL (1.3-2.9); LYMPHOCYTES % (AUTO) 22.8 % (21.0-51.0); MEAN CORPUSCULAR HEMOGLOBIN 27.5 pg (27.0-34.0); MEAN CORPUSCULAR VOLUME 85.8 fL (80.0-100.0); MEAN PLATELET VOLUME 8.8 fL (7.4-11.0); MONOCYTES # (AUTO) 0.9 x10^3/uL (0.3-0.8); MONOCYTES % (AUTO) 13.5 % (0.0-13.0); NEUTROPHILS # (AUTO) 4.1 x10^3/uL (2.2-4.8); NEUTROPHILS % (AUTO) 59.9 % (42.0-75.0); PLATELET COUNT 220 X10^3/uL (150.0-450.0); RED BLOOD COUNT 3.63 X10^6/uL (3.5-5.4); RED CELL DISTRIBUTION WIDTH 17.3 % (11.6-16.5); WHITE BLOOD COUNT 6.8 X10^3/uL (3.6-10.0)
[2023-12-10 05:21] LABS: ALANINE AMINOTRANSFERASE < 6 Units/L (12-78); ALBUMIN 2.1 g/dL (3.4-5.0); ALKALINE PHOSPHATASE 208 Units/L (46-116); ASPARTATE AMINO TRANSFERASE 8 Units/L (15-37); BLOOD UREA NITROGEN 47 mg/dL (7-18); CALCIUM 8.9 mg/dL (8.5-10.1); CARBON DIOXIDE 28.8 mmol/L (21-32); CHLORIDE 99 mmol/L (98-107); COR CA(FOR HYPOALB) 10.4 mg/dL (8.5-10.1); COR NA(FOR HYPERGLY) 139 mmol/L (136-145); CREATININE 2.11 mg/dL (0.55-1.02); GLUCOSE 383 mg/dL (65-99); POTASSIUM 4.6 mmol/L (3.5-5.1); SODIUM 132 mmol/L (136-145); TOTAL PROTEIN 7.2 g/dL (6.4-8.2); eGFR NON BLACK RACES 26 (>60)
[2023-12-10] MEDS: NovoLIN R (or HumuLIN R) SUBCUT PRN (05:30)
[2023-12-10] MEDS: LASIX IVP SCH ×2 (08:52→20:16)
[2023-12-10] MEDS: LASIX IVP ONE (12:10)
[2023-12-10] MEDS: LANTUS SC SCH (12:11)
--- NOTE | 2023-12-10 17:56 | DR.H&P ---
H&P History & Physical for Day of: H&P Date: 12/10/23 Chief Complaint Chief Complaint: Shortness of breath and increased swelling in her abdomen and lower extremities. History of Present Illness History of Present Illness: The patient has h/o CHF, CKD, and cardiomyopathy. She was admitted by her Pcp on 11/27/23 with CHF. The patient signed out of AMA on 11/29/23 because she stated that she had a cardiology appt in [place], [place]. The patient went to the appt and was informed that it had been rescheduled. The patient states that since she left the hospital, her edema has increased, her abdomen is distended, and she has worsening sob. She has not been able to sleep at night for the past few days because of PND. The patient has been taking Lasix 80mg daily po(40mg in the AM/40mg in the pm). The patient denies headaches, lightheadedness, and chest pain. The patient states that pain in the LLE is greater than in the RLE. This morning, the patient is sitting up on the side of the bed and reports that she has been feeling much better since admission. She still has some generalized edema in the lower extremities and abdominal distention/swelling. Since she has upper limits of normal potassium, I am not going to add spironolactone, but I am going to increase her Lasix to 80 mg IV twice daily. I see that her BNP has i ncreased to 2100 from 898 yesterday. I also see that her creatinine has decreased from 2.22.11. We will repeat a chest x-ray on her and BNP, CMP, and CBC. Her bilirubin and alkaline phosphatase levels are elevated. This is likely secondary to hepatic congestion from CHF. Patient is anemic with a hemoglobin of 10.0 this morning. She was 10.1 yesterday. It looks like she does have anemia of chronic disease. This is likely secondary to chronic kidney disease. 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 Family History Family Medical History: Diabetes Mellitus, Heart Failure and Hypertension Social History Does patient currently use any type of tobacco product: No Have you used tobacco products in the last 12 months: No Type of Tobacco Use: None Does any household member use tobacco: No Alcohol Use: None Drug Use: None Medications Home Medications: Home Medications Medication Instructions Recorded Confirmed Type apixaban 5 mg tablet (Eliquis) 5 mg PO BID 04/26/22 12/09/23 History oxycodone-acetaminophen 10 mg-325 1 tab PO Q8H PRN 08/25/23 12/09/23 History mg tablet tramadol 50 mg tablet 50 mg PO BID PRN 08/25/23 12/09/23 History carvedilol 12.5 mg tablet 12.5 mg PO BID 12/09/23 12/09/23 History dapagliflozin propanediol 10 mg 10 mg PO QDAY 12/09/23 12/09/23 History tablet (Farxiga) furosemide 40 mg tablet 40 mg PO BID 12/09/23 12/09/23 History lorazepam 0.5 mg tablet 0.5 mg PO BID PRN 12/09/23 12/09/23 History Allergies Allergies Allergy/AdvReac Type Severity Reaction Status Date / Time adhesive tape Allergy Verified 12/09/23 10:11 Labs 12/10/23 04:34 12/10/23 04:34 Labs: Laboratory WBC 6.8 X10^3/uL (3.6-10.0) 12/10/23 04:34 RBC 3.63 X10^6/uL (3.5-5.4) 12/10/23 04:34 Hgb 10.0 g/dL (12.0-16.0) L 12/10/23 04:34 Hct 31.2 % (36.0-47.0) L 12/10/23 04:34 MCV 85.8 fL (80.0-100.0) 12/10/23 04:34 MCH 27.5 pg (27.0-34.0) 12/10/23 04:34 MCHC 32.0 g/dL (33.0-35.0) L 12/10/23 04:34 RDW 17.3 % (11.6-16.5) H 12/10/23 04:34 Plt Count 220 X10^3/uL (150.0-450.0) 12/10/23 04:34 MPV 8.8 fL (7.4-11.0) 12/10/23 04:34 Neut % (Auto) 59.9 % (42.0-75.0) 12/10/23 04:34 Lymph % (Auto) 22.8 % (21.0-51.0) 12/10/23 04:34 [place] % (Auto) 13.5 % (0.0-13.0) H 12/10/23 04:34 Eos % (Auto) 3.1 % (0.9-2.9) H 12/10/23 04:34 Baso % (Auto) 0.7 % (0.2-1.0) 12/10/23 04:34 Neut # (Auto) 4.1 x10^3/uL (2.2-4.8) 12/10/23 04:34 Lymph # (Auto) 1.6 X10^3/uL (1.3-2.9) 12/10/23 04:34 [place] # (Auto) 0.9 x10^3/uL (0.3-0.8) H 12/10/23 04:34 Eos # (Auto) 0.2 x10^3/uL (0.0-0.2) 12/10/23 04:34 Baso # (Auto) 0.0 X10^3/uL (0.0-0.1) 12/10/23 04:34 Absolute Nucleated RBC 0.1 /100WBC 12/10/23 04:34 PT 17.6 SECONDS (11.8-14.3) 12/09/23 12:57 INR Target Range - 12/09/23 12:57 INR 1.49 (0.8-1.3) H 12/09/23 12:57 APTT 29.9 SECONDS (22.9-36.5) 12/09/23 12:57 PTT Comment - 12/09/23 12:57 Sodium 132 mmol/L (136-145) L 12/10/23 04:34 Corrected Sodium 139 mmol/L (136-145) 12/10/23 04:34 Potassium 4.6 mmol/L (3.5-5.1) 12/10/23 04:34 Chloride 99 mmol/L (98-107) 12/10/23 04:34 Carbon Dioxide 28.8 mmol/L (21-32) 12/10/23 04:34 BUN 47 mg/dL (7-18) H 12/10/23 04:34 Creatinine 2.11 mg/dL (0.55-1.02) H 12/10/23 04:34 Est GFR (MDRD) Af Amer 31 (>60) L 12/10/23 04:34 Est GFR (MDRD) Non-Af 26 (>60) L 12/10/23 04:34 Glucose 383 mg/dL (65-99) H 12/10/23 04:34 POC Glucose (mg/dL) 162 mg/dL (65-99) H 12/10/23 16:43 Calcium 8.9 mg/dL (8.5-10.1) 12/10/23 04:34 Corrected Calcium 10.4 mg/dL (8.5-10.1) H 12/10/23 04:34 Total Bilirubin 2.00 mg/dL (0.2-1.0) H 12/10/23 04:34 AST 8 Units/L (15-37) L 12/10/23 04:34 ALT < 6 Units/L (12-78) L 12/10/23 04:34 Alkaline Phosphatase 208 Units/L (46-116) H 12/10/23 04:34 Creatine Kinase 35 Units/L (26-192) 12/09/23 11:00 Troponin I High Sens 13.3 ng/L (4.0-60.0) 12/09/23 22:34 B-Natriuretic Peptide 2100 pg/mL (0-79) H 12/10/23 04:34 Total Protein 7.2 g/dL (6.4-8.2) 12/10/23 04:34 Albumin 2.1 g/dL (3.4-5.0) L 12/10/23 04:34 Globulin 5.1 g/dL (2.5-4.5) H 12/10/23 04:34 Albumin/Globulin Ratio 0.4 Ratio (1.1-2.1) L 12/10/23 04:34 Specimen Type Catherized urine 12/09/23 11:30 Urine Color Straw (YELLOW) 12/09/23 11:30 Urine Appearance Clear (CLEAR) 12/09/23 11:30 Urine pH 5.0 (5.0 - 8.0) 12/09/23 11:30 Ur Specific [place] 1.010 (1.000-1.030) 12/09/23 11:30 Urine Protein Negative (NEGATIVE) 12/09/23 11:30 Urine Glucose (UA) 4+ (NEGATIVE) 12/09/23 11:30 Urine Ketones Negative (NEGATIVE) 12/09/23 11:30 Urine Blood Negative (NEGATIVE) 12/09/23 11:30 Urine Nitrite Negative (NEGATIVE) 12/09/23 11:30 Urine Bilirubin Negative (NEGATIVE) 12/09/23 11:30 Urine Urobilinogen Normal (NORMAL) 12/09/23 11:30 Ur Leukocyte Esterase Negative (NEGATIVE) 12/09/23 11:30 Urine RBC 0-2 /HPF (0-3) 12/09/23 11:30 Urine WBC 0-2 /HPF (0-5) 12/09/23 11:30 Ur Squamous Epith Cells Few /HPF (NEGATIVE) 12/09/23 11:30 Urine Bacteria Negative /HPF (NEGATIVE) 12/09/23 11:30 Ur Culture Indicated? No/not indicated 12/09/23 11:30 Review of Systems Constitutional: Weakness and Malaise Eyes: No Symptoms Reported ENT: No Symptoms Reported Respiratory: Cough, Shortness of Breath, SOB with Excertion and Other (PND); denies Hemoptysis Cardiovascular: See HPI, Orthopnea, Paroxysmal Noc. Dyspnea and Edema; denies Chest Pain Gastrointestinal: Abdominal Pain and Other (Abdominal distention) Genitourinary: Retention Musculoskeletal: No Symptoms Reported Skin: No Symptoms Reported Neurological: No Symptoms Reported Physical Exam Vital Signs: Vital Signs Temperature 97.2 F Temperature 97.7 F Pulse Rate [Radial] 78 Pulse Rate [Radial] 79 Respiratory Rate 20 Respiratory Rate 20 Respiratory Rate 20 Blood Pressure [Left Arm] 96/53 Blood Pressure [Left Arm] 106/66 O2 Sat by Pulse Oximetry 100 O2 Sat by Pulse Oximetry 98 Oriented: Normal, Time, Person and Place Eyes: Normal Ear: Normal Nose: Normal Throat: Normal Respiratory: RLL Diminished, LLL Diminished, RLL Rales and LLL Rales Cardiovascular: Normal : Normal Auscultation: Bowel Sounds: Normal Palpation: Other (Abdominal distention secondary to anasarca) Tenderness: Diffuse Skin: Normal Musculoskeletal: Normal Psychiatric: Anxiety and Depression Mood Description: Apathetic and Depressed Affect: Depressed and Quiet Speech Pattern: Clear and Appropriate Assessment/Plan (1) Hyponatremia: Status: Acute Plan: Diuresis with IV Lasix. Monitor daily sodium levels. (2) Major depressive disorder: Qualifiers: Major depression recurrence: recurrent Active/Remission status: remission status unspecified Qualified Code(s): F33.9 - Major depressive disorder, recurrent, unspecified Status: Chronic Plan: I will discuss with the patient tomorrow morning what she normally takes for her major depression as I do not see anything on her medication list. Only thing I see she takes lorazepam twice daily for anxiety. (3) Pulmonary hypertension: Status: Chronic Plan: I will consider adding sildenafil. I will see if I can find an old echocardiogram to check on the most recent function of her heart. (4) CHF exacerbation: Status: Acute Plan: Diuresis with Lasix 80 mg IV every 12 hours and we are increasing this from 40 mg IV every 12 hours. I do not think she is a candidate for spironolactone because she has chronic kidney disease stage IIIb. Will monitor her potassium levels daily and we may try to add a low-dose of spironolactone. (5) Uncontrolled diabetes mellitus: Qualifiers: Diabetes mellitus type: type 2 Glycemic state: with hyperglycemia Qualified Code(s): E11.65 - Type 2 diabetes mellitus with hyperglycemia Status: Acute Plan: The patient's blood sugars have been elevated above 300 we will repeat restart her Lantus 10 units subcutaneous injections twice daily. (6) Anasarca: Status: Acute Plan: IV diuresis with Lasix 80 mg IV twice daily. (7) Anxiety: Status: Acute Plan: Continue oral lorazepam 0.5 mg twice daily as needed. (8) Anemia due to stage 3b chronic kidney disease: Status: Acute Plan: Follow daily hemoglobin and hematocrit levels. We will diurese if needed. I will plan on giving her some Procrit tomorrow. (9) Cardiomyopathy: Qualifiers: Cardiomyopathy type: unspecified Qualified Code(s): I42.9 - Cardiomyopathy, unspecified Status: Acute (10) Hypertension: Qualifiers: Hypertension type: essential hypertension Qualified Code(s): I10 - Esse ntial (primary) hypertension Status: Chronic Plan: Continue carvedilol 12.5 mg twice daily and diuresis with Lasix. The patient is probably not a candidate for an ALESSANDRA inhibitor or ARB, but she may take a low dose. We will have to monitor her potassium level since it already runs in the upper limits of normal. Review H&P Reviewed: Yes Patient was examined?: Yes
[2023-12-10] MEDS: SNACK - Diabetic Appropriate PO SCH (20:21)
[2023-12-11 05:08] LABS: HEMOGLOBIN 10.8 g/dL (12.0-16.0); MEAN CORPUSCULAR HEMOGLOBIN 27.3 pg (27.0-34.0); MEAN CORPUSCULAR HGB CONC 31.8 g/dL (33.0-35.0); WHITE BLOOD COUNT 7.2 X10^3/uL (3.6-10.0)
[2023-12-11 05:14] LABS: BASOPHILS # (AUTO) 0.1 X10^3/uL (0.0-0.1); BASOPHILS % (AUTO) 0.7 % (0.2-1.0); EOSINOPHILS # (AUTO) 0.2 x10^3/uL (0.0-0.2); EOSINOPHILS % (AUTO) 3.4 % (0.9-2.9); HEMATOCRIT 34.1 % (36.0-47.0); LYMPHOCYTES # (AUTO) 1.5 X10^3/uL (1.3-2.9); LYMPHOCYTES % (AUTO) 20.6 % (21.0-51.0); MEAN PLATELET VOLUME 8.6 fL (7.4-11.0); MONOCYTES % (AUTO) 14.2 % (0.0-13.0); NEUTROPHILS # (AUTO) 4.4 x10^3/uL (2.2-4.8); NEUTROPHILS % (AUTO) 61.1 % (42.0-75.0); PLATELET COUNT 234 X10^3/uL (150.0-450.0); RED BLOOD COUNT 3.96 X10^6/uL (3.5-5.4); RED CELL DISTRIBUTION WIDTH 17.4 % (11.6-16.5)
[2023-12-11 05:22] LABS: ALANINE AMINOTRANSFERASE < 6 Units/L (12-78); ALBUMIN 2.2 g/dL (3.4-5.0); ALKALINE PHOSPHATASE 256 Units/L (46-116); ASPARTATE AMINO TRANSFERASE 13 Units/L (15-37); BLOOD UREA NITROGEN 51 mg/dL (7-18); CALCIUM 9.1 mg/dL (8.5-10.1); CARBON DIOXIDE 30.5 mmol/L (21-32); CHLORIDE 99 mmol/L (98-107); COR CA(FOR HYPOALB) 10.5 mg/dL (8.5-10.1); COR NA(FOR HYPERGLY) 136 mmol/L (136-145); GLUCOSE 240 mg/dL (65-99); POTASSIUM 4.8 mmol/L (3.5-5.1); SODIUM 133 mmol/L (136-145); TOTAL PROTEIN 7.9 g/dL (6.4-8.2); eGFR NON BLACK RACES 25 (>60)
[2023-12-11] MEDS: ALBUMIN HUMAN 25%- 100 ML 100 ML IV ONE (11:53)
--- NOTE | 2023-12-11 19:38 | PCM.PROG ---
Progress Note Progress Note for Day of Date of Exam: 12/11/23 Subjective Subjective: The patient reports she is feeling a little better today. She is breathing a little bit better as well. She states her abdomen distention has also gone down. She continues to have bilateral lower extremity edema. I reviewed her last echocardiogram. Her ejection fraction was 18% earlier this year. She does have grade 3 diastolic dysfunction. Her albumin is low this morning, so we will give her 25% albumin and 100 cc IV x 1. She is also hypotensive so we were unable to give her any IV Lasix today. I will decrease her Coreg from 12.5 mg twice daily to 6.25 mg twice daily. Hopefully, we can get her blood pressure up some more by doing that. She is a person who has a chronically elevated BNP's, but we will try to find where she is most comfortable and keep her there. Past Medical Family Social History Past Med/Fam/Surg Hx: No changes since H&P Allergies: Allergies adhesive tape Allergy (Verified 12/09/23 10:11) Review of Systems ROS: No change since H&P Vital Signs and I&O's Vital Signs: Vital Signs Temperature 98.2 F Temperature 97.4 F Pulse Rate [Radial] 86 Pulse Rate [Radial] 85 Respiratory Rate 20 Respiratory Rate 20 Blood Pressure [Left Arm] 100/58 Blood Pressure [Left Arm] 107/55 O2 Sat by Pulse Oximetry 96 O2 Sat by Pulse Oximetry 96 Intake and Output: Intake & Output 12/09/23 12/10/23 12/11/23 12/12/23 11:59 11:59 11:59 11:59 Intake Total 610 / 610 1170 / 1170 700 / 700 Output Total 1999 / 1999 460 / 460 100 / 100 Balance -1390 / -1390 710 / 710 600 / 600 Physical Exam Oriented: Normal, Time, Person and Place Eyes: Normal Ear: Normal Nose: Normal Throat: Normal Respiratory: Right, Left (Lung bases), Generalized and Diminished Cardiovascular: Normal : Normal Auscultation: Bowel Sounds: Normal Tenderness: Diffuse Skin: Normal Musculoskeletal: Normal Psychiatric: Anxiety and Depression Mood Description: Apathetic and Depressed Affect: Depressed and Quiet Speech Pattern: Clear and Appropriate Laboratory and Diagnostics 12/11/23 04:48 12/11/23 04:48 Labs: Laboratory WBC 7.2 X10^3/uL (3.6-10.0) 12/11/23 04:48 RBC 3.96 X10^6/uL (3.5-5.4) 12/11/23 04:48 Hgb 10.8 g/dL (12.0-16.0) L 12/11/23 04:48 Hct 34.1 % (36.0-47.0) L 12/11/23 04:48 MCV 86.0 fL (80.0-100.0) 12/11/23 04:48 MCH 27.3 pg (27.0-34.0) 12/11/23 04:48 MCHC 31.8 g/dL (33.0-35.0) L 12/11/23 04:48 RDW 17.4 % (11.6-16.5) H 12/11/23 04:48 Plt Count 234 X10^3/uL (150.0-450.0) 12/11/23 04:48 MPV 8.6 fL (7.4-11.0) 12/11/23 04:48 Neut % (Auto) 61.1 % (42.0-75.0) 12/11/23 04:48 Lymph % (Auto) 20.6 % (21.0-51.0) L 12/11/23 04:48 [place] % (Auto) 14.2 % (0.0-13.0) H 12/11/23 04:48 Eos % (Auto) 3.4 % (0.9-2.9) H 12/11/23 04:48 Baso % (Auto) 0.7 % (0.2-1.0) 12/11/23 04:48 Neut # (Auto) 4.4 x10^3/uL (2.2-4.8) 12/11/23 04:48 Lymph # (Auto) 1.5 X10^3/uL (1.3-2.9) 12/11/23 04:48 [place] # (Auto) 1.0 x10^3/uL (0.3-0.8) H 12/11/23 04:48 Eos # (Auto) 0.2 x10^3/uL (0.0-0.2) 12/11/23 04:48 Baso # (Auto) 0.1 X10^3/uL (0.0-0.1) 12/11/23 04:48 Absolute Nucleated RBC 0.1 /100WBC 12/11/23 04:48 PT 17.6 SECONDS (11.8-14.3) 12/09/23 12:57 INR Target Range - 12/09/23 12:57 INR 1.49 (0.8-1.3) H 12/09/23 12:57 APTT 29.9 SECONDS (22.9-36.5) 12/09/23 12:57 PTT Comment - 12/09/23 12:57 Sodium 133 mmol/L (136-145) L 12/11/23 04:48 Corrected Sodium 136 mmol/L (136-145) 12/11/23 04:48 Potassium 4.8 mmol/L (3.5-5.1) 12/11/23 04:48 Chloride 99 mmol/L (98-107) 12/11/23 04:48 Carbon Dioxide 30.5 mmol/L (21-32) 12/11/23 04:48 BUN 51 mg/dL (7-18) H 12/11/23 04:48 Creatinine 2.20 mg/dL (0.55-1.02) H 12/11/23 04:48 Est GFR (MDRD) Af Amer 30 (>60) L 12/11/23 04:48 Est GFR (MDRD) Non-Af 25 (>60) L 12/11/23 04:48 Glucose 240 mg/dL (65-99) H 12/11/23 04:48 POC Glucose (mg/dL) 176 mg/dL (65-99) H 12/11/23 16:35 Calcium 9.1 mg/dL (8.5-10.1) 12/11/23 04:48 Corrected Calcium 10.5 mg/dL (8.5-10.1) H 12/11/23 04:48 Magnesium 2.2 mg/dL (2.0-2.9) 12/11/23 04:48 Total Bilirubin 2.10 mg/dL (0.2-1.0) H 12/11/23 04:48 AST 13 Units/L (15-37) L 12/11/23 04:48 ALT < 6 Units/L (12-78) L 12/11/23 04:48 Alkaline Phosphatase 256 Units/L (46-116) H 12/11/23 04:48 Creatine Kinase 35 Units/L (26-192) 12/09/23 11:00 Troponin I High Sens 13.3 ng/L (4.0-60.0) 12/09/23 22:34 B-Natriuretic Peptide 1670 pg/mL (0-79) H 12/11/23 04:48 Total Protein 7.9 g/dL (6.4-8.2) 12/11/23 04:48 Albumin 2.2 g/dL (3.4-5.0) L 12/11/23 04:48 Globulin 5.7 g/dL (2.5-4.5) H 12/11/23 04:48 Albumin/Globulin Ratio 0.4 Ratio (1.1-2.1) L 12/11/23 04:48 Specimen Type Catherized urine 12/09/23 11:30 Urine Color Straw (YELLOW) 12/09/23 11:30 Urine Appearance Clear (CLEAR) 12/09/23 11:30 Urine pH 5.0 (5.0 - 8.0) 12/09/23 11:30 Ur Specific [place] 1.010 (1.000-1.030) 12/09/23 11:30 Urine Protein Negative (NEGATIVE) 12/09/23 11:30 Urine Glucose (UA) 4+ (NEGATIVE) 12/09/23 11:30 Urine Ketones Negative (NEGATIVE) 12/09/23 11:30 Urine Blood Negative (NEGATIVE) 12/09/23 11:30 Urine Nitrite Negative (NEGATIVE) 12/09/23 11:30 Urine Bilirubin Negative (NEGATIVE) 12/09/23 11:30 Urine Urobilinogen Normal (NORMAL) 12/09/23 11:30 Ur Leukocyte Esterase Negative (NEGATIVE) 12/09/23 11:30 Urine RBC 0-2 /HPF (0-3) 12/09/23 11:30 Urine WBC 0-2 /HPF (0-5) 12/09/23 11:30 Ur Squamous Epith Cells Few /HPF (NEGATIVE) 12/09/23 11:30 Urine Bacteria Negative /HPF (NEGATIVE) 12/09/23 11:30 Ur Culture Indicated? No/not indicated 12/09/23 11:30 Radiology Reviewed: Yes Plan (1) Hyponatremia: Status: Acute Narrative Support Text: Patient's sodium has improved from 1 32-1 33 today. Plan: Diuresis with IV Lasix. Monitor daily sodium levels. (2) Major depressive disorder: Status: Chronic Qualifiers: Major depression recurrence: recurrent Active/Remission status: remission status unspecified Qualified Code(s): F33.9 - Major depressive disorder, recurrent, unspecified Plan: I will discuss with the patient tomorrow morning what she normally takes for her major depression as I do not see anything on her medication list. Only thing I see she takes lorazepam twice daily for anxiety. (3) Pulmonary hypertension: Status: Chronic Plan: I will consider adding sildenafil. I will see if I can find an old echocardiogram to check on the most recent function of her heart. (4) CHF exacerbation: Status: Acute Plan: Diuresis with Lasix 80 mg IV every 12 hours and we are increasing this from 40 mg IV every 12 hours. I do not think she is a candidate for spironolactone because she has chronic kidney disease stage IIIb. Will monitor her potassium levels daily and we may try to add a low-dose of spironolactone. (5) Uncontrolled diabetes mellitus: Status: Acute Qualifiers: Diabetes mellitus type: type 2 Glycemic state: with hyperglycemia Qualified Code(s): E11.65 - Type 2 diabetes mellitus with hyperglycemia Plan: The patient's blood sugars have been elevated above 300 we will repeat restart her Lantus 10 units subcutaneous injections twice daily. (6) Anasarca: Status: Acute Plan: IV diuresis with Lasix 80 mg IV twice daily. (7) Anxiety: Status: Acute Plan: Continue oral lorazepam 0.5 mg twice daily as needed. (8) Anemia due to stage 3b chronic kidney disease: Status: Acute Plan: Follow daily hemoglobin and hematocrit levels. We will diurese if needed. I will plan on giving her some Procrit tomorrow. (9) Cardiomyopathy: Status: Acute Qualifiers: Cardiomyopathy type: unspecified Qualified Code(s): I42.9 - Cardiomyopathy, unspecified (10) Hypertension: Status: Chronic Qualifiers: Hypertension type: essential hypertension Qualified Code(s): I10 - Essential (primary) hypertension Plan: Continue carvedilol 12.5 mg twice daily and diuresis with Lasix. The patient is probably not a candidate for an ALESSANDRA inhibitor or ARB, but she may take a low dose. We will have to monitor her potassium level since it already runs in the upper limits of normal. (11) Hypotension: Status: Acute Qualifiers: Hypotension type: unspecified hypotension type Qualified Code(s): I95.9 - Hypotension, unspecified Plan: Decreased carvedilol from 12.5 mg p.o. twice daily 6.25 mg p.o. twice daily. (12) Edema due to hypoalbuminemia: Status: Acute Plan: IV albumin this morning.
[2023-12-11] MEDS: COREG TAB 6.25 MG PO SCH (20:47)
[2023-12-12 04:49] LABS: BASOPHILS % (AUTO) 0.5 % (0.2-1.0); EOSINOPHILS # (AUTO) 0.2 x10^3/uL (0.0-0.2); EOSINOPHILS % (AUTO) 2.8 % (0.9-2.9); HEMATOCRIT 34.2 % (36.0-47.0); HEMOGLOBIN 10.8 g/dL (12.0-16.0); LYMPHOCYTES % (AUTO) 27.7 % (21.0-51.0); MEAN CORPUSCULAR HEMOGLOBIN 27.1 pg (27.0-34.0); MEAN CORPUSCULAR HGB CONC 31.7 g/dL (33.0-35.0); MEAN CORPUSCULAR VOLUME 85.3 fL (80.0-100.0); MEAN PLATELET VOLUME 8.7 fL (7.4-11.0); MONOCYTES % (AUTO) 13.8 % (0.0-13.0); NEUTROPHILS # (AUTO) 4.1 x10^3/uL (2.2-4.8); NEUTROPHILS % (AUTO) 55.2 % (42.0-75.0); PLATELET COUNT 238 X10^3/uL (150.0-450.0); RED CELL DISTRIBUTION WIDTH 17.6 % (11.6-16.5); WHITE BLOOD COUNT 7.3 X10^3/uL (3.6-10.0)
[2023-12-12 04:51] LABS: BLOOD UREA NITROGEN 52 mg/dL (7-18); CALCIUM 9.2 mg/dL (8.5-10.1); CHLORIDE 100 mmol/L (98-107); COR NA(FOR HYPERGLY) 138 mmol/L (136-145); CREATININE 2.27 mg/dL (0.55-1.02); GLUCOSE 177 mg/dL (65-99); SODIUM 136 mmol/L (136-145); eGFR NON BLACK RACES 24 (>60)
[2023-12-12 05:01] LABS: POTASSIUM 5.1 mmol/L (3.5-5.1)
--- NOTE | 2023-12-12 08:04 | RAD ---
EXAM:AP chestHISTORY:CHFCOMPARISON:12/09/2023 [email or web address] Abdominal soft tissue artifact obscures a significant portion of the left lower chest. There is no new abnormality identified.IMPRESSION:Similar cardiomegaly and pulmonary vascular congestion. Incomplete visualization of the left lower lobe and diaphragm/pleural space.THIS IS AN ELECTRONICALLY VERIFIED FINAL REPORT12/12/2023 8:00 AM - Electronically signed by Luis Almazan MD
--- NOTE | 2023-12-12 15:35 | PCM.PROG ---
Progress Note Progress Note for Day of Date of Exam: 12/12/23 Subjective Subjective: The patient reports she is feeling a little better today. She is breathing a little bit better as well. She states her abdomen distention has also gone down. She continues to have bilateral lower extremity edema. I reviewed her last echocardiogram. Her ejection fraction was 18% earlier this year. She does have grade 3 diastolic dysfunction. Her albumin is low this morning, so we will give her albumin 25%, 100 cc IV x 1. Her blood pressure is up from yesterday morning since decreasing the Coreg to 6.25 mg twice daily from 12.5 mg twice daily. Her BNP is up a little compared to yesterday. She is 1740, which is up from 1670. Her creatinine also went up a little from 2.2-2.27. The patient's chest x-ray continues to show vascular congestion. She has been afebrile through the night, and vital signs are currently stable. We plan on getting a cardiology consultation with Dr. Colon when he returns tomorrow. We will continue her current treatment at this time. We will repeat routine labs, a BNP, and a chest x-ray tomorrow morning. Past Medical Family Social History Past Med/Fam/Surg Hx: No changes since H&P Allergies: Allergies adhesive tape Allergy (Verified 12/09/23 10:11) Review of Systems ROS: No change since H&P Vital Signs and I&O's Vital Signs: Vital Signs Temperature 97.4 F Temperature 98.1 F Pulse Rate [Radial] 80 Pulse Rate [Radial] 80 Respiratory Rate 22 Respiratory Rate 20 Blood Pressure [Right Arm] 100/63 Blood Pressure [Right Arm] 119/66 O2 Sat by Pulse Oximetry 98 O2 Sat by Pulse Oximetry 97 Intake and Output: Intake & Output 12/10/23 12/11/23 12/12/23 12/13/23 11:59 11:59 11:59 11:59 Intake Total 610 / 610 1170 / 1170 1360 / 1360 Output Total 1999 / 1999 460 / 460 320 / 320 Balance -1390 / -1390 710 / 710 1040 / 1040 Physical Exam Oriented: Normal, Time, Person and Place Eyes: Normal Ear: Normal Nose: Normal Throat: Normal Respiratory: Right, Left (Lung bases), Generalized and Diminished Cardiovascular: Normal and Edema (4+ bilateral lower extremity) : Normal Auscultation: Bowel Sounds: Normal Tenderness: Diffuse and Other (Abdominal distention secondary to anasarca with lower abdomen being firm to palpate) Skin: Normal Musculoskeletal: Normal Psychiatric: Anxiety and Depression Mood Description: Apathetic and Depressed Affect: Depressed and Quiet Speech Pattern: Clear and Appropriate Laboratory and Diagnostics 12/12/23 04:15 12/12/23 04:15 Labs: 12/12/23 11:10 Leg - Right Wound Gram Stain - Final Laboratory WBC 7.3 X10^3/uL (3.6-10.0) 12/12/23 04:15 RBC 4.00 X10^6/uL (3.5-5.4) 12/12/23 04:15 Hgb 10.8 g/dL (12.0-16.0) L 12/12/23 04:15 Hct 34.2 % (36.0-47.0) L 12/12/23 04:15 MCV 85.3 fL (80.0-100.0) 12/12/23 04:15 MCH 27.1 pg (27.0-34.0) 12/12/23 04:15 MCHC 31.7 g/dL (33.0-35.0) L 12/12/23 04:15 RDW 17.6 % (11.6-16.5) H 12/12/23 04:15 Plt Count 238 X10^3/uL (150.0-450.0) 12/12/23 04:15 MPV 8.7 fL (7.4-11.0) 12/12/23 04:15 Neut % (Auto) 55.2 % (42.0-75.0) 12/12/23 04:15 Lymph % (Auto) 27.7 % (21.0-51.0) 12/12/23 04:15 [place] % (Auto) 13.8 % (0.0-13.0) H 12/12/23 04:15 Eos % (Auto) 2.8 % (0.9-2.9) 12/12/23 04:15 Baso % (Auto) 0.5 % (0.2-1.0) 12/12/23 04:15 Neut # (Auto) 4.1 x10^3/uL (2.2-4.8) 12/12/23 04:15 Lymph # (Auto) 2.0 X10^3/uL (1.3-2.9) 12/12/23 04:15 [place] # (Auto) 1.0 x10^3/uL (0.3-0.8) H 12/12/23 04:15 Eos # (Auto) 0.2 x10^3/uL (0.0-0.2) 12/12/23 04:15 Baso # (Auto) 0.0 X10^3/uL (0.0-0.1) 12/12/23 04:15 Absolute Nucleated RBC 0.4 /100WBC 12/12/23 04:15 PT 17.6 SECONDS (11.8-14.3) 12/09/23 12:57 INR Target Range - 12/09/23 12:57 INR 1.49 (0.8-1.3) H 12/09/23 12:57 APTT 29.9 SECONDS (22.9-36.5) 12/09/23 12:57 PTT Comment - 12/09/23 12:57 Sodium 136 mmol/L (136-145) 12/12/23 04:15 Corrected Sodium 138 mmol/L (136-145) 12/12/23 04:15 Potassium 5.1 mmol/L (3.5-5.1) 12/12/23 04:15 Chloride 100 mmol/L (98-107) 12/12/23 04:15 Carbon Dioxide 28.0 mmol/L (21-32) 12/12/23 04:15 BUN 52 mg/dL (7-18) H 12/12/23 04:15 Creatinine 2.27 mg/dL (0.55-1.02) H 12/12/23 04:15 Est GFR (MDRD) Af Amer 29 (>60) L 12/12/23 04:15 Est GFR (MDRD) Non-Af 24 (>60) L 12/12/23 04:15 Glucose 177 mg/dL (65-99) H 12/12/23 04:15 POC Glucose (mg/dL) 171 mg/dL (65-99) H 12/12/23 11:14 Calcium 9.2 mg/dL (8.5-10.1) 12/12/23 04:15 Corrected Calcium 10.5 mg/dL (8.5-10.1) H 12/11/23 04:48 Magnesium 2.2 mg/dL (2.0-2.9) 12/11/23 04:48 Total Bilirubin 2.10 mg/dL (0.2-1.0) H 12/11/23 04:48 AST 13 Units/L (15-37) L 12/11/23 04:48 ALT < 6 Units/L (12-78) L 12/11/23 04:48 Alkaline Phosphatase 256 Units/L (46-116) H 12/11/23 04:48 Creatine Kinase 35 Units/L (26-192) 12/09/23 11:00 Troponin I High Sens 13.3 ng/L (4.0-60.0) 12/09/23 22:34 B-Natriuretic Peptide 1740 pg/mL (0-79) H 12/12/23 04:15 Total Protein 7.9 g/dL (6.4-8.2) 12/11/23 04:48 Albumin 2.2 g/dL (3.4-5.0) L 12/11/23 04:48 Globulin 5.7 g/dL (2.5-4.5) H 12/11/23 04:48 Albumin/Globulin Ratio 0.4 Ratio (1.1-2.1) L 12/11/23 04:48 Specimen Type Catherized urine 12/09/23 11:30 Urine Color Straw (YELLOW) 12/09/23 11:30 Urine Appearance Clear (CLEAR) 12/09/23 11:30 Urine pH 5.0 (5.0 - 8.0) 12/09/23 11:30 Ur Specific [place] 1.010 (1.000-1.030) 12/09/23 11:30 Urine Protein Negative (NEGATIVE) 12/09/23 11:30 Urine Glucose (UA) 4+ (NEGATIVE) 12/09/23 11:30 Urine Ketones Negative (NEGATIVE) 12/09/23 11:30 Urine Blood Negative (NEGATIVE) 12/09/23 11:30 Urine Nitrite Negative (NEGATIVE) 12/09/23 11:30 Urine Bilirubin Negative (NEGATIVE) 12/09/23 11:30 Urine Urobilinogen Normal (NORMAL) 12/09/23 11:30 Ur Leukocyte Esterase Negative (NEGATIVE) 12/09/23 11:30 Urine RBC 0-2 /HPF (0-3) 12/09/23 11:30 Urine WBC 0-2 /HPF (0-5) 12/09/23 11:30 Ur Squamous Epith Cells Few /HPF (NEGATIVE) 12/09/23 11:30 Urine Bacteria Negative /HPF (NEGATIVE) 12/09/23 11:30 Ur Culture Indicated? No/not indicated 12/09/23 11:30 Plan (1) Hyponatremia: Status: Acute Plan: Diuresis with IV Lasix. Monitor daily sodium levels. (2) Major depressive disorder: Status: Chronic Qualifiers: Major depression recurrence: recurrent Active/Remission status: remission status unspecified Qualified Code(s): F33.9 - Major depressive disorder, recurrent, unspecified Plan: I will discuss with the patient tomorrow morning what she normally takes for her major depression as I do not see anything on her medication list. Only thing I see she takes lorazepam twice daily for anxiety. (3) Pulmonary hypertension: Status: Chronic Plan: I will consider adding sildenafil. I will see if I can find an old echocardiogram to check on the most recent function of her heart. (4) CHF exacerbation: Status: Acute Plan: Diuresis with Lasix 80 mg IV every 12 hours and we are increasing this from 40 mg IV every 12 hours. I do not think she is a candidate for spironolactone because she has chronic kidney disease stage IIIb. Will monitor her potassium levels daily and we may try to add a low-dose of spironolactone. (5) Uncontrolled diabetes mellitus: Status: Acute Qualifiers: Diabetes mellitus type: type 2 Glycemic state: with hyperglycemia Qualified Code(s): E11.65 - Type 2 diabetes mellitus with hyperglycemia Plan: The patient's blood sugars have been elevated above 300 we will repeat restart her Lantus 10 units subcutaneous injections twice daily. (6) Anasarca: Status: Acute Plan: IV diuresis with Lasix 80 mg IV twice daily. (7) Anxiety: Status: Acute Plan: Continue oral lorazepam 0.5 mg twice daily as needed. (8) Anemia due to stage 3b chronic kidney disease: Status: Acute Narrative Support Text: The patient's hemoglobin level is stable. Plan: Follow daily hemoglobin and hematocrit levels. We will diurese if needed. I will plan on giving her some Procrit tomorrow. (9) Cardiomyopathy: Status: Acute Qualifiers: Cardiomyopathy type: unspecified Qualified Code(s): I42.9 - Cardiomyopathy, unspecified Plan: We will do a cardiology consultation with reliability technicians Dr. Colon tomorrow since he will be back. (10) Hypertension: Status: Chronic Qualifiers: Hypertension type: essential hypertension Qualified Code(s): I10 - E ssential (primary) hypertension Plan: Continue carvedilol 12.5 mg twice daily and diuresis with Lasix. The patient is probably not a candidate for an ALESSANDRA inhibitor or ARB, but she may take a low dose. We will have to monitor her potassium level since it already runs in the upper limits of normal. (11) Hypotension: Status: Acute Qualifiers: Hypotension type: unspecified hypotension type Qualified Code(s): I95.9 - Hypotension, unspecified Plan: Decreased carvedilol from 12.5 mg p.o. twice daily 6.25 mg p.o. twice daily. (12) Edema due to hypoalbuminemia: Status: Acute Plan: IV albumin this morning.
[2023-12-13 04:38] VITALS: O2SAT 97
[2023-12-13 04:52] LABS: BASOPHILS # (AUTO) 0.3 X10^3/uL (0.0-0.1); BASOPHILS % (AUTO) 3.7 % (0.2-1.0); BLOOD UREA NITROGEN 57 mg/dL (7-18); CALCIUM 9.1 mg/dL (8.5-10.1); CARBON DIOXIDE 28.3 mmol/L (21-32); CHLORIDE 100 mmol/L (98-107); COR NA(FOR HYPERGLY) 138 mmol/L (136-145); CREATININE 2.36 mg/dL (0.55-1.02); EOSINOPHILS # (AUTO) 0.2 x10^3/uL (0.0-0.2); EOSINOPHILS % (AUTO) 2.7 % (0.9-2.9); GLUCOSE 161 mg/dL (65-99); HEMATOCRIT 32.5 % (36.0-47.0); HEMOGLOBIN 10.4 g/dL (12.0-16.0); LYMPHOCYTES # (AUTO) 0.9 X10^3/uL (1.3-2.9); LYMPHOCYTES % (AUTO) 11.3 % (21.0-51.0); MEAN CORPUSCULAR VOLUME 84.3 fL (80.0-100.0); MEAN PLATELET VOLUME 8.6 fL (7.4-11.0); MONOCYTES # (AUTO) 0.9 x10^3/uL (0.3-0.8); MONOCYTES % (AUTO) 12.2 % (0.0-13.0); NEUTROPHILS # (AUTO) 5.3 x10^3/uL (2.2-4.8); NEUTROPHILS % (AUTO) 70.1 % (42.0-75.0); PLATELET COUNT 226 X10^3/uL (150.0-450.0); POTASSIUM 4.7 mmol/L (3.5-5.1); RED BLOOD COUNT 3.86 X10^6/uL (3.5-5.4); RED CELL DISTRIBUTION WIDTH 17.4 % (11.6-16.5); SODIUM 137 mmol/L (136-145); WHITE BLOOD COUNT 7.6 X10^3/uL (3.6-10.0); eGFR NON BLACK RACES 23 (>60)
[2023-12-13 04:55] LABS: MAGNESIUM 2.2 mg/dL (2.0-2.9)
[2023-12-13] MEDS: MAALOX or MYLANTA PO PRN (05:26)
--- NOTE | 2023-12-13 06:49 | RAD ---
EXAM: Portable chest HISTORY: Chest congestion COMPARISON: 12/12/2023 FINDINGS: Heart is enlarged. Mild pulmonary venous congestion is present. No definite interstitial or alveo lar edema. Right lung and left upper lung bob are free of acute infiltrates. Left lower lobe is partially obscured by the patient's cardiomegaly and the patient's pannus. IMPRESSION: No significant change from the prior examination THIS IS AN ELECTRONICALLY VERIFIED FINAL REPORT 12/13/2023 6:46 AM - Electronically signed by Quentin Mancuso MD
[2023-12-13 09:03] VITALS: BP 109/64; PULSE 91; RESP 20; TEMP 98.1
--- NOTE | 2023-12-13 13:35 | PCM.DCPLAN ---
DISCHARGE SUMMARY Admission Date Date of Admission: 12/09/23 Discharge Date Discharge Date: 12/13/23 Admission Diagnoses (1) Hyponatremia: Status: Acute (2) Major depressive disorder: Status: Chronic (3) Pulmonary hypertension: Status: Chronic (4) CHF exacerbation: Status: Acute (5) Uncontrolled diabetes mellitus: Status: Acute (6) Anasarca: Status: Acute (7) Anxiety: Status: Acute (8) Anemia due to stage 3b chronic kidney disease: Status: Acute (9) Cardiomyopathy: Status: Acute (10) Hypertension: Status: Chronic (11) Hypotension: Status: Acute (12) Edema due to hypoalbuminemia: Status: Acute Discharge Medications Discharge Medications: Home Medication List carvedilol 12.5 mg tablet 12.5 mg PO BID 12/09/23 [History] dapagliflozin propanediol 10 mg tablet (Farxiga) 10 mg PO QDAY 12/09/23 [History] furosemide 40 mg tablet 40 mg PO BID 12/09/23 [History] lorazepam 0.5 mg tablet 0.5 mg PO BID PRN 12/09/23 [History] ciprofloxacin HCl 250 mg tablet (Cipro) 250 mg PO BID 7 days #14 tabs 12/13/23 [Rx] gentamicin 0.1 % topical cream 1 applic topical TID #1 g 12/13/23 [Rx] sulfamethoxazole 800 mg-trimethoprim 160 mg tablet (Bactrim DS) 1 tab PO BID 7 days #14 tabs 12/13/23 [Rx] Prescriptions: ciprofloxacin HCl [Cipro] [facility] gentamicin [facility] sulfamethoxazole-trimethoprim [Bactrim DS] [facility] Hospital Course Vital Signs: Vital Signs Temperature 98.1 F Pulse Rate [Radial] 91 Respiratory Rate 20 Blood Pressure [Right Arm] 109/64 O2 Sat by Pulse Oximetry 97 Latest Lab Results: Laboratory Last Values WBC 7.6 X10^3/uL (3.6-10.0) 12/13/23 04:24 RBC 3.86 X10^6/uL (3.5-5.4) 12/13/23 04:24 Hgb 10.4 g/dL (12.0-16.0) L 12/13/23 04:24 Hct 32.5 % (36.0-47.0) L 12/13/23 04:24 MCV 84.3 fL (80.0-100.0) 12/13/23 04:24 MCH 27.0 pg (27.0-34.0) 12/13/23 04:24 MCHC 32.0 g/dL (33.0-35.0) L 12/13/23 04:24 RDW 17.4 % (11.6-16.5) H 12/13/23 04:24 Plt Count 226 X10^3/uL (150.0-450.0) 12/13/23 04:24 MPV 8.6 fL (7.4-11.0) 12/13/23 04:24 Neut % (Auto) 70.1 % (42.0-75.0) 12/13/23 04:24 Lymph % (Auto) 11.3 % (21.0-51.0) L 12/13/23 04:24 Jess[place] % (Auto) 12.2 % (0.0-13.0) 12/13/23 04:24 Eos % (Auto) 2.7 % (0.9-2.9) 12/13/23 04:24 Baso % (Auto) 3.7 % (0.2-1.0) H 12/13/23 04:24 Neut # (Auto) 5.3 x10^3/uL (2.2-4.8) H 12/13/23 04:24 Lymph # (Auto) 0.9 X10^3/uL (1.3-2.9) L 12/13/23 04:24 Jessamine # (Auto) 0.9 x10^3/uL (0.3-0.8) H 12/13/23 04:24 Eos # (Auto) 0.2 x10^3/uL (0.0-0.2) 12/13/23 04:24 Baso # (Auto) 0.3 X10^3/uL (0.0-0.1) H 12/13/23 04:24 Absolute Nucleated RBC 0.0 /100WBC 12/13/23 04:24 PT 17.6 SECONDS (11.8-14.3) 12/09/23 12:57 INR Target Range - 12/09/23 12:57 INR 1.49 (0.8-1.3) H 12/09/23 12:57 APTT 29.9 SECONDS (22.9-36.5) 12/09/23 12:57 PTT Comment - 12/09/23 12:57 Sodium 137 mmol/L (136-145) 12/13/23 04:24 Corrected Sodium 138 mmol/L (136-145) 12/13/23 04:24 Potassium 4.7 mmol/L (3.5-5.1) 12/13/23 04:24 Chloride 100 mmol/L (98-107) 12/13/23 04:24 Carbon Dioxide 28.3 mmol/L (21-32) 12/13/23 04:24 BUN 57 mg/dL (7-18) H 12/13/23 04:24 Creatinine 2.36 mg/dL (0.55-1.02) H 12/13/23 04:24 Est GFR (MDRD) Af Amer 27 (>60) L 12/13/23 04:24 Est GFR (MDRD) Non-Af 23 (>60) L 12/13/23 04:24 Glucose 161 mg/dL (65-99) H 12/13/23 04:24 POC Glucose (mg/dL) 155 mg/dL (65-99) H 12/13/23 05:29 Calcium 9.1 mg/dL (8.5-10.1) 12/13/23 04:24 Corrected Calcium 10.5 mg/dL (8.5-10.1) H 12/11/23 04:48 Magnesium 2.2 mg/dL (2.0-2.9) 12/13/23 04:24 Total Bilirubin 2.10 mg/dL (0.2-1.0) H 12/11/23 04:48 AST 13 Units/L (15-37) L 12/11/23 04:48 ALT < 6 Units/L (12-78) L 12/11/23 04:48 Alkaline Phosphatase 256 Units/L (46-116) H 12/11/23 04:48 Creatine Kinase 35 Units/L (26-192) 12/09/23 11:00 Troponin I High Sens 13.3 ng/L (4.0-60.0) 12/09/23 22:34 B-Natriuretic Peptide 1640 pg/mL (0-79) H 12/13/23 04:24 Total Protein 7.9 g/dL (6.4-8.2) 12/11/23 04:48 Albumin 2.2 g/dL (3.4-5.0) L 12/11/23 04:48 Globulin 5.7 g/dL (2.5-4.5) H 12/11/23 04:48 Albumin/Globulin Ratio 0.4 Ratio (1.1-2.1) L 12/11/23 04:48 Specimen Type Catherized urine 12/09/23 11:30 Urine Color Straw (YELLOW) 12/09/23 11:30 Urine Appearance Clear (CLEAR) 12/09/23 11:30 Urine pH 5.0 (5.0 - 8.0) 12/09/23 11:30 Ur Specific Kirvin 1.010 (1.000-1.030) 12/09/23 11:30 Urine Protein Negative (NEGATIVE) 12/09/23 11:30 Urine Glucose (UA) 4+ (NEGATIVE) 12/09/23 11:30 Urine Ketones Negative (NEGATIVE) 12/09/23 11:30 Urine Blood Negative (NEGATIVE) 12/09/23 11:30 Urine Nitrite Negative (NEGATIVE) 12/09/23 11:30 Urine Bilirubin Negative (NEGATIVE) 12/09/23 11:30 Urine Urobilinogen Normal (NORMAL) 12/09/23 11:30 Ur Leukocyte Esterase Negative (NEGATIVE) 12/09/23 11:30 Urine RBC 0-2 /HPF (0-3) 12/09/23 11:30 Urine WBC 0-2 /HPF (0-5) 12/09/23 11:30 Ur Squamous Epith Cells Few /HPF (NEGATIVE) 12/09/23 11:30 Urine Bacteria Negative /HPF (NEGATIVE) 12/09/23 11:30 Ur Culture Indicated? No/not indicated 12/09/23 11:30 Hospital Course: The patient has h/o CHF, CKD, and cardiomyopathy. She was admitted by her Pcp on 11/27/23 with CHF. The patient signed out of AMA on 11/29/23 because she stated that she had a cardiology appt in [place], [place]. The patient went to the appt and was informed that it had been rescheduled. The patient states that since she left the hospital, her edema has increased, her abdomen is distended, and she has worsening sob. She has not been able to sleep at night for the past few days because of PND. The patient has been taking Lasix 80mg daily po(40mg in the AM/40mg in the pm). The patient denies headaches, lightheadedness, and chest pain. Regarding the patient's bilateral lower extremity pain she states that the pain in the LLE is greater than in the RLE. This morning, the patient is sitting up on the side of the bed and reports that she has been feeling much better since admission. She still has some generalized edema in the lower extremities and abdominal distention/swelling. Since she has upper limits of normal potassium, I am not going to add spironolactone, but I am going to increase her Lasix to 80 mg IV twice daily. I see that her BNP has increased to 2100 from 898 yesterday. I also see that her creatinine has decreased from 2.22.11. We will repeat a chest x-ray on her and BNP, CMP, and CBC. Her bilirubin and alkaline phosphatase levels are elevated. This is likely secondary to hepatic congestion from CHF. Patient is anemic with a hemoglobin of 10.0 this morning. She was 10.1 yesterday. It looks like she does have anemia of chronic disease. This s likely secondary to chronic kidney disease. The patient also complained about a sore on the right buttock area which is a small ulcer is likely secondary to chronic kidney disease. We will treat her with oral Cipro at 250 mg 1 p.o. daily because of her chronic kidney disease, and Bactrim DS as well as gentamicin cream. After we had started the patient on Lasix 80 mg IV twice daily her urine output picked up and she did have less abdominal distention and leg edema from that. She developed hypotension after we started diuresing her with a higher dose Lasix so we decreased her Coreg from 12.5 mg twice daily to 6.25 mg twice daily. We held the a.m. dose of Lasix she did receive the afternoon dose. Following morning her blood pressure was low again so we held the Lasix 80 mg IV in the morning. Her BNP is down to the mid 1000's and her creatinine is improved at about her normal baseline at 2.36 since the patient is still having trouble with fluid retention we will go start her on outpatient Lasix 80 mg p.o. every morning and 40 mg in afternoon. Hopefully with the oral dose since it is not nearly as potent as IV dose she can tolerate this and follow-up with her primary care provider within a week. She sees Dr. Yoselin Fitch in [facility]. She can resume her regular medication as before and we will discharge her in stable condition this morning.
[2023-12-13 13:41] LABS: ALANINE AMINOTRANSFERASE < 6 Units/L (12-78); ALBUMIN 2.4 g/dL (3.4-5.0); ALKALINE PHOSPHATASE 288 Units/L (46-116); ASPARTATE AMINO TRANSFERASE 14 Units/L (15-37); COR CA(FOR HYPOALB) 10.4 mg/dL (8.5-10.1); TOTAL PROTEIN 7.8 g/dL (6.4-8.2)
[2023-12-13 14:16] LABS: ALANINE AMINOTRANSFERASE < 6 Units/L (12-78); ALBUMIN 2.6 g/dL (3.4-5.0); ALKALINE PHOSPHATASE 269 Units/L (46-116); ASPARTATE AMINO TRANSFERASE 15 Units/L (15-37); COR CA(FOR HYPOALB) 10.3 mg/dL (8.5-10.1); TOTAL PROTEIN 8.1 g/dL (6.4-8.2)
== END 2023-12-13 11:50 | disposition home or self-care (01) ==
LOC: MED/SURG 10:10 → ER 10:10 → MED/SURG 20:16
PROVIDERS: ADMIT Family Medicine; ATTEND Family Medicine